=== PATIENT | male | born 1945 | race African-American/Black ===

== ENCOUNTER 2016-10-18 11:03 | Emergency (ER) | payer OTHER, MEDICAID ==
[~2016-10-18 11:03] MED LIST: ALBU1AER INH; ASPI81TA82 PO; DOCU1CAP39 PO; FERR324T4 PO; FURO20TA PO; KLOR20TA6 PO; LANTUSP SQ; LOSA100T PO; METO50TA PO; MORP30SU PO; PROT40TA PO; SIMV40TA PO; TIOT1AER; TRAD5TAB PO; VITA200017 PO
[2016-10-18 11:05] VITALS: BP 159/67; PULSE 61; RESP 16; TEMP 98.2; O2SAT 99
--- NOTE | 2016-10-18 16:17 | PD ---
HPI Chief Complaint: Skin Problem Time Seen by Provider: 15:18 Travel History International Travel<30 days: No Contact w/Intl Traveler<30days: No Traveled to known affect area: No History of Present Illness HPI Is a 71-year-old man who presents to the emergency department complaining of bleeding from all left groin wound. He apparently had an I&D of the left groin mass that was ultimately an abscess and ultimately is found to be a malignant tumor. He's had biopsies of it done. He's been ongoing for what he reports as a couple months. He states he is due to start chemotherapy. He gets wound care for the wound. The wound care [employer] saw him today. She noted significant bleeding and so referred him to the emergency department. They note that they sent with them also noted that the wound is increased in size. History Past Medical History Narrative Medical Malignancy 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 Alcohol Use: No Tobacco Use: No Allergies-Medications (Allergen,Severity, Reaction): Coded Allergies: No Known Allergies (Verified , 04/21/16) Reported Meds & Prescriptions Reported Meds & Active Scripts Active Ferrous Sulfate 325 Mg Tab 325 Mg PO BID 30 Days Protonix (Pantoprazole Sodium) 40 Mg Tab 40 Mg PO DAILY 30 Days Colace 100 Mg Cap (Docusate Sodium) 100 Mg Cap 100 Mg PO BID 30 Days Reported Vitamin D3 (Cholecalciferol) 2,000 Unit Chw 2,000 Unit PO Tradjenta (Linagliptin) 5 Mg Tab 5 Mg PO DAILY Stiolto Respimat 2.5-2.5 Mcg/Act (Tiotropium [place]-Olodaterol) 1 Aer Aer Furosemide 20 Mg Tab 20 Mg PO DAILY Klor-Con M20 (Potassium Chloride Microencaps) 20 Meq Tab 20 Meq PO DAILY Aspir-81 (Aspirin) 81 Mg Tab 81 Mg PO DAILY Losartan Potassium 100 MG (Losartan Potassium) 100 Mg Tab 100 Mg PO DAILY Proair Hfa (Albuterol Sulfate) 8.5 Gm Aero 2 Puff INH BID PRN * SHAKE WELL BEFORE USE * Morphine Sulfate Er (Morphine Sulfate) 30 Mg Tab 30 Mg PO TID Lantus (Insulin Glargine) 100 Units/Ml Inj 45 Units SQ HS Simvastatin 40 Mg Tab 40 Mg PO HS Lopressor (Metoprolol Tartrate) 50 Mg Tab 50 Mg PO BID Review of Systems General / Constitutional: No: Fever, Chills Physical Exam Narrative GENERAL: 71-year-old man, no acute distress. SKIN: Warm and dry. CARDIOVASCULAR: Warm and well perfused. RESPIRATORY: Normal rate and effort. MUSCULOSKELETAL: Examination of the left groin reveals a large tumor in the medial very proximal thigh with an ulcerated wound. Wound base has a little bit of fibrinous exudate. There is no active bleeding. NEUROLOGICAL: Awake and alert. No gross deficits. Data Data Last Documented VS Vital Signs Date Time Temp Pulse Resp B/P Pulse Ox O2 Delivery O2 Flow Rate FiO2 10/18/16 11:05 98.2 61 16 159/67 99 MDM Medical Decision Making Medical Screen Exam Complete: Yes Emergency Medical Condition: Yes Differential Diagnosis Malignant wound, bleeding, other Narrative Course Medical decision making INITIAL: This 71-year-old man presents emergency Department with bleeding from what sounds like a malignant wound on his leg. He is due to start chemotherapy for this. I examine the wound. He states that they had some concern that it was ulcerating deeper and may approach the femoral vessels in the leg. I looked under ultrasound and the wound is remote from the femoral vessels. There is no active bleeding now. I applied wound seal powder to the base to help cauterize the base to prevent further bleeding. We then placed in alginate dressing and sterile dressing. His wound care team comes twice a week. They'll come back on Monday to reevaluate the wound. I instructed him if he has any bleeding from the wound apply direct pressure. This does not stop the bleeding and is to call 911 and return to the emergency department. These wounds are notoriously vascular and prone to bleeding. Diagnosis Primary Impression: Bleeding from wound Additional Instructions: If bleeding recurs, apply direct pressure. If this does not stop the bleeding call 911 and return to the emergency department. Follow-up with your wound care doctor. Med/Other Pt SpecificInfo: No Change to Meds Disposition: 01 DISCHARGE HOME Condition: Stable Jackson Henriquez MD Oct 18, 2016 16:16
[2016-10-19] MEDS ORDERED: TOPR50TA PO (10:04)
[2016-10-19] MEDS ORDERED: POTA1TAB4 PO (10:04)
[2016-10-19] MEDS ORDERED: GABA300C5 PO (10:04)
[2016-10-19] MEDS ORDERED: HYDR25TA35 PO (10:04)
[2016-10-19] MEDS ORDERED: FERR325T PO (10:04)
[2016-10-19] MEDS ORDERED: MORP1TAB25 PO (10:04)
[2016-10-19] MEDS ORDERED: ISOS30TA3 PO (10:04)
[2016-10-19] MEDS ORDERED: FURO1TAB60 PO (10:04)
[2016-10-19] MEDS ORDERED: SYMB160A INH (10:04)
[2016-10-19] MEDS ORDERED: SULF1TAB23 PO (10:04)
[2016-10-19] MEDS ORDERED: LOSA25TA PO (10:04)
[2016-10-19] MEDS ORDERED: PROT40TA PO (10:04)
[2016-10-19] MEDS ORDERED: IPRA0.02 NEB (10:04)
== END 2016-10-18 17:28 | disposition home or self-care (01) ==
LOC: NEPC 11:03
DX: C80.1 Malignant (primary) neoplasm, unspecified (principal)
CPT/HCPCS: 99282

== ENCOUNTER → 2016-10-20 | Day surgery (SDC) | payer OTHER, MEDICAID ==
[~2016-10-20] VITALS: Ht 174 cm; Wt 86.9 kg
[~2016-10-20] MED LIST changes: -ALBU1AER INH; +ALBU4TAB4 PO; -ASPI81TA82 PO; +CHLORHEXIDINE GLUCONATE 2 % 1 PACK (2 CLOTHS) TOPICAL PRN; +DEXAMETHASONE SOD PHOS 4 MG/ML VIAL ONE; +DO NOT ADM ANY ANTICOAGULANT DRUGS PRN; -DOCU1CAP39 PO; +DOXY1CAP74 PO; +DULO1CAP PO; +FAMOTIDINE 20 MG/2 ML VIAL ONE; -FERR324T4 PO; +FERR325T PO; +FURO1TAB60 PO; -FURO20TA PO; +GABA300C5 PO; +HEPARIN SODIUM - SQ 10,000 UNITS/ML VIAL ONE; +HUMALOG SQ; +HYDR25TA35 PO; +INSULIN HUMAN REGULAR 1,000 UNITS/10 ML VIAL SQ PRN; +IPRA0.02 NEB; +ISOS30TA3 PO; -KLOR20TA6 PO; +LACTATED RINGER'S 1000 ML IV PRN; -LANTUSP SQ; +LIDOCAINE 1%/EPINEPHrine 1:100,000 SOLN 20 ML VIAL ONE; -LOSA100T PO; +LOSA25TA PO; -METO50TA PO; +METOPROLOL TARTRATE 25 MG TAB PO PRN; +MIDAZOLAM HCL 2 MG/2 ML VIAL ONE; +MORP1TAB25 PO; -MORP30SU PO; +NITR1SUB3 SL; +ONDANSETRON HCL 4 MG/2 ML VIAL IV PUSH ONE; +POTA1TAB4 PO; +POVIDONE IODINE 5% (ANTISEPSIS KIT) 4 APPLICATIONS EACH NARE PRN; +PROPOFOL 200 MG/20 ML AMP IV ONE; +SODIUM CHLORID 0.9% 500 ML IV PRN; +SODIUM CHLORIDE 0.9% 20 ML VIAL ONE; +SULF1TAB23 PO; +SYMB160A INH; -TIOT1AER; +TOPR50TA PO; -TRAD5TAB PO; +TRAZ50TA12 PO; +VENTAER INH; -VITA200017 PO; +ceFAZolin 2 GM PREMIX 50 ML IV SCH; +ceFAZolin 2 GM PREMIX 50 ML ONE; +fentaNYL CITRATE 250 MCG/5 ML AMP ONE; +oxyCODONE/ACETAMINOPHEN 5 MG/325 MG TAB PO ONE
[2016-10-20 10:05] VITALS: BP 146/65; PULSE 60; RESP 18; TEMP 98; O2SAT 98
[2016-10-20 11:33] LABS: AUTOMATED NEUTROPHIL # 1.4 TH/MM3 (1.8-7.7); BASOPHIL % 0.5 % (0.0-2.0); EOSINOPHIL % 1.2 % (0.0-4.0); HEMATOCRIT 28.7 % (39.0-51.0); LYMPH % 27.8 % (9.0-44.0); LYMPHOCYTE # 0.6 TH/MM3 (1.0-4.8); MEAN CELL VOLUME 90.3 FL (80.0-100.0); MEAN CORPUSCULAR HEMOGLOBIN 29.4 PG (27.0-34.0); MEAN CORPUSCULAR HGB CONC 32.5 % (32.0-36.0); MONO % 9.5 % (0.0-8.0); PLATELET COUNT 50 TH/MM3 (150-450); RED BLOOD COUNT 3.18 MIL/MM3 (4.50-5.90); RED CELL DISTRIBUTION WIDTH 14.5 % (11.6-17.2); WHITE BLOOD COUNT 2.3 TH/MM3 (4.0-11.0)
[2016-10-20 11:37] LABS: HEMO FLAGS AUTO DIFF
[2016-10-20 11:43] LABS: APTT (PATIENT) 30.4 SEC (24.3-30.1); INTERNATIONAL NORMALIZED RATIO 1.2 RATIO; PROTHROMBIN TIME - PATIENT 13.9 SEC (9.8-11.6)
[2016-10-20 11:54] LABS: BICARBONATE 25.9 MEQ/L (21.0-32.0); POTASSIUM 4.2 MEQ/L (3.5-5.1)
[2016-10-20 12:23] LABS: SCAN/DIFF AUTO DIFF CONFIRMED
--- NOTE | 2016-10-20 13:03 | HHI.PR ---
Immediate Post Op Note Procedure Date: Oct 20, 2016 Pre Op Diagnosis: b cell lymphoma Post Op Diagnosis: same Surgeon: Ricardo Macdonald MD Vb Developer(s): see or sheet Procedure: left subclavian infusaport placement Findings: good flush good return through port Complications: none Specimen(s) removed: none Estimated blood loss: 5cc Anesthesia: MAC Drains: None IVF (600) Patient to: PACU Patient Condition: Good Ricardo Macdonald MD Oct 20, 2016 13:03
--- NOTE | 2016-10-20 14:44 | RADRPT ---
EXAM DATE/TIME: 10/20/2016 13:11 [facility] COMPARISON: CHEST SINGLE AP, April 23, 2016, 8:09. INDICATIONS : Port placement MEDICAL HISTORY : Chronic obstructive pulmonary disease. Hypertension Congestive heart failure. SURGICAL HISTORY : CABG. ENCOUNTER: Initial ACUITY: 1 day PAIN SCORE: Non-responsive. LOCATION: Bilateral chest FINDINGS: Single AP view of the chest. Median sternotomy wires. Left-sided [id number] in place with the tip in the region of the cavoatrial junction. Cardiac silhouette is enlarged and grossly unchanged. Lungs are clear. No evidence of pleural effusion or pneumothorax. Metallic coils in the left subclavian re gion. CONCLUSION: [id number] in place with tip at the cavoatrial junction. No evidence of pneumothorax. Vince Neri MD on October 20, 2016 at 14:42 Board Certified Radiologist. This report was verified electronically.
[2016-10-20 16:00] VITALS: BP 145/68; PULSE 58; RESP 20; TEMP 97.9; O2SAT 97
--- NOTE | 2016-10-25 10:58 | MP ---
cc: EUGENIA MACDONALD MD DATE OF SURGERY 10/20/2016 PREOPERATIVE DIAGNOSIS B-cell lymphoma, in need of venous access. POSTOPERATIVE DIAGNOSIS B-cell lymphoma, in need of venous access. PROCEDURE PERFORMED Left subclavian Port-A-Cath placement. SURGEON Dr. Eugenia Macdonald SUPERVISOR ADULT EDUCATION See OR sheet ANESTHESIA MAC anesthesia. IV FLUIDS 600 cc. ESTIMATED BLOOD LOSS 5 cc. DRAINS None. COMPLICATIONS None. WOUND CLASSIFICATION Clean. FINDINGS Good flush, good return of port. SPECIMENS None. INDICATION The patient is a 71-year-old male who presented with initial findings of scrotal mass. Biopsy-proven positive for B-cell lymphoma. The patient discussed with Oncology, necessitated the patient getting chemotherapy. Therefore decision was for Port-A-Cath placement. The procedure was discussed in detail with the patient. The patient stated understanding and agreed. DETAILS OF PROCEDURE The patient was taken to the operating suite, placed in supine position. He was prepped and draped in the usual sterile fashion after induction of general endotracheal anesthesia. After a brief time-out and MAC anesthesia, attention was directed to the left chest. The clavicle was identified. Landmarks were identified. A local anesthetic was then injected. The introducer needle was placed and accessed the left subclavian vein. Prior to this the patient was placed in Trendelenburg position and on first attempt the subclavian was accessed with the introducer needle. Once this was done, the guidewire was obtained and introduced through the medial, down the vessel. This was done in a Seldinger technique. The needle was removed over the guidewire. Fluoroscopy was used to confirm venous placement. Next, local anesthetic was injected just distally at the place where the port was to sit in the pocket in the tract. Adequate local anesthetic was injected. Stab/debi incision made over the wire. After this was done and pocket was created with a scalpel and electro-Bovie cautery, the introducer sheath was introduced over the guidewire into the vessel. The catheter was obtained and after the housing and the guidewire was removed, the catheter was placed through the incision port pocket and placed into the introducer sheath and cannulated through the subclavian. Fluoroscopy was used to obtain appropriate position and SVT appropriately. The tubing was cut to size and the Port-A-Cath was obtained. The tubing had been flexed along with the port with heparinized saline. The tube was cut and the port was connected with the locking connector device. The port was then sutured to the chest wall fascia using a 3-0 Prolene sutures x 3. Port then placed within the abdominal wound and again secured in place. The port was then introduced with the Irvin needle and heparinized saline, was flushed and aspirated appropriately. Following this, a second fluoroscopy was used to confirm intravascular placement and position. Port pocket hemostasis was obtained with electro-Bovie cautery. 3-0 Vicryl interrupted suture was used for the subcutaneous tissue, followed by a running 4-0 Monocryl subcuticular suture. The stab/debi incision was also closed with simple 4-0 Monocryl suture. Following this the patient was then placed back flat and tolerated the procedure well. There was no intraoperative complication. The patient was taken stable to the PACU. Chest x-ray is pending to confirm placement and rule out any pneumothorax. MD YIFAN John/GANESH /9:21 PM /10:46 AM
== END | disposition home or self-care (01) ==
LOC: HSDC 08:55
PROVIDERS: ATTEND Surgery
DX: Z45.2 Encounter for adjustment and management of vascular access device (principal); C85.15 Unspecified B-cell lymphoma, lymph nodes of inguinal region and lower limb; I10 Essential (primary) hypertension; J44.9 Chronic obstructive pulmonary disease, unspecified; Z79.01 Long term (current) use of anticoagulants
CPT/HCPCS: 00532; 36561; 71010; 77001; 80048; 85025; 85610; 85730; C1788; J0690; J1100; J1644; J2250; J2405; J7120; J3010

== ENCOUNTER 2016-10-31 07:41 | Day surgery (SDC) | payer OTHER, MEDICAID ==
[2016-10-31] VITALS (9 sets, daily range): BP systolic 149–190; BP diastolic 70–90; PULSE 63–73; RESP 18–20; TEMP 97.9–98.2; O2SAT 90–97
[~2016-10-31] VITALS: Ht 174 cm; Wt 86.8 kg
[~2016-10-31 07:41] MED LIST changes: -ALBU4TAB4 PO; -CHLORHEXIDINE GLUCONATE 2 % 1 PACK (2 CLOTHS) TOPICAL PRN; -DEXAMETHASONE SOD PHOS 4 MG/ML VIAL ONE; -DO NOT ADM ANY ANTICOAGULANT DRUGS PRN; -DOXY1CAP74 PO; -DULO1CAP PO; -FAMOTIDINE 20 MG/2 ML VIAL ONE; -HEPARIN SODIUM - SQ 10,000 UNITS/ML VIAL ONE; -HUMALOG SQ; -INSULIN HUMAN REGULAR 1,000 UNITS/10 ML VIAL SQ PRN; -LACTATED RINGER'S 1000 ML IV PRN; -LIDOCAINE 1%/EPINEPHrine 1:100,000 SOLN 20 ML VIAL ONE; -METOPROLOL TARTRATE 25 MG TAB PO PRN; -MIDAZOLAM HCL 2 MG/2 ML VIAL ONE; -NITR1SUB3 SL; -ONDANSETRON HCL 4 MG/2 ML VIAL IV PUSH ONE; -POVIDONE IODINE 5% (ANTISEPSIS KIT) 4 APPLICATIONS EACH NARE PRN; -PROPOFOL 200 MG/20 ML AMP IV ONE; -SIMV40TA PO; -SODIUM CHLORID 0.9% 500 ML IV PRN; -SODIUM CHLORIDE 0.9% 20 ML VIAL ONE; -TRAZ50TA12 PO; -VENTAER INH; -ceFAZolin 2 GM PREMIX 50 ML IV SCH; -ceFAZolin 2 GM PREMIX 50 ML ONE; -fentaNYL CITRATE 250 MCG/5 ML AMP ONE; -oxyCODONE/ACETAMINOPHEN 5 MG/325 MG TAB PO ONE
[2016-10-31] MEDS ORDERED: HUMALOG SQ (08:07)
[2016-10-31] MEDS ORDERED: ALBU4TAB4 PO (08:07)
[2016-10-31] MEDS ORDERED: TRAZ50TA12 PO (08:07)
[2016-10-31] MEDS ORDERED: SIMV40TA PO (08:07)
[2016-10-31] MEDS ORDERED: VENTAER INH (08:07)
[2016-10-31] MEDS ORDERED: DULO1CAP PO (08:07)
[2016-10-31 08:37] LABS: AUTOMATED NEUTROPHIL # 1.8 TH/MM3 (1.8-7.7); BASOPHIL % 0.6 % (0.0-2.0); EOSINOPHIL % 0.8 % (0.0-4.0); HEMATOCRIT 27.3 % (39.0-51.0); LYMPHOCYTE # 0.8 TH/MM3 (1.0-4.8); MEAN CELL VOLUME 90.1 FL (80.0-100.0); MEAN CORPUSCULAR HEMOGLOBIN 30.2 PG (27.0-34.0); MEAN CORPUSCULAR HGB CONC 33.5 % (32.0-36.0); MONO % 10.5 % (0.0-8.0); NEUT % 61.1 % (16.0-70.0); PLATELET COUNT 37 TH/MM3 (150-450); RED BLOOD COUNT 3.03 MIL/MM3 (4.50-5.90); RED CELL DISTRIBUTION WIDTH 15.1 % (11.6-17.2); WHITE BLOOD COUNT 2.9 TH/MM3 (4.0-11.0)
[2016-10-31] MEDS ORDERED: NITR1SUB3 SL (08:37)
[2016-10-31 08:40] LABS: HEMO FLAGS AUTO DIFF
[2016-10-31 08:48] LABS: APTT (PATIENT) 40.1 SEC (24.3-30.1); INTERNATIONAL NORMALIZED RATIO 1.2 RATIO; PROTHROMBIN TIME - PATIENT 13.9 SEC (9.8-11.6)
[2016-10-31] MEDS ORDERED: SODIUM CHLOR 0.9% 1000 ML IV SCH (09:00)
[2016-10-31 09:02] LABS: OVALOCYTES 1+ (NORMAL); PLATELET ESTIMATE SMEAR LOW (NORMAL); PLATELET MORPHOLOGY NORMAL (NORMAL); SCAN/DIFF AUTO DIFF CONFIRMED
[2016-10-31] MEDS ORDERED: LIDOCAINE 1%/EPINEPHrine 1:100,000 SOLN 20 ML VIAL ONE (11:06)
[2016-10-31] MEDS ORDERED: MIDAZOLAM HCL 5 MG/5 ML VIAL ONE (11:40)
[2016-10-31] MEDS ORDERED: fentaNYL CITRATE 250 MCG/5 ML AMP ONE (11:41)
[2016-10-31] MEDS: oxyCODONE/ACETAMINOPHEN 5 MG/325 MG TAB PO PRN ×2 (13:36→14:55)
--- NOTE | 2016-10-31 13:54 | RADRPT ---
EXAM DATE/TIME: 10/31/2016 11:59 [facility] COMPARISON: No previous studies available for comparison. INDICATIONS : Right lung mass. SEDATION TIME: 40 minutes BIOPSY SITE: Right lung MEDICATION(S): 1.) 3 mg midazolam (Versed) IV 2.) 200 mcg fentanyl (Sublimaze) BOX HINGE AND LOCK ATTACHER(s): Emelia Talavera RN DEVICE(S): 1.) 20 gauge Temno core biopsy needle 2.) 18 gauge Ge blunt needle MEDICAL HISTORY : Hepatitis C. Chronic obstructive pulmonary disease. Hypertension. diabetes SURGICAL HISTORY : None. ENCOUNTER: Initial ACUITY: 1 day PAIN SCORE: 0/10 LOCATION: Bilateral chest A total of four core specimen(s) were obtained and sent to the laboratory for pathologic evaluation. PROCEDURE: 1. CT guided lung biopsy of a right lower lobe nodule. 2. Conscious sedation with continuous EKG and oximetry monitoring. 3. EKG and oximetry remained stable throughout the procedure. Prior to the procedure informed consent was obtained. The patient's outside CT scans were reviewed. U sing automated exposure control and adjustment of the mA and/or kV according to patient size, radiati on dose was kept as low as reasonably achievable to obtain optimal diagnostic quality images. The site was prepped in a sterile fashion. Full sterile technique was used, including cap, mask, lópez rile gloves and gown and a large sterile sheet. Hand hygiene and 2% chlorhexidine and/or betadine/al cohol prep was utilized per protocol for cutaneous antisepsis. The skin and subcutaneous tissues wer e infiltrated with local anesthetic solution. With CT guidance the medial right lower lobe lung nodule was localized. Biopsy was performed using th e prescribed needle as above. Adequate hemostasis was obtained with compression at the puncture site . Follow-up CT scan reveals no pneumothorax. Conscious sedation was performed with the prescribed dosages and duration as above in the presence of an independent trained radiology nurse to assist in the monitoring of the patient. EKG and oximetry remained stable throughout the procedure. The patient tolerated the procedure well and there were no complications. The patient was sent to Radiology Outpatient Unit in stable condition. CONCLUSION: Uncomplicated CT guided biopsy of the right lower lobe lung nodule. Nghia Lira MD on October 31, 2016 at 13:51 Board Certified Radiologist. This report was verified electronically.
--- NOTE | 2016-10-31 14:31 | RADRPT ---
EXAM DATE/TIME: 10/31/2016 13:42 [facility] COMPARISON: CHEST SINGLE AP, October 20, 2016, 13:11. INDICATIONS : Evaluate for pneumothorax post right lung biopsy MEDICAL HISTORY : Hepatitis C. Hypertension Chronic obstructive pulmonary disease. SURGICAL HISTORY : None. ENCOUNTER: Initial ACUITY: 1 day PAIN SCORE: 0/10 LOCATION: Right chest FINDINGS: Sternotomy wires and metallic coils are again seen overlying the chest. Left-sided portacatheter is p resent. Cardiomegaly is noted. There is no definite evidence for pneumothorax. CONCLUSION: No acute disease. Pritesh Lord MD on October 31, 2016 at 14:29 Board Certified Radiologist. This report was verified electronically.
[2016-10-31] MEDS ORDERED: hydrALAZINE HCL 25 MG TAB PO ONE (14:45)
--- NOTE | 2016-10-31 15:04 | RADRPT ---
EXAM DATE/TIME: 10/31/2016 14:42 [facility] COMPARISON: CHEST SINGLE AP, October 31, 2016, 13:42. INDICATIONS : Post lung biopsy, evaluate for pneumothorax MEDICAL HISTORY : Hypertension. Hepatitis C. Chronic obstructive pulmonary disease. SURGICAL HISTORY : CABG. ENCOUNTER: Subsequent ACUITY: 1 day PAIN SCORE: 0/10 LOCATION: Bilateral chest FINDINGS: Sternotomy wires are present. A left-sided portacatheter is noted with metallic coil artifact overlyi ng the left lung apex. There is no evidence of pneumothorax. Cardiomegaly. Clear lungs. CONCLUSION: No evidence of pneumothorax. Pritesh Lord MD on October 31, 2016 at 15:01 Board Certified Radiologist. This report was verified electronically.
== END 2016-10-31 16:16 | disposition home or self-care (01) ==
LOC: HRAD 07:41 → HRIP 07:42 → HRAD 16:16
PROVIDERS: ATTEND Internal Medicine Hematology & Oncology
DX: R91.8 Other nonspecific abnormal finding of lung field (principal); C85.90 Non-Hodgkin lymphoma, unspecified, unspecified site; I10 Essential (primary) hypertension; B19.20 Unspecified viral hepatitis C without hepatic coma; J44.9 Chronic obstructive pulmonary disease, unspecified; E11.9 Type 2 diabetes mellitus without complications; Z79.84 Long term (current) use of oral hypoglycemic drugs; Z95.1 Presence of aortocoronary bypass graft
CPT/HCPCS: 32405; 36430; 71010; 77012; 85025; 85610; 85730; 86965; 88305; 88341; 88342; J1642; J2250; J3010; J7030; P9035

== ENCOUNTER 2016-12-02 08:42 | Day surgery (SDC) | payer OTHER, MEDICAID ==
[~2016-12-02] VITALS: Ht 175.3 cm; Wt 89.5 kg
[~2016-12-02 08:42] MED LIST changes: +ALBU4TAB4 PO; +DULO1CAP PO; +HUMALOG SQ; +NITR1SUB3 SL; +SIMV40TA PO; -SULF1TAB23 PO; +TRAZ50TA12 PO; +VENTAER INH
[2016-12-02 09:03] VITALS: BP 168/74; PULSE 57; RESP 20; TEMP 98.5; O2SAT 95
[2016-12-02] MEDS ORDERED: DOXY1CAP74 PO (09:06)
[2016-12-02] MEDS ORDERED: SODIUM CHLOR 0.9% 1000 ML IV SCH (09:15)
[2016-12-02 09:43] LABS: AUTOMATED NEUTROPHIL # 1.3 TH/MM3 (1.8-7.7); BASOPHIL % 0.5 % (0.0-2.0); EOSINOPHIL # 0.1 TH/MM3 (0-0.4); EOSINOPHIL % 2.7 % (0.0-4.0); HEMATOCRIT 27.5 % (39.0-51.0); LYMPH % 30.2 % (9.0-44.0); LYMPHOCYTE # 0.7 TH/MM3 (1.0-4.8); MEAN CELL VOLUME 90.7 FL (80.0-100.0); MEAN CORPUSCULAR HEMOGLOBIN 28.8 PG (27.0-34.0); MEAN CORPUSCULAR HGB CONC 31.7 % (32.0-36.0); MONO % 10.1 % (0.0-8.0); NEUT % 56.5 % (16.0-70.0); PLATELET COUNT 42 TH/MM3 (150-450); RED BLOOD COUNT 3.03 MIL/MM3 (4.50-5.90); RED CELL DISTRIBUTION WIDTH 15.1 % (11.6-17.2); WHITE BLOOD COUNT 2.2 TH/MM3 (4.0-11.0)
[2016-12-02 09:47] LABS: HEMO FLAGS AUTO DIFF
[2016-12-02 09:52] LABS: APTT (PATIENT) 36.9 SEC (24.3-30.1); INTERNATIONAL NORMALIZED RATIO 1.3 RATIO; PROTHROMBIN TIME - PATIENT 14.5 SEC (9.8-11.6)
[2016-12-02 10:20] LABS: PLATELET ESTIMATE SMEAR LOW (NORMAL); PLATELET MORPHOLOGY NORMAL (NORMAL); SCAN/DIFF AUTO DIFF CONFIRMED
[2016-12-02] MEDS ORDERED: LIDOCAINE 1%/EPINEPHrine 1:100,000 SOLN 20 ML VIAL ONE (10:37)
[2016-12-02] MEDS ORDERED: SODIUM BICARB 8.4% (PED) INJ 10 MEQ/10 ML SYR ONE (10:38)
[2016-12-02] MEDS ORDERED: MIDAZOLAM HCL 5 MG/5 ML VIAL ONE (10:59)
[2016-12-02] MEDS ORDERED: fentaNYL CITRATE 250 MCG/5 ML AMP ONE (10:59)
[2016-12-02 12:15] VITALS: BP 142/60; PULSE 56; RESP 20; TEMP 97.8; O2SAT 97
[2016-12-02 12:30] VITALS: BP 139/59; PULSE 54; RESP 18; O2SAT 97
[2016-12-02 13:00] VITALS: BP 152/62; PULSE 56; RESP 18; O2SAT 97
[2016-12-02 13:00] LABS: BONE MARROW PROCESSING COMPLETE; IRON STAIN DONE; JENNER GIEMSA STAIN DONE
[2016-12-02] MEDS ORDERED: oxyCODONE/ACETAMINOPHEN 5 MG/325 MG TAB PO PRN (13:00)
[2016-12-02 13:30] VITALS: BP 156/76; PULSE 60; RESP 18; O2SAT 97
[2016-12-02 14:00] VITALS: BP 161/65; PULSE 55; RESP 18; O2SAT 97
--- NOTE | 2016-12-02 15:57 | RADRPT ---
EXAM DATE/TIME: 12/02/2016 11:17 [facility] COMPARISON: No previous studies available for comparison. INDICATIONS : Non-Hodgkins lymphoma SEDATION TIME: 30 minutes BIOPSY SITE: Right iliac MEDICATION(S): 1.) 3 mg midazolam (Versed) IV 2.) 150 mcg fentanyl (Sublimaze) IV DEVICE(S): 1.) 11 gauge Bone marrow biopsy needle MEDICAL HISTORY : Diabetes mellitus type 2. Cardiovascular disease. Hypertension. SURGICAL HISTORY : CABG ENCOUNTER: Initial ACUITY: 1 day PAIN SCORE: 0/10 LOCATION: Right pelvis A total of one core specimen(s) were obtained and sent to the laboratory for pathologic evaluation. PROCEDURE: 1. CT guided bone marrow biopsy. 2. Conscious sedation with continuous EKG and oximetry monitoring. Prior to the procedure informed consent was obtained. Any appropriate prior imaging studies were rev iewed. Using automated exposure control and adjustment of the mA and/or kV according to patient size , radiation dose was kept as low as reasonably achievable to obtain optimal diagnostic quality images . The site was prepped in a sterile fashion. Full sterile technique was used, including cap, mask, lópez rile gloves and gown and a large sterile sheet. Hand hygiene and 2% chlorhexidine and/or betadine/al cohol prep was utilized per protocol for cutaneous antisepsis. The skin and subcutaneous tissues wer e infiltrated with local anesthetic solution. With CT guidance the previously identified target was localized. Biopsy was performed using the presc ribed needle as above. Following biopsy marrow aspiration was performed with repeat puncture. Adequa te hemostasis was obtained with compression at the puncture site. Follow-up CT scan reveals no hemorrhage. Conscious sedation was performed with the prescribed dosages and duration as above in the presence of an independent trained radiology nurse to assist in the monitoring of the patient. EKG and oximetry remained stable throughout the procedure. The patient tolerated the procedure well and there were no complications. The patient was sent to Radiology Outpatient Unit in stable condition. CONCLUSION: 1. Uncomplicated CT guided bone marrow aspirate. 2. Uncomplicated CT guided bone marrow biopsy. Josiah Anderson MD on December 02, 2016 at 15:55 Board Certified Radiologist. This report was verified electronically.
== END 2016-12-02 14:00 | disposition home or self-care (01) ==
LOC: HRAD 08:42 → HRIP 08:46 → HRAD 14:00
PROVIDERS: ATTEND Internal Medicine Hematology & Oncology
DX: C85.90 Non-Hodgkin lymphoma, unspecified, unspecified site (principal); D61.818 Other pancytopenia; E11.9 Type 2 diabetes mellitus without complications; I25.10 Atherosclerotic heart disease of native coronary artery without angina pectoris; I10 Essential (primary) hypertension; Z95.1 Presence of aortocoronary bypass graft; Z01.818 Encounter for other preprocedural examination
CPT/HCPCS: 38221; 77012; 81342; 85025; 85097; 85610; 85730; 88184; 88185; 88237; 88264; 88280; 88305; 88311; 88313; 99152; 99153; C1830; G0364; J1642; J2250; J3010; 81261

== ENCOUNTER 2017-05-02 17:15 | Emergency (ER) | payer OTHER ==
[~2017-05-02] VITALS: Ht 172.7 cm; Wt 70.0 kg
[~2017-05-02 17:15] MED LIST changes: +DOXY1CAP74 PO; -DULO1CAP PO; -GABA300C5 PO; -LOSA25TA PO; -SIMV40TA PO
[2017-05-02 17:17] VITALS: BP 139/63; PULSE 55; RESP 20; TEMP 98.8; O2SAT 96
--- NOTE | 2017-05-02 17:29 | PD ---
Physical Exam Date Seen by Provider: May 02, 2017 Time Seen by Provider: 17:26 Narrative 71 year old male here for evaluation of abnormal labs. Per patient for low platelets. Sent here by his doctor. Complains of back pain which appears to be chronic. No bleeding. Vitals are stable in triage. Awaiting bed placement. Data Data Last Documented VS Vital Signs Date Time Temp Pulse Resp B/P (MAP) Pulse Ox O2 Delivery O2 Flow Rate FiO2 05/02/17 17:17 98.8 55 20 139/63 (88) 96 Room Air [facility] Medical Record Reviewed: Yes Supervised Visit with EMMANUEL: No Ezra Moreira May 02, 2017 17:28
[2017-05-02] MEDS ORDERED: GABA300C5 PO (18:52)
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
[2017-05-02 20:10] LABS: BASOPHIL % 0.3 % (0.0-2.0); EOSINOPHIL % 0.4 % (0.0-4.0); HEMATOCRIT 26.5 % (39.0-51.0); LYMPH % 9.2 % (9.0-44.0); LYMPHOCYTE # 0.2 TH/MM3 (1.0-4.8); MEAN CELL VOLUME 92.7 FL (80.0-100.0); MEAN CORPUSCULAR HEMOGLOBIN 30.5 PG (27.0-34.0); MEAN CORPUSCULAR HGB CONC 32.9 % (32.0-36.0); MONO % 27.8 % (0.0-8.0); NEUT % 62.3 % (16.0-70.0); PLATELET COUNT 22 TH/MM3 (150-450); RED BLOOD COUNT 2.86 MIL/MM3 (4.50-5.90); RED CELL DISTRIBUTION WIDTH 15.8 % (11.6-17.2); WHITE BLOOD COUNT 1.7 TH/MM3 (4.0-11.0)
[2017-05-02 20:16] LABS: HEMO FLAGS AUTO DIFF
[2017-05-02 21:05] LABS: KERATOCYTES OCC (NORMAL); OVALOCYTES 1+ (NORMAL); PLATELET ESTIMATE SMEAR LOW (NORMAL); PLATELET MORPHOLOGY NORMAL (NORMAL); SCAN/DIFF AUTO DIFF CONFIRMED
== END 2017-05-02 20:45 | disposition home or self-care (01) ==
LOC: NEPE 17:15
DX: D69.6 Thrombocytopenia, unspecified (principal); K74.60 Unspecified cirrhosis of liver; C85.90 Non-Hodgkin lymphoma, unspecified, unspecified site; Z92.21 Personal history of antineoplastic chemotherapy
CPT/HCPCS: 85025; 99283

== ENCOUNTER 2017-06-12 16:46 | Inpatient (IN) | payer OTHER, MEDICARE ==
[~2017-06-12] VITALS: Ht 165.1 cm; Wt 73.0 kg
[~2017-06-12 16:46] MED LIST changes: -DOXY1CAP74 PO; -FERR325T PO; +GABA300C5 PO; -HYDR25TA35 PO; -SYMB160A INH
[2017-06-12 16:57] VITALS: BP 183/92; PULSE 57; RESP 18; TEMP 97.5
[2017-06-12] MEDS ORDERED: SODIUM CHLORIDE 0.9% FLUSH 5 ML FLUSH IV FLUSH PRN ×2 (17:00→20:15)
--- NOTE | 2017-06-12 17:11 | PD ---
HPI Chief Complaint: Altered Mental Status Time Seen by Provider: 16:56 Travel History International Travel<30 days: No Contact w/Intl Traveler<30days: No Traveled to known affect area: No History of Present Illness HPI PER REPORT, PATIENT WAS AT [place] FOR A REGULAR CLINIC APPOINTMENT AND DISCHARGED. A STAFF AT CLINIC WALKED OUT AND FOUND PATIENT SITTING IN HIS CAR, WHEN PT WAS QUESTIONED HE WAS CONFUSED AND THUS STAFF MEMBER CALLED 911 TO HAVE HIM TAKEN TO THE [facility]. PER STAFF HE WAS A/O WHEN HE LEFT CLINIC. PMHX:CABBGX3, HTN, HYPERCHOL, COPD, LYMPHOMA, ANEMIA , CKD PFSH Past Medical History Arthritis: No Asthma: Yes Autoimmune Disease: No Blood Disorders: No Anxiety: No Depression: Yes Heart Rhythm Problems: No Cancer: Yes Cardiac Catheterization: Yes Cardiovascular Problems: Yes High Cholesterol: Yes Chemotherapy: Yes Chest Pain: No Congestive Heart Failure: Yes COPD: Yes Cerebrovascular Accident: No Diabetes: Yes Diminished Hearing: No Endocrine: No Gastrointestinal Disorders: Yes (LIVER ENZYMES GO UP AND DOWN) GERD: No Glaucoma: No Genitourinary: No Headaches: No Hepatitis: Yes (HEP. C) Hiatal Hernia: No Hypertension: Yes Immune Disorder: No Kidney Stones: No Musculoskeletal: No Neurologic: No Psychiatric: No Reproductive: No Respiratory: Yes Migraines: No Radiation Therapy: No Renal Failure: No Seizures: No Sickle Cell Disease: No Sleep Apnea: Yes Thyroid Disease: No Ulcer: No Past Surgical History Abdominal Surgery: No AICD: No Appendectomy: No Arteriovenous Shunt: No Body Medical Devices: dentures Cardiac Surgery: Yes (CABG X3,) Cholecystectomy: No Coronary Artery Bypass Graft: Yes Ear Surgery: No Endocrine Surgery: No Eye Surgery: No Genitourinary Surgery: No Gynecologic Surgery: No Insulin Pump: No Joint Replacement: No Oral Surgery: No Pacemaker: No Thoracic Surgery: No Other Surgery: Yes (CABG 5 VESSEL) 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 Alcohol Use: No Tobacco Use: No Substance Use: No Allergies-Medications (Allergen,Severity, Reaction): Coded Allergies: No Known Allergies (Verified Allergy, Unknown, 06/12/17) Reported Meds & Prescriptions Reported Meds & Active Scripts Active Reported Gabapentin 300 Mg Cap 300 Mg PO TID Nitroglycerin SL (Nitroglycerin) 0.4 Mg Subl 0.4 Mg SL DIRECTED PRN ONE TABLET UNDER THE TONGUE NEEDED FOR CHEST PAIN, MAY REPEAT EVERY FIVE MINUTES FOR A TOTAL OF 3 DOSES OR CALL 911 IF NO RELIEF Ventolin Hfa 18 GM Inh (Albuterol Sulfate) 90 Mcg/Act Aer 1 Puff INH Q4H PRN Trazodone (Trazodone HCl) 50 Mg Tab 50 Mg PO HS Humalog Inj (Insulin Human Lispro) 1,000 Unit/10 Ml Vial 1-9 Units SQ ACHS Max dose at bedtime:( )units; sugars< 70,(0)units; sugars 150-199,(1)unit; sugars 200-249,(3)units; sugars 250-299,(5)units; sugars 300-349,(7)units; sugars more than 349,(9)units. Albuterol (Albuterol Sulfate) 4 Mg Tab 4 Mg PO TID Ipratropium Neb (Ipratropium Badger) 0.5 Mg/2.5 Ml Amp 0.5 Mg NEB Q6HR NEB PRN K-Tab (Potassium Chloride) 20 Meq Tab 20 Meq PO DAILY Isosorbide Mononitrate ER (Isosorbide Mononitrate) 30 Mg Bandar 30 Mg PO DAILY Protonix (Pantoprazole Sodium) 40 Mg Tab 40 Mg PO DAILY Morphine ER (Morphine Sulfate) 30 Mg Tab 30 Mg PO Q8H Lasix (Furosemide) 40 Mg Tab 40 Mg PO BID Toprol XL (Metoprolol Succinate) 50 Mg Tab 50 Mg PO BID Review of Systems ROS Limitations: Altered Mental Status Except as stated in HPI: all other systems reviewed are Neg Physical Exam Exam Limitations: Altered Mental Status Narrative GENERAL: SKIN: Warm and dry. HEAD: Atraumatic. Normocephalic. EYES: Pupils equal and round. No scleral icterus. No injection or drainage. ENT: No nasal bleeding or discharge. Mucous membranes pink and moist. NECK: Trachea midline. No JVD. CARDIOVASCULAR: Regular rate and rhythm. RESPIRATORY: No accessory muscle use. Clear to auscultation. Breath sounds equal bilaterally. GASTROINTESTINAL: Abdomen soft, non-tender, nondistended. Hepatic and splenic margins not palpable. MUSCULOSKELETAL: Extremities without clubbing, cyanosis, or edema. No obvious deformities. NEUROLOGICAL: Awake BUT CONFUSED, PATIENT IS ORIENTED TO NAME, PLACE, BUT NOT YEAR OR PRESIDENT. No obvious cranial nerve deficits. Motor grossly within normal limits. Five out of 5 muscle strength in the arms and legs. Normal speech. GCS 14/15 PSYCHIATRIC: Appropriate mood and affect; insight and judgment normal. Data Data Last Documented VS Vital Signs Date Time Temp Pulse Resp B/P (MAP) Pulse Ox O2 Delivery O2 Flow Rate FiO2 06/12/17 19:18 64 16 189/84 (119) 99 Room Air 06/12/17 16:57 97.5 Orders Orders Electrocardiogram (06/12/17 16:56) Ammonia (06/12/17 16:56) Complete Blood Count With Diff (06/12/17 16:56) Comprehensive Metabolic Panel (06/12/17 16:56) Creatine Kinase (Cpk) (06/12/17 16:56) Prothrombin Time / Inr (Pt) (06/12/17 16:56) Act Partial Throm Time (Ptt) (06/12/17 16:56) Troponin I (06/12/17 16:56) Thyroid Stimulating Hormone (06/12/17 16:56) Urinalysis - C+S If Indicated (06/12/17 16:56) Chest, Single Ap (06/12/17 16:56) Ct Brain W/O Iv Contrast(Rout) (06/12/17 16:56) Blood Glucose (06/12/17 16:56) Ecg Monitoring (06/12/17 16:56) Iv Access Insert/Monitor (06/12/17 16:56) Oximetry (06/12/17 16:56) Sodium Chloride 0.9% Flush (Ns Flush) (06/12/17 17:00) Drug Screen, Random Urine (06/12/17 16:56) Alcohol (Ethanol) (06/12/17 16:56) Tylenol (Acetaminophen) (06/12/17 16:56) Salicylates (Aspirin) (06/12/17 16:56) Admit Order (Ed Use Only) (06/12/17 19:15) Coin Machine Collector Supervisor / Telemetry LUCAS.Q8H (06/12/17 19:15) Activity Oob With Assistance (06/12/17 19:15) Notify Dr: Other (06/12/17 19:15) Labs Laboratory Tests Test 06/12/17 17:03 White Blood Count 1.6 TH/MM3 Red Blood Count 3.20 MIL/MM3 Hemoglobin 10.3 GM/DL Hematocrit 30.3 % Mean Corpuscular Volume 94.6 FL Mean Corpuscular Hemoglobin 32.1 PG Mean Corpuscular Hemoglobin Concent 34.0 % Red Cell Distribution Width 15.4 % Platelet Count 32 TH/MM3 Mean Platelet Volume 9.9 FL Neutrophils (%) (Auto) 50.7 % Lymphocytes (%) (Auto) 29.7 % Monocytes (%) (Auto) 17.9 % Eosinophils (%) (Auto) 1.1 % Basophils (%) (Auto) 0.6 % Neutrophils # (Auto) 0.8 TH/MM3 Lymphocytes # (Auto) 0.5 TH/MM3 Monocytes # (Auto) 0.3 TH/MM3 Eosinophils # (Auto) 0.0 TH/MM3 Basophils # (Auto) 0.0 TH/MM3 CBC Comment AUTO DIFF Differential Total Cells Counted 100 Neutrophils % (Manual) 60 % Band Neutrophils % 10 % Lymphocytes % 24 % Monocytes % 4 % Neutrophils # (Manual) 1.2 TH/MM3 Metamyelocytes 1 % Myelocytes 1 % Differential Comment FINAL DIFF MANUAL Platelet Estimate LOW Platelet Morphology Comment NORMAL Ovalocytes 1+ Acanthocytes Prothrombin Time 12.3 SEC Prothromb Time International Ratio 1.1 RATIO Activated Partial Thromboplast Time 28.2 SEC Blood Urea Nitrogen 31 MG/DL Creatinine 1.56 MG/DL Random Glucose 119 MG/DL Total Protein 8.1 GM/DL Albumin 3.2 GM/DL Calcium Level 8.9 MG/DL Alkaline Phosphatase 85 U/L Aspartate Amino Transf (AST/SGOT) 101 U/L Alanine Aminotransferase (ALT/SGPT) 64 U/L Total Bilirubin 1.7 MG/DL Sodium Level 140 MEQ/L Potassium Level 4.8 MEQ/L Chloride Level 108 MEQ/L Carbon Dioxide Level 22.8 MEQ/L Anion Gap 9 MEQ/L Estimat Glomerular Filtration Rate 53 ML/MIN Hemoglobin A1c 5.1 % Ammonia 60 MCMOL/L Total Creatine Kinase 233 U/L Troponin I LESS THAN 0.02 NG/ML Thyroid Stimulating Hormone 3rd Gen 1.680 uIU/ML Salicylates Level LESS THAN 1.7 MG/DL Acetaminophen Level LESS THAN 2.0 MCG/ML Ethyl Alcohol Level LESS THAN 3 MG/DL MDM Medical Decision Making Medical Screen Exam Complete: Yes Emergency Medical Condition: Yes Medical Record Reviewed: Yes Differential Diagnosis UTI V PNA V PTX V SEPSIS V HEPATIC ENCEPHALOPATHY Narrative Course NO E/O PNA/PTX NOTED, UA NEG FOR UTI, MILD ELEV OF AMMONIA C/W HEPATIC ENCEPHALOPATHY Diagnosis Primary Impression: AMS Additional Impression: Renal insufficiency Admitting Information Admitting Physician Requests: Admit Scripts Cefdinir (Cefdinir) 300 Mg Cap 600 MG PO DAILY for Infection, #12 CAP 0 Refills Prov: Kodak Crowell MD 06/14/17 Lactulose Liq (Lactulose Liq) 10 Gm/15 Ml Soln 45 ML PO Q6H for high ammonia, #3.5 LITER 0 Refills may lower dose if having 3-4 soft stools daily Prov: Kodak Crowell MD 06/14/17 Miky Medina MD Jun 12, 2017 17:11
[2017-06-12 17:15] LABS: AUTOMATED NEUTROPHIL # 0.8 TH/MM3 (1.8-7.7); BASOPHIL % 0.6 % (0.0-2.0); EOSINOPHIL % 1.1 % (0.0-4.0); HEMATOCRIT 30.3 % (39.0-51.0); LYMPH % 29.7 % (9.0-44.0); LYMPHOCYTE # 0.5 TH/MM3 (1.0-4.8); MEAN CELL VOLUME 94.6 FL (80.0-100.0); MEAN CORPUSCULAR HEMOGLOBIN 32.1 PG (27.0-34.0); MONO % 17.9 % (0.0-8.0); NEUT % 50.7 % (16.0-70.0); PLATELET COUNT 32 TH/MM3 (150-450); RED CELL DISTRIBUTION WIDTH 15.4 % (11.6-17.2); WHITE BLOOD COUNT 1.6 TH/MM3 (4.0-11.0)
[2017-06-12 17:17] LABS: HEMO FLAGS AUTO DIFF
[2017-06-12 17:18] VITALS: RESP 20; O2SAT 100
[2017-06-12 17:25] LABS: APTT (PATIENT) 28.2 SEC (24.3-30.1); INTERNATIONAL NORMALIZED RATIO 1.1 RATIO; PROTHROMBIN TIME - PATIENT 12.3 SEC (9.8-11.6)
--- NOTE | 2017-06-12 17:31 | RADRPT ---
EXAM DATE/TIME: 06/12/2017 17:01 [facility] COMPARISON: CHEST SINGLE AP, October 31, 2016, 14:42. INDICATIONS : Altered mental status short Short of breath MEDICAL HISTORY : Hypertension. Hepatitis C. Chronic obstructive pulmonary disease SURGICAL HISTORY : CABG. ENCOUNTER: Initial ACUITY: 1 day PAIN SCORE: Non-responsive. LOCATION: chest FINDINGS: A single portable frontal view the chest shows median sternotomy wires. Left-sided power port. Emboli zation coils overlie the left supraclavicular region. The heart to be upper limits of normal in terms of size. Aorta mildly tortuous. Lungs are clear without infiltrate or effusion. CONCLUSION: No acute cardio pulmonary disease. Quan Theodore Jr., MD on June 12, 2017 at 17:29 Board Certified Radiologist. This report was verified electronically.
[2017-06-12 17:36] LABS: ALT (GPT) 64 U/L (12-78); ANION GAP 9 MEQ/L (5-15); AST (GOT) 101 U/L (15-37); BICARBONATE 22.8 MEQ/L (21.0-32.0); BLOOD UREA NITROGEN 31 MG/DL (7-18); CHLORIDE 108 MEQ/L (98-107); GLOMERULAR FILTRATION RATE 53 ML/MIN (>89); POTASSIUM 4.8 MEQ/L (3.5-5.1); SODIUM (NA) 140 MEQ/L (136-145)
--- NOTE | 2017-06-12 17:43 | RADRPT ---
EXAM DATE/TIME: 06/12/2017 17:20 [facility] COMPARISON: CT BRAIN W/O CONTRAST, June 14, 2015, 17:25. INDICATIONS : Altered mental status. RADIATION DOSE: 56.35 CTDIvol (mGy) MEDICAL HISTORY : Lymphoma. Hepatitis C. Carcinoma, hepatocellular. SURGICAL HISTORY : None. ENCOUNTER: Initial ACUITY: 1 day PAIN SCALE: Non-responsive LOCATION: Bilateral head TECHNIQUE: Multiple contiguous axial images were obtained of the head. Using automated exposure control and adj ustment of the mA and/or kV according to patient size, radiation dose was kept as low as reasonably a chievable to obtain optimal diagnostic quality images. DICOM format image data is available electro nically for review and comparison. FINDINGS: CEREBRUM: Ventricles are normal. There is mild cerebral atrophy. No evidence of midline shift, mass lesion, he morrhage or acute infarction. No extra-axial fluid collections are seen. POSTERIOR FOSSA: The cerebellum and brainstem are intact. The 4th ventricle is midline. The cerebellopontine angle i s unremarkable. EXTRACRANIAL: Visualized sinuses are clear. SKULL: The calvaria is intact. No evidence of skull fracture. CONCLUSION: Stable noncontrast head CT. No acute intracranial abnormality is identified. Nghia Lira MD on June 12, 2017 at 17:40 Board Certified Radiologist. This report was verified electronically.
[2017-06-12 17:47] LABS: ACETAMINOPHEN LESS THAN 2.0 MCG/ML (10.0-30.0); ALCOHOL LESS THAN 3 MG/DL (0-5); ALKALINE PHOSPHATASE 85 U/L (45-117); BANDS 10 % (0-6); CREATINE KINASE 233 U/L (39-308); METAMYELOCYTES 1 % (0-1); MYELOCYTES 1 % (0-0); NEUTROPHIL # MANUAL DIFF 1.2 TH/MM3 (1.8-7.7); POLYS (SEG NEUTROPHILS) 60 % (16-70); SCAN/DIFF FINAL DIFF MANUAL; TOTAL BILIRUBIN ADULT 1.7 MG/DL (0.2-1.0); WBC DIFF SAMPLE 100
[2017-06-12 17:48] LABS: OVALOCYTES 1+ (NORMAL); PLATELET ESTIMATE SMEAR LOW (NORMAL); PLATELET MORPHOLOGY NORMAL (NORMAL)
[2017-06-12 19:18] VITALS: BP 189/84; PULSE 64; RESP 16; O2SAT 99
[2017-06-12] MEDS ORDERED: GLUCAGON 1 MG/ML VIAL OTHER PRN ×2 (20:15→20:30)
[2017-06-12] MEDS ORDERED: DEXTROSE 50% IN WATER 50 ML VIAL(D50) IV PUSH PRN ×2 (20:15→20:30)
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
[2017-06-12] MEDS ORDERED: INSULIN ASPART SUPPLEMENTAL SCALE SQ SCH (21:00)
[2017-06-12] MEDS: INSULIN ASPART SUPPLEMENTAL SCALE SQ SCH (21:00)
[2017-06-12] MEDS: METOPROLOL SUCCINATE 50 MG EXTENDED RELEASE TAB PO SCH (21:00)
[2017-06-12 21:16] VITALS: O2SAT 98
[2017-06-12 21:40] VITALS: BP 159/70; PULSE 59; RESP 16; O2SAT 99
[2017-06-12] MEDS: SODIUM CHLORIDE 0.9% FLUSH 5 ML FLUSH IV FLUSH SCH (21:42)
[2017-06-12] MEDS: LACTULOSE SYRUP 20 GM/30 ML CUP PO SCH (21:42)
[2017-06-12 22:15] LABS: BACTERIA, URINE FEW /hpf; BLOOD, URINE NEG (NEG); COMMENT (UR) CATH-CULTURE IND; CULTURE IF INDICATED CATH CULTURE IND; GLUCOSE,URINE NEG (NEG); KETONE, URINE NEG (NEG); NITRITE,URINE NEG (NEG); SQUAMOUS EPITHELIAL CELL URINE <1 /hpf (0-5); URINE COLOR YELLOW (YELLW/STRAW)
--- NOTE | 2017-06-12 23:00 | RADRPT ---
EXAM DATE/TIME: 06/12/2017 21:52 [facility] COMPARISON: No previous studies available for comparison. INDICATIONS : Cerebrovascular accident. MEDICAL HISTORY : Hypercholesterolemia. Hypertension. Hepatitis C. COPD. Asthma. CHF. Myocardial infarction. Diabetes. Jaundice. SURGICAL HISTORY : CABG. Cardiac catheterization. ENCOUNTER: Initial ACUITY: 1 day PAIN SCORE: 0/10 LOCATION: Right neck PEAK SYSTOLIC VELOCITIES (cm/sec): ICA/CCA RATIO: Right: 1.4 Left: 0.9 ICA: Right: 108 Left: 75 CCA: Right: 76 Left: 80 ECA: Right: 67 Left: 55 VERTEBRAL: Right: 41 antegrade Left: 64 antegrade Elevated flow velocities and ICA/CCA ratios have been found to correlate with increased degrees of vessel stenosis, calculated as percentage of diameter relative to a normal segment of distal ICA/CCA FINDINGS: RIGHT CAROTID: There is prominent calcified plaque with shadowing in the region of the carotid bulb. No significant widening of the velocity spectrum of the proximal or mid internal carotid. LEFT CAROTID: There is prominent calcified plaque with shadowing in the region of carotid bulb. There is some mini mal widening of the velocity spectrum in the proximal mid internal carotid artery. VERTEBRAL ARTERIES: Antegrade flow is seen in both vertebral arteries. CONCLUSION: Prominent shadowing calcified plaque in the carotid bulbs bilaterally with hemodynamic parameters nava racteristic of less than 50% stenosis. Quan Ruiz MD on June 12, 2017 at 22:57 Board Certified Radiologist. This report was verified electronically.
[2017-06-12 23:18] VITALS: BP 169/74; PULSE 87; RESP 18; O2SAT 100
[2017-06-12] MEDS: HEPARIN SODIUM - SQ 10,000 UNITS/ML VIAL SQ SCH (23:21)
[2017-06-13] VITALS (25 sets, daily range): BP systolic 134–164; BP diastolic 68–86; PULSE 54–89; RESP 17–18; TEMP 97.6–98.1; O2SAT 97–100
[2017-06-13] MEDS ORDERED: SODIUM CHLOR 0.9% 1000 ML INJ 1,000 ML IV SCH (00:30)
[2017-06-13] MEDS: cefTRIAXone INJ 1,000 MG in SODIUM CHLORIDE 0.9% INJ 100 ML IV SCH (00:49)
[2017-06-13] MEDS ORDERED: MORPHINE SULFATE 4 MG/ML INJ IV ONE (04:30)
[2017-06-13] MEDS: HEPARIN SODIUM - SQ 10,000 UNITS/ML VIAL SQ SCH ×3 (04:37→22:00)
[2017-06-13 06:47] LABS: AUTOMATED NEUTROPHIL # 0.5 TH/MM3 (1.8-7.7); BASOPHIL % 0.7 % (0.0-2.0); EOSINOPHIL % 1.2 % (0.0-4.0); HEMATOCRIT 27.5 % (39.0-51.0); LYMPH % 28.5 % (9.0-44.0); LYMPHOCYTE # 0.3 TH/MM3 (1.0-4.8); MEAN CELL VOLUME 94.8 FL (80.0-100.0); MEAN CORPUSCULAR HEMOGLOBIN 31.8 PG (27.0-34.0); MEAN CORPUSCULAR HGB CONC 33.6 % (32.0-36.0); MONO % 17.1 % (0.0-8.0); NEUT % 52.5 % (16.0-70.0); PLATELET COUNT 25 TH/MM3 (150-450); RED CELL DISTRIBUTION WIDTH 15.1 % (11.6-17.2); WHITE BLOOD COUNT 0.9 TH/MM3 (4.0-11.0)
[2017-06-13 06:51] LABS: HEMO FLAGS AUTO DIFF
[2017-06-13 07:11] LABS: ANION GAP 9 MEQ/L (5-15); BLOOD UREA NITROGEN 30 MG/DL (7-18); CHLORIDE 107 MEQ/L (98-107); GLOMERULAR FILTRATION RATE 64 ML/MIN (>89); POTASSIUM 3.9 MEQ/L (3.5-5.1); SODIUM (NA) 137 MEQ/L (136-145)
[2017-06-13 07:13] LABS: ALT (GPT) 49 U/L (12-78); AST (GOT) 74 U/L (15-37)
[2017-06-13 07:15] LABS: ALKALINE PHOSPHATASE 68 U/L (45-117); HDL CHOLESTEROL 44.3 MG/DL (40.0-60.0); LDL CHOLESTEROL 88 MG/DL (0-99); TOTAL BILIRUBIN ADULT 1.5 MG/DL (0.2-1.0)
[2017-06-13] MEDS: INSULIN ASPART SUPPLEMENTAL SCALE SQ SCH ×4 (08:00→21:00)
[2017-06-13 08:31] LABS: BANDS 6 % (0-6); EOSINOPHILS 1 % (0-4); POLYS (SEG NEUTROPHILS) 50 % (16-70); WBC DIFF SAMPLE 100
[2017-06-13 08:33] LABS: OVALOCYTES 1+ (NORMAL); PLATELET ESTIMATE SMEAR LOW (NORMAL); PLATELET MORPHOLOGY NORMAL (NORMAL); SCAN/DIFF FINAL DIFF MANUAL
[2017-06-13 08:35] LABS: NEUTROPHIL # MANUAL DIFF 0.5 TH/MM3 (1.8-7.7)
[2017-06-13] MEDS: SODIUM CHLORIDE 0.9% FLUSH 5 ML FLUSH IV FLUSH SCH ×2 (09:00→21:00)
[2017-06-13] MEDS: LACTULOSE SYRUP 20 GM/30 ML CUP PO SCH ×4 (09:42→21:00)
[2017-06-13] MEDS: POTASSIUM CHLORIDE 20 MEQ CONTROLLED RELEASE TAB PO SCH (09:42)
[2017-06-13] MEDS: METOPROLOL SUCCINATE 50 MG EXTENDED RELEASE TAB PO SCH ×2 (09:43→21:00)
[2017-06-13] MEDS: FUROSEMIDE 40 MG TAB PO SCH ×2 (09:43→18:41)
[2017-06-13] MEDS: PANTOPRAZOLE SOD 40 MG DELAYED RELEASE TAB PO SCH (09:44)
[2017-06-13] MEDS: ISOSORBIDE MONONITRATE 30 MG TAB PO SCH (09:44)
[2017-06-13 12:04] LABS: HEMOGLOBIN A1a 0.6 %; HEMOGLOBIN A1b 0.5 %; HEMOGLOBIN Ao 87.8 %; HEMOGLOBIN F 0.7 %; HEMOGLOBIN LA1C 1.6 %; HEMOGLOBIN P3 3.3 %
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
--- NOTE | 2017-06-13 15:05 | HHI.FF ---
Face to Face Verification Diagnosis: (1) Weakness of both upper extremities (2) Weakness of both lower extremities (3) Weakness Physical Therapy Order: Evaluate and Treat Occupational Therapy Order: Evaluate and Treat, Improve ADL Home Health Nursing Order: Medical education I have seen patient Iraj Salas on 06/13/17. My clinical findings support the need for the requested home health care services because: Deconditioned w/ increased weakness I certify that my clinical findings support that this patient is homebound because: Unsafe to leave home unassisted Kodak Crowell MD Jun 13, 2017 15:05
--- NOTE | 2017-06-13 16:12 | HHI.PR ---
Subjective Remarks Nursing denies any deterioration since last night. Patient's sister thinks he still has a little bit of the tremors. Patient himself says that he has had burning with urination prior to hospitalization and says that it is much better since starting treatment here in the hospital. Objective Vital Signs Date Time Temp Pulse Resp B/P (MAP) Pulse Ox O2 Delivery O2 Flow Rate FiO2 06/13/17 11:15 97.9 89 17 149/77 (101) 98 06/13/17 11:11 100 06/13/17 08:27 97.8 58 18 134/69 (90) 100 06/13/17 06:00 56 06/13/17 05:00 60 06/13/17 04:23 97.6 67 18 164/86 (112) 99 06/13/17 04:00 54 06/13/17 03:00 62 06/13/17 02:00 60 06/13/17 01:00 62 06/13/17 00:00 64 06/13/17 00:00 98.1 68 18 157/82 (107) 100 06/12/17 23:37 06/12/17 23:18 87 18 169/74 (105) 100 Room Air 06/12/17 21:40 59 16 159/70 (99) 99 Room Air 06/12/17 21:16 98 06/12/17 19:18 64 16 189/84 (119) 99 Room Air 06/12/17 17:18 20 100 Room Air 06/12/17 17:18 100 Room Air 06/12/17 16:57 97.5 57 18 183/92 (122) I/O 06/12/17 06/12/17 06/12/17 06/13/17 06/13/17 06/13/17 07:00 15:00 23:00 07:00 15:00 23:00 Intake Total 481 ml Output Total 450 ml Balance 31 ml Intake Oral 240 ml IV Total 241 ml Output Urine Total 450 ml # Voids 1 1 Result Diagram: 06/13/1762806/13/17628 Objective Remarks Patient is awake alert, sitting in chair Unlabored breathing No facial droop, no slurred speech, has very minimal asterixis at best, no obvious jaundice A/P Assessment and Plan 72-year-old male with a past medical history significant for non-Hodgkin's lymphoma with chronic pancytopenia, hepatitis C cirrhosis and multiple medical comorbidities presents after being found altered in his car. 1. Altered mental status - essentially improved UTI confirmed, continue rocephin, sensitivities pending Ammonia still elevated, continuing w/ increased lactulose dosing, repeat in AM TIA/CVA workup pending including MRI/MRA brain, carotid US, echo per neurology Neurology consulted, appreciate recommendations Getting cognition eval from speech for safe discharge disposition 2. Enterococcus UTI - new problem - continue rocephin, sensitivities pending in AM 3. Non-Hodgkin's lymphoma with chronic pancytopenia Oncology consulted, appreciate recommendations 4. Acute on chronic kidney disease Creatinine elevated to 1.56, baseline 1.2 IV fluid hydration Follow-up BMP 5. Insulin-dependent diabetes mellitus Sliding scale insulin A1c pending 6. 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 Hypertension/CAD/GERD Continue home medications after swallow evaluation FEN diet NS at 70 cc/hr Electrolytes: monitor and replete prn Heparin Sister and daughter at the bedside. All questions answered. Kodak Crowell MD Jun 13, 2017 16:12
--- NOTE | 2017-06-13 16:23 | RADRPT ---
EXAM DATE/TIME: 06/13/2017 15:41 [facility] COMPARISON: No previous studies available for comparison. INDICATIONS : CVA. MEDICAL HISTORY : Hypertension. Diabetes mellitus type 2. Hepatitis C. SURGICAL HISTORY : CABG ENCOUNTER: Initial ACUITY: 2 day PAIN SCORE: 0/10 LOCATION: Head TECHNIQUE: Multiplanar, multisequence MRI of the brain was performed without contrast. FINDINGS: CEREBRUM: The ventricles are normal for age. No evidence of midline shift, mass lesion, hemorrhage or acute in farction. No extraaxial fluid collections are seen. The pituitary gland and suprasellar cistern are normal in configuration. WHITE MATTER: Mild periventricular and deep white matter scattered focal T2 prolongation. POSTERIOR FOSSA: The cerebellum and brainstem are intact. The 4th ventricle is midline. The cerebellopontine angle is unremarkable. The cerebellar tonsils are normal in position. DIFFUSION IMAGING: No focal areas of restricted diffusion are seen. No evidence of acute infarction. EXTRACRANIAL: The visualized portions of the orbits and paranasal sinuses are unremarkable. CONCLUSION: 1. No restricted diffusion abnormality to suggest acute ischemia/infarct as questioned. 2. Mild periventricular and white matter small vessel ischemic demyelination. 3. No acute intracranial MRI abnormality. Irineo Fuentes MD on June 13, 2017 at 16:19 Board Certified Radiologist. This report was verified electronically.
--- NOTE | 2017-06-13 16:24 | RADRPT ---
EXAM DATE/TIME: 06/13/2017 15:41 [facility] COMPARISON: MRI BRAIN W/O CONTRAST, June 13, 2017, 15:41. INDICATIONS : CVA. MEDICAL HISTORY : Diabetes mellitus type 2. Hypertension. SURGICAL HISTORY : CABG ENCOUNTER: Initial ACUITY: 2 day PAIN SCORE: 0/10 LOCATION: head Please note a normal MRA of the brain does not entirely exclude the possibility of a small aneurysm, nor the possibility of distal intracranial vessel disease. TECHNIQUE: 3D time of flight MRA was performed. Source images, multiplanar STS MIP, and 3D volume MIP reconstru ctions were reviewed. FINDINGS: There is excellent visualization of the major intracranial arteries out to the second-order branch ve ssels. There is no evidence for aneurysm or vascular malformation. Scattered atherosclerotic plaque is seen to involve and intracavernous segments of the ICAs. There is chronic occlusion of the superio r segment of the left middle cerebral territory but there is quick reconstitution of the branches via collateralization. There is a left posterior communicating artery. No right posterior communicating artery or anterior commuting artery. CONCLUSION: 1. Scattered atherosclerotic plaque with short segment occlusion of the superior division of the left middle cerebral artery territory. Collateralization reconstitutes these branches. No thrombus apprec iated. Quan Theodore Jr., MD on June 13, 2017 at 16:16 Board Certified Radiologist. This report was verified electronically.
--- NOTE | 2017-06-13 19:10 | MG ---
cc: MAR CAST M.D. Lab No: Date: 06/13/17 Age: 72 Sex: M Race: REFERRING PHYSICIAN An EEG was obtained on this 72-year-old patient being evaluated for confusion. The patient is described as awake and asleep. The EEG shows significant theta and delta rhythms bilaterally along with some beta activity. There is a lot of artifact and there is a lack of alpha rhythms. Photic stimulation disclosed no change. INTERPRETATION Abnormal EEG because of generalized slowing suggesting at least a moderately severe diffuse disturbance of cerebral function. No epileptiform features are present. MD DANILO Maldonado/ /6:51 PM /7:11 PM
--- NOTE | 2017-06-13 19:14 | EKG ---
Date Performed: 06/12/2017 Time Performed: 16:56:44 PTAGE: 72 years EKG: SINUS BRADYCARDIA WITH FIRST DEGREE AV BLOCK NONSPECIFIC T-WAVE ABNORMALITY Since previous tracing, no significant change noted ABNORMAL ECG PREVIOUS TRACING : 04/22/2016 08.30 DOCTOR: Nathan Valdez Interpretating Date/Time 06/13/2017 19:12:53
--- NOTE | 2017-06-13 19:16 | ECHRPT ---
Indication: cva/tia CONCLUSIONS The left ventricular systolic function is normal with an estimated ejection fraction in the range of 55-60%. Mild concentric left ventricular hypertrophy. Mild mitral valve regurgitation. There is mild tricuspid valve regurgitation. BP: / HR: Rhythm: MEASUREMENTS (Male / Female) Normal Values Technical Quality:Good 2D ECHO LV Diastolic Diameter PLAX 3.8 cm 4.2 - 5.9 / 3.9 - 5.3 cm LV Systolic Diameter PLAX 3.0 cm IVS Diastolic Thickness 1.6 cm 0.6 - 1.0 / 0.6 - 0.9 cm LVPW Diastolic Thickness 1.2 cm 0.6 - 1.0 / 0.6 - 0.9 cm LV Relative Wall Thickness 0.7 RV Internal Dim ED PLAX 2.6 cm M-MODE Aortic Root Diameter MM 3.3 cm LA Systolic Diameter MM 4.5 cm LA Ao Ratio MM 1.4 AV Cusp Separation MM 2.2 cm DOPPLER Mitral E Point Velocity 47.9 cm/s Mitral A Point Velocity 74.0 cm/s Mitral E to A Ratio 0.6 LV E' Lateral Velocity 8.4 cm/s Mitral E to LV E' Lateral Ratio 5.7 LV E' Septal Velocity 8.0 cm/s Mitral E to LV E' Septal Ratio 6.0 TR Peak Velocity 200.0 cm/s TR Peak Gradient 16.0 mmHg Right Atrial Pressure 10.0 mmHg Pulmonary Artery Systolic Pressu 26.0 mmHg Right Ventricular Systolic Press 26.0 mmHg FINDINGS LEFT VENTRICLE The left ventricular systolic function is normal with an estimated ejection fraction in the range of 55-60%. No regional wall motion abnormalities are present. Normal left ventricular size. Mild concentric left ventricular hypertrophy. RIGHT VENTRICLE Normal right ventricular size and systolic function. LEFT ATRIUM The left atrial size is normal. RIGHT ATRIUM The right atrial size is normal. ATRIAL SEPTUM Normal atrial septal thickness without atrial level shunting by limited color doppler interrogation. AORTA The aortic root and proximal ascending aorta are normal in size on limited imaging. MITRAL VALVE Mild mitral valve regurgitation. Structurally normal mitral valve. No mitral valve stenosis. AORTIC VALVE Trileaflet aortic valve. No aortic valve stenosis or regurgitation. Aortic valve sclerosis is present. TRICUSPID VALVE There is mild tricuspid valve regurgitation. Structurally normal tricuspid valve. The estimated pulmonary arterial pressure is 26 mmHg. PULMONARY VALVE No pulmonary valve regurgitation or stenosis. VESSELS The inferior vena cava is normal in size. PERICARDIUM No pericardial effusion. Vincent G. Johnson DO (Electronically Signed) Final Date:13 June 2017 19:15
[2017-06-14 00:08] VITALS: BP 151/70; PULSE 82; RESP 18; TEMP 98.2; O2SAT 97
[2017-06-14] MEDS ORDERED: MORPHINE SULFATE 4 MG/ML INJ IV PUSH ONE (00:30)
[2017-06-14] MEDS: cefTRIAXone INJ 1,000 MG in SODIUM CHLORIDE 0.9% INJ 100 ML IV SCH (01:17)
[2017-06-14 03:08] VITALS: PULSE 79
[2017-06-14 04:00] VITALS: BP 162/92; PULSE 83; RESP 18; TEMP 98.6; O2SAT 83
[2017-06-14] MEDS ORDERED: MORPHINE SULFATE 4 MG/ML INJ IM ONE (05:00)
[2017-06-14] MEDS: HEPARIN SODIUM - SQ 10,000 UNITS/ML VIAL SQ SCH ×2 (05:20→12:10)
[2017-06-14 05:55] LABS: AUTOMATED NEUTROPHIL # 0.7 TH/MM3 (1.8-7.7); BASOPHIL % 0.6 % (0.0-2.0); EOSINOPHIL % 0.8 % (0.0-4.0); HEMATOCRIT 27.5 % (39.0-51.0); LYMPHOCYTE # 0.2 TH/MM3 (1.0-4.8); MEAN CELL VOLUME 94.1 FL (80.0-100.0); MEAN CORPUSCULAR HEMOGLOBIN 32.3 PG (27.0-34.0); MEAN CORPUSCULAR HGB CONC 34.4 % (32.0-36.0); MONO % 16.2 % (0.0-8.0); NEUT % 63.4 % (16.0-70.0); PLATELET COUNT 26 TH/MM3 (150-450); RED BLOOD COUNT 2.92 MIL/MM3 (4.50-5.90); RED CELL DISTRIBUTION WIDTH 15.1 % (11.6-17.2)
[2017-06-14 06:04] LABS: HEMO FLAGS AUTO DIFF
[2017-06-14 06:08] LABS: ALT (GPT) 49 U/L (12-78); ANION GAP 9 MEQ/L (5-15); AST (GOT) 63 U/L (15-37); BICARBONATE 21.4 MEQ/L (21.0-32.0); BLOOD UREA NITROGEN 27 MG/DL (7-18); CHLORIDE 112 MEQ/L (98-107); GLOMERULAR FILTRATION RATE 59 ML/MIN (>89); POTASSIUM 3.8 MEQ/L (3.5-5.1); SODIUM (NA) 142 MEQ/L (136-145)
[2017-06-14 06:10] LABS: ALKALINE PHOSPHATASE 75 U/L (45-117); TOTAL BILIRUBIN ADULT 1.3 MG/DL (0.2-1.0)
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
[2017-06-14 07:13] LABS: EOSINOPHILS 1 % (0-4); METAMYELOCYTES 1 % (0-1); NEUTROPHIL # MANUAL DIFF 0.7 TH/MM3 (1.8-7.7)
[2017-06-14 07:14] LABS: BANDS 1 % (0-6); OVALOCYTES 2+ (NORMAL); POLYS (SEG NEUTROPHILS) 67 % (16-70); WBC DIFF SAMPLE 100
[2017-06-14 07:15] LABS: HELMET CELLS OCC (NORMAL)
[2017-06-14 07:16] LABS: PLATELET ESTIMATE SMEAR LOW (NORMAL); PLATELET MORPHOLOGY ENLARGED (NORMAL); SCAN/DIFF FINAL DIFF MANUAL; TEARDROP RBCS 1+ (NORMAL)
[2017-06-14 07:17] LABS: ACANTHOCYTES OCC (NORMAL)
[2017-06-14] MEDS: INSULIN ASPART SUPPLEMENTAL SCALE SQ SCH ×2 (08:00→12:00)
[2017-06-14 08:45] VITALS: BP 149/77; PULSE 72; PULSE 73; RESP 18; TEMP 98; O2SAT 96
[2017-06-14] MEDS: POTASSIUM CHLORIDE 20 MEQ CONTROLLED RELEASE TAB PO SCH (09:52)
[2017-06-14] MEDS: FUROSEMIDE 40 MG TAB PO SCH (09:52)
[2017-06-14] MEDS: METOPROLOL SUCCINATE 50 MG EXTENDED RELEASE TAB PO SCH (09:52)
[2017-06-14] MEDS: LACTULOSE SYRUP 20 GM/30 ML CUP PO SCH ×2 (09:52→12:09)
[2017-06-14] MEDS: PANTOPRAZOLE SOD 40 MG DELAYED RELEASE TAB PO SCH (09:52)
[2017-06-14] MEDS: ISOSORBIDE MONONITRATE 30 MG TAB PO SCH (09:52)
[2017-06-14] MEDS ORDERED: LACT10SO PO (11:00)
[2017-06-14] MEDS ORDERED: CEFD300C PO (11:01)
--- NOTE | 2017-06-14 11:09 | HHI.DS ---
Discharge Summary Admission Date Jun 12, 2017 at 19:18 Discharge Date: Jun 14, 2017 Admitting Diagnosis AMS, HEPATIC ENCEPHALOPATHY, CHRONIC KIDNEY DISEASE (1) Hepatic encephalopathy ICD Code: K72.90 - Hepatic failure, unspecified without coma (2) Encephalopathy due to infection ICD Code: G93.49 - Other encephalopathy; B99.9 - Unspecified infectious disease Procedures none Brief History - From Admission 72-year-old male with a past medical history significant for non-Hodgkin's lymphoma, hepatitis C, anemia, COPD, CAD, insulin-dependent diabetes mellitus, chronic kidney disease, hypertension and hyperlipidemia presents via EMS after being found in his car with altered mental status approximately 90 minutes after an appointment. The patient was reportedly at the [facility] for a regular clinic appointment at which time he was alert and oriented. When he was found in his car, he was confused and disoriented. His cousin and daughter are present and report that he usually lives alone. They report his mental status at baseline is mostly normal with some waxing and waning of forgetfulness. Lab values significant for the pancytopenia that is baseline for the patient, creatinine of 1.56 (baseline approximately 1.2), and an ammonia of 60. Head CT with no acute intracranial abnormality. Chest x-ray without acute disease. At the time of her interview, the patient is unable to state his full name but does know his first name. He is A&O 1, only to self. Patient does follow commands. CBC/BMP: 06/14/17 0541 06/14/17 0450 Significant Findings Laboratory Tests Test 06/12/17 17:03 06/12/17 21:30 06/13/17 06:29 06/14/17 04:50 White Blood Count 1.6 TH/MM3 (4.0-11.0) 0.9 TH/MM3 (4.0-11.0) Red Blood Count 3.20 MIL/MM3 (4.50-5.90) 2.90 MIL/MM3 (4.50-5.90) Hemoglobin 10.3 GM/DL (13.0-17.0) 9.2 GM/DL (13.0-17.0) Hematocrit 30.3 % (39.0-51.0) 27.5 % (39.0-51.0) Platelet Count 32 TH/MM3 (150-450) 25 TH/MM3 (150-450) Monocytes (%) (Auto) 17.9 % (0.0-8.0) 17.1 % (0.0-8.0) Neutrophils # (Auto) 0.8 TH/MM3 (1.8-7.7) 0.5 TH/MM3 (1.8-7.7) Lymphocytes # (Auto) 0.5 TH/MM3 (1.0-4.8) 0.3 TH/MM3 (1.0-4.8) Band Neutrophils % 10 % (0-6) Neutrophils # (Manual) 1.2 TH/MM3 (1.8-7.7) 0.5 TH/MM3 (1.8-7.7) Myelocytes 1 % (0-0) Platelet Estimate LOW (NORMAL) LOW (NORMAL) Ovalocytes 1+ (NORMAL) 1+ (NORMAL) Prothrombin Time 12.3 SEC (9.8-11.6) Blood Urea Nitrogen 31 MG/DL (7-18) 30 MG/DL (7-18) 27 MG/DL (7-18) Creatinine 1.56 MG/DL (0.60-1.30) 1.34 MG/DL (0.60-1.30) 1.44 MG/DL (0.60-1.30) Random Glucose 119 MG/DL (74-106) 125 MG/DL (74-106) 129 MG/DL (74-106) Albumin 3.2 GM/DL (3.4-5.0) 2.7 GM/DL (3.4-5.0) 2.9 GM/DL (3.4-5.0) Aspartate Amino Transf (AST/SGOT) 101 U/L (15-37) 74 U/L (15-37) 63 U/L (15-37) Total Bilirubin 1.7 MG/DL (0.2-1.0) 1.5 MG/DL (0.2-1.0) 1.3 MG/DL (0.2-1.0) Chloride Level 108 MEQ/L (98-107) 112 MEQ/L (98-107) Estimat Glomerular Filtration Rate 53 ML/MIN (>89) 64 ML/MIN (>89) 59 ML/MIN (>89) Ammonia 60 MCMOL/L (11-32) 64 MCMOL/L (11-32) Troponin I LESS THAN 0.02 NG/ML Salicylates Level LESS THAN 1.7 MG/DL Acetaminophen Level LESS THAN 2.0 MCG/ML Urine Turbidity HAZY (CLEAR) Urine Leukocyte Esterase LARGE (NEG) Urine Bacteria FEW /hpf (NONE) Urine Opiates Screen POS (NEG) Monocytes % 16 % (0-8) Test 06/14/17 05:41 White Blood Count 1.0 TH/MM3 (4.0-11.0) Red Blood Count 2.92 MIL/MM3 (4.50-5.90) Hemoglobin 9.4 GM/DL (13.0-17.0) Hematocrit 27.5 % (39.0-51.0) Platelet Count 26 TH/MM3 (150-450) Monocytes (%) (Auto) 16.2 % (0.0-8.0) Neutrophils # (Auto) 0.7 TH/MM3 (1.8-7.7) Lymphocytes # (Auto) 0.2 TH/MM3 (1.0-4.8) Neutrophils # (Manual) 0.7 TH/MM3 (1.8-7.7) Platelet Estimate LOW (NORMAL) Platelet Morphology Comment ENLARGED (NORMAL) Tear Drop Cells 1+ (NORMAL) Ovalocytes 2+ (NORMAL) PE at Discharge Alert and oriented 3, can tell me exactly why he is in the hospital Unlabored breathing No cranial nerve deficits that are obvious, no slurred speech, no facial droop, extra ocular motions intact, no asterixis appreciated today Hospital Course Patient was admitted, started on lactulose and IV fluids. His mental status had significantly improved over the next 48 hours and return to baseline. Speech did note some mild to moderate cognitive impairment namely memory deficits. Recommended that he have supervision at home. Patient does have good family support, family was also counseled at the bedside that he would need supervision and they agreed to provided. Patient was counseled on taking lactulose regularly in titrating dose until he has multiple soft stools daily, and should have his ammonia level rechecked at his primary care provider's office. He was also noted to have enterococcus UTI which was sensitive to cefdinir, his symptoms of dysuria had significantly improved as well while receiving antibiotic treatment while inpatient. Stroke workup was performed per neurology which was unremarkable. EEG was also unremarkable for any significant epileptiform activity. Patient has met maximal benefit from hospitalization and is currently stable for discharge. Pt Condition on Discharge: Stable Discharge Disposition: Disch w/ Home Health Serv Discharge Time: <= 30 minutes Discharge Instructions DIET: Follow Instructions for: Heart Healthy Diet Activities you can perform: Weight Bearing as Vicente Other Activity Instructions: No restrictions on driving or operating heavy machinery Follow up Referrals: PCP Follow-up - 1 Week New Medications: Cefdinir (Cefdinir) 300 Mg Cap 600 MG PO DAILY for Infection, #12 CAP 0 Refills Lactulose Liq (Lactulose Liq) 10 Gm/15 Ml Soln 45 ML PO Q6H for high ammonia, #3.5 LITER 0 Refills may lower dose if having 3-4 soft stools daily Continued Medications: Albuterol (Albuterol) 4 Mg Tab 4 MG PO TID for Asthma Management, #90 TAB 0 Refills Albuterol 18 GM Inh (Ventolin Hfa 18 GM Inh) 90 Mcg/Act Aer 1 PUFF INH Q4H PRN for SHORTNESS OF BREATH, #1 INHALER 0 Refills Furosemide (Lasix) 40 Mg Tab 40 MG PO BID, #60 TAB 0 Refills Gabapentin (Gabapentin) 300 Mg Cap 300 MG PO TID, #90 CAP 0 Refills Insulin Lispro (Human) Inj (Humalog Inj) 1,000 Unit/10 Ml Vial 1-9 UNITS SQ ACHS for Blood Sugar Management, #1 VIAL 0 Refills Max dose at bedtime:( )units; sugars< 70,(0)units; sugars 150-199,(1)unit; sugars 200-249,(3)units; sugars 250-299,(5)units; sugars 300-349,(7)units; sugars more than 349,(9)units. Ipratropium Neb (Ipratropium Neb) 0.5 Mg/2.5 Ml Amp 0.5 MG NEB Q6HR NEB PRN for SHORTNESS OF BREATH, #120 NEBULE 0 Refills Isosorbide Mononitrate ER (Isosorbide Mononitrate ER) 30 Mg Bandar 30 MG PO DAILY for Prevent Chest Pain, #30 TAB 0 Refills Metoprolol Succinate ER 24 HR (Toprol XL) 50 Mg Tab 50 MG PO BID, #30 TAB 0 Refills Morphine ER (Morphine ER) 30 Mg Tab 30 MG PO Q8H for Pain Management, TAB 0 Refills Nitroglycerin SL (Nitroglycerin SL) 0.4 Mg Subl 0.4 MG SL DIRECTED PRN for CHEST PAIN, #100 TAB.SL 0 Refills ONE TABLET UNDER THE TONGUE NEEDED FOR CHEST PAIN, MAY REPEAT EVERY FIVE MINUTES FOR A TOTAL OF 3 DOSES OR CALL 911 IF NO RELIEF Pantoprazole (Protonix) 40 Mg Tab 40 MG PO DAILY for Reflux, #30 TAB 0 Refills Potassium Chloride ER (K-Tab) 20 Meq Tab 20 MEQ PO DAILY for Electrolyte Replacement, #30 TAB 0 Refills Trazodone (Trazodone) 50 Mg Tab 50 MG PO HS for Control Depression, #30 TAB 0 Refills Kodak Crowell MD Jun 14, 2017 11:09
--- NOTE | 2017-06-14 12:06 | PD.ONC.PN ---
Subjective Subjective Remarks Afebrile Pt c/o all over bone pain Requesting to have his morphine Feels much better than when he came in Mental status back to baseline Objective Data Date Time Temp Pulse Resp B/P (MAP) Pulse Ox O2 Delivery O2 Flow Rate FiO2 06/14/17 08:45 98.0 72 18 149/77 (101) 96 06/14/17 08:45 73 06/14/17 04:00 98.6 83 18 162/92 (115) 83 06/14/17 03:08 79 06/14/17 00:08 98.2 82 18 151/70 (97) 97 06/13/17 20:00 97.8 82 18 145/68 (93) 97 06/13/17 19:00 81 06/13/17 18:00 60 06/13/17 17:00 70 06/13/17 16:00 58 06/13/17 15:00 57 06/13/17 15:00 97.9 56 18 136/72 (93) 99 06/13/17 14:00 62 06/13/17 13:00 62 06/13/17 12:00 68 06/14/17 06/14/17 06/14/17 07:00 15:00 23:00 Intake Total 420 ml 1000 ml Output Total 100 ml Balance 320 ml 1000 ml Result Diagram: 06/14/17 0541 06/14/17 0450 Laboratory Results Laboratory Tests Test 06/14/17 04:50 06/14/17 05:41 Blood Urea Nitrogen 27 MG/DL Creatinine 1.44 MG/DL Random Glucose 129 MG/DL Total Protein 7.4 GM/DL Albumin 2.9 GM/DL Calcium Level 8.8 MG/DL Alkaline Phosphatase 75 U/L Aspartate Amino Transf (AST/SGOT) 63 U/L Alanine Aminotransferase (ALT/SGPT) 49 U/L Total Bilirubin 1.3 MG/DL Sodium Level 142 MEQ/L Potassium Level 3.8 MEQ/L Chloride Level 112 MEQ/L Carbon Dioxide Level 21.4 MEQ/L Anion Gap 9 MEQ/L Estimat Glomerular Filtration Rate 59 ML/MIN Ammonia 26 MCMOL/L White Blood Count 1.0 TH/MM3 Red Blood Count 2.92 MIL/MM3 Hemoglobin 9.4 GM/DL Hematocrit 27.5 % Mean Corpuscular Volume 94.1 FL Mean Corpuscular Hemoglobin 32.3 PG Mean Corpuscular Hemoglobin Concent 34.4 % Red Cell Distribution Width 15.1 % Platelet Count 26 TH/MM3 Mean Platelet Volume 8.8 FL Neutrophils (%) (Auto) 63.4 % Lymphocytes (%) (Auto) 19.0 % Monocytes (%) (Auto) 16.2 % Eosinophils (%) (Auto) 0.8 % Basophils (%) (Auto) 0.6 % Neutrophils # (Auto) 0.7 TH/MM3 Lymphocytes # (Auto) 0.2 TH/MM3 Monocytes # (Auto) 0.2 TH/MM3 Eosinophils # (Auto) 0.0 TH/MM3 Basophils # (Auto) 0.0 TH/MM3 CBC Comment AUTO DIFF Differential Total Cells Counted 100 Neutrophils % (Manual) 67 % Band Neutrophils % 1 % Lymphocytes % 22 % Monocytes % 8 % Eosinophils % 1 % Neutrophils # (Manual) 0.7 TH/MM3 Metamyelocytes 1 % Differential Comment FINAL DIFF MANUAL Platelet Estimate LOW Platelet Morphology Comment ENLARGED Tear Drop Cells 1+ Ovalocytes 2+ Helmet Cells OCC Acanthocytes OCC Culture Results Microbiology Date/Time Source Procedure Growth Status 06/12/17 21:30 Urine Catheterized Urine Urine Culture - Preliminary Enterococcus Faecalis Resulted Administered Medications Medications (Trade) Dose Ordered Sig/Toni Route PRN Reason Start Time Stop Time Status Last Admin Dose Admin IV Flush (NS Flush) 2 ml BID IV FLUSH 06/12/17 21:00 06/13/17 21:00 Heparin Sodium (Porcine) (Heparin Inj) 5,000 units Q8H SQ 06/12/17 22:00 06/13/17 13:54 Furosemide (Lasix) 40 mg BID@0900,1800 PO 06/13/17 09:00 06/14/17 09:52 Isosorbide Mononitrate (Imdur) 30 mg DAILY PO 06/13/17 09:00 06/14/17 09:52 Metoprolol Succinate (Toprol Xl) 50 mg BID PO 06/12/17 21:00 06/14/17 09:52 Pantoprazole Sodium (Protonix) 40 mg DAILY PO 06/13/17 09:00 06/14/17 09:52 Potassium Chloride (KCl) 20 meq DAILY PO 06/13/17 09:00 06/14/17 09:52 Sodium Chloride 1,000 ml @ 70 mls/hr [id number] IV 06/13/17 00:30 06/13/17 00:49 Ceftriaxone Sodium 1000 mg/ Sodium Chloride 100 ml @ 200 mls/hr Q24H IV 06/13/17 01:00 06/14/17 01:17 Lactulose (Lactulose Liq) 45 ml QID PO 06/13/17 18:00 06/14/17 09:52 Objective Remarks GENERAL: Older male, resting in bed in no acute distress SKIN: Warm and dry. HEAD: Normocephalic. EYES: No injection or drainage. NECK: Supple, trachea midline. CARDIOVASCULAR: Regular rate and rhythm without murmurs. RESPIRATORY: Clear anteriorly with some scattered wheezing GASTROINTESTINAL: Abdomen soft, non-tender, nondistended. EXTREMITIES: No cyanosis, or edema. MUSCULOSKELETAL: Adequate muscle tone. NEUROLOGICAL: No obvious focal deficit. Awake, alert, and oriented x3. Assessment/Plan Problem List: (1) Thrombocytopenia ICD Codes: D69.6 - Thrombocytopenia, unspecified Status: Acute Plan: 06/14/17: Mental status back to baseline. The patient was able to tell me that he is at [facility] and tomorrow is Thanksgiving day. Pancytopenia stable. OK for discharge from oncology standpoint. He will followup as outpatient. -- Due to chronic liver disease and cirrhosis -- Does quite well with bendamustine chemotherapy -- Will continue to monitor CBC from outpatient standpoint Assessment 72 y/o male with history of lymphoma admitted for AMS Attending Statement The exam, history, and the medical decision-making described in the above note were completed with the assistance of the mid-level provider. I reviewed and agree with the findings presented. I attest that I had a [id number] encounter with the patient on the same day, and personally performed and documented my assessment and findings in the medical record. Complaining of generalized pain Mental status has improved And back to his baseline. He has had Hepatic encephalopathy. Okay to discharge from my standpoint Minoo Gilbert Jun 14, 2017 12:06 Nell Malhotra MD Jun 15, 2017 00:17
[2017-06-14] MEDS ORDERED: MORPHINE SULFATE 30 MG CONTROLLED RELEASE TAB PO SCH (13:00)
[2017-06-14 13:57] VITALS: PULSE 91; RESP 18; TEMP 97.8; O2SAT 95
== END 2017-06-14 15:02 | disposition home health service (06) | DRG 441 ==
LOC: NEPE 16:46 → NEDA 19:18 → UNDOADMIN 19:18 → NEDH 19:18 → HCIS 23:31 → HCIN 06-13 17:18
PROVIDERS: ADMIT Hospitalist; ATTEND Hospitalist
DX: K72.90 Hepatic failure, unspecified without coma (principal); G93.41 Metabolic encephalopathy; D61.818 Other pancytopenia; C85.90 Non-Hodgkin lymphoma, unspecified, unspecified site; I13.0 Hypertensive heart and chronic kidney disease with heart failure and stage 1 through stage 4 chronic kidney disease, or unspecified chronic kidney disease; I50.9 Heart failure, unspecified; E11.22 Type 2 diabetes mellitus with diabetic chronic kidney disease; N39.0 Urinary tract infection, site not specified; N18.9 Chronic kidney disease, unspecified; K74.60 Unspecified cirrhosis of liver; G47.30 Sleep apnea, unspecified; J44.9 Chronic obstructive pulmonary disease, unspecified; I25.10 Atherosclerotic heart disease of native coronary artery without angina pectoris; E78.5 Hyperlipidemia, unspecified; E11.40 Type 2 diabetes mellitus with diabetic neuropathy, unspecified; D73.1 Hypersplenism; G31.84 Mild cognitive impairment of uncertain or unknown etiology; K21.9 Gastro-esophageal reflux disease without esophagitis; G25.2 Other specified forms of tremor; R27.8 Other lack of coordination; M10.9 Gout, unspecified; B95.2 Enterococcus as the cause of diseases classified elsewhere; F41.9 Anxiety disorder, unspecified; Z79.4 Long term (current) use of insulin; Z86.19 Personal history of other infectious and parasitic diseases; Z95.1 Presence of aortocoronary bypass graft; Z92.21 Personal history of antineoplastic chemotherapy
CPT/HCPCS: 70450; 70544; 70551; 71010; 80053; 80061; 80307; 81001; 82140; 82550; 82948; 83036; 84443; 84484; 85007; 85027; 85610; 85730; 87077; 87086; 87186; 93005; 93306; 93880; 95819; J0696; J1644; J2270; J7030

== ENCOUNTER → 2017-06-22 | Day surgery (SDC) | payer MEDICARE, OTHER ==
[~2017-06-22] VITALS: Ht 172.7 cm; Wt 73.0 kg
[~2017-06-22] MED LIST changes: +CEFD300C PO; +CEPH-459 PO; +DO NOT ADM ANY ANTICOAGULANT DRUGS PRN; +LACT10SO PO; +LIDOCAINE HCL 1% PF 5 ML SYRINGE OTHER ONE; +MORPHINE SULFATE 4 MG/ML INJ IV PUSH ONE; +ONDANSETRON HCL 4 MG/2 ML VIAL IV ONE; +ONDANSETRON HCL 4 MG/2 ML VIAL IV PUSH PRN; +OXYC1CAP PO; +PHENYLEPH/NS 1000 MCG/10 ML SYR IV ONE; +PROPOFOL 200 MG/20 ML AMP IV ONE; +ROCURONIUM INJ 50 MG/5 ML SYRINGE IV PUSH ONE; +SUCCINYLCHOLINE CHLORIDE 100 MG/5 ML SYRINGE IV PUSH ONE; +ePHEDrine/NS 25 MG/5 ML SYR IV ONE
[2017-06-22 06:52] VITALS: BP 132/69; PULSE 74; RESP 20; TEMP 98.5; O2SAT 100
--- NOTE | 2017-06-22 07:16 | PD ---
HPI Chief Complaint: Complaint Time Seen by Provider: 07:16 Travel History International Travel<30 days: No Contact w/Intl Traveler<30days: No Traveled to known affect area: No History of Present Illness HPI 72-year-old male came to the emergency room with history of urinary retention for past 2 days. Patient looked very uncomfortable. He was not a great historian given his degree of distress. He says he has issues with urinating but he has never had this kind of obstruction in the past. No history of fever or chills. No history of nausea vomiting. His pain was all in the suprapubic and lower abdominal location. Pain was worse with movement. [facility] Past Medical History Narrative Medical List of his past medical, surgical, social and family history is reviewed from the nursing note. Arthritis: No Asthma: Yes Autoimmune Disease: No Blood Disorders: No Anxiety: No Depression: Yes Heart Rhythm Problems: No Cancer: Yes Cardiac Catheterization: Yes Cardiovascular Problems: Yes High Cholesterol: Yes Chemotherapy: Yes Chest Pain: No Congestive Heart Failure: Yes COPD: Yes Cerebrovascular Accident: No Diabetes: Yes Diminished Hearing: No Endocrine: No Gastrointestinal Disorders: Yes (LIVER ENZYMES GO UP AND DOWN) GERD: No Glaucoma: No Genitourinary: No Headaches: No Hepatitis: Yes (HEP. C) Hiatal Hernia: No Hypertension: Yes Immune Disorder: No Kidney Stones: No Musculoskeletal: No Neurologic: No Psychiatric: No Reproductive: No Respiratory: Yes Migraines: No Radiation Therapy: No Renal Failure: No Seizures: No Sickle Cell Disease: No Sleep Apnea: Yes Thyroid Disease: No Ulcer: No Past Surgical History Abdominal Surgery: No AICD: No Appendectomy: No Arteriovenous Shunt: No Body Medical Devices: dentures Cardiac Surgery: Yes (CABG X3,) Cholecystectomy: No Coronary Artery Bypass Graft: Yes Ear Surgery: No Endocrine Surgery: No Eye Surgery: No Genitourinary Surgery: No Gynecologic Surgery: No Insulin Pump: No Joint Replacement: No Oral Surgery: No Pacemaker: No Thoracic Surgery: No Other Surgery: Yes (CABG 5 VESSEL) 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 Alcohol Use: No Tobacco Use: No Substance Use: No Allergies-Medications (Allergen,Severity, Reaction): Coded Allergies: No Known Allergies (Verified Allergy, Unknown, 06/12/17) Comments No known drug allergies. Reported Meds & Prescriptions Reported Meds & Active Scripts Active Oxycodone (Oxycodone HCl) 5 Mg Cap 5 Mg PO Q6H PRN Keflex (Cephalexin) 250 Mg Cap 250 Mg PO TID Cefdinir 300 Mg Cap 600 Mg PO DAILY Lactulose Liq (Lactulose) 10 Gm/15 Ml Soln 45 Ml PO Q6H may lower dose if having 3-4 soft stools daily Reported Gabapentin 300 Mg Cap 300 Mg PO TID Nitroglycerin SL (Nitroglycerin) 0.4 Mg Subl 0.4 Mg SL DIRECTED PRN ONE TABLET UNDER THE TONGUE NEEDED FOR CHEST PAIN, MAY REPEAT EVERY FIVE MINUTES FOR A TOTAL OF 3 DOSES OR CALL 911 IF NO RELIEF Ventolin Hfa 18 GM Inh (Albuterol Sulfate) 90 Mcg/Act Aer 1 Puff INH Q4H PRN Trazodone (Trazodone HCl) 50 Mg Tab 50 Mg PO HS Humalog Inj (Insulin Human Lispro) 1,000 Unit/10 Ml Vial 1-9 Units SQ ACHS Max dose at bedtime:( )units; sugars< 70,(0)units; sugars 150-199,(1)unit; sugars 200-249,(3)units; sugars 250-299,(5)units; sugars 300-349,(7)units; sugars more than 349,(9)units. Albuterol (Albuterol Sulfate) 4 Mg Tab 4 Mg PO TID Ipratropium Neb (Ipratropium [place]) 0.5 Mg/2.5 Ml Amp 0.5 Mg NEB Q6HR NEB PRN K-Tab (Potassium Chloride) 20 Meq Tab 20 Meq PO DAILY Isosorbide Mononitrate ER (Isosorbide Mononitrate) 30 Mg Bandar 30 Mg PO DAILY Protonix (Pantoprazole Sodium) 40 Mg Tab 40 Mg PO DAILY Morphine ER (Morphine Sulfate) 30 Mg Tab 30 Mg PO Q8H Lasix (Furosemide) 40 Mg Tab 40 Mg PO BID Toprol XL (Metoprolol Succinate) 50 Mg Tab 50 Mg PO BID Narrative Medication List of his home medications reviewed from the nursing note. Review of Systems Except as stated in HPI: all other systems reviewed are Neg Gastrointestinal: Positive: Abdominal Pain Genitourinary: Positive: Decreased Urinary Output Physical Exam Narrative GENERAL: Awake, alert, moderate distress SKIN: Focused skin assessment warm/dry. HEAD: Atraumatic. Normocephalic. EYES: Pupils equal and round. No scleral icterus. No injection or drainage. ENT: No nasal bleeding or discharge. Mucous membranes pink and moist. NECK: Trachea midline. No JVD. CARDIOVASCULAR: Regular rate and rhythm. No murmur appreciated. RESPIRATORY: No accessory muscle use. Clear to auscultation. Breath sounds equal bilaterally. GASTROINTESTINAL: Abdomen soft, suprapubic fullness and tenderness on light palpation, nondistended. Hepatic and splenic margins not palpable. : Circumcised penis with pinhole urethral meatus from urethral stricture MUSCULOSKELETAL: No obvious deformities. No clubbing. No cyanosis. No edema. NEUROLOGICAL: Awake and alert. No obvious cranial nerve deficits. Motor grossly within normal limits. Normal speech. PSYCHIATRIC: Appropriate mood and affect; insight and judgment normal. Data Data Last Documented VS Orders Orders Complete Blood Count With Diff (06/22/17 07:24) Basic Metabolic Panel (Bmp) (06/22/17 07:24) Urinary Catheter Insert/Apply (06/22/17 07:24) Morphine Inj (Morphine Inj) (06/22/17 07:45) Admit Order (Ed Use Only) (06/22/17 07:44) [facility] Medical Decision Making Medical Screen Exam Complete: Yes Emergency Medical Condition: Yes Medical Record Reviewed: Yes Differential Diagnosis Enlarged prostate, urinary retention Narrative Course 8:43 AM the nurse tried to put a Barraza catheter and a coud catheter but was unsuccessful given significant urethral stricture. His meatus was pinhole size. I discussed the case with Dr. Dewitt who is on for urology and he wanted the patient to be nothing by mouth and taken to the OR soon to get the procedure done to relieve his retention. Procedures EKG Prior to Arrival: No Physician Communication Physician Communication Dr. Dewitt Diagnosis Primary Impression: Urinary retention Additional Impression: Urethral stricture Qualified Codes: N35.9 - Urethral stricture, unspecified Admitting Information Admitting Physician Requests: Observation Scripts Oxycodone (Oxycodone) 5 Mg Cap 5 MG PO Q6H Y for PAIN, #20 CAP 0 Refills Prov: Elmo Dewitt MD 06/22/17 Cephalexin (Keflex) 250 Mg Cap 250 MG PO TID for Infection, #15 CAP 0 Refills Prov: Elmo Dewitt MD 06/22/17 Marichuy Wheeler MD Jun 22, 2017 07:16
[2017-06-22 08:11] LABS: AUTOMATED NEUTROPHIL # 1.4 TH/MM3 (1.8-7.7); BASOPHIL % 0.5 % (0.0-2.0); EOSINOPHIL % 0.6 % (0.0-4.0); HEMATOCRIT 27.6 % (39.0-51.0); LYMPH % 14.8 % (9.0-44.0); LYMPHOCYTE # 0.3 TH/MM3 (1.0-4.8); MEAN CELL VOLUME 94.3 FL (80.0-100.0); MEAN CORPUSCULAR HEMOGLOBIN 31.6 PG (27.0-34.0); MEAN CORPUSCULAR HGB CONC 33.5 % (32.0-36.0); MONO % 12.3 % (0.0-8.0); NEUT % 71.8 % (16.0-70.0); PLATELET COUNT 34 TH/MM3 (150-450); RED BLOOD COUNT 2.93 MIL/MM3 (4.50-5.90); RED CELL DISTRIBUTION WIDTH 14.5 % (11.6-17.2)
[2017-06-22 08:12] LABS: HEMO FLAGS AUTO DIFF
[2017-06-22 08:30] LABS: POTASSIUM 4.3 MEQ/L (3.5-5.1)
[2017-06-22 08:50] LABS: ACANTHOCYTES OCC (NORMAL); OVALOCYTES 2+ (NORMAL); PLATELET ESTIMATE SMEAR LOW (NORMAL); TEARDROP RBCS 1+ (NORMAL)
[2017-06-22 08:51] LABS: PLATELET MORPHOLOGY NORMAL (NORMAL); SCAN/DIFF AUTO DIFF CONFIRMED
[2017-06-22 08:54] LABS: INTERNATIONAL NORMALIZED RATIO 1.3 RATIO
--- NOTE | 2017-06-22 09:05 | HHI.HP ---
[facility] Service Urology Primary Care Physician Ignacio Barrera MD Admission Diagnosis urinary retention, urethral stricture Diagnoses: Chief Complaint: Inability to urinate History of Present Illness 72-year-old gentleman with questionable history of urethral stricture formation in the past who presents to the emergency room with inability to urinate for the past 2 days. A bladder scan was performed that demonstrated a markedly distended bladder with approximately 2 L of urine. Attempts were made to pass a coud catheter by the ER physician without success. Patient is a very poor historian and I was unable to get a good history from him. Most of the history was obtained from review of the medical records. Review of Systems ROS Limitations: Poor Historian Except as stated in HPI: all other systems reviewed are Neg Past Family 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 Past Medical History Coronary artery disease Hepatitis C Non-Hodgkin's lymphoma Anemia COPD Diabetes mellitus Past Surgical History Status post CABG Reported Medications Refer to EMR Allergies: Coded Allergies: No Known Allergies (Verified Allergy, Unknown, 06/12/17) Active Ordered Medications Refer to EMR Family History Reviewed and noncontributory 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 Denies tobacco, alcohol or intravenous drug abuse Physical Exam Vital Signs Date Time Temp Pulse Resp B/P (MAP) Pulse Ox O2 Delivery O2 Flow Rate FiO2 06/22/17 08:27 06/22/17 06:52 98.5 74 20 132/69 (90) 100 Room Air Physical Exam GENERAL: Somnolent, appears stated age SKIN: No rashes, ecchymoses or lesions. Cool and dry. HEAD: Atraumatic. Normocephalic. No temporal or scalp tenderness. EYES: Pupils equal round and reactive. Extraocular motions intact. No scleral icterus. No injection or drainage. ENT: Nose without bleeding, purulent drainage or septal hematoma. Throat without erythema, tonsillar hypertrophy or exudate. Uvula midline. Airway patent. NECK: Trachea midline. No JVD or lymphadenopathy. Supple, nontender, no meningeal signs. CARDIOVASCULAR: Regular rate and rhythm without murmurs, gallops, or rubs. RESPIRATORY: Clear to auscultation. Breath sounds equal bilaterally. No wheezes , rales, or rhonchi. GASTROINTESTINAL: Abdomen soft, non-tender, nondistended. No hepato-splenomegaly , or palpable masses. No guarding. GENITOURINARY: Meatal stenosis, markedly distended urinary bladder MUSCULOSKELETAL: Extremities without clubbing, cyanosis, or edema. No joint tenderness, effusion, or edema noted. No calf tenderness. Negative Homans sign bilaterally. NEUROLOGICAL: Very somnolent, responds to questions with short answers. Lab results reviewed: Yes Laboratory Tests Test 06/22/17 07:50 06/22/17 08:00 White Blood Count 2.0 Red Blood Count 2.93 Hemoglobin 9.3 Hematocrit 27.6 Mean Corpuscular Volume 94.3 Mean Corpuscular Hemoglobin 31.6 Mean Corpuscular Hemoglobin Concent 33.5 Red Cell Distribution Width 14.5 Platelet Count 34 Mean Platelet Volume 9.9 Neutrophils (%) (Auto) 71.8 Lymphocytes (%) (Auto) 14.8 Monocytes (%) (Auto) 12.3 Eosinophils (%) (Auto) 0.6 Basophils (%) (Auto) 0.5 Neutrophils # (Auto) 1.4 Lymphocytes # (Auto) 0.3 Monocytes # (Auto) 0.2 Eosinophils # (Auto) 0.0 Basophils # (Auto) 0.0 CBC Comment AUTO DIFF Differential Comment AUTO DIFF CONFIRMED Platelet Estimate LOW Platelet Morphology Comment NORMAL Tear Drop Cells 1+ Ovalocytes 2+ Acanthocytes OCC Blood Urea Nitrogen 26 Creatinine 1.50 Random Glucose 157 Calcium Level 8.7 Sodium Level 140 Potassium Level 4.3 Chloride Level 110 Carbon Dioxide Level 22.0 Anion Gap 8 Estimat Glomerular Filtration Rate 56 Prothrombin Time 14.0 Prothromb Time International Ratio 1.3 Result Diagram: 06/22/17 0750 06/22/17 0750 Caprini VTE Risk Assessment Caprini VTE Risk Assessment: No/Low Risk (score <= 1) Caprini Risk Assessment Model Point Value = 1 Point Value = 2 Point Value = 3 Point Value = 5 Age 41-60 Minor surgery BMI > 25 kg/m2 Swollen legs Varicose veins or History of unexplained or recurrent spontaneous Oral contraceptives or hormone replacement Sepsis (< 1 month) Serious lung disease, including pneumonia (< 1 month) Abnormal pulmonary function Acute myocardial infarction Congestive heart failure (< 1 month) History of inflammatory bowel disease Medical patient at bed rest Age 61-74 Arthroscopic surgery Major open surgery (> 45 min) Laparoscopic surgery (> 45 min) Malignancy Confined to bed (> 72 hours) Immobilizing plaster cast Central venous access Age >= 75 History of VTE Family history of VTE Factor V Leiden Prothrombin [id number] Lupus anticoagulant Anticardiolipin antibodies Elevated serum homocysteine Heparin-induced thrombocytopenia Other congenital or acquired thrombophilia Stroke (< 1 month) Elective arthroplasty Hip, pelvis, or leg fracture Acute spinal cord injury (< 1 month) Prophylaxis Regimen Total Risk Factor Score Risk Level Prophylaxis Regimen 0-1 Low Early ambulation 2 Moderate Order ONE of the following: *Sequential Compression Device (SCD) *Heparin 5000 units SQ BID 3-4 Higher Order ONE of the following medications: *Heparin 5000 units SQ TID *Enoxaparin/Lovenox 40 mg SQ daily (WT < 150 kg, CrCl > 30 mL/min) *Enoxaparin/Lovenox 30 mg SQ daily (WT < 150 kg, CrCl > 10-29 mL/min) *Enoxaparin/Lovenox 30 mg SQ BID (WT < 150 kg, CrCl > 30 mL/min) AND/OR *Sequential Compression Device (SCD) 5 or more Highest Order ONE of the following medications: *Heparin 5000 units SQ TID (Preferred with Epidurals) *Enoxaparin/Lovenox 40 mg SQ daily (WT < 150 kg, CrCl > 30 mL/min) *Enoxaparin/Lovenox 30 mg SQ daily (WT < 150 kg, CrCl > 10-29 mL/min) *Enoxaparin/Lovenox 30 mg SQ BID (WT < 150 kg, CrCl > 30 mL/min) AND *Sequential Compression Device (SCD) Assessment and Plan Assessment and Plan Urologic impression: #1 acute urinary retention #2 retention may be possibly related to refill stricture disease Plan: #1 keep the patient nothing by mouth #2 bring the patient to the OR suite on an urgent basis for cystoscopy and possible direct visual internal urethrotomy. Elmo Dewitt MD Jun 22, 2017 09:04
--- NOTE | 2017-06-22 09:54 | PD.OP ---
Operative Report Date of Surgery: Jun 22, 2017 Preoperative Diagnosis: (1) Urinary retention Postoperative Diagnosis: (1) Meatal stenosis (2) Urinary retention Procedure: Meatoplasty and cystoscopic evaluation Anesthesia: General Surgeon: Elmo Dewitt Director Of Personnel(s): None Operation and Findings: Indication for procedure: Case of a pleasant 72-year-old gentleman who presented to the emergency room in acute urinary retention. Multiple attempts to place a Barraza catheter were nonsuccessful. Patient presents now for further evaluation to include cystoscopy and possible direct visual internal urethrotomy. Operative procedure in detail: Patient was brought to the operating room suite and placed supine on the OR table. He was then placed under general anesthesia. He was then prepped and draped in normal sterile fashion. After the appropriate timeout was undertaken I proceeded with attempted cystoscopic evaluation. The meatus and distal urethra were markedly stenotic and precluded passage of the cystoscope. Male dilators utilized and the distal urethra/ meatus were sequentially dilated starting at 12 Barbadian and advancing to 20 Barbadian. The cystoscope was then reintroduced and the patient was noted to have significant scar tissue at the distal urethra however the remainder of the urethra was patent without stricture formation. The prostatic urethra was nonobstructing and further passive cystoscope within the urinary bladder revealed both right and left ureteral orifices to be correct anatomic position effluxing clear yellow urine. There were no bladder mucosal lesions, calculi or diverticula formation. Approximately 2 L of urine was evacuated from the bladder upon passage of the cystoscope. The cystoscope was then withdrawn and I proceeded with performing a neoplastic to keep the distal urethra/meatus patent. A ventral wedge of tissue is compressed at the meatus with a straight clamp and this was subsequently sharply opened up with Metzenbaum scissors. The mucosal edges were then brought up to the newly created meatus and tacked in place with interrupted 4.0 non-dyed Vicryl sutures. A 16 Barbadian 10 cc Barraza catheter was then placed and connected to gravity drainage. The patient tolerated the procedures without complications and was transferred to the PACU in satisfactory condition. Elmo Dewitt MD Jun 22, 2017 09:54
[2017-06-22 11:45] VITALS: BP 116/60; PULSE 63; RESP 20; TEMP 97.4; O2SAT 100
== END | disposition home or self-care (01) ==
LOC: NEPE 06:48 → HSDC 07:47
PROVIDERS: ATTEND Urology
DX: N35.9 Urethral stricture, unspecified (principal); R33.8 Other retention of urine; E11.9 Type 2 diabetes mellitus without complications; I25.10 Atherosclerotic heart disease of native coronary artery without angina pectoris; J44.9 Chronic obstructive pulmonary disease, unspecified; B19.20 Unspecified viral hepatitis C without hepatic coma; Z95.1 Presence of aortocoronary bypass graft
CPT/HCPCS: 00920; 52281; 53450; 80048; 85025; 85610; J0330; J1642; J2370; J2405; J3010; 96374

== ENCOUNTER 2017-11-01 19:50 | Inpatient (IN) | payer OTHER, MEDICARE ==
[~2017-11-01] VITALS: Ht 165.1 cm; Wt 71.5 kg
[~2017-11-01 19:50] MED LIST changes: -CEFD300C PO; -CEPH-459 PO; -DO NOT ADM ANY ANTICOAGULANT DRUGS PRN; -LIDOCAINE HCL 1% PF 5 ML SYRINGE OTHER ONE; -MORPHINE SULFATE 4 MG/ML INJ IV PUSH ONE; -ONDANSETRON HCL 4 MG/2 ML VIAL IV ONE; -ONDANSETRON HCL 4 MG/2 ML VIAL IV PUSH PRN; -OXYC1CAP PO; -PHENYLEPH/NS 1000 MCG/10 ML SYR IV ONE; -PROPOFOL 200 MG/20 ML AMP IV ONE; -ROCURONIUM INJ 50 MG/5 ML SYRINGE IV PUSH ONE; -SUCCINYLCHOLINE CHLORIDE 100 MG/5 ML SYRINGE IV PUSH ONE; -ePHEDrine/NS 25 MG/5 ML SYR IV ONE
[2017-11-01 20:00] VITALS: BP 147/67; PULSE 78; RESP 20; TEMP 99.3; O2SAT 100
--- NOTE | 2017-11-01 21:51 | PD ---
HPI Chief Complaint: GI Complaint Time Seen by Provider: 21:36 Travel History International Travel<30 days: No Contact w/Intl Traveler<30days: No Traveled to known affect area: No History of Present Illness HPI This is a 72-year-old male who presents with his daughter for evaluation. The patient reports that for the past month he has had tremors, generalized weakness , lower abdominal and back pain. Overall he is a very poor historian. The triage nurse wrote that he has been having acid reflux and nausea for the past month however patient is denying any acid reflux. He has had nausea. He denies chest pain, shortness of breath, cough, congestion, diarrhea. He reports that he has been constipated for several days. In regards to past medical history is only able to provide that he has a history of lymphoma. According to chart review he has a history of non-Hodgkin's lymphoma currently in remission per most recent note on file on September 19, 2017, follows with Dr. Malhotra, history of COPD, cirrhosis, type 2 diabetes, hepatitis C, hyperlipidemia, hypertension, chronic kidney disease, peripheral neuropathy. He reports that he lives alone, ambulates with a cane, has had a terrible appetite over the past month. PFSH Past Medical History Arthritis: No Asthma: Yes Autoimmune Disease: No Blood Disorders: No Anxiety: No Depression: Yes Heart Rhythm Problems: No Cancer: Yes Cardiac Catheterization: Yes Cardiovascular Problems: Yes High Cholesterol: Yes Chemotherapy: Yes Chest Pain: Yes Congestive Heart Failure: Yes COPD: Yes Cerebrovascular Accident: No Diabetes: Yes Patient Takes Glucophage: No Diminished Hearing: No Endocrine: No GERD: No Glaucoma: No Genitourinary: No Headaches: No Hepatitis: Yes (HEP. C) Hiatal Hernia: No Hypertension: Yes Immune Disorder: No Kidney Stones: No Musculoskeletal: No Neurologic: No Psychiatric: No Reproductive: No Respiratory: Yes Migraines: No Radiation Therapy: No Renal Failure: No Seizures: No Sickle Cell Disease: No Sleep Apnea: Yes Thyroid Disease: No Ulcer: No Tetanus Vaccination: > 5 Years Influenza Vaccination: Yes Past Surgical History Abdominal Surgery: No AICD: No Appendectomy: No Arteriovenous Shunt: No Body Medical Devices: dentures Cardiac Surgery: Yes (CABG X3,) Cholecystectomy: No Coronary Artery Bypass Graft: Yes Ear Surgery: No Endocrine Surgery: No Eye Surgery: No Genitourinary Surgery: No Gynecologic Surgery: No Insulin Pump: No Joint Replacement: No Oral Surgery: No Pacemaker: No Thoracic Surgery: No Other Surgery: Yes (CABG 5 VESSEL) 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 Alcohol Use: No Tobacco Use: No Substance Use: No Allergies-Medications (Allergen,Severity, Reaction): Coded Allergies: No Known Allergies (Verified Allergy, Unknown, 11/02/17) Reported Meds & Prescriptions Reported Meds & Active Scripts Active Lactulose Liq (Lactulose) 10 Gm/15 Ml Soln 45 Ml PO Q6H may lower dose if having 3-4 soft stools daily Reported Gabapentin 300 Mg Cap 300 Mg PO TID Nitroglycerin SL (Nitroglycerin) 0.4 Mg Subl 0.4 Mg SL DIRECTED PRN ONE TABLET UNDER THE TONGUE NEEDED FOR CHEST PAIN, MAY REPEAT EVERY FIVE MINUTES FOR A TOTAL OF 3 DOSES OR CALL 911 IF NO RELIEF Ventolin Hfa 18 GM Inh (Albuterol Sulfate) 90 Mcg/Act Aer 1 Puff INH Q4H PRN Trazodone (Trazodone HCl) 50 Mg Tab 50 Mg PO HS Humalog Inj (Insulin Human Lispro) 1,000 Unit/10 Ml Vial 1-9 Units SQ ACHS Max dose at bedtime:( )units; sugars< 70,(0)units; sugars 150-199,(1)unit; sugars 200-249,(3)units; sugars 250-299,(5)units; sugars 300-349,(7)units; sugars more than 349,(9)units. Albuterol (Albuterol Sulfate) 4 Mg Tab 4 Mg PO TID Ipratropium Neb (Ipratropium [place]) 0.5 Mg/2.5 Ml Amp 0.5 Mg NEB Q6HR NEB PRN K-Tab (Potassium Chloride) 20 Meq Tab 20 Meq PO DAILY Isosorbide Mononitrate ER (Isosorbide Mononitrate) 30 Mg Bandar 30 Mg PO DAILY Protonix (Pantoprazole Sodium) 40 Mg Tab 40 Mg PO DAILY Morphine ER (Morphine Sulfate) 30 Mg Tab 30 Mg PO Q8H Lasix (Furosemide) 40 Mg Tab 40 Mg PO BID Toprol XL (Metoprolol Succinate) 50 Mg Tab 50 Mg PO BID Review of Systems ROS Limitations: Poor Historian Physical Exam Exam Limitations: Poor Historian Narrative GENERAL: Well-developed well-nourished male in no acute distress. SKIN: Warm and dry. HEAD: Atraumatic. Normocephalic. EYES: Pupils equal and round. No scleral icterus. No injection or drainage. ENT: No nasal bleeding or discharge. Mucous membranes pink and moist. NECK: Trachea midline. No JVD. CARDIOVASCULAR: Regular rate and rhythm. No murmur appreciated. RESPIRATORY: No accessory muscle use. Clear to auscultation. Breath sounds equal bilaterally. GASTROINTESTINAL: Abdomen soft, mild tenderness to palpation lower quadrants without guarding. There is no CVA tenderness. MUSCULOSKELETAL: No obvious deformities. No clubbing. No cyanosis. No edema. NEUROLOGICAL: Awake and alert. No obvious cranial nerve deficits. Motor grossly within normal limits. Normal speech. PSYCHIATRIC: Appropriate mood and affect; insight and judgment normal. Data Data Last Documented VS Vital Signs Date Time Temp Pulse Resp B/P (MAP) Pulse Ox O2 Delivery O2 Flow Rate FiO2 11/01/17 22:09 99.2 11/01/17 20:00 78 20 147/67 (93) 100 Orders Orders Complete Blood Count With Diff (11/01/17 21:48) Comprehensive Metabolic Panel (11/01/17 21:48) Lipase (11/01/17 21:48) Lactic Acid (11/01/17 21:48) Prothrombin Time / Inr (Pt) (11/01/17 21:48) Act Partial Throm Time (Ptt) (11/01/17 21:48) Urinalysis - C+S If Indicated (11/01/17 21:48) Iv Access Insert/Monitor (11/01/17 21:48) Ecg Monitoring (11/01/17 21:48) Oximetry (11/01/17 21:48) Sodium Chloride 0.9% Flush (Ns Flush) (11/01/17 22:00) Electrocardiogram (11/01/17 21:48) Chest, Single Ap (11/01/17 21:48) Ammonia (11/01/17 21:48) Creatine Kinase (Cpk) (11/01/17 21:48) Troponin I (11/01/17 21:48) Ct Brain W/O Iv Contrast(Rout) (11/01/17 ) Blood Culture (11/01/17 21:51) Ct Abd/Pel W/O Iv Contrast (11/01/17 22:58) Admit Order (Ed Use Only) (11/01/17 23:44) Labs Laboratory Tests Test 11/01/17 22:23 White Blood Count 6.8 TH/MM3 Red Blood Count 2.95 MIL/MM3 Hemoglobin 8.9 GM/DL Hematocrit 27.7 % Mean Corpuscular Volume 93.8 FL Mean Corpuscular Hemoglobin 30.2 PG Mean Corpuscular Hemoglobin Concent 32.2 % Red Cell Distribution Width 16.1 % Platelet Count 78 TH/MM3 Mean Platelet Volume 9.9 FL Neutrophils (%) (Auto) 59.4 % Lymphocytes (%) (Auto) 26.5 % Monocytes (%) (Auto) 12.2 % Eosinophils (%) (Auto) 1.4 % Basophils (%) (Auto) 0.5 % Neutrophils # (Auto) 4.1 TH/MM3 Lymphocytes # (Auto) 1.8 TH/MM3 Monocytes # (Auto) 0.8 TH/MM3 Eosinophils # (Auto) 0.1 TH/MM3 Basophils # (Auto) 0.0 TH/MM3 CBC Comment AUTO DIFF Differential Comment AUTO DIFF CONFIRMED Platelet Estimate LOW Platelet Morphology Comment NORMAL Polychromasia 2.1 % Ovalocytes 1+ Acanthocytes OCC Prothrombin Time 14.6 SEC Prothromb Time International Ratio 1.4 RATIO Activated Partial Thromboplast Time 27.2 SEC Blood Urea Nitrogen 64 MG/DL Creatinine 2.54 MG/DL Random Glucose 161 MG/DL Total Protein 7.2 GM/DL Albumin 2.6 GM/DL Calcium Level 9.1 MG/DL Alkaline Phosphatase 63 U/L Aspartate Amino Transf (AST/SGOT) 41 U/L Alanine Aminotransferase (ALT/SGPT) 22 U/L Total Bilirubin 1.6 MG/DL Sodium Level 141 MEQ/L Potassium Level 5.3 MEQ/L Chloride Level 110 MEQ/L Carbon Dioxide Level 24.6 MEQ/L Anion Gap 6 MEQ/L Estimat Glomerular Filtration Rate 30 ML/MIN Lactic Acid Level 2.3 mmol/L Ammonia 54 MCMOL/L Total Creatine Kinase 59 U/L Troponin I 0.03 NG/ML Lipase 754 U/L [facility] Medical Decision Making Medical Screen Exam Complete: Yes Emergency Medical Condition: Yes Medical Record Reviewed: Yes Differential Diagnosis Electrolyte abnormality, metastatic disease, dehydration, colitis, diverticulitis, UTI, encephalitis, meningitis Narrative Course Patient was placed on ECG monitoring pulse oximetry. 12-lead EKG was obtained. Lab work, CT abdomen and pelvis, CT brain ordered. The patient was given IV fluid bolus. Lab work reveals potassium 5.3, chloride 110, GFR 30, CT abdomen and pelvis changed noncontrast, random glucose 161, ammonia 54, lactic acid 2.3, lipase 754. Baseline GFR is between 47 and 64. At the end of my shift the patient was signed out pending CT imaging. Steve Sullivan Nov 01, 2017 21:51
[2017-11-01] MEDS ORDERED: SODIUM CHLORIDE 0.9% FLUSH 10 ML FLUSH IV FLUSH PRN (22:00)
[2017-11-01 22:09] VITALS: TEMP 99.2
[2017-11-01 22:35] LABS: AUTOMATED NEUTROPHIL # 4.1 TH/MM3 (1.8-7.7); BASOPHIL % 0.5 % (0.0-2.0); EOSINOPHIL # 0.1 TH/MM3 (0-0.4); EOSINOPHIL % 1.4 % (0.0-4.0); HEMATOCRIT 27.7 % (39.0-51.0); HEMOGLOBIN 8.9 GM/DL (13.0-17.0); LYMPH % 26.5 % (9.0-44.0); LYMPHOCYTE # 1.8 TH/MM3 (1.0-4.8); MEAN CELL VOLUME 93.8 FL (80.0-100.0); MEAN CORPUSCULAR HEMOGLOBIN 30.2 PG (27.0-34.0); MEAN CORPUSCULAR HGB CONC 32.2 % (32.0-36.0); MEAN PLATELET VOLUME 9.9 FL (7.0-11.0); MONO % 12.2 % (0.0-8.0); MONOCYTE # 0.8 TH/MM3 (0-0.9); NEUT % 59.4 % (16.0-70.0); PLATELET COUNT 78 TH/MM3 (150-450); RED BLOOD COUNT 2.95 MIL/MM3 (4.50-5.90); RED CELL DISTRIBUTION WIDTH 16.1 % (11.6-17.2); WHITE BLOOD COUNT 6.8 TH/MM3 (4.0-11.0)
[2017-11-01 22:44] LABS: INTERNATIONAL NORMALIZED RATIO 1.4 RATIO; PROTHROMBIN TIME - PATIENT 14.6 SEC (9.8-11.6)
--- NOTE | 2017-11-01 22:52 | RADRPT ---
EXAM DATE/TIME: 11/01/2017 21:49 [facility] COMPARISON: CHEST SINGLE AP, June 12, 2017, 17:01. INDICATIONS : 'Flu' symptoms and fever. MEDICAL HISTORY : Hypertension. Diabetes mellitus type 2. Hepatitis C SURGICAL HISTORY : CABG. ENCOUNTER: Initial ACUITY: 1 day PAIN SCORE: 3/10 LOCATION: Bilateral upper chest FINDINGS: A single view of the chest demonstrates [id number] in superior vena cava. Previous CABG. No infilt rate or effusion. Heart size mildly enlarged. Embolization coils overlie upper left chest. CONCLUSION: 1. No acute findings. Christophe Hernández MD on November 01, 2017 at 22:49 Board Certified Radiologist. This report was verified electronically.
[2017-11-01 22:57] LABS: ALBUMIN 2.6 GM/DL (3.4-5.0); AST (GOT) 41 U/L (15-37); BICARBONATE 24.6 MEQ/L (21.0-32.0); BLOOD UREA NITROGEN 64 MG/DL (7-18); CALCIUM 9.1 MG/DL (8.5-10.1); CHLORIDE 110 MEQ/L (98-107); CREATININE 2.54 MG/DL (0.60-1.30); GLOMERULAR FILTRATION RATE 30 ML/MIN (>89); GLUCOSE,RANDOM 161 MG/DL (74-106); SODIUM (NA) 141 MEQ/L (136-145)
[2017-11-01 22:58] LABS: ALT (GPT) 22 U/L (12-78)
[2017-11-01 23:02] LABS: ALKALINE PHOSPHATASE 63 U/L (45-117); TOTAL BILIRUBIN ADULT 1.6 MG/DL (0.2-1.0); TOTAL PROTEIN 7.2 GM/DL (6.4-8.2); TROPONIN I 0.03 NG/ML (0.02-0.05)
[2017-11-01 23:31] LABS: ACANTHOCYTES OCC (NORMAL); OVALOCYTES 1+ (NORMAL)
--- NOTE | 2017-11-01 23:31 | RADRPT ---
EXAM DATE/TIME: 11/01/2017 23:07 [facility] COMPARISON: CT BRAIN W/O CONTRAST, June 12, 2017, 17:20. INDICATIONS : Altered mental status. RADIATION DOSE: 66.34 CTDIvol (mGy) MEDICAL HISTORY : Myocardial infarction. Hypertension. Hepatitis C.Diabetes. Lymphoma. Diabetes. SURGICAL HISTORY : CABG ENCOUNTER: Initial ACUITY: 1 day PAIN SCALE: 0/10 LOCATION: cranial TECHNIQUE: Multiple contiguous axial images were obtained of the head. Using automated exposure control and adj ustment of the mA and/or kV according to patient size, radiation dose was kept as low as reasonably a chievable to obtain optimal diagnostic quality images. DICOM format image data is available electro nically for review and comparison. FINDINGS: CEREBRUM: The ventricles are normal for age. No evidence of midline shift, mass lesion, hemorrhage or acute in farction. No extra-axial fluid collections are seen. POSTERIOR FOSSA: The cerebellum and brainstem are intact. The 4th ventricle is midline. The cerebellopontine angle i s unremarkable. EXTRACRANIAL: The visualized portion of the orbits is intact. SKULL: The calvaria is intact. No evidence of skull fracture. CONCLUSION: No acute intracranial disease. Josiah Anderson MD on November 01, 2017 at 23:29 Board Certified Radiologist. This report was verified electronically.
[2017-11-01 23:33] LABS: POLYCHROMASIA 2.1 % (0.0-1.9)
--- NOTE | 2017-11-01 23:35 | RADRPT ---
EXAM DATE/TIME: 11/01/2017 23:11 [facility] COMPARISON: No previous studies available for comparison. INDICATIONS : Epigastric pain and nausea for a month. ORAL CONTRAST: No oral contrast ingested. RADIATION DOSE: 6.98 CTDIvol (mGy) MEDICAL HISTORY : Hypertension. Myocardial infarction. Hepatitis C.Lymphoma. Diabetes. COPD. SURGICAL HISTORY : CABG ENCOUNTER: Initial ACUITY: 1 month PAIN SCALE: 9/10 LOCATION: Epigastric. TECHNIQUE: Volumetric scanning of the abdomen and pelvis was performed. Using automated exposure control and ad justment of the mA and/or kV according to patient size, radiation dose was kept as low as reasonably achievable to obtain optimal diagnostic quality images. DICOM format image data is available electro nically for review and comparison. FINDINGS: LOWER LUNGS: The visualized lower lungs are clear. LIVER: Cirrhotic liver with extensive nodularity and moderate abdominal ascites. Cholelithiasis.. There is no dilation of the biliary tree. SPLEEN: Splenomegaly without lesion. PANCREAS: Low-density lesion on the pancreatic tail measures approximately 3.9 cm. KIDNEYS: Normal in size and shape. There is no mass, stone, or hydronephrosis on the left. Nonobstructing rig ht renal calculus measures 5-6 mm. Hepatic low densities. ADRENAL GLANDS: Within normal limits. VASCULAR: There is no aortic aneurysm. Extensive atherosclerotic changes BOWEL/MESENTERY: The stomach, small bowel, and colon demonstrate no acute abnormality. There is no free intraperitone al air or fluid. ABDOMINAL WALL: Within normal limits. RETROPERITONEUM: There is no lymphadenopathy. BLADDER: No wall thickening or mass. REPRODUCTIVE: Within normal limits. INGUINAL: There is no lymphadenopathy or hernia. MUSCULOSKELETAL: Within normal limits for patient age. CONCLUSION: 1. Cirrhosis with portal hypertension and splenomegaly. 2. Nonspecific low density along the pancreatic tail measures 3.9 cm. 3. Moderate abdominal ascites. 4. Nonobstructing right renal calculus. Josiah Anderson MD on November 01, 2017 at 23:30 Board Certified Radiologist. This report was verified electronically.
--- NOTE | 2017-11-01 23:48 | PD ---
Data Data Last Documented VS Vital Signs Date Time Temp Pulse Resp B/P (MAP) Pulse Ox O2 Delivery O2 Flow Rate FiO2 11/01/17 22:09 99.2 11/01/17 20:00 78 20 147/67 (93) 100 Orders Orders Complete Blood Count With Diff (11/01/17 21:48) Comprehensive Metabolic Panel (11/01/17 21:48) Lipase (11/01/17 21:48) Lactic Acid (11/01/17 21:48) Prothrombin Time / Inr (Pt) (11/01/17 21:48) Act Partial Throm Time (Ptt) (11/01/17 21:48) Urinalysis - C+S If Indicated (11/01/17 21:48) Iv Access Insert/Monitor (11/01/17 21:48) Ecg Monitoring (11/01/17 21:48) Oximetry (11/01/17 21:48) Sodium Chloride 0.9% Flush (Ns Flush) (11/01/17 22:00) Electrocardiogram (11/01/17 21:48) Chest, Single Ap (11/01/17 21:48) Ammonia (11/01/17 21:48) Creatine Kinase (Cpk) (11/01/17 21:48) Troponin I (11/01/17 21:48) Ct Brain W/O Iv Contrast(Rout) (11/01/17 ) Blood Culture (11/01/17 21:51) Ct Abd/Pel W/O Iv Contrast (11/01/17 22:58) Admit Order (Ed Use Only) (11/01/17 23:44) Labs Laboratory Tests Test 11/01/17 22:23 White Blood Count 6.8 TH/MM3 Red Blood Count 2.95 MIL/MM3 Hemoglobin 8.9 GM/DL Hematocrit 27.7 % Mean Corpuscular Volume 93.8 FL Mean Corpuscular Hemoglobin 30.2 PG Mean Corpuscular Hemoglobin Concent 32.2 % Red Cell Distribution Width 16.1 % Platelet Count 78 TH/MM3 Mean Platelet Volume 9.9 FL Neutrophils (%) (Auto) 59.4 % Lymphocytes (%) (Auto) 26.5 % Monocytes (%) (Auto) 12.2 % Eosinophils (%) (Auto) 1.4 % Basophils (%) (Auto) 0.5 % Neutrophils # (Auto) 4.1 TH/MM3 Lymphocytes # (Auto) 1.8 TH/MM3 Monocytes # (Auto) 0.8 TH/MM3 Eosinophils # (Auto) 0.1 TH/MM3 Basophils # (Auto) 0.0 TH/MM3 CBC Comment AUTO DIFF Differential Comment AUTO DIFF CONFIRMED Platelet Estimate LOW Platelet Morphology Comment NORMAL Polychromasia 2.1 % Ovalocytes 1+ Acanthocytes OCC Prothrombin Time 14.6 SEC Prothromb Time International Ratio 1.4 RATIO Activated Partial Thromboplast Time 27.2 SEC Blood Urea Nitrogen 64 MG/DL Creatinine 2.54 MG/DL Random Glucose 161 MG/DL Total Protein 7.2 GM/DL Albumin 2.6 GM/DL Calcium Level 9.1 MG/DL Alkaline Phosphatase 63 U/L Aspartate Amino Transf (AST/SGOT) 41 U/L Alanine Aminotransferase (ALT/SGPT) 22 U/L Total Bilirubin 1.6 MG/DL Sodium Level 141 MEQ/L Potassium Level 5.3 MEQ/L Chloride Level 110 MEQ/L Carbon Dioxide Level 24.6 MEQ/L Anion Gap 6 MEQ/L Estimat Glomerular Filtration Rate 30 ML/MIN Lactic Acid Level 2.3 mmol/L Ammonia 54 MCMOL/L Total Creatine Kinase 59 U/L Troponin I 0.03 NG/ML Lipase 754 U/L MDM Supervised Visit with EMMANUEL: Yes Narrative Course I, Dr. Henry, have reviewed the advance practice practitioner's documentation and am in agreement, met with the patient face to face, made the diagnosis, and the medical decision making was done by me. See his note for further details. Briefly this is a 72-year-old male with history of non-Hodgkin's lymphoma treated by Dr. Malhotra, in remission, here for evaluation of generalized weakness, poor appetite, abdominal discomfort for 1 month. CBC is remarkable for hemoglobin 8.9 and hematocrit 27.7 which is around his baseline. Platelets are 78 which is slightly better than his baseline. WBC 6.8. CMP is remarkable for potassium 5.3, BUN 64, creatinine 2.54, GFR 30 which is worse than his baseline. Ammonia is 54. Lactic acid is 2.3. Lipase is 754. EKG shows sinus rhythm, rate 81, normal axis, normal intervals, new T-wave inversions and slight ST depressions in V3 through V6 as well as 1 and aVL. The patient reports having had chest pain 2 days ago, currently chest pain-free. CT abdomen pelvis: CONCLUSION: 1. Cirrhosis with portal hypertension and splenomegaly. 2. Nonspecific low density along the pancreatic tail measures 3.9 cm. 3. Moderate abdominal ascites. 4. Nonobstructing right renal calculus. CT head: CONCLUSION: No acute intracranial disease. Chest x-ray: CONCLUSION: 1. No acute findings. The patient was made aware of all findings. He is resting comfortably. No abdominal tenderness on exam. He was given a liter of normal saline IV. He will be admitted for further treatment and evaluation of acute on chronic renal insufficiency, hyperkalemia, new pancreatic mass, abnormal EKG. Case discussed with hospitalist Dr. Tavares who will admit the patient to her service. Diagnosis Primary Impression: Hyperkalemia Additional Impressions: Acute kidney injury Generalized weakness Abnormal EKG Pancreatic mass Admitting Information Admitting Physician Requests: Admit Adolph Henry MD Nov 01, 2017 23:48
[2017-11-02] VITALS (12 sets, daily range): BP systolic 127–164; BP diastolic 65–78; PULSE 70–112; RESP 16–22; TEMP 98.3–99; O2SAT 96–100
[2017-11-02] MEDS ORDERED: SODIUM CHLORIDE 0.9% FLUSH 10 ML FLUSH IV FLUSH PRN (00:45)
[2017-11-02] MEDS: SODIUM CHLOR 0.9% 1000 ML INJ 1,000 ML IV SCH ×2 (00:45→21:22)
[2017-11-02] MEDS ORDERED: NALOXONE HCL 0.4 MG/ML AMP IV PUSH PRN (00:45)
[2017-11-02] MEDS ORDERED: GLUCAGON 1 MG/ML VIAL OTHER PRN ×2 (01:00→02:15)
[2017-11-02] MEDS ORDERED: DEXTROSE 50% IN WATER 50 ML VIAL(D50) IV PUSH PRN ×2 (01:00→02:15)
[2017-11-02] MEDS ORDERED: LACTULOSE SYRUP 20 GM/30 ML CUP PO ONE (01:00)
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
[2017-11-02 03:17] LABS: AUTOMATED NEUTROPHIL # 2.4 TH/MM3 (1.8-7.7); BASOPHIL % 0.2 % (0.0-2.0); EOSINOPHIL # 0.1 TH/MM3 (0-0.4); EOSINOPHIL % 1.1 % (0.0-4.0); HEMATOCRIT 23.9 % (39.0-51.0); HEMOGLOBIN 7.9 GM/DL (13.0-17.0); LYMPH % 35.2 % (9.0-44.0); LYMPHOCYTE # 1.7 TH/MM3 (1.0-4.8); MEAN CELL VOLUME 92.8 FL (80.0-100.0); MEAN CORPUSCULAR HEMOGLOBIN 30.7 PG (27.0-34.0); MEAN CORPUSCULAR HGB CONC 33.1 % (32.0-36.0); MEAN PLATELET VOLUME 9.4 FL (7.0-11.0); MONO % 11.9 % (0.0-8.0); MONOCYTE # 0.6 TH/MM3 (0-0.9); NEUT % 51.6 % (16.0-70.0); PLATELET COUNT 54 TH/MM3 (150-450); RED BLOOD COUNT 2.58 MIL/MM3 (4.50-5.90); RED CELL DISTRIBUTION WIDTH 15.9 % (11.6-17.2); WHITE BLOOD COUNT 4.8 TH/MM3 (4.0-11.0)
[2017-11-02 03:44] LABS: TROPONIN I 0.04 NG/ML (0.02-0.05)
[2017-11-02 03:51] LABS: BICARBONATE 23.1 MEQ/L (21.0-32.0); CALCIUM 8.7 MG/DL (8.5-10.1); CREATININE 2.43 MG/DL (0.60-1.30)
[2017-11-02] MEDS ORDERED: ISOSORBIDE MONONITRATE 30 MG CR TAB (IMDUR) PO SCH (07:00)
[2017-11-02] MEDS: MORPHINE SULFATE 30 MG CONTROLLED RELEASE TAB PO SCH ×3 (07:44→21:22)
[2017-11-02] MEDS ORDERED: INSULIN ASPART SUPPLEMENTAL SCALE SQ SCH (08:00)
[2017-11-02 08:28] LABS: ACANTHOCYTES OCC (NORMAL); OVALOCYTES 1+ (NORMAL)
[2017-11-02] MEDS ORDERED: NITROGLYCERIN 0.4 MG SL 25 TABS/BTL SL PRN (08:30)
[2017-11-02] MEDS ORDERED: GABAPENTIN 300 MG CAP PO SCH (09:00)
[2017-11-02] MEDS: SODIUM CHLORIDE 0.9% FLUSH 10 ML FLUSH IV FLUSH SCH ×2 (09:00→21:24)
[2017-11-02] MEDS: PANTOPRAZOLE SOD 40 MG DELAYED RELEASE TAB PO SCH (09:47)
[2017-11-02] MEDS: METOPROLOL SUCCINATE 50 MG EXTENDED RELEASE TAB PO SCH ×2 (09:47→21:21)
[2017-11-02] MEDS: LACTULOSE SYRUP 20 GM/30 ML CUP PO SCH ×4 (09:47→21:00)
[2017-11-02] MEDS: INSULIN ASPART SUPPLEMENTAL SCALE SQ SCH ×4 (11:00→21:30)
[2017-11-02] MEDS: ALBUTEROL SULFATE 2 MG TAB PO SCH ×3 (11:59→18:00)
[2017-11-02 12:58] LABS: % SATURATION IRON PROFILE 8.3 % (20-50); IRON (FE) 18 MCG/DL (65-175); TOTAL IRON BINDING CAPACITY 217 MCG/DL (250-450)
[2017-11-02 13:01] LABS: TROPONIN I 0.04 NG/ML (0.02-0.05)
[2017-11-02 13:23] LABS: FERRITIN 344 NG/ML (26-388); FOLATE 19.4 NG/ML (3.1-17.5)
--- NOTE | 2017-11-02 16:17 | HHI.PR ---
Subjective Remarks Follow-up chest pain. States that for the past month he has been having increasing nocturnal chest pressure relieved nitroglycerin. States he had a negative stress test with his wave guide assembler Dr. Almonte 3-6 months ago but he is not certain. He has history of liver cirrhosis noncompliant with lactulose Objective Vitals Vital Signs Date Time Temp Pulse Resp B/P (MAP) Pulse Ox O2 Delivery O2 Flow Rate FiO2 11/02/17 11:24 98.3 70 20 154/70 (98) 98 Room Air 11/02/17 07:31 99.0 98 18 164/74 (104) 99 Room Air 11/02/17 05:02 86 18 144/66 (92) 100 Room Air 11/02/17 02:27 85 18 148/66 (93) 96 Room Air 11/01/17 22:09 99.2 11/01/17 20:00 99.3 78 20 147/67 (93) 100 Result Diagram: 11/02/17 0252 11/02/17 0252 Imaging Last Impressions Abdomen/Pelvis CT 11/01/172257 Signed Impressions: Service Date/Time: Wednesday, November 01, 2017 23:11 - CONCLUSION: 1. Cirrhosis with portal hypertension and splenomegaly. 2. Nonspecific low density along the pancreatic tail measures 3.9 cm. 3. Moderate abdominal ascites. 4. Nonobstructing right renal calculus. Josiah Anderson MD Chest X-Ray 11/01/172147 Signed Impressions: Service Date/Time: Wednesday, November 01, 2017 21:49 - CONCLUSION: 1. No acute findings. Christophe Hernández MD Head CT 11/01/17 0000 Signed Impressions: Service Date/Time: Wednesday, November 01, 2017 23:07 - CONCLUSION: No acute intracranial disease. Josiah Anderson MD Objective Remarks GENERAL: male lying in bed SKIN: No rashes, ecchymoses or lesions. Cool and dry. CARDIOVASCULAR: Regular rate and rhythm without murmurs, gallops, or rubs. RESPIRATORY: Clear to auscultation. Breath sounds equal bilaterally. No wheezes , rales, or rhonchi. GASTROINTESTINAL: Abdomen soft, non-tender, nondistended. No guarding. MUSCULOSKELETAL: Extremities without clubbing, cyanosis, or edema. No joint tenderness, effusion, or edema noted. No calf tenderness. NEUROLOGICAL: Awake and alert. Cranial nerves II through XII intact. Normal speech. Moves all 4 extremities spontaneously. A/P Problem List: (1) Hyperammonemia ICD Code: E72.20 - Disorder of urea cycle metabolism, unspecified Assessment and Plan 1. Hyperammonemia/asterixis/hepatitis C/cirrhosis Ammonia 54 - trend Lactulose -titrate to 3 loose stools per day May require rifaximin Holding Lasix secondary to kidney injury 2. Chest pain/shortness of breath with history of CAD EKG shows normal sinus rhythm with new T-wave inversions in V3 through V6, 1 and aVL, personally reviewed Ruled out for FL with negative cardiac enzymes. Since I do not think he is a candidate for revascularization because of pancytopenia, I will not proceed with stress test. Continue medical management increase nitrate. Continue beta- rose. Consult patient's wave guide assembler 3. Acute on chronic kidney disease stage III Creatinine 2.54, baseline 1.7 Likely secondary to dehydration and poor by mouth intake Gentle IV fluid hydration as patient with cirrhosis Monitor renal function 4. Anorexia/failure to thrive Regular diet with ensure supplementation 5. Non-Hodgkin's lymphoma with chronic pancytopenia Oncology consulted, appreciate assistance 6. Hypertension/GERD Continue home medications 7. Diabetes mellitus Sliding scale insulin Monitor blood glucose FEN Regular diet with ensure supplementation Electrolytes: Patient with mild hyperkalemia, holding home potassium, monitor NS at 70 cc/hr Holding pharmacologic anticoagulation secondary to thrombocytopenia Bert Samuels MD Nov 02, 2017 16:16
--- NOTE | 2017-11-02 19:43 | EKG ---
Date Performed: 11/01/2017 Time Performed: 23:35:07 PTAGE: 72 years EKG: Sinus rhythm WITH SINUS ARRHYTHMIA ST DEVIATION AND MODERATE T-WAVE ABNORMALITY, CONSIDER ANTEROLATERAL ISCHEMIA Compared to previous tracing, anterolateral T wave changes are new, consider ischemia ABNORMAL ECG PREVIOUS TRACING : 06/12/17 @ 1656 DOCTOR: Willian Dejesus Interpretating Date/Time 11/02/2017 19:42:09
[2017-11-02] MEDS: GABAPENTIN 300 MG CAP PO SCH (21:21)
[2017-11-02] MEDS: traZODone HCL 50 MG TAB PO SCH (21:21)
[2017-11-02 23:02] LABS: BICARBONATE 22.8 MEQ/L (21.0-32.0); CALCIUM 8.3 MG/DL (8.5-10.1); CREATININE 2.36 MG/DL (0.60-1.30)
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
[2017-11-03] VITALS (13 sets, daily range): BP systolic 127–150; BP diastolic 65–79; PULSE 73–92; RESP 20–22; TEMP 98.6–99.7; O2SAT 97–100
[2017-11-03 00:46] LABS: BILIRUBIN, URINE NEG (NEG); BLOOD, URINE NEG (NEG); GLUCOSE,URINE NEG (NEG); KETONE, URINE NEG (NEG); MUCUS URINE FEW /lpf (OCC); NITRITE,URINE NEG (NEG); RENAL EPITHELIAL CELLS <1 /hpf; SQUAMOUS EPITHELIAL CELL URINE <1 /hpf (0-5); URINE COLOR YELLOW (YELLW/STRAW); URINE LEUKOCYTE ESTERASE NEG (NEG)
[2017-11-03] MEDS ORDERED: MORPHINE SULFATE 4 MG/ML INJ IV PUSH ONE (01:00)
[2017-11-03] MEDS: MORPHINE SULFATE 30 MG CONTROLLED RELEASE TAB PO SCH ×2 (05:00→15:31)
[2017-11-03 05:31] LABS: AUTOMATED NEUTROPHIL # 2.1 TH/MM3 (1.8-7.7); BASOPHIL % 0.4 % (0.0-2.0); EOSINOPHIL # 0.1 TH/MM3 (0-0.4); EOSINOPHIL % 1.5 % (0.0-4.0); HEMATOCRIT 23.3 % (39.0-51.0); HEMOGLOBIN 7.5 GM/DL (13.0-17.0); LYMPHOCYTE # 1.3 TH/MM3 (1.0-4.8); MEAN CELL VOLUME 94.3 FL (80.0-100.0); MEAN CORPUSCULAR HEMOGLOBIN 30.3 PG (27.0-34.0); MEAN CORPUSCULAR HGB CONC 32.1 % (32.0-36.0); MEAN PLATELET VOLUME 8.7 FL (7.0-11.0); MONO % 12.3 % (0.0-8.0); MONOCYTE # 0.5 TH/MM3 (0-0.9); NEUT % 53.8 % (16.0-70.0); PLATELET COUNT 46 TH/MM3 (150-450); RED BLOOD COUNT 2.47 MIL/MM3 (4.50-5.90); RED CELL DISTRIBUTION WIDTH 16.1 % (11.6-17.2); WHITE BLOOD COUNT 3.9 TH/MM3 (4.0-11.0)
[2017-11-03 05:55] LABS: BICARBONATE 21.2 MEQ/L (21.0-32.0); CALCIUM 8.5 MG/DL (8.5-10.1); CREATININE 2.23 MG/DL (0.60-1.30); MAGNESIUM 2.8 MG/DL (1.5-2.5)
[2017-11-03 06:56] LABS: ACANTHOCYTES OCC (NORMAL); OVALOCYTES 1+ (NORMAL)
[2017-11-03] MEDS ORDERED: ISOSORBIDE MONONITRATE 60 MG CR TAB (IMDUR) PO SCH (07:00)
--- NOTE | 2017-11-03 09:15 | MB ---
cc: Cortez Chester MD DATE: 11/03/2017 REASON FOR CONSULTATION: Chest pain. HISTORY OF PRESENT ILLNESS: The patient is a 72-year-old male, followed in our office by Dr. Wilbert Almonte, with a history of multiple medical problems including COPD, sleep apnea, coronary artery disease, liver cirrhosis, diabetes, chronic renal insufficiency, history of non-Hodgkin's lymphoma, who presented to the hospital with generalized weakness, abdominal discomfort, nausea, chest pains. For the past several weeks, he has had intermittent episodes of bilateral upper chest discomfort described as "sharp", without associated shortness of breath, nausea or diaphoresis. The chest pains have never lasted more than a few minutes and have no relationship whatsoever to exertion or emotional stress. He denies pleurisy, dizziness, syncope, near syncope, palpitations, paroxysmal nocturnal dyspnea. He notes chronic intermittent, mostly dependent edema. He reports compliance with his medications. Recently, he has also felt intermittently nauseated without vomiting. He has felt generally weak. His appetite has been poor. PAST MEDICAL HISTORY: 1. Sleep apnea. 2. Asthma/COPD. 3. Coronary artery disease status post bypass surgery in October 2009, at which time he reportedly underwent a left internal mammary artery to the LAD, bifurcated sequential graft to the ramus intermedius, obtuse marginal, posterolateral branch. On his heart catheterization by Dr. Mireles 2010, the reported grafts were a patent vein graft to the right coronary artery, although there was competitive flow in this vessel as the crow right coronary only had mild disease, patent vein graft to the obtuse marginal, patent left internal mammary artery to the LAD. He did undergo coil embolization of 2 branches of the left internal mammary artery at that time. 4. Liver cirrhosis. 5. Diabetes. 6. Hyperlipidemia. 7. Hypertension. 8. Hypothyroidism. 9. Non-Hodgkin's lymphoma, status post chemotherapy. 10. Hepatitis C. 11. GI bleed 03/2016 with endoscopy revealing prominent ampulla with superficial erosions. 12. Chronic renal insufficiency. 13. 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 CARDIAC MEDICATIONS: At home, Toprol-XL 50 mg twice a day, Lasix 40 mg twice a day, Imdur 30 mg daily, potassium chloride 20 mEq daily, as needed sublingual nitroglycerin. ALLERGIES: NO KNOWN DRUG ALLERGIES. FAMILY HISTORY: Noncontributory. SOCIAL HISTORY: The patient is a former smoker. There is no history of alcohol abuse. REVIEW OF SYSTEMS: As in the history of present illness, otherwise negative or noncontributory. He also denies melena. REVIEW OF SYSTEMS: The patient has had possible melena recently. He denies bright red blood per rectum, headache. Occasionally, he experiences dyspepsia. He has had no recent flu symptoms, wheezing, cough, or hemoptysis. PHYSICAL EXAMINATION: VITAL SIGNS: His blood pressure 127/70 with a pulse of 82, respirations 22. GENERAL: He is a well-developed, well-nourished male in no acute distress. NECK: Jugular venous pressure is normal. Carotid pulses are 2+ bilaterally and without bruits. CHEST: Reveals diminished breath sounds diffusely. CARDIAC: He has a regular rhythm and rate without S3, S4, or murmur. ABDOMEN: He has a soft, nontender abdomen. Bowel sounds are present. There is no definite hepatosplenomegaly. EXTREMITIES: Reveals no clubbing or cyanosis. There is trace pretibial edema bilaterally. EKG shows normal sinus rhythm, inferior and anterolateral ST and T-wave abnormalities consider ischemia. LABORATORY DATA: Includes potassium 5.3, BUN 61, creatinine 2.43, CK 59, troponin 0.04. WBC 3.9, hemoglobin 7.5, platelets 46. INR 1.4. Chest x-ray shows no acute disease. IMPRESSION: Overall, atypical chest pains in this 72-year-old male with a history of coronary artery disease, COPD, liver cirrhosis, non-Hodgkin's lymphoma, hepatitis C, diabetes, hypertension, chronic thrombocytopenia, chronic renal insufficiency. CK levels are negative for myocardial infarction. His EKG does show inferior and anterolateral ST and T-wave changes, somewhat more prominent than previous EKGs. Unfortunately, he is a very poor candidate for invasive cardiac evaluation at this time. He has severe thrombocytopenia, severe anemia, and renal insufficiency. Clinical suspicion for pulmonary embolism or aortic dissection is very low. RECOMMENDATIONS: 1. Medical therapy of his coronary artery disease; would optimize the dosing of his metoprolol and isosorbide. In light of his severe thrombocytopenia and history of GI bleeding, overall would avoid aspirin. 2. We will follow up as needed here in the hospital; he can followup with Dr. Wilbert Almonte as scheduled. MD SVETLANA Messina , 08:34 AM , 09:14 AM MTDCher
[2017-11-03] MEDS: LACTULOSE SYRUP 20 GM/30 ML CUP PO SCH ×4 (09:26→20:59)
[2017-11-03] MEDS: GABAPENTIN 300 MG CAP PO SCH ×2 (09:26→20:43)
[2017-11-03] MEDS: PANTOPRAZOLE SOD 40 MG DELAYED RELEASE TAB PO SCH (09:26)
[2017-11-03] MEDS: ALBUTEROL SULFATE 2 MG TAB PO SCH ×3 (09:31→20:09)
[2017-11-03] MEDS: SODIUM CHLORIDE 0.9% FLUSH 10 ML FLUSH IV FLUSH SCH ×2 (09:32→20:43)
[2017-11-03] MEDS: SODIUM CHLOR 0.9% 1000 ML INJ 1,000 ML IV SCH ×2 (09:32→21:00)
[2017-11-03] MEDS: METOPROLOL SUCCINATE 50 MG EXTENDED RELEASE TAB PO SCH ×2 (09:32→20:43)
[2017-11-03] MEDS: INSULIN ASPART SUPPLEMENTAL SCALE SQ SCH ×4 (09:47→20:59)
--- NOTE | 2017-11-03 10:08 | PD.ONC.PN ---
Subjective Subjective Remarks Afebrile overnight. Resting in bed in nad. states he feels fatigued today. ate dinner last night. waiting on breakfast this AM. denies nausea. Objective Data Date Time Temp Pulse Resp B/P (MAP) Pulse Ox O2 Delivery O2 Flow Rate FiO2 11/03/17 09:10 98.6 92 20 146/79 (101) 97 11/03/17 06:00 82 11/03/17 05:00 76 11/03/17 04:56 99.0 84 22 127/70 (89) 97 11/03/17 04:00 76 11/03/17 03:00 74 11/03/17 02:00 78 11/03/17 01:00 80 11/03/17 00:00 98.8 87 20 150/72 (98) 100 11/03/17 00:00 84 11/02/17 23:00 86 11/02/17 22:00 86 11/02/17 21:00 86 11/02/17 20:00 90 11/02/17 19:42 99.0 112 22 127/65 (85) 99 11/02/17 19:36 11/02/17 19:17 85 16 155/78 (103) 99 Room Air 11/02/17 18:34 88 17 156/78 (104) 96 Room Air 11/02/17 16:40 98.7 82 18 135/65 (88) 99 Room Air 11/02/17 11:24 98.3 70 20 154/70 (98) 98 Room Air 11/03/17 11/03/17 11/03/17 07:00 15:00 23:00 Intake Total 240 ml Output Total 125 ml Balance 115 ml Result Diagram: 11/03/17 0500 11/03/17 0500 Laboratory Results Laboratory Tests Test 11/02/17 12:10 11/02/17 22:20 11/03/17 00:26 11/03/17 05:00 Iron Level 18 MCG/DL Total Iron Binding Capacity 217 MCG/DL Percent Iron Saturation 8.3 % Ferritin 344 NG/ML Total Creatine Kinase 61 U/L Troponin I 0.04 NG/ML Total Protein 6.1 GM/DL Vitamin B12 Level GREATER THAN 2000 PG/ML Folate 19.4 NG/ML Blood Urea Nitrogen 59 MG/DL 54 MG/DL Creatinine 2.36 MG/DL 2.23 MG/DL Random Glucose 228 MG/DL 152 MG/DL Calcium Level 8.3 MG/DL 8.5 MG/DL Sodium Level 143 MEQ/L 143 MEQ/L Potassium Level 4.4 MEQ/L 4.6 MEQ/L Chloride Level 114 MEQ/L 115 MEQ/L Carbon Dioxide Level 22.8 MEQ/L 21.2 MEQ/L Anion Gap 6 MEQ/L 7 MEQ/L Estimat Glomerular Filtration Rate 33 ML/MIN 35 ML/MIN Urine Color YELLOW Urine Turbidity CLEAR Urine pH 5.0 Urine Specific [place] 1.015 Urine Protein TRACE mg/dL Urine Glucose (UA) NEG mg/dL Urine Ketones NEG mg/dL Urine Occult Blood NEG Urine Nitrite NEG Urine Bilirubin NEG Urine Urobilinogen LESS THAN 2.0 MG/DL Urine Leukocyte Esterase NEG Urine RBC LESS THAN 1 /hpf Urine WBC 1 /hpf Urine Squamous Epithelial Cells <1 /hpf Urine Renal Epithelial Cells <1 /hpf Urine Mucus FEW /lpf Microscopic Urinalysis Comment CULT NOT INDICATED White Blood Count 3.9 TH/MM3 Red Blood Count 2.47 MIL/MM3 Hemoglobin 7.5 GM/DL Hematocrit 23.3 % Mean Corpuscular Volume 94.3 FL Mean Corpuscular Hemoglobin 30.3 PG Mean Corpuscular Hemoglobin Concent 32.1 % Red Cell Distribution Width 16.1 % Platelet Count 46 TH/MM3 Mean Platelet Volume 8.7 FL Neutrophils (%) (Auto) 53.8 % Lymphocytes (%) (Auto) 32.0 % Monocytes (%) (Auto) 12.3 % Eosinophils (%) (Auto) 1.5 % Basophils (%) (Auto) 0.4 % Neutrophils # (Auto) 2.1 TH/MM3 Lymphocytes # (Auto) 1.3 TH/MM3 Monocytes # (Auto) 0.5 TH/MM3 Eosinophils # (Auto) 0.1 TH/MM3 Basophils # (Auto) 0.0 TH/MM3 CBC Comment AUTO DIFF Differential Comment AUTO DIFF CONFIRMED Platelet Estimate LOW Platelet Morphology Comment NORMAL Ovalocytes 1+ Acanthocytes OCC Magnesium Level 2.8 MG/DL Culture Results Microbiology Date/Time Source Procedure Growth Status 11/01/17 22:18 Blood Peripheral Aerobic Blood Culture - Preliminary NO GROWTH IN 1 DAY Resulted 11/01/17 22:18 Blood Peripheral Anaerobic Blood Culture - Preliminary NO GROWTH IN 1 DAY Resulted 11/01/17 22:15 Blood Peripheral Aerobic Blood Culture - Preliminary NO GROWTH IN 1 DAY Resulted 11/01/17 22:15 Blood Peripheral Anaerobic Blood Culture - Preliminary NO GROWTH IN 1 DAY Resulted Administered Medications Medications (Trade) Dose Ordered Sig/Toni Route PRN Reason Start Time Stop Time Status Last Admin Dose Admin Sodium Chloride 1,000 ml @ 70 mls/hr [id number] IV 11/02/17 00:45 11/03/17 09:32 Sodium Chloride (NS Flush) 2 ml BID IV FLUSH 11/02/17 09:00 11/03/17 09:32 Lactulose (Lactulose Liq) 30 ml QID PO 11/02/17 09:00 11/03/17 09:26 Morphine Sulfate (Oramorph Sr) 30 mg Q8H PO 11/02/17 06:00 11/03/17 05:00 Pantoprazole Sodium (Protonix) 40 mg DAILY PO 11/02/17 09:00 11/03/17 09:26 Trazodone HCl (Desyrel) 50 mg HS PO 11/02/17 21:00 11/02/17 21:21 Insulin Aspart (NovoLOG SUPPLEMENTAL SCALE) 1 ACHS SLIDING SCALE SQ 11/02/17 08:00 11/03/17 09:47 Albuterol Sulfate (Proventil) 4 mg TID PO 11/02/17 09:00 11/03/17 09:31 Gabapentin (Neurontin) 300 mg BID PO 11/02/17 21:00 11/03/17 09:26 Metoprolol Succinate (Toprol Xl) 100 mg BID PO 11/03/17 09:00 11/03/17 09:32 Objective Remarks GENERAL: Elderly male, sitting up in bed, appears fatigued but otherwise in nad. SKIN: Warm and dry. HEAD: Normocephalic. EYES: No injection or drainage. NECK: Supple, trachea midline CARDIOVASCULAR: +S1/S2 RESPIRATORY: Breath sounds equal bilaterally. No accessory muscle use. GASTROINTESTINAL: Abdomen soft, non-tender, nondistended. EXTREMITIES: No cyanosis NEUROLOGICAL: awake and alert. normal speech. Assessment/Plan Problem List: (1) Symptomatic anemia ICD Codes: D64.9 - Anemia, unspecified Status: Acute Plan: 11/03: recommend transfusing as needed to maintain hgb>7.5 or for symptoms. --normocytic normochromic anemia, which I believe --anemia of kidney disease. --B12/iron studies show no deficiency. (2) Non-Hodgkin lymphoma in remission ICD Codes: C85.90 - Non-Hodgkin lymphoma, unspecified, unspecified site Plan: --no clinical or radiological evidence of recurrent lymphoma. He is still in remission. 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 (has untreated hepatitis C) Assessment 72y/o male with non-hodgkin lymphoma and pancytopenia admitted with jerking movements. h/o Non-Hodgkin lymphoma, status post Treanda chemotherapy x 6 cycles, completed in 03/2017, 6 months ago. The restaging PET scan in May came back normal. History of chronic anemia, anxiety, asthma, COPD, cirrhosis of the liver, hepatitis C, coronary artery disease, diabetes mellitus, gout, hypercholesterolemia, hypertension, chronic kidney disease, peripheral neuropathy. Attending Statement The exam, history, and the medical decision-making described in the above note were completed with the assistance of the mid-level provider. I reviewed and agree with the findings presented. I attest that I had a [id number] encounter with the patient on the same day, and personally performed and documented my assessment and findings in the medical record. feels weak Prbc 2 units today. No evidence of recurrent NHL. last chemo 03/2017. Repeat PET scan 05/2017 = normal. will sign off available prn. Pt needs to see GI for hep C treatment and cirrhosis follow up. Nasrin Helms Nov 03, 2017 10:08 Nell Malhotra MD Nov 03, 2017 12:50
--- NOTE | 2017-11-03 10:13 | HHI.PR ---
Subjective Remarks Follow-up abnormal motor activity. States he can hold anything because he keeps shaking and jerking. He is oriented discussed with nursing Objective Vitals Vital Signs Date Time Temp Pulse Resp B/P (MAP) Pulse Ox O2 Delivery O2 Flow Rate FiO2 11/03/17 09:10 98.6 92 20 146/79 (101) 97 11/03/17 06:00 82 11/03/17 05:00 76 11/03/17 04:56 99.0 84 22 127/70 (89) 97 11/03/17 04:00 76 11/03/17 03:00 74 11/03/17 02:00 78 11/03/17 01:00 80 11/03/17 00:00 98.8 87 20 150/72 (98) 100 11/03/17 00:00 84 11/02/17 23:00 86 11/02/17 22:00 86 11/02/17 21:00 86 11/02/17 20:00 90 11/02/17 19:42 99.0 112 22 127/65 (85) 99 11/02/17 19:36 11/02/17 19:17 85 16 155/78 (103) 99 Room Air 11/02/17 18:34 88 17 156/78 (104) 96 Room Air 11/02/17 16:40 98.7 82 18 135/65 (88) 99 Room Air 11/02/17 11:24 98.3 70 20 154/70 (98) 98 Room Air I/O 11/02/17 11/02/17 11/02/17 11/03/17 11/03/17 11/03/17 07:00 15:00 23:00 07:00 15:00 23:00 Intake Total 240 ml Output Total 125 ml Balance 115 ml Intake Oral 240 ml Output Urine Total 125 ml # Voids 1 1 # Bowel Movements 1 1 Result Diagram: 11/03/17 0500 11/03/17 0500 Imaging Last Impressions Abdomen/Pelvis CT 11/01/17 0171 Signed Impressions: Service Date/Time: Wednesday, November 01, 2017 23:11 - CONCLUSION: 1. Cirrhosis with portal hypertension and splenomegaly. 2. Nonspecific low density along the pancreatic tail measures 3.9 cm. 3. Moderate abdominal ascites. 4. Nonobstructing right renal calculus. Josiah Anderson MD Chest X-Ray 11/01/17 2148 Signed Impressions: Service Date/Time: Wednesday, November 01, 2017 21:49 - CONCLUSION: 1. No acute findings. Christophe Hernández MD Head CT 11/01/17 0000 Signed Impressions: Service Date/Time: Wednesday, November 01, 2017 23:07 - CONCLUSION: No acute intracranial disease. Josiah Anderson MD Objective Remarks GENERAL: male lying in bed SKIN: No rashes, ecchymoses or lesions. Cool and dry. CARDIOVASCULAR: Regular rate and rhythm without murmurs, gallops, or rubs. RESPIRATORY: Clear to auscultation. Breath sounds equal bilaterally. No wheezes , rales, or rhonchi. GASTROINTESTINAL: Abdomen soft, non-tender, nondistended. No guarding. MUSCULOSKELETAL: Extremities without clubbing, cyanosis, or edema. No joint tenderness, effusion, or edema noted. No calf tenderness. NEUROLOGICAL: Awake and alert. Cranial nerves II through XII intact. Normal speech. Moves all 4 extremities spontaneously. Occasional slight jerking movements involving the upper extremities A/P Problem List: (1) Hyperammonemia ICD Code: E72.20 - Disorder of urea cycle metabolism, unspecified Assessment and Plan 1. Myoclonus vs asterixis with hx of cirrhosis, hepatitis C and hyperammonemia Ammonia 54 - trend Lactulose -titrate to 3 loose stools per day May require rifaximin Holding Lasix secondary to kidney injury Lytes ok check TSH consider EEG consult Neuro 2. Chest pain/shortness of breath with history of CAD EKG shows normal sinus rhythm with new T-wave inversions in V3 through V6, 1 and aVL, personally reviewed Ruled out for TN with negative cardiac enzymes. I do not think he is a candidate for revascularization because of pancytopenia, I will not proceed with stress test. Continue medical management increase nitrate. 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 Acute on chronic kidney disease stage III. Improving Creatinine 2.54, baseline 1.7 Likely secondary to dehydration and poor by mouth intake Gentle IV fluid hydration as patient with cirrhosis Monitor renal function 4. Anorexia/failure to thrive Regular diet with ensure supplementation 5. Non-Hodgkin's lymphoma with chronic pancytopenia Oncology consulted, appreciate assistance 6. Hypertension/GERD Continue home medications 7. Diabetes mellitus Sliding scale insulin Monitor blood glucose FEN Regular diet with ensure supplementation Electrolytes: Patient with mild hyperkalemia, holding home potassium, monitor NS at 70 cc/hr Holding pharmacologic anticoagulation secondary to thrombocytopenia Discharge Planning dc in 1-2 days Bert Samuels MD Nov 03, 2017 10:13
[2017-11-03 14:08] LABS: ALB/GLOB RATIO (SPE) 0.74 (1.39-2.23)
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
[2017-11-03] MEDS: traZODone HCL 50 MG TAB PO SCH (20:43)
[2017-11-04] VITALS (16 sets, daily range): BP systolic 111–150; BP diastolic 59–77; PULSE 74–82; RESP 16–20; TEMP 97.8–99.9; O2SAT 97–100
[2017-11-04] MEDS: MORPHINE SULFATE 30 MG CONTROLLED RELEASE TAB PO SCH ×5 (00:17→22:00)
[2017-11-04 05:51] LABS: AUTOMATED NEUTROPHIL # 1.7 TH/MM3 (1.8-7.7); BASOPHIL % 0.2 % (0.0-2.0); EOSINOPHIL # 0.1 TH/MM3 (0-0.4); EOSINOPHIL % 2.2 % (0.0-4.0); HEMATOCRIT 22.1 % (39.0-51.0); HEMOGLOBIN 7.1 GM/DL (13.0-17.0); LYMPH % 37.2 % (9.0-44.0); LYMPHOCYTE # 1.3 TH/MM3 (1.0-4.8); MEAN CELL VOLUME 93.9 FL (80.0-100.0); MEAN CORPUSCULAR HEMOGLOBIN 29.9 PG (27.0-34.0); MEAN CORPUSCULAR HGB CONC 31.9 % (32.0-36.0); MEAN PLATELET VOLUME 9.7 FL (7.0-11.0); MONO % 12.3 % (0.0-8.0); MONOCYTE # 0.4 TH/MM3 (0-0.9); NEUT % 48.1 % (16.0-70.0); PLATELET COUNT 43 TH/MM3 (150-450); RED BLOOD COUNT 2.36 MIL/MM3 (4.50-5.90); RED CELL DISTRIBUTION WIDTH 16.1 % (11.6-17.2); WHITE BLOOD COUNT 3.5 TH/MM3 (4.0-11.0)
[2017-11-04] MEDS: ISOSORBIDE MONONITRATE 60 MG CR TAB (IMDUR) PO SCH (05:55)
[2017-11-04 06:05] LABS: BICARBONATE 19.7 MEQ/L (21.0-32.0); CALCIUM 8.2 MG/DL (8.5-10.1); CREATININE 2.32 MG/DL (0.60-1.30); MAGNESIUM 2.7 MG/DL (1.5-2.5)
[2017-11-04] MEDS ORDERED: FUROSEMIDE 20 MG/2 ML VIAL IV PUSH ONE (07:45)
[2017-11-04] MEDS ORDERED: SODIUM CHLOR 0.9% 250 ML INJ 250 ML IV ONE (07:45)
[2017-11-04] MEDS: ALBUTEROL SULFATE 2 MG TAB PO SCH ×3 (08:28→19:23)
[2017-11-04] MEDS: INSULIN ASPART SUPPLEMENTAL SCALE SQ SCH ×4 (08:28→20:29)
[2017-11-04] MEDS: GABAPENTIN 300 MG CAP PO SCH ×2 (08:28→19:57)
[2017-11-04] MEDS: PANTOPRAZOLE SOD 40 MG DELAYED RELEASE TAB PO SCH (08:29)
[2017-11-04] MEDS: METOPROLOL SUCCINATE 50 MG EXTENDED RELEASE TAB PO SCH ×2 (08:30→19:57)
[2017-11-04] MEDS: SODIUM CHLORIDE 0.9% FLUSH 10 ML FLUSH IV FLUSH SCH ×2 (08:30→19:58)
[2017-11-04] MEDS: LACTULOSE SYRUP 20 GM/30 ML CUP PO SCH ×4 (08:45→19:57)
[2017-11-04 08:58] LABS: OVALOCYTES 1+ (NORMAL)
--- NOTE | 2017-11-04 09:46 | HHI.PR ---
Subjective Remarks Follow-up anemia. Denies any complaints states he is feeling better. Agrees with blood transfusion by hematology. Telemetry shows NSVT patient was asymptomatic at that time discussed with nursing Objective Vitals Vital Signs Date Time Temp Pulse Resp B/P (MAP) Pulse Ox O2 Delivery O2 Flow Rate FiO2 11/04/17 08:21 99.1 81 19 111/60 (77) 97 11/04/17 04:23 99.3 79 20 116/66 (83) 97 11/04/17 04:02 80 11/04/17 00:30 99.1 81 20 150/77 (101) 99 11/04/17 00:03 79 11/03/17 20:40 99.6 79 20 139/68 (91) 98 11/03/17 20:06 73 11/03/17 16:08 99.7 76 20 127/65 (85) I/O 11/03/17 11/03/17 11/03/17 11/04/17 11/04/17 11/04/17 07:00 15:00 23:00 07:00 15:00 23:00 Intake Total 240 ml 300 ml 210 ml Output Total 125 ml 100 ml 325 ml Balance 115 ml 200 ml -115 ml Intake Oral 240 ml 300 ml 210 ml Output Urine Total 125 ml 100 ml 325 ml # Voids 1 1 # Bowel Movements 1 Result Diagram: 11/04/17 0440 11/04/17 0440 Imaging Last Impressions Chest X-Ray 11/04/17 0000 Signed Impressions: Service Date/Time: Saturday, November 04, 2017 09:55 - CONCLUSION: No acute disease. Massimo Garcia MD FACR Abdomen/Pelvis CT 11/01/17 2258 Signed Impressions: Service Date/Time: Wednesday, November 01, 2017 23:11 - CONCLUSION: 1. Cirrhosis with portal hypertension and splenomegaly. 2. Nonspecific low density along the pancreatic tail measures 3.9 cm. 3. Moderate abdominal ascites. 4. Nonobstructing right renal calculus. Josiah Anderson MD Head CT 11/01/17 0000 Signed Impressions: Service Date/Time: Wednesday, November 01, 2017 23:07 - CONCLUSION: No acute intracranial disease. Josiah Anderson MD Objective Remarks GENERAL: male lying in bed SKIN: No rashes, ecchymoses or lesions. Cool and dry. CARDIOVASCULAR: Regular rate and rhythm without murmurs, gallops, or rubs. RESPIRATORY: Rhonchi noted breath sounds equal bilaterally. No wheezes, rales GASTROINTESTINAL: Abdomen soft, non-tender, slightly distended. No guarding. MUSCULOSKELETAL: Extremities without clubbing, cyanosis, or edema. No joint tenderness, effusion, or edema noted. No calf tenderness. NEUROLOGICAL: Awake and alert. Cranial nerves II through XII intact. Normal speech. Moves all 4 extremities spontaneously. Occasional slight jerking movements involving the upper extremities A/P Problem List: (1) Hyperammonemia ICD Code: E72.20 - Disorder of urea cycle metabolism, unspecified Assessment and Plan 1. 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 Chest pain/shortness of breath with history of CAD EKG shows normal sinus rhythm with new T-wave inversions in V3 through V6, 1 and aVL, personally reviewed Ruled out for GA with negative cardiac enzymes. I do not think he is a candidate for revascularization because of pancytopenia, I will not proceed with stress test. Continue medical management increase nitrate. 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 Lytes and TSH ok ct BB 3. Acute on chronic kidney disease stage III. Improving Creatinine 2.54, baseline 1.7 Likely secondary to dehydration and poor by mouth intake Gentle IV fluid hydration as patient with cirrhosis Monitor renal function 4. Anorexia/failure to thrive Regular diet with ensure supplementation 5. Non-Hodgkin's lymphoma with chronic pancytopenia. Worsening anemia we will transfuse 2 units packed RBC and repeat hemoglobin in the morning Oncology consulted, appreciate assistance 6. Hypertension/GERD Continue home medications 7. Diabetes mellitus Sliding scale insulin Monitor blood glucose and check A1c FEN Regular diet with ensure supplementation Electrolytes: Patient with mild hyperkalemia, holding home potassium, monitor NS at 70 cc/hr Holding pharmacologic anticoagulation secondary to thrombocytopenia Discharge Planning [facility]charge to [facility] facility in the morning Bert Samuels MD Nov 04, 2017 09:46
--- NOTE | 2017-11-04 10:51 | RADRPT ---
EXAM DATE/TIME: 11/04/2017 09:55 [facility] COMPARISON: CHEST SINGLE AP, November 01, 2017, 21:49. INDICATIONS : Cough. MEDICAL HISTORY : Hypertension. Diabetes mellitus type 2. Hepatitis C SURGICAL HISTORY : CABG. ENCOUNTER: Subsequent ACUITY: 3 days PAIN SCORE: 3/10 LOCATION: Bilateral chest FINDINGS: Sternal wires from previous bypass. [id number] in good position. Lungs are clear. The heart and pulmonary vascularity are normal. Embolization coils over left apex. CONCLUSION: No acute disease. Massimo Garcia MD FACR on November 04, 2017 at 10:49 Board Certified Radiologist. This report was verified electronically.
--- NOTE | 2017-11-04 11:01 | EKG ---
Date Performed: 11/02/2017 Time Performed: 18:25:15 PTAGE: 72 years EKG: Sinus rhythm Diffuse ST-T abnormalities, cannot exclude ischemia but no change seen from prior tracing. ABNORMAL ECG PREVIOUS TRACING : 11/01/2017 23.35 DOCTOR: Nathan Valdez Interpretating Date/Time 11/04/2017 11:00:13
--- NOTE | 2017-11-04 12:07 | HHI.PR ---
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 metabolic encephalopathy recs medical management on lactulose ?palliative care (2) Symptomatic anemia ICD Codes: D64.9 - Anemia, unspecified Status: Acute Plan: Heme following, transfusion per their parameters (3) Non-Hodgkin lymphoma in remission ICD Codes: C85.90 - Non-Hodgkin lymphoma, unspecified, unspecified site Plan: Heme following (4) Atypical chest pain ICD Codes: R07.89 - Atypical chest pain Status: Acute Plan: Cardiology following anemia contributing (5) Hyperammonemia ICD Codes: E72.20 - Disorder of urea cycle metabolism, unspecified Plan: Lactulose Subjective Subjective Comments No acute events reported No headache No chest pain No dyspnea Active Medications Current Medications Medications (Trade) Dose Ordered Sig/Toni Route Start Time Stop Time Status Last Admin Sodium Chloride 1,000 ml @ 70 mls/hr [id number] IV 11/02/17 00:45 11/03/17 21:00 (NS Flush) 2 ml UNSCH PRN IV FLUSH 11/02/17 00:45 (NS Flush) 2 ml BID IV FLUSH 11/02/17 09:00 11/03/17 09:32 (Zofran Inj) 4 mg Q6H PRN IVP 11/02/17 00:45 (Narcan Inj) 0.4 mg UNSCH PRN IV PUSH 11/02/17 00:45 (Lactulose Liq) 30 ml QID PO 11/02/17 09:00 11/03/17 20:07 (Oramorph Sr) 30 mg Q8H PO 11/02/17 06:00 11/04/17 00:17 (Protonix) 40 mg DAILY PO 11/02/17 09:00 11/04/17 08:29 (Desyrel) 50 mg HS PO 11/02/17 21:00 11/03/17 20:43 (D50w (Vial) Inj) 50 ml UNSCH PRN IV PUSH 11/02/17 02:15 (Glucagon Inj) 1 mg UNSCH PRN OTHER 11/02/17 02:15 (NovoLOG SUPPLEMENTAL SCALE) 1 ACHS SLIDING SCALE SQ 11/02/17 08:00 11/04/17 08:28 (Proventil) 4 mg TID PO 11/02/17 09:00 11/04/17 08:28 (Atrovent Neb) 0.5 mg Q6HR NEB PRN NEB 11/02/17 08:30 (Nitrostat Sl) 0.4 mg Q5M PRN SL 11/02/17 08:30 (Neurontin) 300 mg BID PO 11/02/17 21:00 11/04/17 08:28 (Imdur) 120 mg DAILY@0700 PO 11/04/17 07:00 11/04/17 05:55 (Toprol Xl) 100 mg BID PO 11/03/17 09:00 11/04/17 08:30 Sodium Chloride 250 ml @ 15 mls/hr ONCE ONCE IV 11/04/17 07:45 11/05/17 00:24 Allergies Allergies Coded Allergies No Known Allergies (Verified Allergy, Unknown, 11/02/17) Review of Systems All other ROS: ROS reviewed as documented in chart Exam I&O / VS Vital Signs Date Time Temp Pulse Resp B/P (MAP) Pulse Ox O2 Delivery O2 Flow Rate FiO2 11/04/17 11:49 97.8 77 18 138/67 (90) 98 11/04/17 08:21 99.1 81 19 111/60 (77) 97 11/04/17 04:23 99.3 79 20 116/66 (83) 97 11/04/17 04:02 80 11/04/17 00:30 99.1 81 20 150/77 (101) 99 11/04/17 00:03 79 11/03/17 20:40 99.6 79 20 139/68 (91) 98 11/03/17 20:06 73 11/03/17 16:08 99.7 76 20 127/65 (85) General: Alert and Oriented Eye: PERRL, EOMI Respiratory: Non-labored respirations, Symmetrical expansion Cardiology: Normal rate Neurologic: Alert, Normal sensory, No focal defects, CN II-XII intact, Normal DTR's Psychiatric: Cooperative, Appropriate mood & affect Objective Micro and Labs Laboratory Tests Test 11/04/17 04:40 White Blood Count 3.5 Red Blood Count 2.36 Hemoglobin 7.1 Hematocrit 22.1 Mean Corpuscular Volume 93.9 Mean Corpuscular Hemoglobin 29.9 Mean Corpuscular Hemoglobin Concent 31.9 Red Cell Distribution Width 16.1 Platelet Count 43 Mean Platelet Volume 9.7 Neutrophils (%) (Auto) 48.1 Lymphocytes (%) (Auto) 37.2 Monocytes (%) (Auto) 12.3 Eosinophils (%) (Auto) 2.2 Basophils (%) (Auto) 0.2 Neutrophils # (Auto) 1.7 Lymphocytes # (Auto) 1.3 Monocytes # (Auto) 0.4 Eosinophils # (Auto) 0.1 Basophils # (Auto) 0.0 CBC Comment AUTO DIFF Differential Comment AUTO DIFF CONFIRMED Platelet Estimate LOW Platelet Morphology Comment NORMAL Ovalocytes 1+ Blood Urea Nitrogen 48 Creatinine 2.32 Random Glucose 174 Calcium Level 8.2 Magnesium Level 2.7 Sodium Level 144 Potassium Level 4.6 Chloride Level 116 Carbon Dioxide Level 19.7 Anion Gap 8 Estimat Glomerular Filtration Rate 34 Date/Time Source Procedure Growth Status 11/01/17 22:18 Blood Peripheral Aerobic Blood Culture - Preliminary NO GROWTH IN 3 DAYS Resulted 11/01/17 22:18 Blood Peripheral Anaerobic Blood Culture - Preliminary NO GROWTH IN 3 DAYS Resulted Ras Murphy MD Nov 04, 2017 12:07
[2017-11-04] MEDS: SODIUM CHLOR 0.9% 1000 ML INJ 1,000 ML IV SCH (12:32)
[2017-11-04] MEDS ORDERED: ISOS60TA PO (14:46)
[2017-11-04] MEDS ORDERED: MORP1TAB25 PO (14:46)
[2017-11-04] MEDS ORDERED: NEUR300C PO (14:46)
[2017-11-04] MEDS ORDERED: METO1TAB9 PO (14:46)
--- NOTE | 2017-11-04 14:46 | HHI.DCPOC ---
Discharge Care Plan Diagnosis: (1) Hyperammonemia Your Health Problems Are: Difficulty with ADL Exercise Tolerance Goals to Promote Your Health * To prevent worsening of your condition and complications * To maintain your health at the optimal level Directions to Meet Your Goals Take your medications as prescribed Follow your dietary instruction Follow activity as directed Keep your appointments as scheduled Take your immunizations and boosters as scheduled If your symptoms worsen call your PCP, if no PCP go to Urgent Care Center or Emergency Room Smoking is Dangerous to Your Health. Avoid second hand smoke Call the 24-hour hour crisis hotline for domestic abuse at Bert Samuels MD Nov 04, 2017 14:46
[2017-11-04] MEDS: traZODone HCL 50 MG TAB PO SCH (19:57)
[2017-11-05] VITALS (16 sets, daily range): BP systolic 117–146; BP diastolic 62–78; PULSE 74–89; RESP 16–18; TEMP 97.7–99.1; O2SAT 97–99
[2017-11-05] MEDS: SODIUM CHLOR 0.9% 1000 ML INJ 1,000 ML IV SCH (00:15)
[2017-11-05] MEDS: ISOSORBIDE MONONITRATE 60 MG CR TAB (IMDUR) PO SCH (05:46)
[2017-11-05] MEDS: MORPHINE SULFATE 30 MG CONTROLLED RELEASE TAB PO SCH ×3 (05:46→22:25)
[2017-11-05 07:45] LABS: AUTOMATED NEUTROPHIL # 2.4 TH/MM3 (1.8-7.7); BASOPHIL % 0.4 % (0.0-2.0); EOSINOPHIL # 0.1 TH/MM3 (0-0.4); EOSINOPHIL % 2.7 % (0.0-4.0); HEMATOCRIT 28.8 % (39.0-51.0); HEMOGLOBIN 9.4 GM/DL (13.0-17.0); LYMPH % 29.8 % (9.0-44.0); LYMPHOCYTE # 1.3 TH/MM3 (1.0-4.8); MEAN CELL VOLUME 90.1 FL (80.0-100.0); MEAN CORPUSCULAR HEMOGLOBIN 29.4 PG (27.0-34.0); MEAN CORPUSCULAR HGB CONC 32.6 % (32.0-36.0); MEAN PLATELET VOLUME 9.9 FL (7.0-11.0); MONO % 12.2 % (0.0-8.0); MONOCYTE # 0.5 TH/MM3 (0-0.9); NEUT % 54.9 % (16.0-70.0); PLATELET COUNT 54 TH/MM3 (150-450); RED CELL DISTRIBUTION WIDTH 17.9 % (11.6-17.2); WHITE BLOOD COUNT 4.4 TH/MM3 (4.0-11.0)
[2017-11-05 07:57] LABS: BICARBONATE 15.7 MEQ/L (21.0-32.0); CALCIUM 6.2 MG/DL (8.5-10.1); CREATININE 1.75 MG/DL (0.60-1.30)
[2017-11-05 08:27] LABS: TOTAL PROTEIN 4.8 GM/DL (6.4-8.2)
[2017-11-05 08:33] LABS: CALCIUM-PROTEIN CORRECTED 7.3 MG/DL (8.5-10.1)
--- NOTE | 2017-11-05 08:35 | MG ---
cc: Ras Murphy MD DATE OF STUDY: 11/04/2017 EEG RECORD NUMBER: [id number] DESCRIPTION: Noted to be awake, drowsy, asleep. A 2-4 Hz activity, 20-50 microvolts with occasional beta frequencies. EEG variability and reactivity. Limited driving photic stimulation. Myogenic artifact present. Single-lead EKG showing sinus rhythm. INTERPRETATION: Moderate encephalopathy in sleep state. Clinical correlation. Ras uMrphy MD MG/JESSICA , 08:18 AM , 08:34 AM
[2017-11-05] MEDS: ALBUTEROL SULFATE 2 MG TAB PO SCH ×3 (09:00→17:41)
[2017-11-05] MEDS: LACTULOSE SYRUP 20 GM/30 ML CUP PO SCH ×4 (09:00→21:00)
[2017-11-05] MEDS: SODIUM CHLORIDE 0.9% FLUSH 10 ML FLUSH IV FLUSH SCH ×2 (09:00→22:26)
[2017-11-05 09:27] LABS: OVALOCYTES 1+ (NORMAL)
--- NOTE | 2017-11-05 09:39 | HHI.PR ---
Subjective Remarks Follow-up myoclonus. Reports that it is getting better he has no new complaints he is oriented to person, place and date. Discussed with nursing, follow-up EEG Objective Vitals Vital Signs Date Time Temp Pulse Resp B/P (MAP) Pulse Ox O2 Delivery O2 Flow Rate FiO2 11/05/17 08:19 98.6 74 16 117/62 (80) 97 11/05/17 04:27 98.1 77 18 135/78 (97) 99 11/05/17 02:00 74 11/05/17 01:00 76 11/05/17 00:03 76 11/05/17 00:03 98.5 74 18 138/75 99 11/04/17 23:00 76 11/04/17 22:00 76 11/04/17 21:00 76 11/04/17 20:50 98.8 78 16 118/66 100 11/04/17 20:37 98.0 80 20 124/66 98 11/04/17 20:08 82 11/04/17 19:52 98.7 79 18 124/66 (85) 98 11/04/17 19:00 74 11/04/17 15:42 99.0 77 16 118/59 98 11/04/17 15:20 99.9 80 16 118/63 98 11/04/17 11:49 97.8 77 18 138/67 (90) 98 I/O 11/04/17 11/04/17 11/04/17 11/05/17 11/05/17 11/05/17 07:00 15:00 23:00 07:00 15:00 23:00 Intake Total 210 ml 2010 ml 1240 ml 850 ml Output Total 325 ml 400 ml 700 ml Balance -115 ml 2011 ml 840 ml 150 ml Intake Oral 210 ml 840 ml 450 ml IV Total 2010 ml Packed Cells 400 ml 400 ml Output Urine Total 325 ml 400 ml 700 ml # Voids 1 # Bowel Movements 1 Result Diagram: 11/05/17 0550 11/05/17 0550 Imaging Last Impressions Chest X-Ray 11/04/17 0000 Signed Impressions: Service Date/Time: Saturday, November 04, 2017 09:55 - CONCLUSION: No acute disease. Massimo Garcia MD FACR Abdomen/Pelvis CT 11/01/17 5898 Signed Impressions: Service Date/Time: Wednesday, November 01, 2017 23:11 - CONCLUSION: 1. Cirrhosis with portal hypertension and splenomegaly. 2. Nonspecific low density along the pancreatic tail measures 3.9 cm. 3. Moderate abdominal ascites. 4. Nonobstructing right renal calculus. Josiah Anderson MD Head CT 11/01/17 0000 Signed Impressions: Service Date/Time: Wednesday, November 01, 2017 23:07 - CONCLUSION: No acute intracranial disease. Josiah Anderson MD Objective Remarks GENERAL: male lying in bed SKIN: No rashes, ecchymoses or lesions. Cool and dry. CARDIOVASCULAR: Regular rate and rhythm without murmurs, gallops, or rubs. RESPIRATORY: Rhonchi noted breath sounds equal bilaterally. No wheezes, rales GASTROINTESTINAL: Abdomen soft, non-tender, slightly distended. No guarding. MUSCULOSKELETAL: Extremities without clubbing, cyanosis, or edema. No joint tenderness, effusion, or edema noted. No calf tenderness. NEUROLOGICAL: Awake and alert. Cranial nerves II through XII intact. Normal speech. Moves all 4 extremities spontaneously. Occasional slight jerking movements involving the upper extremities No significant change in PE from previous Procedures None A/P Problem List: (1) Hyperammonemia ICD Code: E72.20 - Disorder of urea cycle metabolism, unspecified Assessment and Plan 1. Metabolic myoclonus with hx of cirrhosis, hepatitis C and hyperammonemia. EEG negative for seizures. This is improving. Continue lactulose 2. Chest pain/shortness of breath with history of CAD EKG shows normal sinus rhythm with new T-wave inversions in V3 through V6, 1 and aVL, personally reviewed Ruled out for CA with negative cardiac enzymes. I do not think he is a candidate for revascularization because of pancytopenia, I will not proceed with stress test. Continue medical management increase nitrate. 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 Lytes and TSH ok ct BB 3. Acute on chronic kidney disease stage III. Improving but worsening acidosis Likely secondary to dehydration and poor by mouth intake Gentle IV fluid hydration with sodium bicarbonate caution as patient with cirrhosis Monitor renal function 4. Anorexia/failure to thrive Regular diet with ensure supplementation 5. Non-Hodgkin's lymphoma with chronic pancytopenia. Improved anemia status post transfusion keep hemoglobin at least 8 Oncology consulted, appreciate assistance 6. Hypertension/GERD Continue home medications 7. Diabetes mellitus Sliding scale insulin Monitor blood glucose FEN Diabetic diet with Glucerna supplementation Holding pharmacologic anticoagulation secondary to thrombocytopenia Discharge Planning Discharge to [facility] facility when arranged Bert Samuels MD Nov 05, 2017 09:39
[2017-11-05] MEDS ORDERED: BENZONATATE 100 MG CAP PO PRN (09:45)
[2017-11-05] MEDS ORDERED: SODIUM BICARBONATE 8.4% INJ 50 MEQ in SODIUM CHLOR 0.45% 1000 ML INJ 1,000 ML IV SCH ×2 (10:00→16:00)
--- NOTE | 2017-11-05 10:26 | HHI.PR ---
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 metabolic encephalopathy less jerky this am recs neuro stable. ox 2. follows gfr better medical management on lactulose (2) Symptomatic anemia ICD Codes: D64.9 - Anemia, unspecified Status: Acute Plan: Heme following, transfusion per their parameters (3) Non-Hodgkin lymphoma in remission ICD Codes: C85.90 - Non-Hodgkin lymphoma, unspecified, unspecified site Plan: Heme following (4) Atypical chest pain ICD Codes: R07.89 - Atypical chest pain Status: Acute Plan: Cardiology following anemia contributing (5) Hyperammonemia ICD Codes: E72.20 - Disorder of urea cycle metabolism, unspecified Plan: Lactulose Subjective Subjective Comments No acute events reported No headache No chest pain No dyspnea Active Medications Current Medications Medications (Trade) Dose Ordered Sig/Toni Route Start Time Stop Time Status Last Admin (NS Flush) 2 ml UNSCH PRN IV FLUSH 11/02/17 00:45 (NS Flush) 2 ml BID IV FLUSH 11/02/17 09:00 11/04/17 19:58 (Zofran Inj) 4 mg Q6H PRN IVP 11/02/17 00:45 (Narcan Inj) 0.4 mg UNSCH PRN IV PUSH 11/02/17 00:45 (Lactulose Liq) 30 ml QID PO 11/02/17 09:00 11/04/17 19:57 (Oramorph Sr) 30 mg Q8H PO 11/02/17 06:00 11/04/17 00:17 (Protonix) 40 mg DAILY PO 11/02/17 09:00 11/04/17 08:29 (Desyrel) 50 mg HS PO 11/02/17 21:00 11/04/17 19:57 (D50w (Vial) Inj) 50 ml UNSCH PRN IV PUSH 11/02/17 02:15 (Glucagon Inj) 1 mg UNSCH PRN OTHER 11/02/17 02:15 (NovoLOG SUPPLEMENTAL SCALE) 1 ACHS SLIDING SCALE SQ 11/02/17 08:00 11/04/17 20:29 (Proventil) 4 mg TID PO 11/02/17 09:00 11/04/17 19:23 (Atrovent Neb) 0.5 mg Q6HR NEB PRN NEB 11/02/17 08:30 (Nitrostat Sl) 0.4 mg Q5M PRN SL 11/02/17 08:30 (Neurontin) 300 mg BID PO 11/02/17 21:00 11/04/17 19:57 (Imdur) 120 mg DAILY@0700 PO 11/04/17 07:00 11/05/17 05:46 (Toprol Xl) 100 mg BID PO 11/03/17 09:00 11/04/17 19:57 (Oscal) 500 mg DAILY PO 11/05/17 09:00 (Tessalon) 200 mg Q8H PRN PO 11/05/17 09:45 (Mucinex Er) 600 mg BID PO 11/05/17 21:00 Allergies Allergies Coded Allergies No Known Allergies (Verified Allergy, Unknown, 11/02/17) Review of Systems All other ROS: ROS reviewed as documented in chart Exam I&O / VS Vital Signs Date Time Temp Pulse Resp B/P (MAP) Pulse Ox O2 Delivery O2 Flow Rate FiO2 11/05/17 08:19 98.6 74 16 117/62 (80) 97 11/05/17 07:00 78 11/05/17 04:27 98.1 77 18 135/78 (97) 99 11/05/17 02:00 74 11/05/17 01:00 76 11/05/17 00:03 76 11/05/17 00:03 98.5 74 18 138/75 99 11/04/17 23:00 76 11/04/17 22:00 76 11/04/17 21:00 76 11/04/17 20:50 98.8 78 16 118/66 100 11/04/17 20:37 98.0 80 20 124/66 98 11/04/17 20:08 82 11/04/17 19:52 98.7 79 18 124/66 (85) 98 11/04/17 19:00 74 11/04/17 15:42 99.0 77 16 118/59 98 11/04/17 15:20 99.9 80 16 118/63 98 11/04/17 11:49 97.8 77 18 138/67 (90) 98 General: Alert and Oriented Eye: PERRL, EOMI Respiratory: Non-labored respirations, Symmetrical expansion Cardiology: Normal rate Neurologic: Alert, Normal sensory, No focal defects, CN II-XII intact, Normal DTR's Psychiatric: Cooperative, Appropriate mood & affect Exam Comments ox 2. not to date, follows, able to name simple objects, neck supple, drowsy, eomi, mild proptosis, ou 3-2mm, vff, mejia to gravity, mild generalized weakness 4 +/5, distended abdomen Objective Micro and Labs Laboratory Tests Test 11/05/17 05:50 White Blood Count 4.4 Red Blood Count 3.20 Hemoglobin 9.4 Hematocrit 28.8 Mean Corpuscular Volume 90.1 Mean Corpuscular Hemoglobin 29.4 Mean Corpuscular Hemoglobin Concent 32.6 Red Cell Distribution Width 17.9 Platelet Count 54 Mean Platelet Volume 9.9 Neutrophils (%) (Auto) 54.9 Lymphocytes (%) (Auto) 29.8 Monocytes (%) (Auto) 12.2 Eosinophils (%) (Auto) 2.7 Basophils (%) (Auto) 0.4 Neutrophils # (Auto) 2.4 Lymphocytes # (Auto) 1.3 Monocytes # (Auto) 0.5 Eosinophils # (Auto) 0.1 Basophils # (Auto) 0.0 CBC Comment AUTO DIFF Differential Comment AUTO DIFF CONFIRMED Ovalocytes 1+ Blood Urea Nitrogen 39 Creatinine 1.75 Random Glucose 125 Total Protein 4.8 Calcium Level 6.2 Magnesium Level 2.0 Sodium Level 147 Potassium Level 4.5 Chloride Level 123 Carbon Dioxide Level 15.7 Anion Gap 8 Estimat Glomerular Filtration Rate 47 Protein Corrected Calcium 7.3 Date/Time Source Procedure Growth Status 11/01/17 22:18 Blood Peripheral Aerobic Blood Culture - Preliminary NO GROWTH IN 3 DAYS Resulted 11/01/17 22:18 Blood Peripheral Anaerobic Blood Culture - Preliminary NO GROWTH IN 3 DAYS Resulted Ras Murphy MD Nov 05, 2017 10:26
[2017-11-05] MEDS: GABAPENTIN 300 MG CAP PO SCH ×3 (11:04→17:41)
[2017-11-05] MEDS: METOPROLOL SUCCINATE 50 MG EXTENDED RELEASE TAB PO SCH ×2 (11:04→22:25)
[2017-11-05] MEDS: CALCIUM CARBONATE 1.25 GM (CA 500 MG) TAB PO SCH (11:04)
[2017-11-05] MEDS: INSULIN ASPART SUPPLEMENTAL SCALE SQ SCH ×4 (11:04→22:24)
[2017-11-05] MEDS: PANTOPRAZOLE SOD 40 MG DELAYED RELEASE TAB PO SCH (11:04)
[2017-11-05 13:49] LABS: HEMOGLOBIN A1C 5.3 % (4.3-6.0)
[2017-11-05] MEDS ORDERED: SODI650T PO (14:36)
[2017-11-05] MEDS ORDERED: CALC500 PO (14:45)
[2017-11-05] MEDS: guaiFENesin E.R. 600 MG TAB PO SCH (22:25)
[2017-11-05] MEDS: traZODone HCL 50 MG TAB PO SCH (22:26)
[2017-11-06] VITALS (21 sets, daily range): BP systolic 108–127; BP diastolic 55–73; PULSE 73–86; RESP 16–20; TEMP 98.4–99.5; O2SAT 97–100
[2017-11-06 04:58] LABS: BICARBONATE 20.3 MEQ/L (21.0-32.0); CALCIUM 8.2 MG/DL (8.5-10.1); CREATININE 2.22 MG/DL (0.60-1.30); MAGNESIUM 2.5 MG/DL (1.5-2.5)
[2017-11-06] MEDS: ISOSORBIDE MONONITRATE 60 MG CR TAB (IMDUR) PO SCH (06:07)
[2017-11-06] MEDS: MORPHINE SULFATE 30 MG CONTROLLED RELEASE TAB PO SCH ×3 (06:08→21:59)
[2017-11-06] MEDS: INSULIN ASPART SUPPLEMENTAL SCALE SQ SCH ×4 (08:00→22:05)
--- NOTE | 2017-11-06 08:42 | PD.ONC.PN ---
Subjective Subjective Remarks Afebrile overnight. Patient resting in bed in nad. complaining of all over body aches. states he still gets intermittent "body jerks." Objective Data Date Time Temp Pulse Resp B/P (MAP) Pulse Ox O2 Delivery O2 Flow Rate FiO2 11/06/17 06:04 79 11/06/17 05:00 73 11/06/17 04:03 76 11/06/17 03:36 99.2 75 18 117/59 (78) 97 11/06/17 03:02 79 11/06/17 02:10 84 11/06/17 01:00 79 11/06/17 00:55 99.3 78 18 111/67 (82) 100 11/06/17 00:00 76 11/05/17 23:05 88 11/05/17 22:04 75 11/05/17 21:03 85 11/05/17 20:12 99.1 82 18 146/78 (100) 99 11/05/17 20:03 89 11/05/17 19:07 89 11/05/17 18:30 98.0 88 18 125/67 (86) 99 11/05/17 15:00 80 11/05/17 12:12 97.7 76 18 135/78 (97) 98 11/05/17 11:00 82 11/06/17 11/06/17 11/06/17 07:00 15:00 23:00 Intake Total 770 ml Output Total 400 ml Balance 370 ml Result Diagram: 11/05/17 0550 11/06/17 0345 Laboratory Results Laboratory Tests Test 11/06/17 03:45 Blood Urea Nitrogen 47 MG/DL Creatinine 2.22 MG/DL Random Glucose 159 MG/DL Calcium Level 8.2 MG/DL Magnesium Level 2.5 MG/DL Sodium Level 143 MEQ/L Potassium Level 4.5 MEQ/L Chloride Level 114 MEQ/L Carbon Dioxide Level 20.3 MEQ/L Anion Gap 9 MEQ/L Estimat Glomerular Filtration Rate 36 ML/MIN Administered Medications Medications (Trade) Dose Ordered Sig/Toni Route PRN Reason Start Time Stop Time Status Last Admin Dose Admin Sodium Chloride (NS Flush) 2 ml BID IV FLUSH 11/02/17 09:00 11/05/17 22:26 Lactulose (Lactulose Liq) 30 ml QID PO 11/02/17 09:00 11/05/17 17:41 Morphine Sulfate (Oramorph Sr) 30 mg Q8H PO 11/02/17 06:00 11/06/17 06:08 Pantoprazole Sodium (Protonix) 40 mg DAILY PO 11/02/17 09:00 11/05/17 11:04 Trazodone HCl (Desyrel) 50 mg HS PO 11/02/17 21:00 11/05/17 22:26 Insulin Aspart (NovoLOG SUPPLEMENTAL SCALE) 1 ACHS SLIDING SCALE SQ 11/02/17 08:00 11/05/17 22:24 Albuterol Sulfate (Proventil) 4 mg TID PO 11/02/17 09:00 11/05/17 17:41 Isosorbide Mononitrate (Imdur) 120 mg DAILY@0700 PO 11/04/17 07:00 11/06/17 06:07 Metoprolol Succinate (Toprol Xl) 100 mg BID PO 11/03/17 09:00 11/05/17 22:25 Calcium Carbonate (Oscal) 500 mg DAILY PO 11/05/17 09:00 11/05/17 11:04 Guaifenesin (Mucinex Er) 600 mg BID PO 11/05/17 21:00 11/05/17 22:25 Gabapentin (Neurontin) 300 mg TID PO 11/05/17 13:00 11/05/17 17:41 Objective Remarks GENERAL: Elderly male, lying in bed, resting. SKIN: Warm and dry. HEAD: Normocephalic. EYES: No injection or drainage. NECK: Supple, trachea midline CARDIOVASCULAR: Regular rate and rhythm RESPIRATORY: Breath sounds equal bilaterally. No accessory muscle use. GASTROINTESTINAL: Abdomen soft, non-tender, nondistended. EXTREMITIES: No cyanosis NEUROLOGICAL: awake and alert. normal speech. moving extremities. Assessment/Plan Problem List: (1) Symptomatic anemia ICD Codes: D64.9 - Anemia, unspecified Status: Acute Plan: 11/06: monitor hgb. transfuse to keep hgb greater than 7.5. Hematology/ oncology will sign off. please call or reconsult if needed. --normocytic normochromic anemia, which I believe --anemia of kidney disease. --B12/iron studies show no deficiency. (2) Non-Hodgkin lymphoma in remission ICD Codes: C85.90 - Non-Hodgkin lymphoma, unspecified, unspecified site Plan: --no clinical or radiological evidence of recurrent lymphoma. He is still in remission. 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 (has untreated hepatitis C) Assessment 72y/o male with non-hodgkin lymphoma and pancytopenia admitted with jerking movements. h/o Non-Hodgkin lymphoma, status post Treanda chemotherapy x 6 cycles, completed in 03/2017, 6 months ago. The restaging PET scan in May came back normal. History of chronic anemia, anxiety, asthma, COPD, cirrhosis of the liver, hepatitis C, coronary artery disease, diabetes mellitus, gout, hypercholesterolemia, hypertension, chronic kidney disease, peripheral neuropathy. Attending Statement The exam, history, and the medical decision-making described in the above note were completed with the assistance of the mid-level provider. I reviewed and agree with the findings presented. I attest that I had a [id number] encounter with the patient on the same day, and personally performed and documented my assessment and findings in the medical record. No new c/o Hg improved after PRBC No further onc intervention needed. Sign off available prn. Nasrin Helms Nov 06, 2017 08:42 Nell Malhotra MD Nov 06, 2017 19:56
[2017-11-06] MEDS: ALBUTEROL SULFATE 2 MG TAB PO SCH ×3 (09:00→18:18)
[2017-11-06] MEDS: METOPROLOL SUCCINATE 50 MG EXTENDED RELEASE TAB PO SCH ×2 (09:00→21:57)
[2017-11-06] MEDS: SODIUM CHLORIDE 0.9% FLUSH 10 ML FLUSH IV FLUSH SCH ×2 (09:00→21:00)
--- NOTE | 2017-11-06 09:16 | HHI.PR ---
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 metabolic encephalopathy -neuro stable recs f/u nh3 level will add provigil for somnolence medical management on lactulose (2) Symptomatic anemia ICD Codes: D64.9 - Anemia, unspecified Status: Acute Plan: Heme following, transfusion per their parameters (3) Non-Hodgkin lymphoma in remission ICD Codes: C85.90 - Non-Hodgkin lymphoma, unspecified, unspecified site Plan: Heme following (4) Atypical chest pain ICD Codes: R07.89 - Atypical chest pain Status: Acute Plan: Cardiology following anemia contributing (5) Hyperammonemia ICD Codes: E72.20 - Disorder of urea cycle metabolism, unspecified Plan: Lactulose Subjective Subjective Comments No acute events reported No headache No chest pain No dyspnea Active Medications Current Medications Medications (Trade) Dose Ordered Sig/Toni Route Start Time Stop Time Status Last Admin (NS Flush) 2 ml UNSCH PRN IV FLUSH 11/02/17 00:45 (NS Flush) 2 ml BID IV FLUSH 11/02/17 09:00 11/05/17 22:26 (Zofran Inj) 4 mg Q6H PRN IVP 11/02/17 00:45 (Narcan Inj) 0.4 mg UNSCH PRN IV PUSH 11/02/17 00:45 (Lactulose Liq) 30 ml QID PO 11/02/17 09:00 11/05/17 17:41 (Oramorph Sr) 30 mg Q8H PO 11/02/17 06:00 11/06/17 06:08 (Protonix) 40 mg DAILY PO 11/02/17 09:00 11/05/17 11:04 (Desyrel) 50 mg HS PO 11/02/17 21:00 11/05/17 22:26 (D50w (Vial) Inj) 50 ml UNSCH PRN IV PUSH 11/02/17 02:15 (Glucagon Inj) 1 mg UNSCH PRN OTHER 11/02/17 02:15 (NovoLOG SUPPLEMENTAL SCALE) 1 ACHS SLIDING SCALE SQ 11/02/17 08:00 11/05/17 22:24 (Proventil) 4 mg TID PO 11/02/17 09:00 11/05/17 17:41 (Atrovent Neb) 0.5 mg Q6HR NEB PRN NEB 11/02/17 08:30 (Nitrostat Sl) 0.4 mg Q5M PRN SL 11/02/17 08:30 (Imdur) 120 mg DAILY@0700 PO 11/04/17 07:00 11/06/17 06:07 (Toprol Xl) 100 mg BID PO 11/03/17 09:00 11/05/17 22:25 (Oscal) 500 mg DAILY PO 11/05/17 09:00 11/05/17 11:04 (Tessalon) 200 mg Q8H PRN PO 11/05/17 09:45 (Mucinex Er) 600 mg BID PO 11/05/17 21:00 11/05/17 22:25 (Neurontin) 300 mg TID PO 11/05/17 13:00 11/05/17 17:41 (NS Flush) 5 ml UNSCH PRN IV FLUSH 11/06/17 09:00 (Heparin Central Flush) 250 units UNSCH PRN IV FLUSH 11/06/17 09:00 (Heparin Central Flush) 500 units UNSCH IV FLUSH 11/06/17 09:00 Allergies Allergies Coded Allergies No Known Allergies (Verified Allergy, Unknown, 11/02/17) Review of Systems All other ROS: ROS reviewed as documented in chart Exam I&O / VS Vital Signs Date Time Temp Pulse Resp B/P (MAP) Pulse Ox O2 Delivery O2 Flow Rate FiO2 11/06/17 06:04 79 11/06/17 05:00 73 11/06/17 04:03 76 11/06/17 03:36 99.2 75 18 117/59 (78) 97 11/06/17 03:02 79 11/06/17 02:10 84 11/06/17 01:00 79 11/06/17 00:55 99.3 78 18 111/67 (82) 100 11/06/17 00:00 76 11/05/17 23:05 88 11/05/17 22:04 75 11/05/17 21:03 85 11/05/17 20:12 99.1 82 18 146/78 (100) 99 11/05/17 20:03 89 11/05/17 19:07 89 11/05/17 18:30 98.0 88 18 125/67 (86) 99 11/05/17 15:00 80 11/05/17 12:12 97.7 76 18 135/78 (97) 98 11/05/17 11:00 82 General: Alert and Oriented Eye: PERRL, EOMI Respiratory: Non-labored respirations, Symmetrical expansion Cardiology: Normal rate Neurologic: Alert, Normal sensory, No focal defects, CN II-XII intact, Normal DTR's Psychiatric: Cooperative, Appropriate mood & affect Exam Comments mildly lethargic, ox 2. not to date, follows, able to name simple objects, neck supple,eomi, mild proptosis, ou 3-2mm, vff, mejia to gravity, +mild asterixis, mild generalized weakness 4+/5, distended abdomen Objective Micro and Labs Laboratory Tests Test 11/06/17 03:45 Blood Urea Nitrogen 47 Creatinine 2.22 Random Glucose 159 Calcium Level 8.2 Magnesium Level 2.5 Sodium Level 143 Potassium Level 4.5 Chloride Level 114 Carbon Dioxide Level 20.3 Anion Gap 9 Estimat Glomerular Filtration Rate 36 Date/Time Source Procedure Growth Status 11/01/17 22:18 Blood Peripheral Aerobic Blood Culture - Preliminary NO GROWTH IN 4 DAYS Resulted 11/01/17 22:18 Blood Peripheral Anaerobic Blood Culture - Preliminary NO GROWTH IN 4 DAYS Resulted Ras Murphy MD Nov 06, 2017 09:16
[2017-11-06] MEDS: PANTOPRAZOLE SOD 40 MG DELAYED RELEASE TAB PO SCH (09:49)
[2017-11-06] MEDS: LACTULOSE SYRUP 20 GM/30 ML CUP PO SCH ×4 (09:49→21:00)
[2017-11-06] MEDS: CALCIUM CARBONATE 1.25 GM (CA 500 MG) TAB PO SCH (09:49)
[2017-11-06] MEDS: guaiFENesin E.R. 600 MG TAB PO SCH ×2 (09:49→21:58)
[2017-11-06] MEDS: GABAPENTIN 300 MG CAP PO SCH ×3 (09:49→18:18)
[2017-11-06] MEDS ORDERED: MODAFINIL 100 MG TAB PO SCH (10:30)
[2017-11-06] MEDS: MODAFINIL 200 MG TAB PO SCH (11:00)
[2017-11-06] MEDS ORDERED: PILL SPLITTER OTHER PRN (11:00)
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
--- NOTE | 2017-11-06 12:14 | PD.WCN.NOT ---
Wound Consult Description: Consult for Coccyx wound per Paula Lee/Nasrin HYDE Communicated with: Dr Huynh Recommendation: Calazime skin protectant to open partial thickness skinloss areas BID and PRN with each cleansing. Continue to turn the patient and reposition him Q2H to relieve pressure. PLEASE USE disposable ultrasorb underpads for incontinence and moisture. PLEASE DO NOT USE cotton underpads underneath the patient for moisture related wounds. Additional Information: Patient seen on [facility] for wound assessment of sacrum and gluteal cleft. Patient was positioned to his right side for assessment with assistance from JACK Gunter. Optifoam gentle border was saturated and removed from sacrum to reveal two partial thickness skin loss skin tears in the gluteal cleft. Left skin tear measured 2cm x 0.4cm x <0.1cm of 100% red moist non granulating tissue with jagged wound margins. Right skin tear measured 3cm x 0.6cm x <0.1cm of 100% red moist non granulating tissue with jagged wound margins. Wounds had no drainage nor odor noted. Wounds present as moisture and friction etiology. Calazime was applied in a thick layer and all cotton underpads were removed from underneath patient. Moisture wicking underpads were placed in a staggered fashion underneath patient for moisture. Patient was repositioned off his back side by placing a pillow underneath his right side prior to leaving patient bedside. Maribeth Gonsalez [facility] Nov 06, 2017 12:14
[2017-11-06] MEDS: SODIUM CHLORIDE 0.9% FLUSH 10 ML FLUSH IV FLUSH PRN (12:48)
[2017-11-06] MEDS: RESP: IPRATROPIUM 0.5 MG/2.5 ML NEB NEB PRN (13:21)
[2017-11-06] MEDS: traZODone HCL 50 MG TAB PO SCH (21:57)
--- NOTE | 2017-11-06 22:06 | HHI.PR ---
Subjective Remarks Patient appears weak, he says he is "a little" better than yesterday. States he ate some of his breakfast. Objective Vitals Vital Signs Date Time Temp Pulse Resp B/P (MAP) Pulse Ox O2 Delivery O2 Flow Rate FiO2 11/06/17 19:43 99.5 85 16 119/66 (83) 98 11/06/17 18:31 84 11/06/17 16:00 99.0 79 18 118/66 (83) 99 11/06/17 12:52 98.4 76 20 127/73 (91) 97 11/06/17 12:10 83 11/06/17 08:10 81 11/06/17 08:00 98.6 83 16 108/55 (72) 100 11/06/17 06:04 79 11/06/17 05:00 73 11/06/17 04:03 76 11/06/17 03:36 99.2 75 18 117/59 (78) 97 11/06/17 03:02 79 11/06/17 02:10 84 11/06/17 01:00 79 11/06/17 00:55 99.3 78 18 111/67 (82) 100 11/06/17 00:00 76 11/05/17 23:05 88 11/05/17 22:04 75 I/O 11/05/17 11/05/17 11/05/17 11/06/17 11/06/17 11/06/17 07:00 15:00 23:00 07:00 15:00 23:00 Intake Total 850 ml 1440 ml 770 ml Output Total 700 ml 400 ml 400 ml 300 ml Balance 150 ml 1040 ml 370 ml -300 ml Intake Oral 450 ml 1440 ml 120 ml IV Total 650 ml Packed Cells 400 ml Output Urine Total 700 ml 400 ml 400 ml 300 ml # Voids 2 # Bowel Movements 3 0 1 1 Result Diagram: 11/05/17 0550 11/06/17 0345 Objective Remarks GENERAL: Weak appearing man SKIN: Warm and dry. HEAD: Normocephalic. EYES: No scleral icterus. No injection or drainage. NECK: Supple, trachea midline. No JVD or lymphadenopathy. CARDIOVASCULAR: Regular rate and rhythm, 2/6 BREE, gallops, or rubs. RESPIRATORY: Breath sounds equal bilaterally. No accessory muscle use. GASTROINTESTINAL: Abdomen soft, non-tender, nondistended. EXTREMITIES: No cyanosis, or edema. NEUROLOGICAL: Awake, alert, and oriented x 3. Non-focal. Procedures None A/P Problem List: (1) Hyperammonemia ICD Code: E72.20 - Disorder of urea cycle metabolism, unspecified Assessment and Plan Asterixis hx of cirrhosis, hepatitis C and hyperammonemia. EEG negative for seizures. Continue lactulose, improving Chest pain/shortness of breath with history of CAD EKG shows normal sinus rhythm with new T-wave inversions in V3 through V6, 1 and aVL, personally reviewed, EF = 55% Ruled out for MO with negative cardiac enzymes Continue medical management increase nitrate. Continue beta-rose will increase if tolerated Appreciate cardiology consult Chronic kidney disease stage III Still some mild dehydration effect, but firm cirrhotic abdomen Continue cautious IVF hydration Monitor renal function Failure to Thrive Regular diet with ensure supplementation Non-Hodgkin's lymphoma with chronic pancytopenia. Improved anemia status post transfusion Appreciate Oncology consult Hypertension/GERD Continue home medications Type 2 diabetes Sliding scale insulin with accuchecks Diabetic Diet, Glucerna supplementation DVT Prophylaxis SCDs, anticoagulants held due to thrombocytopenia and anemia Discharge Planning SNF Rehab Colby Huynh MD Nov 06, 2017 22:06
[2017-11-07] VITALS (21 sets, daily range): BP systolic 88–138; BP diastolic 51–70; PULSE 72–83; RESP 16; TEMP 98.1–99.8; O2SAT 95–100
[2017-11-07] MEDS: ISOSORBIDE MONONITRATE 60 MG CR TAB (IMDUR) PO SCH (05:50)
[2017-11-07] MEDS: MORPHINE SULFATE 30 MG CONTROLLED RELEASE TAB PO SCH ×3 (05:51→21:56)
[2017-11-07] MEDS: INSULIN ASPART SUPPLEMENTAL SCALE SQ SCH ×4 (08:00→21:53)
[2017-11-07] MEDS: SODIUM CHLORIDE 0.9% FLUSH 10 ML FLUSH IV FLUSH SCH ×2 (09:00→21:55)
[2017-11-07] MEDS: guaiFENesin E.R. 600 MG TAB PO SCH ×2 (09:00→21:56)
[2017-11-07] MEDS: METOPROLOL SUCCINATE 50 MG EXTENDED RELEASE TAB PO SCH ×2 (09:00→21:56)
[2017-11-07] MEDS: ALBUTEROL SULFATE 2 MG TAB PO SCH ×3 (09:20→18:22)
[2017-11-07] MEDS: GABAPENTIN 300 MG CAP PO SCH ×3 (09:20→18:22)
[2017-11-07] MEDS: LACTULOSE SYRUP 20 GM/30 ML CUP PO SCH ×5 (09:21→22:42)
[2017-11-07] MEDS: PANTOPRAZOLE SOD 40 MG DELAYED RELEASE TAB PO SCH (09:21)
[2017-11-07] MEDS: CALCIUM CARBONATE 1.25 GM (CA 500 MG) TAB PO SCH (09:21)
[2017-11-07] MEDS: SODIUM CHLORIDE 0.9% FLUSH 10 ML FLUSH IV FLUSH PRN (09:22)
[2017-11-07] MEDS: MODAFINIL 200 MG TAB PO SCH (09:22)
--- NOTE | 2017-11-07 14:56 | HHI.PR ---
Subjective Remarks 72-year-old male with encephalopathy secondary to hyperammonemia. She is alert and oriented 3 today which is a change from his baseline of confusion. He expresses no complaints. He has changed his CODE STATUS to full code. Objective Vitals Vital Signs Date Time Temp Pulse Resp B/P (MAP) Pulse Ox O2 Delivery O2 Flow Rate FiO2 11/07/17 12:01 98.7 80 16 117/59 (78) 100 11/07/17 09:50 102/54 (70) 11/07/17 08:40 99.7 78 16 88/51 (63) 96 11/07/17 08:30 78 11/07/17 06:04 78 11/07/17 05:06 77 11/07/17 04:08 99.0 76 16 118/60 (79) 97 11/07/17 03:57 74 11/07/17 03:05 72 11/07/17 02:04 83 11/07/17 01:05 81 11/07/17 00:56 98.7 79 16 112/62 (79) 98 11/07/17 00:05 80 11/06/17 23:09 82 11/06/17 22:00 84 11/06/17 21:05 86 11/06/17 20:05 85 11/06/17 19:43 99.5 85 16 119/66 (83) 98 11/06/17 18:57 85 11/06/17 18:31 84 11/06/17 16:00 99.0 79 18 118/66 (83) 99 I/O 11/06/17 11/06/17 11/06/17 11/07/17 11/07/17 11/07/17 07:00 15:00 23:00 07:00 15:00 23:00 Intake Total 770 ml 240 ml Output Total 400 ml 300 ml Balance 370 ml -60 ml Intake Oral 120 ml 240 ml IV Total 650 ml Output Urine Total 400 ml 300 ml # Bowel Movements 0 1 1 1 Result Diagram: 11/05/17 0550 11/06/17 0345 Objective Remarks GENERAL: Weak appearing man SKIN: Warm and dry. HEAD: Normocephalic. EYES: No scleral icterus. No injection or drainage. NECK: Supple, trachea midline. No JVD or lymphadenopathy. CARDIOVASCULAR: Regular rate and rhythm, 2/6 BREE, gallops, or rubs. RESPIRATORY: Breath sounds equal bilaterally. No accessory muscle use. GASTROINTESTINAL: Abdomen soft, non-tender, nondistended. EXTREMITIES: No cyanosis, or edema. NEUROLOGICAL: Awake, alert, and oriented x 3. Non-focal. Procedures None A/P Problem List: (1) Hyperammonemia ICD Code: E72.20 - Disorder of urea cycle metabolism, unspecified Assessment and Plan Hyperammonemia, Asterixis, Liver Failure hx of cirrhosis, hepatitis C and hyperammonemia. EEG negative for seizures. Cognitively improved, still with asterixis however Continue lactulose GI Consult (patient has no GI doctor) Appreciate Palliative Care consulting Chest pain/shortness of breath with history of CAD EKG shows normal sinus rhythm with new T-wave inversions in V3 through V6, 1 and aVL, personally reviewed, EF = 55% Ruled out for SD with negative cardiac enzymes Continue medical management increase nitrate. Continue beta-rose will increase if tolerated Appreciate cardiology consult Chronic kidney disease stage III Still some mild dehydration effect, but firm cirrhotic abdomen Continue cautious IVF hydration Monitor renal function Failure to Thrive Regular diet with ensure supplementation Non-Hodgkin's lymphoma with chronic pancytopenia. Improved anemia status post transfusion Appreciate Oncology consult Hypertension/GERD Continue home medications Type 2 diabetes Sliding scale insulin with accuchecks Diabetic Diet, Glucerna supplementation DVT Prophylaxis SCDs, anticoagulants held due to thrombocytopenia and anemia Discharge Planning SNF Rehab Code Status: Full Code Colby Huynh MD Nov 07, 2017 14:56
--- NOTE | 2017-11-07 15:21 | HHI.HCPN ---
Reason for visit a. To assist with evaluation and management of symptoms including: Pain, physical deconditioning b. To assist medical decision maker(s) with: better understanding of current medical conditions; weighing benefits/burdens of medical treatment options; making medical treatment decisions. Subjective/Interval History Follow up medically necessary for symptom management and further clarification of goals including assistance with signing of community DNR. Patient seen and examined in his room in the presence of his daughter Carolina Salas. Patient is awake, alert and oriented to self, place and situation. Patient complaining of generalized pain, "i hurt everywhere ". Patient on Morphine Sulfate 30mg q 8hrs and Gabapentin 300mg po TID. No recent labwork and imaging. Low grade temperature today,Tmax 99.7. Discussed conversation and decisions made by patient yesterday inclusive of completion of HCS (health care surrogate form) and DNR. Patient in the presence of his daughter mentioned that in the event of a cardiac arrest and or respiratory distress he would want to be resuscitated and placed on a mechanical ventilation. Patient`s daughter called her sister Aidee to participate in conversation. Explained to patient what Full code is and he said , "i want everything done to save me or keep me alive". Patient`s daughters asked patient, when he would want aggressive treatment to be stopped after he is intubated on mechanical ventilation. Patient mentioned that, they can make decisions for him and was getting angry when asked what he would consider as quality of life by his daughter. Patient`s daughters` agreeable with changing code status to honor their fathers` wishes even though they had many questions not answered by patient regarding his wishes and what he would consider as quality of life. Case discussed with bedside RN and Dr. Kel Huynh. Notified of code status change. . Family/friend interactions Bedside conversation with patient, daughter Carolina and daughter Aidee over telephone . Advance Directives Health Care Surrogate: Copy in medical record Advance Directive Specifics Date completed: 11/06/2017 . Health Care Surrogate(s): Healthcare surrogate -daughter- JosueOlga anaya [phone] Alternate healthcare surrogate -Daughter-JosueCarolina anaya [phone] Third choice (Alternate HCS)-Carisa Ayala-[phone] . Significant change in goals: Patient wants to be a full code and wants "everything done to save him". . Objective Vital Signs Date Time Temp Pulse Resp B/P (MAP) Pulse Ox O2 Delivery O2 Flow Rate FiO2 11/07/17 12:01 98.7 80 16 117/59 (78) 100 11/07/17 09:50 102/54 (70) 11/07/17 08:40 99.7 78 16 88/51 (63) 96 11/07/17 08:30 78 11/07/17 06:04 78 11/07/17 05:06 77 11/07/17 04:08 99.0 76 16 118/60 (79) 97 11/07/17 03:57 74 11/07/17 03:05 72 11/07/17 02:04 83 11/07/17 01:05 81 11/07/17 00:56 98.7 79 16 112/62 (79) 98 11/07/17 00:05 80 11/06/17 23:09 82 11/06/17 22:00 84 11/06/17 21:05 86 11/06/17 20:05 85 11/06/17 19:43 99.5 85 16 119/66 (83) 98 11/06/17 18:57 85 11/06/17 18:31 84 11/06/17 16:00 99.0 79 18 118/66 (83) 99 Intake & Output 11/07/17 11/07/17 07:00 19:00 Intake Total 240 ml Output Total 300 ml Balance -60 ml Intake Oral 240 ml Output Urine Total 300 ml # Bowel Movements 1 1 Physical Exam CONSTITUTIONAL/GENERAL: This is a chronically ill patient, in no apparent distress c/o neuropathy pain to BLE and generalized pain. TUBES/LINES/DRAINS: PIV, Barraza catheter SKIN: No jaundice, rashes, or lesions. Ecchymoses on upper extremities. Discoloration to bilateral lower extremities. skin temperature appropriate. Not diaphoretic. HEAD: Atraumatic. Normocephalic. EYES: Pupils equal and round and reactive. Extraocular motions intact. No scleral icterus. No injection or drainage. Fundi not examined. ENT: Hearing grossly normal. Nose without bleeding or purulent drainage. NECK: Trachea midline. Supple, nontender. CARDIOVASCULAR: S1, S2 normal, no gallops, or rubs. No JVD. Peripheral pulses symmetric. RESPIRATORY/CHEST: Symmetric, unlabored respirations. Diminished in the bases GASTROINTESTINAL: Abdomen soft, non-tender, no guarding. Soft and distended. Bowel sounds hypoactive. GENITOURINARY: Without palpable bladder distension. Barraza catheter in place. MUSCULOSKELETAL: Extremities without clubbing, cyanosis, or edema. No calf tenderness. No mottling or clubbing. NEUROLOGICAL: SAwake, alert and oriented x3. motor and sensory grossly within normal limits. Follows commands. Moves all extremities. PSYCHIATRIC: No obvious anxiety/depression. no apparent hallucinations or other psychotic thought process. Diagnostic Tests Laboratory Laboratory Tests Test 11/05/17 05:50 11/06/17 03:45 11/06/17 19:36 White Blood Count 4.4 TH/MM3 (4.0-11.0) Red Blood Count 3.20 MIL/MM3 (4.50-5.90) Hemoglobin 9.4 GM/DL (13.0-17.0) Hematocrit 28.8 % (39.0-51.0) Mean Corpuscular Volume 90.1 FL (80.0-100.0) Mean Corpuscular Hemoglobin 29.4 PG (27.0-34.0) Mean Corpuscular Hemoglobin Concent 32.6 % (32.0-36.0) Red Cell Distribution Width 17.9 % (11.6-17.2) Platelet Count 54 TH/MM3 (150-450) Mean Platelet Volume 9.9 FL (7.0-11.0) Neutrophils (%) (Auto) 54.9 % (16.0-70.0) Lymphocytes (%) (Auto) 29.8 % (9.0-44.0) Monocytes (%) (Auto) 12.2 % (0.0-8.0) Eosinophils (%) (Auto) 2.7 % (0.0-4.0) Basophils (%) (Auto) 0.4 % (0.0-2.0) Neutrophils # (Auto) 2.4 TH/MM3 (1.8-7.7) Lymphocytes # (Auto) 1.3 TH/MM3 (1.0-4.8) Monocytes # (Auto) 0.5 TH/MM3 (0-0.9) Eosinophils # (Auto) 0.1 TH/MM3 (0-0.4) Basophils # (Auto) 0.0 TH/MM3 (0-0.2) CBC Comment AUTO DIFF Differential Comment AUTO DIFF CONFIRMED Ovalocytes 1+ (NORMAL) Blood Urea Nitrogen 39 MG/DL (7-18) 47 MG/DL (7-18) Creatinine 1.75 MG/DL (0.60-1.30) 2.22 MG/DL (0.60-1.30) Random Glucose 125 MG/DL (74-106) 159 MG/DL (74-106) Total Protein 4.8 GM/DL (6.4-8.2) Calcium Level 6.2 MG/DL (8.5-10.1) 8.2 MG/DL (8.5-10.1) Magnesium Level 2.0 MG/DL (1.5-2.5) 2.5 MG/DL (1.5-2.5) Sodium Level 147 MEQ/L (136-145) 143 MEQ/L (136-145) Potassium Level 4.5 MEQ/L (3.5-5.1) 4.5 MEQ/L (3.5-5.1) Chloride Level 123 MEQ/L (98-107) 114 MEQ/L (98-107) Carbon Dioxide Level 15.7 MEQ/L (21.0-32.0) 20.3 MEQ/L (21.0-32.0) Anion Gap 8 MEQ/L (5-15) 9 MEQ/L (5-15) Estimat Glomerular Filtration Rate 47 ML/MIN (>89) 36 ML/MIN (>89) Protein Corrected Calcium 7.3 MG/DL (8.5-10.1) Ammonia 67 MCMOL/L (11-32) Result Diagram: 11/05/17 0550 11/06/17 0345 Assessment and Plan Disease Oriented Problem List: (1) Non-Hodgkin lymphoma in remission (2) Chronic kidney disease, stage III (moderate) (3) Tremor (4) Hyperammonemia (5) Coronary artery disease (6) Hypertension (7) Diabetes mellitus (8) GERD (gastroesophageal reflux disease) Symptom Scale: (1) Pain 0-10 Scale: Unable to quantify Comment: Generalized pain, he has jerking/abnormal movement. History of peripheral neuropathy. . (2) Physical deconditioning 0-10 Scale: Unable to quantify Comment: Progressive . Pertinent Non-Medical Issues Psychosocial:Patient was born in [place] and he moved to [place] when he was very young. Patient was twice, once and his second is . 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 Patient his 2 adult daughters and 1 son. Patient lived alone in an apartment prior to this hospitalization. Spiritual: Patient is Religious Legal: Completed healthcare surrogate form Ethical issues impacting care: None identified at this time . Important Contacts Daughter-Olga Hurtado [phone] Daughter-Carolina Salas [phone] . Prognosis Mr. 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 Patient presented to the ED on 11/01/17 with complaints of tremors and jerking movements and lower abdominal back pain that have been happening to him for approximately a month. Patient is status post Treanda chemotherapy 6 cycles for non-Hodgkin lymphoma and he completed treatment in March 2017. Restaging PET scan in May 2017 was normal. Given ongoing comorbidities patient remains at risk for further complications, deterioration and decline . Code Status: Full Code Plan PLAN: Legal decision maker: Patient is able to participate in medical decision making. In the event that he is incapacitated, patient has designated his daughter Olga Salas as his healthcare surrogate and daughter Carolina Salas as his alternate healthcare surrogate and if the aforementioned are not able to serve his third choice is his sister Samantha Younger. Goals: Aggressive CODE STATUS: Full Code Discussed conversation and decisions made by patient yesterday inclusive of completion of HCS (health care surrogate form) and DNR. Patient in the presence of his daughter mentioned that in the event of a cardiac arrest and or respiratory distress he would want to be resuscitated and placed on a mechanical ventilation. Patient`s daughter called her sister Aidee to participate in conversation. Explained to patient what Full code is and he said , "i want everything done to save me or keep me alive". Patient`s daughters asked patient, when he would want aggressive treatment to be stopped after he is intubated on mechanical ventilation. Patient mentioned that, they can make decisions for him and was getting angry when asked what he would consider as quality of life by his daughter. Patient`s daughters` agreeable with changing code status to honor their fathers` wishes even though they had many questions not answered by patient regarding his wishes and what he would consider as quality of life. SYMPTOMS: * Pain: History of peripheral neuropathy. Came in complaining of generalized pain, he has jerking/abnormal movement. Patient also complaining of abdominal pain. Patient is on gabapentin 300 mg TID, morphine sulfate 30 mg every 8 hours. C/o generalized pain. No recommendations. * Physical deconditioning: Patient ambulates at home with a walker and is now requiring SNF. Per family, patient is being progressively declining and requiring assistance with most of his ADLs. Physical therapy consulted, recommended PT at rehab. 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 Patient continues to have jerk like movements to his BUE. Occupational therapy following. Palliative care will continue to follow the patient during hospital course as condition evolves, to assist patient/decision-maker with understanding of their medical conditions, weighing benefits/burdens of treatment options, for clarification of goals of treatment. Additionally will assist with any symptoms of palliative concern Attestation To help prompt me to consider important information that might be impacting today's encounter and assessment, information from prior notes written by myself or my colleagues may have been "brought forward" into today's note. My signature on this note, however, is an attestation that I personally performed the exam, history, and/or decision-making noted today, and, unless otherwise indicated, the interactions with patient, family, and staff as well as the review of records all occurred today. I also attest that the listed assessment and stated plan reflect my best clinical judgment today based on the combination of historical information, prior notes, and today's exam/ interactions. When time spent is documented, it refers only to time spent today by the signer, or if indicated, combined time spent today by collaborating physician/nurse practitioner. Speedy Arthur Nov 07, 2017 15:21
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
[2017-11-07] MEDS: traZODone HCL 50 MG TAB PO SCH (21:56)
[2017-11-07] MEDS: RIFAXIMIN 550 MG TAB PO SCH (21:56)
[2017-11-07] MEDS: RESP: IPRATROPIUM 0.5 MG/2.5 ML NEB NEB PRN (22:56)
[2017-11-08] VITALS (17 sets, daily range): BP systolic 108–138; BP diastolic 53–70; PULSE 69–91; RESP 12–20; TEMP 98.5–99.6; O2SAT 93–99
[2017-11-08] MEDS: SODIUM CHLORIDE 0.9% FLUSH 10 ML FLUSH IV FLUSH PRN (03:43)
[2017-11-08 03:59] LABS: HEMATOCRIT 28.5 % (39.0-51.0); HEMOGLOBIN 9.3 GM/DL (13.0-17.0); MEAN CELL VOLUME 90.4 FL (80.0-100.0); MEAN CORPUSCULAR HEMOGLOBIN 29.5 PG (27.0-34.0); MEAN CORPUSCULAR HGB CONC 32.6 % (32.0-36.0); MEAN PLATELET VOLUME 9.9 FL (7.0-11.0); PLATELET COUNT 50 TH/MM3 (150-450); RED BLOOD COUNT 3.15 MIL/MM3 (4.50-5.90); RED CELL DISTRIBUTION WIDTH 17.2 % (11.6-17.2); WHITE BLOOD COUNT 4.6 TH/MM3 (4.0-11.0)
[2017-11-08 05:31] LABS: CA 19-9 9.1 U/ML (0.0-35.0)
[2017-11-08] MEDS: ISOSORBIDE MONONITRATE 60 MG CR TAB (IMDUR) PO SCH (06:13)
[2017-11-08] MEDS: MORPHINE SULFATE 30 MG CONTROLLED RELEASE TAB PO SCH ×3 (06:13→23:35)
[2017-11-08] MEDS: INSULIN ASPART SUPPLEMENTAL SCALE SQ SCH ×4 (08:00→22:59)
[2017-11-08] MEDS: guaiFENesin E.R. 600 MG TAB PO SCH ×2 (10:25→21:04)
[2017-11-08] MEDS: GABAPENTIN 300 MG CAP PO SCH ×3 (10:25→19:17)
[2017-11-08] MEDS: RIFAXIMIN 550 MG TAB PO SCH ×2 (10:25→21:06)
[2017-11-08] MEDS: LACTULOSE SYRUP 20 GM/30 ML CUP PO SCH ×4 (10:25→21:07)
[2017-11-08] MEDS: PANTOPRAZOLE SOD 40 MG DELAYED RELEASE TAB PO SCH (10:26)
[2017-11-08] MEDS: MODAFINIL 200 MG TAB PO SCH (10:26)
[2017-11-08] MEDS: CALCIUM CARBONATE 1.25 GM (CA 500 MG) TAB PO SCH (10:26)
[2017-11-08] MEDS: METOPROLOL SUCCINATE 50 MG EXTENDED RELEASE TAB PO SCH ×2 (10:27→21:00)
[2017-11-08] MEDS: SODIUM CHLORIDE 0.9% FLUSH 10 ML FLUSH IV FLUSH SCH ×2 (10:28→21:07)
[2017-11-08] MEDS: ALBUTEROL SULFATE 2 MG TAB PO SCH ×3 (10:35→19:18)
--- NOTE | 2017-11-08 10:43 | HHI.HCPN ---
Reason for visit a. To assist with evaluation and management of symptoms including: Pain, physical deconditioning b. To assist medical decision maker(s) with: better understanding of current medical conditions; weighing benefits/burdens of medical treatment options; making medical treatment decisions. Subjective/Interval History Follow up medically necessary for symptom management and continued clarification of goals of medical treatment. Patient seen and examined in his room in the presence of his son. Patient is awake, alert and oriented to self, place and situation. Patient complaining of mild abdominal pain, constant, not positional. Patient on Morphine Sulfate 30mg q 8hrs and Gabapentin 300mg po TID. His hemoglobin remains 9.3, but his ammonia is a bit higher again at 115 He does remain alert, and is aware of the time of day, month, year, place, and person. . Family/friend interactions Patient's son at the bedside, they confirmed that they want to continue aggressive treatment and are looking forward to getting him to a rehab center in the upcoming days. . Advance Directives Health Care Surrogate: Copy in medical record Advance Directive Specifics Date completed: 11/06/2017 . Health Care Surrogate(s): Healthcare surrogate -daughter- JosueOlga anaya [phone] Alternate healthcare surrogate -DaughterNazJosueCarolina anaya [phone] Third choice (Alternate HCS)-- Carisa Singh-[phone] . Objective Vital Signs Date Time Temp Pulse Resp B/P (MAP) Pulse Ox O2 Delivery O2 Flow Rate FiO2 11/08/17 08:36 98.5 81 20 121/66 (84) 99 11/08/17 06:19 86 11/08/17 05:05 83 11/08/17 04:04 75 11/08/17 03:46 99.2 74 16 124/65 (84) 98 11/08/17 03:03 84 11/08/17 02:03 82 11/08/17 01:00 76 11/08/17 00:41 98.8 69 16 108/53 (71) 96 11/08/17 00:05 73 11/07/17 23:05 77 11/07/17 22:04 77 11/07/17 21:05 82 11/07/17 20:01 80 11/07/17 19:40 99.8 75 16 95/63 (74) 95 11/07/17 19:03 77 11/07/17 16:30 98.1 78 16 138/70 (92) 99 11/07/17 16:28 78 11/07/17 12:01 98.7 80 16 117/59 (78) 100 Intake & Output 11/08/17 11/08/17 07:00 19:00 Intake Total 320 ml Output Total 300 ml Balance 20 ml Intake Oral 320 ml Output Urine Total 300 ml # Bowel Movements 2 Physical Exam CONSTITUTIONAL/GENERAL: This is a chronically ill-appearing patient, in no apparent distress. CARDIOVASCULAR: S1, S2 normal, no gallops, or rubs. No JVD. Peripheral pulses symmetric. RESPIRATORY/CHEST: Symmetric, unlabored respirations. Diminished in the bases GASTROINTESTINAL: Abdomen soft, non-tender, no guarding. Soft and moderately distended. Bowel sounds hypoactive. GENITOURINARY: Without palpable bladder distension. MUSCULOSKELETAL: Extremities without clubbing, cyanosis, or edema. No calf tenderness. No mottling or clubbing. NEUROLOGICAL: Awake, alert and oriented x3. motor and sensory grossly within normal limits. Follows commands. Moves all extremities. PSYCHIATRIC: No obvious anxiety/depression. no apparent hallucinations or other psychotic thought process. . Diagnostic Tests Laboratory Laboratory Tests Test 11/06/17 03:45 11/06/17 19:36 11/08/17 03:35 Blood Urea Nitrogen 47 MG/DL (7-18) Creatinine 2.22 MG/DL (0.60-1.30) Random Glucose 159 MG/DL (74-106) Calcium Level 8.2 MG/DL (8.5-10.1) Magnesium Level 2.5 MG/DL (1.5-2.5) Sodium Level 143 MEQ/L (136-145) Potassium Level 4.5 MEQ/L (3.5-5.1) Chloride Level 114 MEQ/L (98-107) Carbon Dioxide Level 20.3 MEQ/L (21.0-32.0) Anion Gap 9 MEQ/L (5-15) Estimat Glomerular Filtration Rate 36 ML/MIN (>89) Ammonia 67 MCMOL/L (11-32) 116 MCMOL/L (11-32) White Blood Count 4.6 TH/MM3 (4.0-11.0) Red Blood Count 3.15 MIL/MM3 (4.50-5.90) Hemoglobin 9.3 GM/DL (13.0-17.0) Hematocrit 28.5 % (39.0-51.0) Mean Corpuscular Volume 90.4 FL (80.0-100.0) Mean Corpuscular Hemoglobin 29.5 PG (27.0-34.0) Mean Corpuscular Hemoglobin Concent 32.6 % (32.0-36.0) Red Cell Distribution Width 17.2 % (11.6-17.2) Platelet Count 50 TH/MM3 (150-450) Mean Platelet Volume 9.9 FL (7.0-11.0) Tumor Marker Alpha Fetoprotein 3.9 NG/ML (0.5-8.0) CA 19-9 Antigen 9.1 U/ML (0.0-35.0) Result Diagram: 11/08/17 0335 11/06/17 0345 Assessment and Plan Disease Oriented Problem List: (1) Cirrhosis with portal hypertension (2) Non-Hodgkin lymphoma in remission (3) Chronic kidney disease, stage III (moderate) (4) Tremor (5) Hyperammonemia (6) Coronary artery disease (7) Hypertension (8) Diabetes mellitus (9) GERD (gastroesophageal reflux disease) Symptom Scale: (1) Pain 0-10 Scale: Unable to quantify Comment: Generalized pain, abdominal pain at times. History of peripheral neuropathy. . (2) Physical deconditioning 0-10 Scale: Unable to quantify Comment: Progressive/worsening . Pertinent Non-Medical Issues Psychosocial:Patient was born in [place] and he moved to [place] when he was very young. Patient was twice, once and his second is . 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 Patient his 2 adult daughters and 1 son. Patient lived alone in an apartment prior to this hospitalization. Spiritual: Patient is Muslim Legal: Completed healthcare surrogate form Ethical issues impacting care: None identified at this time . Important Contacts Daughter-Olga Hurtado [phone] DaughterCarolina Arambula [phone] . Prognosis Mr. Salas is a 72-year-old male with a past medical history of non-Hodgkin's lymphoma currently in remission, anemia, hepatitis C, cirrhosis, coronary artery disease, COPD, anxiety, asthma, hypertension, chronic thrombocytopenia due to hypersplenism, diabetes [id number], chronic kidney disease, and hyperlipidemia. Patient presented to the ED on 11/01/17 with complaints of tremors and jerking movements and lower abdominal back pain that have been happening to him for approximately a month. Patient is status post Treanda chemotherapy 6 cycles for non-Hodgkin lymphoma and he completed treatment in March 2017. Restaging PET scan in May 2017 was normal. Given ongoing comorbidities patient remains at risk for further complications, deterioration and decline . Code Status: Full Code Plan PLAN: Legal decision maker: Patient is able to participate in medical decision making. In the event that he is incapacitated, patient has designated his daughter Olga Salas as his healthcare surrogate and daughter Carolina Salas as his alternate healthcare surrogate and if the aforementioned and not able to serve his third choice is his sister Samantha Younger. Goals: Aggressive; looking forward to going to a rehab center CODE STATUS: Full Code SYMPTOMS: * Pain: History of peripheral neuropathy; intermittent abdominal pain. Came in complaining of generalized pain, he has jerking/abnormal movement. Patient also complaining of abdominal pain. Patient is on gabapentin 300 mg TID, morphine sulfate 30 mg every 8 hours. No new medication recommendations. * Physical deconditioning: Patient ambulated at home with a walker and is now requiring SNF for attempted rehab. Per family, patient has been progressively declining and requiring assistance with most of his ADLs. Physical therapy and OT now involved. Palliative care will continue to follow the patient during hospital course as condition evolves, to assist patient/decision-maker with understanding of their medical conditions, weighing benefits/burdens of treatment options, for clarification of goals of treatment. Additionally will assist with any symptoms of palliative concern . Time Spent Total Floor Time (mins): 36 Face to Face Time (mins): 16 >50% Counseling/Coord of Care: Yes (d/w RN) Attestation To help prompt me to consider important information that might be impacting today's encounter and assessment, information from prior notes written by myself or my colleagues may have been "brought forward" into today's note. My signature on this note, however, is an attestation that I personally performed the exam, history, and/or decision-making noted today, and, unless otherwise indicated, the interactions with patient, family, and staff as well as the review of records all occurred today. I also attest that the listed assessment and stated plan reflect my best clinical judgment today based on the combination of historical information, prior notes, and today's exam/ interactions. When time spent is documented, it refers only to time spent today by the signer, or if indicated, combined time spent today by collaborating physician/nurse practitioner. Sylvia Abdi MD Nov 08, 2017 10:43
--- NOTE | 2017-11-08 11:09 | HHI.GIFU ---
Subjective Remarks Pt resting in bed, says he is trying to have a BM in the bed, doesn't want a bed pain. Family at bedside. (Lesli Augustine) Objective Vitals I&O Vital Signs Date Time Temp Pulse Resp B/P (MAP) Pulse Ox O2 Delivery O2 Flow Rate FiO2 11/08/17 08:36 98.5 81 20 121/66 (84) 99 11/08/17 06:19 86 11/08/17 05:05 83 11/08/17 04:04 75 11/08/17 03:46 99.2 74 16 124/65 (84) 98 11/08/17 03:03 84 11/08/17 02:03 82 11/08/17 01:00 76 11/08/17 00:41 98.8 69 16 108/53 (71) 96 11/08/17 00:05 73 11/07/17 23:05 77 11/07/17 22:04 77 11/07/17 21:05 82 11/07/17 20:01 80 11/07/17 19:40 99.8 75 16 95/63 (74) 95 11/07/17 19:03 77 11/07/17 16:30 98.1 78 16 138/70 (92) 99 11/07/17 16:28 78 11/07/17 12:01 98.7 80 16 117/59 (78) 100 I/O 11/07/17 11/07/17 11/07/17 11/08/17 11/08/17 11/08/17 07:00 15:00 23:00 07:00 15:00 23:00 Intake Total 200 ml 120 ml Output Total 300 ml Balance -100 ml 120 ml Intake Oral 200 ml 120 ml Output Urine Total 300 ml # Bowel Movements 1 2 Laboratory Laboratory Tests Test 11/08/17 03:35 White Blood Count 4.6 Red Blood Count 3.15 Hemoglobin 9.3 Hematocrit 28.5 Mean Corpuscular Volume 90.4 Mean Corpuscular Hemoglobin 29.5 Mean Corpuscular Hemoglobin Concent 32.6 Red Cell Distribution Width 17.2 Platelet Count 50 Mean Platelet Volume 9.9 Ammonia 116 Tumor Marker Alpha Fetoprotein 3.9 CA 19-9 Antigen 9.1 Date/Time Source Procedure Growth Status 11/01/17 22:18 Blood Peripheral Aerobic Blood Culture - Final NO GROWTH IN 5 DAYS Complete 11/01/17 22:18 Blood Peripheral Anaerobic Blood Culture - Final NO GROWTH IN 5 DAYS Complete Imaging Last Impressions Chest X-Ray 11/04/17 0000 Signed Impressions: Service Date/Time: Saturday, November 04, 2017 09:55 - CONCLUSION: No acute disease. Massimo Garcia MD FACR Abdomen/Pelvis CT 11/01/17 2258 Signed Impressions: Service Date/Time: Wednesday, November 01, 2017 23:11 - CONCLUSION: 1. Cirrhosis with portal hypertension and splenomegaly. 2. Nonspecific low density along the pancreatic tail measures 3.9 cm. 3. Moderate abdominal ascites. 4. Nonobstructing right renal calculus. Josiah Anderson MD Head CT 11/01/17 0000 Signed Impressions: Service Date/Time: Wednesday, November 01, 2017 23:07 - CONCLUSION: No acute intracranial disease. Josiah Anderson MD Physical Exam HEENT: PERRL normocephalic; atraumatic CHEST: diminished, shallow CARDIAC: RRR ABDOMEN: Soft, distended, diffuse TTP; no hepatosplenomegaly; bowel sounds are present EXTREMITIES: No clubbing, cyanosis, or edema. SKIN: Normal; no rash; no jaundice. TAP PULLER: lethargic (Lesli Augustine) Assessment and Plan Plan ASSESSMENT - anemia - multifactorial. has kidney dz, low iron, liver dz he is close to his baseline. - elevated NH - 2/2 cirrhosis. cirrhosis likely 2/2 hep c, he is tx naive. on lactulose now. CT showing cirrhosis, portal HTN, splenomegaly, low density pancreatic tail, moderate ascites. last EGD 03/2016 found prominent ampulla bx benign, esophagitis, bx benign 09/2015 hcv quant was 6,800,800. genotype 1b. child terry C. limited hx - thrombocytopenia - PLT 54, 2/2 liver dz 11/08/17 NH up. on lactulose, now rifaximin. AFP & CA19-9 WNL. rest of liver w/u pending. hcv quant and kendall pending child terry C PLAN - monitor NH - await liver w/u - low na diet - await hcv quant and genotype - rifaximin - lactulose - monitor labs - can pursue tx hep c as outpt - consider EGD to assess for varices, could be done as outpt pt seen by myself and Dr Lancaster and this note is on his behalf (Lesli Augustine) Lesli Augustine Nov 08, 2017 11:09 Khushbu Lancaster MD Nov 08, 2017 18:39
[2017-11-08] MEDS ORDERED: XIFA550T4 PO (15:13)
[2017-11-08] MEDS ORDERED: LACT10SO PO (15:13)
--- NOTE | 2017-11-08 15:37 | HHI.DS ---
Discharge Summary Admission Date Nov 01, 2017 at 23:45 Discharge Date: Nov 08, 2017 Admitting Diagnosis LATOSHA, hyperkalemia, abnormal EKG, generalized weakness (1) Hyperammonemia ICD Code: E72.20 - Disorder of urea cycle metabolism, unspecified Procedures None Brief History - From Admission 72-year-old male with a past medical history significant for non-Hodgkin's lymphoma, hepatitis C, anemia, COPD, CAD, insulin-dependent diabetes mellitus, chronic kidney disease, hypertension and hyperlipidemia presents to the emergency department for the evaluation of jerking movements. This patient states that he has had these tremors and jerking movements for approximately one month. He endorses accompanying nausea and anorexia for the same amount of time. He states he has had unintentional weight loss which he believes is secondary to his chemotherapy. He also endorses intermittent chest pain for the past 3-4 weeks which she describes as a pressure that is substernal and nonradiating. He has associated shortness of breath. He denies any emesis or diarrhea. No lateralizing signs/symptoms. Positive fatigue/weakness. CBC/BMP: 11/08/17 0335 11/06/17 0345 Significant Findings Laboratory Tests Test 11/06/17 03:45 11/06/17 19:36 11/08/17 03:35 Blood Urea Nitrogen 47 MG/DL (7-18) Creatinine 2.22 MG/DL (0.60-1.30) Random Glucose 159 MG/DL (74-106) Calcium Level 8.2 MG/DL (8.5-10.1) Chloride Level 114 MEQ/L (98-107) Carbon Dioxide Level 20.3 MEQ/L (21.0-32.0) Estimat Glomerular Filtration Rate 36 ML/MIN (>89) Ammonia 67 MCMOL/L (11-32) 116 MCMOL/L (11-32) Red Blood Count 3.15 MIL/MM3 (4.50-5.90) Hemoglobin 9.3 GM/DL (13.0-17.0) Hematocrit 28.5 % (39.0-51.0) Platelet Count 50 TH/MM3 (150-450) PE at Discharge GENERAL: Weak appearing man SKIN: Warm and dry. HEAD: Normocephalic. EYES: No scleral icterus. No injection or drainage. NECK: Supple, trachea midline. No JVD or lymphadenopathy. CARDIOVASCULAR: Regular rate and rhythm, 2/6 BREE, gallops, or rubs. RESPIRATORY: Breath sounds equal bilaterally. No accessory muscle use. GASTROINTESTINAL: Abdomen soft, non-tender, nondistended. EXTREMITIES: No cyanosis, or edema. NEUROLOGICAL: Awake, alert, and oriented x 3. Non-focal. Hospital Course 72-year-old male with a history of advanced liver disease was admitted for confusion and failure to thrive. He was found to have elevated ammonia level which caused confusion during most of his stay here. Yesterday he became clear and was alert and oriented 3 he was planned for discharge until it was reported that he did not have an established GI doctor to follow-up with. Gastroenterology came by and offered initial treatment plans with recommendations for further workup as an outpatient. He has been stable for discharge and has a bed assigned at [facility]. He will transfer there today and continue his treatment for hyperammonemia. Follow-up with gastroenterology in 1 month. Pt Condition on Discharge: Stable Discharge Disposition: Discharge to SNF Discharge Time: <= 30 minutes Discharge Instructions DIET: Follow Instructions for: Heart Healthy Diet, Diabetic Diet Activities you can perform: Regular-No Restrictions Activities to Avoid: Driving Colby Huynh MD Nov 08, 2017 15:37
[2017-11-08] MEDS: traZODone HCL 50 MG TAB PO SCH (21:10)
[2017-11-09] VITALS (11 sets, daily range): BP systolic 115–144; BP diastolic 56–76; PULSE 76–96; RESP 16–20; TEMP 98.6–100.6; O2SAT 96–98
[2017-11-09] MEDS: ONDANSETRON HCL 4 MG/2 ML VIAL IVP PRN (05:00)
[2017-11-09] MEDS: ISOSORBIDE MONONITRATE 60 MG CR TAB (IMDUR) PO SCH (05:04)
[2017-11-09] MEDS: MORPHINE SULFATE 30 MG CONTROLLED RELEASE TAB PO SCH ×3 (05:04→21:32)
[2017-11-09 05:11] LABS: ALBUMIN 2.1 GM/DL (3.4-5.0); DIRECT BILIRUBIN ADULT 0.9 MG/DL (0.0-0.2)
[2017-11-09 05:13] LABS: INDIRECT BILIRUBIN 0.5 MG/DL (0.0-0.8); TOTAL BILIRUBIN ADULT 1.4 MG/DL (0.2-1.0); TOTAL PROTEIN 6.3 GM/DL (6.4-8.2)
--- NOTE | 2017-11-09 05:32 | RADRPT ---
EXAM DATE/TIME: 11/09/2017 05:02 [facility] COMPARISON: CHEST SINGLE AP, November 04, 2017, 9:55. INDICATIONS : Congestion. Possible aspiration. MEDICAL HISTORY : None. SURGICAL HISTORY : None. ENCOUNTER: Subsequent ACUITY: 3 days PAIN SCORE: Non-responsive. LOCATION: Bilateral chest FINDINGS: Mild left base atelectasis. Right lung clear. No pneumothorax. Heart size stable, upper limits of normal. Median sternotomy changes are again noted. There is a left subclavian [id number] catheter with tip in the superior vena cava. CONCLUSION: Mild left base atelectasis. Nghia Sneed MD on November 09, 2017 at 5:29 Board Certified Radiologist. This report was verified electronically.
[2017-11-09] MEDS ORDERED: LACTULOSE LIQ 300 ML in WATER STERILE FOR IRR BTL 700 ML RECTAL ONE (07:00)
[2017-11-09] MEDS: INSULIN ASPART SUPPLEMENTAL SCALE SQ SCH ×4 (08:00→21:00)
[2017-11-09] MEDS: RIFAXIMIN 550 MG TAB PO SCH ×2 (09:00→21:00)
[2017-11-09] MEDS: CALCIUM CARBONATE 1.25 GM (CA 500 MG) TAB PO SCH (09:00)
[2017-11-09] MEDS: guaiFENesin E.R. 600 MG TAB PO SCH ×2 (09:00→21:00)
[2017-11-09] MEDS: PANTOPRAZOLE SOD 40 MG DELAYED RELEASE TAB PO SCH (09:00)
[2017-11-09] MEDS: MODAFINIL 200 MG TAB PO SCH (09:00)
[2017-11-09] MEDS: ALBUTEROL SULFATE 2 MG TAB PO SCH ×3 (09:00→21:36)
[2017-11-09] MEDS: GABAPENTIN 300 MG CAP PO SCH ×3 (09:00→21:35)
[2017-11-09] MEDS: METOPROLOL SUCCINATE 50 MG EXTENDED RELEASE TAB PO SCH ×2 (09:00→21:32)
--- NOTE | 2017-11-09 10:52 | HHI.GIFU ---
Subjective Remarks Patient in bed obtunded Dry oral cavity with exudate Low-grade fever Hemoglobin 9.3 Ammonia level 264 Objective Vitals I&O Vital Signs Date Time Temp Pulse Resp B/P (MAP) Pulse Ox O2 Delivery O2 Flow Rate FiO2 11/09/17 08:00 99.2 78 20 131/76 (94) 98 11/09/17 04:21 98.6 76 16 123/64 (83) 97 11/09/17 04:00 78 11/09/17 00:00 76 11/08/17 23:45 98.8 77 12 110/60 (77) 97 11/08/17 21:00 99.6 75 18 108/58 (75) 99 11/08/17 20:00 72 11/08/17 14:59 18 11/08/17 12:10 98.5 83 18 138/70 (92) 93 11/08/17 11:28 78 I/O 11/08/17 11/08/17 11/08/17 11/09/17 11/09/17 11/09/17 07:00 15:00 23:00 07:00 15:00 23:00 Intake Total 120 ml 600 ml Output Total 400 ml Balance 120 ml 200 ml Intake Oral 120 ml 600 ml Output Urine Total 400 ml # Voids 1 # Bowel Movements 1 Laboratory Laboratory Tests Test 11/09/17 04:20 Total Bilirubin 1.4 Direct Bilirubin 0.9 Indirect Bilirubin 0.5 Aspartate Amino Transf (AST/SGOT) 36 Alanine Aminotransferase (ALT/SGPT) 20 Alkaline Phosphatase 78 Ammonia 264 Total Protein 6.3 Albumin 2.1 Date/Time Source Procedure Growth Status 11/01/17 22:18 Blood Peripheral Aerobic Blood Culture - Final NO GROWTH IN 5 DAYS Complete 11/01/17 22:18 Blood Peripheral Anaerobic Blood Culture - Final NO GROWTH IN 5 DAYS Complete Imaging Last Impressions Chest X-Ray 11/09/17 0000 Signed Impressions: Service Date/Time: October 05:02 - CONCLUSION: Mild left base atelectasis. Nghia Sneed MD Abdomen/Pelvis CT 11/01/17 2258 Signed Impressions: Service Date/Time: Wednesday, November 01, 2017 23:11 - CONCLUSION: 1. Cirrhosis with portal hypertension and splenomegaly. 2. Nonspecific low density along the pancreatic tail measures 3.9 cm. 3. Moderate abdominal ascites. 4. Nonobstructing right renal calculus. Josiah Anderson MD Head CT 11/01/17 0000 Signed Impressions: Service Date/Time: Wednesday, November 01, 2017 23:07 - CONCLUSION: No acute intracranial disease. Josiah Anderson MD Physical Exam HEENT: PERRL normocephalic; atraumatic dry oral cavity CHEST: diminished especially in bases but no audible rhonchi CARDIAC: RRR ABDOMEN: Soft, mild distended, no response to light palpation of any tenderness , bowel sounds are present EXTREMITIES: No clubbing, cyanosis, or edema. SKIN: Dry; no rash; no jaundice. INFANTRYMAN: lethargic, obtunded Assessment and Plan Plan ASSESSMENT - anemia - multifactorial. has kidney dz, low iron, liver dz he is close to his baseline. - elevated NH - 2/2 cirrhosis. cirrhosis likely 2/2 hep c, he is tx naive. on lactulose now. CT showing cirrhosis, portal HTN, splenomegaly, low density pancreatic tail, moderate ascites. last EGD 03/2016 found prominent ampulla bx benign, esophagitis, bx benign 09/2015 hcv quant was 6,800,800. genotype 1b. child terry C. limited hx - thrombocytopenia - PLT 54, 2/2 liver dz 11/08/17 NH up. on lactulose, now rifaximin. AFP & CA19-9 WNL. rest of liver w/u pending. hcv quant and kendall pending child terry C 11/09/2017 patient more obtunded during my visit. Unable to swallow any p.o. fluids now ammonia level 264, significant history of supposed cirrhosis, Hemoglobin 9.3, INR 1.4, bilirubin 1.4, JERAMIE negative, awaiting the rest of his liver workup. Patient overall decline noted. And patient is full code. May need intensive care if no response to lactulose Nurse was currently working on calling attending to give update on patient decline. PLAN -N.p.o. for now -Consider ABGs -NG tube for meds and lactulose - await liver w/u, some labs still pending - rifaximin - lactulose every 4 hours - monitor labs - can pursue tx hep c as outpt - consider EGD to assess for varices, could be done as outpt pt seen by myself and Dr Lancaster and this note is on his behalf Cierra Bailey Nov 09, 2017 10:52
[2017-11-09] MEDS: SODIUM CHLORIDE 0.9% FLUSH 10 ML FLUSH IV FLUSH SCH ×2 (13:10→21:32)
--- NOTE | 2017-11-09 13:12 | HHI.HCPN ---
Reason for visit a. To assist with evaluation and management of symptoms including: Pain, physical deconditioning b. To assist medical decision maker(s) with: better understanding of current medical conditions; weighing benefits/burdens of medical treatment options; making medical treatment decisions. Subjective/Interval History Follow up medically necessary for symptom management and continued clarification of goals of medical treatment. Patient seen and examined in his room; no fam present. Patient is awake, alert and oriented to self, place and situation. He has minimal abdominal discomfort at this time but denies any other pain. He remains significantly deconditioned, weak. New chest x-ray with just some left-sided atelectasis. He does remain alert, and is aware of the time of day, month, year, place, and person; I see no real change. The discharge process is in progress now . Advance Directives Health Care Surrogate: Copy in medical record Advance Directive Specifics Date completed: 11/06/2017 . Health Care Surrogate(s): Healthcare surrogate -daughterOlga Ferro [phone] Alternate healthcare surrogate -DaughterCarolina Arambula [phone] Third choice (Alternate HCS)-Carisa Ayala-[phone] . Objective Vital Signs Date Time Temp Pulse Resp B/P (MAP) Pulse Ox O2 Delivery O2 Flow Rate FiO2 11/09/17 08:00 79 11/09/17 08:00 99.2 78 20 131/76 (94) 98 11/09/17 04:21 98.6 76 16 123/64 (83) 97 11/09/17 04:00 78 11/09/17 00:00 76 11/08/17 23:45 98.8 77 12 110/60 (77) 97 11/08/17 21:00 99.6 75 18 108/58 (75) 99 11/08/17 20:00 72 11/08/17 14:59 18 Intake & Output 11/09/17 11/09/17 07:00 19:00 # Voids 1 # Bowel Movements 1 Physical Exam CONSTITUTIONAL/GENERAL: This is a chronically ill-appearing patient, in no apparent distress. CARDIOVASCULAR: S1, S2 normal, no gallops, or rubs. No JVD. Peripheral pulses symmetric. RESPIRATORY/CHEST: Symmetric, unlabored respirations. Diminished in the bases GASTROINTESTINAL: Abdomen soft, non-tender, no guarding. Soft and moderately distended. Bowel sounds hypoactive. MUSCULOSKELETAL: Extremities without clubbing, cyanosis, or edema. No calf tenderness. No mottling or clubbing. NEUROLOGICAL: Awake, alert and oriented x3. motor and sensory grossly within normal limits. Follows commands. Moves all extremities. PSYCHIATRIC: No obvious anxiety/depression. no apparent hallucinations or other psychotic thought process. . Diagnostic Tests Laboratory Laboratory Tests Test 11/06/17 19:36 11/08/17 03:35 11/09/17 04:20 Ammonia 67 MCMOL/L (11-32) 116 MCMOL/L (11-32) 264 MCMOL/L (11-32) White Blood Count 4.6 TH/MM3 (4.0-11.0) Red Blood Count 3.15 MIL/MM3 (4.50-5.90) Hemoglobin 9.3 GM/DL (13.0-17.0) Hematocrit 28.5 % (39.0-51.0) Mean Corpuscular Volume 90.4 FL (80.0-100.0) Mean Corpuscular Hemoglobin 29.5 PG (27.0-34.0) Mean Corpuscular Hemoglobin Concent 32.6 % (32.0-36.0) Red Cell Distribution Width 17.2 % (11.6-17.2) Platelet Count 50 TH/MM3 (150-450) Mean Platelet Volume 9.9 FL (7.0-11.0) Tumor Marker Alpha Fetoprotein 3.9 NG/ML (0.5-8.0) CA 19-9 Antigen 9.1 U/ML (0.0-35.0) Anti-Nuclear Antibody Screen NEG (NEG) Total Bilirubin 1.4 MG/DL (0.2-1.0) Direct Bilirubin 0.9 MG/DL (0.0-0.2) Indirect Bilirubin 0.5 MG/DL (0.0-0.8) Aspartate Amino Transf (AST/SGOT) 36 U/L (15-37) Alanine Aminotransferase (ALT/SGPT) 20 U/L (12-78) Alkaline Phosphatase 78 U/L (45-117) Total Protein 6.3 GM/DL (6.4-8.2) Albumin 2.1 GM/DL (3.4-5.0) Result Diagram: 11/08/17 0335 11/06/17 0345 Imaging Last Impressions Chest X-Ray 11/09/17 0000 Signed Impressions: Service Date/Time: October 05:02 - CONCLUSION: Mild left base atelectasis. Nghia Sneed MD Abdomen/Pelvis CT 11/01/17 2258 Signed Impressions: Service Date/Time: Wednesday, November 01, 2017 23:11 - CONCLUSION: 1. Cirrhosis with portal hypertension and splenomegaly. 2. Nonspecific low density along the pancreatic tail measures 3.9 cm. 3. Moderate abdominal ascites. 4. Nonobstructing right renal calculus. Josiah Anderson MD Head CT 11/01/17 0000 Signed Impressions: Service Date/Time: Wednesday, November 01, 2017 23:07 - CONCLUSION: No acute intracranial disease. Josiah Anderson MD Assessment and Plan Disease Oriented Problem List: (1) Cirrhosis with portal hypertension (2) Non-Hodgkin lymphoma in remission (3) Chronic kidney disease, stage III (moderate) (4) Tremor (5) Hyperammonemia (6) Coronary artery disease (7) Hypertension (8) Diabetes mellitus (9) GERD (gastroesophageal reflux disease) Symptom Scale: (1) Pain 0-10 Scale: Unable to quantify Comment: Generalized pain, abdominal pain at times. History of peripheral neuropathy. . (2) Physical deconditioning 0-10 Scale: Unable to quantify Comment: Progressive/worsening . Pertinent Non-Medical Issues Psychosocial:Patient was born in [place] and he moved to [place] when he was very young. Patient was twice, once and his second is . 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 Patient his 2 adult daughters and 1 son. Patient lived alone in an apartment prior to this hospitalization. Spiritual: Patient is Baptism Legal: Completed healthcare surrogate form Ethical issues impacting care: None identified at this time . Important Contacts Daughter-Olga Hurtado [phone] DaughterCarolina Arambula [phone] . Prognosis Mr. 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 Patient presented to the ED on 11/01/17 with complaints of tremors and jerking movements and lower abdominal back pain that have been happening to him for approximately a month. Patient is status post Treanda chemotherapy 6 cycles for non-Hodgkin lymphoma and he completed treatment in March 2017. Restaging PET scan in May 2017 was normal. Given ongoing comorbidities patient remains at risk for further complications, deterioration and decline . Code Status: Full Code Plan PLAN: Legal decision maker: Patient is able to participate in medical decision making. In the event that he is incapacitated, patient has designated his daughter Olga Salas as his healthcare surrogate and daughter Carolina Salas as his alternate healthcare surrogate and if the aforementioned and not able to serve his third choice is his sister Samantha Younger. Goals: Aggressive; looking forward to going to a rehab center CODE STATUS: Full Code SYMPTOMS: * Pain: History of peripheral neuropathy; intermittent abdominal pain. Came in complaining of generalized pain, he has jerking/abnormal movement. Patient also complaining of abdominal pain. Patient is on gabapentin 300 mg TID, morphine sulfate 30 mg every 8 hours. No new medication recommendations. * Physical deconditioning: Patient ambulated at home with a walker and is now requiring SNF for attempted rehab. Per family, patient has been progressively declining and requiring assistance with most of his ADLs. Physical therapy and OT now involved. Palliative care will continue to follow the patient during hospital course... . Time Spent Total Floor Time (mins): 36 Face to Face Time (mins): 19 >50% Counseling/Coord of Care: Yes Attestation To help prompt me to consider important information that might be impacting today's encounter and assessment, information from prior notes written by myself or my colleagues may have been "brought forward" into today's note. My signature on this note, however, is an attestation that I personally performed the exam, history, and/or decision-making noted today, and, unless otherwise indicated, the interactions with patient, family, and staff as well as the review of records all occurred today. I also attest that the listed assessment and stated plan reflect my best clinical judgment today based on the combination of historical information, prior notes, and today's exam/ interactions. When time spent is documented, it refers only to time spent today by the signer, or if indicated, combined time spent today by collaborating physician/nurse practitioner. Sylvia Abdi MD Nov 09, 2017 13:12
[2017-11-09 13:55] LABS: SMOOTH MUSCLE TOTAL AUTOABS Negative (Negative)
[2017-11-09] MEDS ORDERED: LACTULOSE LIQ 300 ML in WATER STERILE FOR IRR BTL 700 ML RECTAL STA (13:57)
[2017-11-09] MEDS: LACTULOSE SYRUP 20 GM/30 ML CUP PO SCH ×2 (16:00→20:00)
[2017-11-09] MEDS: SODIUM CHLOR 0.9% 1000 ML INJ 1,000 ML IV SCH (16:24)
[2017-11-09] MEDS: cefTRIAXone INJ 1,000 MG in SODIUM CHLORIDE 0.9% INJ 100 ML IV SCH (16:24)
--- NOTE | 2017-11-09 17:40 | HHI.PR ---
Subjective Remarks Patient had increased lethargy and confusion overnight, ammonia levels this morning were very elevated again. He is unable to express any complaints. Objective Vitals Vital Signs Date Time Temp Pulse Resp B/P (MAP) Pulse Ox O2 Delivery O2 Flow Rate FiO2 11/09/17 15:50 87 11/09/17 15:45 99.6 85 18 117/69 (85) 98 11/09/17 13:30 100.6 86 20 115/56 (75) 97 11/09/17 12:00 100.3 96 18 144/74 (97) 96 11/09/17 12:00 79 11/09/17 10:30 82 16 96 11/09/17 08:00 79 11/09/17 08:00 99.2 78 20 131/76 (94) 98 11/09/17 04:21 98.6 76 16 123/64 (83) 97 11/09/17 04:00 78 11/09/17 00:00 76 11/08/17 23:45 98.8 77 12 110/60 (77) 97 11/08/17 21:00 99.6 75 18 108/58 (75) 99 11/08/17 20:00 72 I/O 11/08/17 11/08/17 11/08/17 11/09/17 11/09/17 11/09/17 07:00 15:00 23:00 07:00 15:00 23:00 Intake Total 120 ml 600 ml 700 ml Output Total 400 ml Balance 120 ml 200 ml 700 ml Intake Oral 120 ml 600 ml Other 700 ml Output Urine Total 400 ml # Voids 1 # Bowel Movements 1 Result Diagram: 11/08/17 0335 11/06/17 0345 Objective Remarks GENERAL: Weak appearing man, confused from hyperammonemia SKIN: Warm and dry. HEAD: Normocephalic. EYES: No scleral icterus. No injection or drainage. NECK: Supple, trachea midline. No JVD or lymphadenopathy. CARDIOVASCULAR: Regular rate and rhythm, 2/6 BREE, gallops, or rubs. RESPIRATORY: Breath sounds equal bilaterally. No accessory muscle use. GASTROINTESTINAL: Abdomen soft, non-tender, nondistended. EXTREMITIES: No cyanosis, or edema. NEUROLOGICAL: Awake, alert, and oriented x 3. Non-focal. Procedures None A/P Problem List: (1) Hyperammonemia ICD Code: E72.20 - Disorder of urea cycle metabolism, unspecified Assessment and Plan Hyperammonemia, Asterixis, Liver Failure hx of cirrhosis, hepatitis C and hyperammonemia. EEG negative for seizures. Return of encephalopathy Unable to swallow lactulose, lactulose enema started Attempting NG tube this afternoon Appreciate gastroenterology assisting Appreciate Palliative Care consulting Chest pain/shortness of breath with history of CAD EKG shows normal sinus rhythm with new T-wave inversions in V3 through V6, 1 and aVL, personally reviewed, EF = 55% Ruled out for [place] with negative cardiac enzymes Continue medical management increase nitrate. Continue beta-rose will increase if tolerated Appreciate cardiology consult Chronic kidney disease stage III Still some mild dehydration effect, but firm cirrhotic abdomen Continue cautious IVF hydration Monitor renal function Failure to Thrive Regular diet with ensure supplementation Non-Hodgkin's lymphoma with chronic pancytopenia. Improved anemia status post transfusion Appreciate Oncology consult Hypertension/GERD Continue home medications Type 2 diabetes Sliding scale insulin with accuchecks Diabetic Diet, Glucerna supplementation DVT Prophylaxis SCDs, anticoagulants held due to thrombocytopenia and anemia Discharge Planning SNF Rehab Code Status: Full Code Colby Huynh MD Nov 09, 2017 17:40
[2017-11-09] MEDS ORDERED: FUROSEMIDE 20 MG/2 ML VIAL IV PUSH ONE (18:30)
[2017-11-09] MEDS: metroNIDAZOLE 500 MG INJ 100 ML IV SCH (19:11)
[2017-11-09 19:28] LABS: ALPHA-1-ANTITRYPSIN 178 mg/dL (100 - 190)
[2017-11-09] MEDS ORDERED: SODIUM CHLORIDE 0.9% FLUSH 10 ML FLUSH IV FLUSH PRN (20:45)
[2017-11-09] MEDS: traZODone HCL 50 MG TAB PO SCH (21:00)
[2017-11-10] VITALS (10 sets, daily range): BP systolic 115–141; BP diastolic 64–75; PULSE 20–96; RESP 16–20; TEMP 97.7–98.7; O2SAT 97–100
[2017-11-10] MEDS: metroNIDAZOLE 500 MG INJ 100 ML IV SCH ×5 (01:05→23:45)
[2017-11-10] MEDS: LACTULOSE SYRUP 20 GM/30 ML CUP PO SCH ×7 (04:00→23:51)
[2017-11-10] MEDS: cefTRIAXone INJ 1,000 MG in SODIUM CHLORIDE 0.9% INJ 100 ML IV SCH ×2 (04:34→16:13)
[2017-11-10] MEDS: ISOSORBIDE MONONITRATE 60 MG CR TAB (IMDUR) PO SCH (05:22)
[2017-11-10] MEDS: MORPHINE SULFATE 30 MG CONTROLLED RELEASE TAB PO SCH ×3 (05:22→22:23)
[2017-11-10] MEDS ORDERED: LACTULOSE LIQ 300 ML in WATER STERILE FOR IRR BTL 700 ML RECTAL SCH (05:30)
[2017-11-10] MEDS ORDERED: WATER IRRIGATION ONE ×3 (06:00)
[2017-11-10] MEDS ORDERED: LACTULOSE IRRIGATION ONE ×3 (06:00)
[2017-11-10] MEDS: GABAPENTIN 300 MG CAP PO SCH ×3 (09:00→18:16)
[2017-11-10] MEDS: ALBUTEROL SULFATE 2 MG TAB PO SCH ×3 (09:00→18:16)
[2017-11-10] MEDS: RIFAXIMIN 550 MG TAB PO SCH ×2 (09:00→22:23)
[2017-11-10] MEDS: guaiFENesin E.R. 600 MG TAB PO SCH ×2 (09:00→22:23)
[2017-11-10] MEDS: INSULIN ASPART SUPPLEMENTAL SCALE SQ SCH ×4 (12:00→22:33)
--- NOTE | 2017-11-10 13:43 | HHI.GIFU ---
Subjective Remarks Patient is resting in the bed eyes open alert and responsive Does not remember anything about yesterday while he was obtunded Daughter here today from [place] and some other friend visiting Patient denies any acute nausea or vomiting Afebrile (Cierra Bailey) Objective Vitals I&O Vital Signs Date Time Temp Pulse Resp B/P (MAP) Pulse Ox O2 Delivery O2 Flow Rate FiO2 11/10/17 11:50 98.0 92 20 138/72 (94) 97 11/10/17 08:00 98.1 86 16 134/71 (92) 100 11/10/17 08:00 86 11/10/17 04:36 98.0 88 16 127/66 (86) 97 11/10/17 04:00 86 11/10/17 01:05 98.7 90 17 115/64 (81) 97 11/10/17 00:00 91 11/09/17 21:20 90 11/09/17 20:00 99.3 91 17 131/73 (92) 96 11/09/17 15:50 87 11/09/17 15:45 99.6 85 18 117/69 (85) 98 I/O 11/09/17 11/09/17 11/09/17 11/10/17 11/10/17 11/10/17 07:00 15:00 23:00 07:00 15:00 23:00 Intake Total 700 ml 200 ml Balance 700 ml 200 ml Intake Oral 0 ml IV Total 200 ml Other 700 ml # Voids 1 1 # Bowel Movements 2 2 Laboratory Laboratory Tests Test 11/10/17 04:40 Ammonia 55 Date/Time Source Procedure Growth Status 11/01/17 22:18 Blood Peripheral Aerobic Blood Culture - Final NO GROWTH IN 5 DAYS Complete 11/01/17 22:18 Blood Peripheral Anaerobic Blood Culture - Final NO GROWTH IN 5 DAYS Complete Imaging Last Impressions Chest X-Ray 11/09/17 0000 Signed Impressions: Service Date/Time: October 05:02 - CONCLUSION: Mild left base atelectasis. Nghia Sneed MD Abdomen/Pelvis CT 11/01/17 2258 Signed Impressions: Service Date/Time: Wednesday, November 01, 2017 23:11 - CONCLUSION: 1. Cirrhosis with portal hypertension and splenomegaly. 2. Nonspecific low density along the pancreatic tail measures 3.9 cm. 3. Moderate abdominal ascites. 4. Nonobstructing right renal calculus. Josiah Anderson MD Head CT 11/01/17 0000 Signed Impressions: Service Date/Time: Wednesday, November 01, 2017 23:07 - CONCLUSION: No acute intracranial disease. Josiah Anderson MD Physical Exam HEENT: PERRL normocephalic; atraumatic, oral cavity moist CHEST: diminished especially in bases but no audible rhonchi CARDIAC: RRR, ABDOMEN: Mild bloating and distended soft, bowel sounds are present and active 4 EXTREMITIES: No clubbing, cyanosis, or edema. SKIN: Dry; no rash; no jaundice. TILE HELPER: Awake responsive today 3 but does not remember yesterday (Cierra Bailey) Assessment and Plan Plan ASSESSMENT - anemia - multifactorial. has kidney dz, low iron, liver dz he is close to his baseline. - elevated NH - 2/2 cirrhosis. cirrhosis likely 2/2 hep c, he is tx naive. on lactulose now. CT showing cirrhosis, portal HTN, splenomegaly, low density pancreatic tail, moderate ascites. last EGD 03/2016 found prominent ampulla bx benign, esophagitis, bx benign 09/2015 hcv quant was 6,800,800. genotype 1b. child trery C. limited hx - thrombocytopenia - PLT 54, 2/2 liver dz 11/08/17 NH up. on lactulose, now rifaximin. AFP & CA19-9 WNL. rest of liver w/u pending. hcv quant and kendall pending child terry C 11/09/2017 patient more obtunded during my visit. Unable to swallow any p.o. fluids now ammonia level 264, significant history of supposed cirrhosis, Hemoglobin 9.3, INR 1.4, bilirubin 1.4, JERAMIE negative, awaiting the rest of his liver workup. Patient overall decline noted. And patient is full code. May need intensive care if no response to lactulose Nurse was currently working on calling attending to give update on patient decline. 11/10/2017 patient was unable to receive NG tube, so rectal Barraza was used to give lactulose enema. Patient responded well and ammonia level has drastically decreased today back to 55 from 264 yesterday. Patient is able to take his p.o. meds now so he has now swallowed his p.o. dose of lactulose today. No acute nausea or vomiting appetite is fair. Patient appears to be back to his baseline PLAN -As tolerated - await liver w/u, some labs still pending - rifaximin - lactulose continue oral - monitor labs - can pursue tx hep c as outpt - consider EGD to assess for varices, could be done as outpt -Supportive care, if needed patient wants everything done for aggressive care pt seen by myself and Dr Lancaster and this note is on his behalf (Cierra Bailey) Physician Comments seen, examined agree with above decrease Lactulose dose in am to bid (Khushbu Lancaster MD) Cierra Bailey Nov 10, 2017 13:43 Khushbu Lancaster MD Nov 10, 2017 17:03
[2017-11-10] MEDS: MODAFINIL 200 MG TAB PO SCH (14:08)
[2017-11-10] MEDS: METOPROLOL SUCCINATE 50 MG EXTENDED RELEASE TAB PO SCH ×2 (14:09→22:22)
--- NOTE | 2017-11-10 15:56 | PD.WCN.NOT ---
Wound Consult Description: Patient re-evaluated for specialty mattress. Communicated with: Patient Patient family friend at bedside Paula Lee, JACK Medina CNA Recommendation: Calazime skin protectant to open partial thickness skinloss areas BID and PRN with each cleansing. Continue to encourage the patient to reposition Q2H to relieve pressure. PLEASE use DISPOSABLE ULTRASORB UNDERPAD for incontinence/moisture. PLEASE DO NOT use cotton underpads underneath the patient for moisture related wounds. Additional Information: Patient seen on [facility] for re-evaluation of wound to sacral/gluteal cleft. Patient known to quality analyst/technical writer from previous consult. Wound has not changed since last assessment by quality analyst/technical writer. However, patient was found to be lying on cotton underpads (3 of them) which are CONTRAINDICATED for moisture related wounds. PLEASE use only disposable underpads with the patients partial thickness skin loss noted on gluteal cleft/sacral area with macerated periwound. Also encourage patient to refrain from scooting himself when repositioning in bed. Continue to apply Calazime skin protectant BID and PRN for moisture and incontinence. Patient was noted lying on a soiled cotton pad upon assessment. Soft cloths were used to gently cleanse patient, remove cotton underpads, and apply Calazime skin protectant. Ultrasorbs were obtained and patient was placed on one new disposable moisture wicking underpad for moisture. Patient was able to reposition himself in bed with little to no assistance. Maribeth Gonsalez [facility] Nov 10, 2017 15:56
[2017-11-10] MEDS: SODIUM CHLOR 0.9% 1000 ML INJ 1,000 ML IV SCH (16:04)
[2017-11-10] MEDS: PANTOPRAZOLE SOD 40 MG DELAYED RELEASE TAB PO SCH (16:13)
--- NOTE | 2017-11-10 17:49 | HHI.PR ---
Subjective Remarks Patient became very confused yesterday but following lactulose enemas has cleared up by today. He is now alert and oriented 3 and has no new complaints. Objective Vitals Vital Signs Date Time Temp Pulse Resp B/P (MAP) Pulse Ox O2 Delivery O2 Flow Rate FiO2 11/10/17 16:00 97.7 75 18 140/68 (92) 100 11/10/17 14:12 97.8 20 18 141/75 (97) 98 11/10/17 13:25 96 11/10/17 11:50 98.0 92 20 138/72 (94) 97 11/10/17 08:00 98.1 86 16 134/71 (92) 100 11/10/17 08:00 86 11/10/17 04:36 98.0 88 16 127/66 (86) 97 11/10/17 04:00 86 11/10/17 01:05 98.7 90 17 115/64 (81) 97 11/10/17 00:00 91 11/09/17 21:20 90 11/09/17 20:00 99.3 91 17 131/73 (92) 96 I/O 11/09/17 11/09/17 11/09/17 11/10/17 11/10/17 11/10/17 07:00 15:00 23:00 07:00 15:00 23:00 Intake Total 700 ml 200 ml Balance 700 ml 200 ml Intake Oral 0 ml IV Total 200 ml Other 700 ml # Voids 1 1 # Bowel Movements 2 2 Result Diagram: 11/08/17 0335 11/06/17 0345 Objective Remarks GENERAL: Weak appearing man, mentally clear today SKIN: Warm and dry. HEAD: Normocephalic. EYES: No scleral icterus. No injection or drainage. NECK: Supple, trachea midline. No JVD or lymphadenopathy. CARDIOVASCULAR: Regular rate and rhythm, 2/6 BREE, gallops, or rubs. RESPIRATORY: Breath sounds equal bilaterally. No accessory muscle use. GASTROINTESTINAL: Abdomen soft, non-tender, nondistended. EXTREMITIES: No cyanosis, or edema. NEUROLOGICAL: Awake, alert, and oriented x 3. Non-focal. Procedures None A/P Problem List: (1) Hyperammonemia ICD Code: E72.20 - Disorder of urea cycle metabolism, unspecified Assessment and Plan Hyperammonemia, Asterixis, Liver Failure hx of cirrhosis, hepatitis C and hyperammonemia. EEG negative for seizures. Mentally clear again, waxing and waning course thus far regarding mental status Resume p.o. lactulose Appreciate gastroenterology assisting Appreciate Palliative Care consulting Chest pain/shortness of breath with history of CAD EKG shows normal sinus rhythm with new T-wave inversions in V3 through V6, 1 and aVL, personally reviewed, EF = 55% Ruled out for [place] with negative cardiac enzymes Continue medical management Continue beta-rose Appreciate cardiology consult Chronic kidney disease stage III Still some mild dehydration effect, but firm cirrhotic abdomen Continue cautious IVF hydration Monitor renal function Failure to Thrive Regular diet with ensure supplementation Non-Hodgkin's lymphoma with chronic pancytopenia. Improved anemia status post transfusion, stable Appreciate Oncology consult Hypertension/GERD Continue home medications Type 2 diabetes Sliding scale insulin with accuchecks Diabetic Diet, Glucerna supplementation DVT Prophylaxis SCDs, anticoagulants held due to thrombocytopenia and anemia Discharge Planning SNF Rehab when ready Code Status: Full Code Colby Huynh MD Nov 10, 2017 17:49
[2017-11-10] MEDS: SODIUM CHLORIDE 0.9% FLUSH 10 ML FLUSH IV FLUSH SCH ×2 (18:18→22:24)
[2017-11-10] MEDS: CALCIUM CARBONATE 1.25 GM (CA 500 MG) TAB PO SCH ×2 (18:32→19:35)
[2017-11-10] MEDS: traMADol HCL 50 MG TAB PO PRN (19:35)
[2017-11-10] MEDS: traZODone HCL 50 MG TAB PO SCH (22:23)
[2017-11-11] VITALS (7 sets, daily range): BP systolic 103–143; BP diastolic 68–80; PULSE 76–86; RESP 16–20; TEMP 97–98.3; O2SAT 98–100
[2017-11-11] MEDS: LACTULOSE SYRUP 20 GM/30 ML CUP PO SCH ×3 (04:00→20:22)
[2017-11-11] MEDS: MORPHINE SULFATE 30 MG CONTROLLED RELEASE TAB PO SCH ×3 (04:40→20:22)
[2017-11-11] MEDS: cefTRIAXone INJ 1,000 MG in SODIUM CHLORIDE 0.9% INJ 100 ML IV SCH ×2 (04:40→16:12)
[2017-11-11] MEDS: metroNIDAZOLE 500 MG INJ 100 ML IV SCH ×3 (04:47→17:24)
[2017-11-11] MEDS: ISOSORBIDE MONONITRATE 60 MG CR TAB (IMDUR) PO SCH (07:20)
[2017-11-11] MEDS: RIFAXIMIN 550 MG TAB PO SCH ×2 (08:29→20:22)
[2017-11-11] MEDS: GABAPENTIN 300 MG CAP PO SCH ×3 (08:29→17:24)
[2017-11-11] MEDS: guaiFENesin E.R. 600 MG TAB PO SCH ×2 (08:29→20:22)
[2017-11-11] MEDS: PANTOPRAZOLE SOD 40 MG DELAYED RELEASE TAB PO SCH (08:29)
[2017-11-11] MEDS: MODAFINIL 200 MG TAB PO SCH (08:30)
[2017-11-11] MEDS: METOPROLOL SUCCINATE 50 MG EXTENDED RELEASE TAB PO SCH ×2 (08:30→20:22)
[2017-11-11] MEDS: ALBUTEROL SULFATE 2 MG TAB PO SCH ×3 (08:30→17:25)
[2017-11-11] MEDS: SODIUM CHLORIDE 0.9% FLUSH 10 ML FLUSH IV FLUSH SCH ×2 (08:30→20:23)
[2017-11-11] MEDS: INSULIN ASPART SUPPLEMENTAL SCALE SQ SCH ×4 (08:31→20:34)
[2017-11-11 09:50] LABS: HCV RNA PCR IU/ML 2550000 IU/mL (Not Detected)
--- NOTE | 2017-11-11 12:14 | HHI.GIFU ---
Subjective Remarks Pt sleeping, awakens to touch Falls asleep easily after a few words Reports that he has been taking his medication Some abdominal pain Objective Vitals I&O Vital Signs Date Time Temp Pulse Resp B/P (MAP) Pulse Ox O2 Delivery O2 Flow Rate FiO2 11/11/17 08:00 97.0 80 20 129/77 (94) 100 11/11/17 08:00 80 11/11/17 04:38 97.6 76 20 143/71 (95) 98 11/11/17 04:00 78 11/11/17 00:00 98.3 86 20 134/77 (96) 99 11/11/17 00:00 83 11/10/17 20:00 98.2 91 20 119/71 (87) 99 11/10/17 20:00 89 11/10/17 17:24 18 11/10/17 16:00 93 11/10/17 16:00 97.7 75 18 140/68 (92) 100 11/10/17 14:12 97.8 20 18 141/75 (97) 98 11/10/17 13:25 96 I/O 11/10/17 11/10/17 11/10/17 11/11/17 11/11/17 11/11/17 07:00 15:00 23:00 07:00 15:00 23:00 Intake Total 200 ml 600 ml 240 ml Output Total 400 ml 400 ml Balance 200 ml 600 ml -160 ml -400 ml Intake Oral 600 ml 240 ml IV Total 200 ml Stool Total 400 ml 400 ml # Voids 1 2 # Bowel Movements 2 3 1 Laboratory Date/Time Source Procedure Growth Status 11/01/17 22:18 Blood Peripheral Aerobic Blood Culture - Final NO GROWTH IN 5 DAYS Complete 11/01/17 22:18 Blood Peripheral Anaerobic Blood Culture - Final NO GROWTH IN 5 DAYS Complete Imaging Last Impressions Chest X-Ray 11/09/17 0000 Signed Impressions: Service Date/Time: October 05:02 - CONCLUSION: Mild left base atelectasis. Nghia Sneed MD Abdomen/Pelvis CT 11/01/17 2258 Signed Impressions: Service Date/Time: Wednesday, November 01, 2017 23:11 - CONCLUSION: 1. Cirrhosis with portal hypertension and splenomegaly. 2. Nonspecific low density along the pancreatic tail measures 3.9 cm. 3. Moderate abdominal ascites. 4. Nonobstructing right renal calculus. Josiah Anderson MD Head CT 11/01/17 0000 Signed Impressions: Service Date/Time: Wednesday, November 01, 2017 23:07 - CONCLUSION: No acute intracranial disease. Josiah Anderson MD Physical Exam HEENT: Normocephalic; atraumatic CHEST: Even/unlabored CARDIAC: RRR, ABDOMEN: Round, soft, nontender, bowel sounds active, hepatosplenomegaly EXTREMITIES: No clubbing, cyanosis, or edema. 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 Nonspecific low density along the pancreatic tail measures 3.9 cm. Moderate abdominal ascites. Ammonia was highest on 11/09 at 255- per notes pt was obtunded and not taking medication at that time, he was switched to Lactulose enemas, today pt appears more alert and able to tolerate PO. He is on Lactulose on Xifaxan - Anemia- H/H last checked on 11/08 was 9.3/28.5 - has received 2 U PRBCs - Non- Hodgkin lymphoma with chronic pancytopenia- in remission. Oncology has seen pt during admission. - Thrombocytopenia- platelets last checked on 11/08 were 50 Liver CORRAL: JERAMIE and ASMA negative. AFP- 3.9 Iron-18 TIBC-217 %sat-8.3 Ferritin-344 [id number] AMA pending. Hepatitis panel not recently checked since 2009. Hepatitis C positive, genotype 1b. PLAN - Hepatitis panel- full panel has not been checked since 2009 - Lactulose- decrease to BID - Xifaxan - 2 gm low sodium diet - Monitor labs - Palliative care following - Further recommendations based on clinical course Patient has been seen and examined by myself and Dr. Soria and this note is written on his behalf Roxanne Peters Nov 11, 2017 12:14
--- NOTE | 2017-11-11 15:07 | HHI.PR ---
Subjective Remarks Patient is up in chair today, in a good mood, mentally clear. He has no complaints and asks about when he might be going home. Objective Vitals Vital Signs Date Time Temp Pulse Resp B/P (MAP) Pulse Ox O2 Delivery O2 Flow Rate FiO2 11/11/17 14:14 18 11/11/17 12:00 98.0 80 18 103/74 (84) 98 11/11/17 08:00 97.0 80 20 129/77 (94) 100 11/11/17 08:00 80 11/11/17 04:38 97.6 76 20 143/71 (95) 98 11/11/17 04:00 78 11/11/17 00:00 98.3 86 20 134/77 (96) 99 11/11/17 00:00 83 11/10/17 20:00 98.2 91 20 119/71 (87) 99 11/10/17 20:00 89 11/10/17 16:00 93 11/10/17 16:00 97.7 75 18 140/68 (92) 100 I/O 11/10/17 11/10/17 11/10/17 11/11/17 11/11/17 11/11/17 07:00 15:00 23:00 07:00 15:00 23:00 Intake Total 200 ml 600 ml 240 ml Output Total 400 ml 400 ml Balance 200 ml 600 ml -160 ml -400 ml Intake Oral 600 ml 240 ml IV Total 200 ml Stool Total 400 ml 400 ml # Voids 1 2 # Bowel Movements 2 3 1 Result Diagram: 11/08/17 0335 Objective Remarks GENERAL: Weak appearing man, mentally clear today, up in his chair SKIN: Warm and dry. HEAD: Normocephalic. EYES: No scleral icterus. No injection or drainage. NECK: Supple, trachea midline. No JVD or lymphadenopathy. CARDIOVASCULAR: Regular rate and rhythm, 2/6 BREE, gallops, or rubs. RESPIRATORY: Breath sounds equal bilaterally. No accessory muscle use. GASTROINTESTINAL: Abdomen soft, non-tender, nondistended. EXTREMITIES: No cyanosis, or edema. NEUROLOGICAL: Awake, alert, and oriented x 3. Non-focal. Procedures None A/P Problem List: (1) Hyperammonemia ICD Code: E72.20 - Disorder of urea cycle metabolism, unspecified Assessment and Plan Hyperammonemia, Asterixis, Liver Failure hx of cirrhosis, hepatitis C and hyperammonemia. EEG negative for seizures. More mentally clear today, at his baseline according to family Patient has had an unstable course regarding his ammonia level and mental status. Continue observation through today and tomorrow Continue p.o. lactulose Appreciate gastroenterology assisting Appreciate Palliative Care consulting Chest pain/shortness of breath with history of CAD EKG shows normal sinus rhythm with new T-wave inversions in V3 through V6, 1 and aVL, personally reviewed, EF = 55% Ruled out for SD with negative cardiac enzymes Continue medical management Continue beta-rose Appreciate cardiology consult Chronic kidney disease stage III Still some mild dehydration effect, but firm cirrhotic abdomen Continue cautious IVF hydration Monitor renal function Failure to Thrive Regular diet with ensure supplementation Non-Hodgkin's lymphoma with chronic pancytopenia. Improved anemia status post transfusion, stable Appreciate Oncology consult Hypertension/GERD Continue home medications Type 2 diabetes Sliding scale insulin with accuchecks Diabetic Diet, Glucerna supplementation DVT Prophylaxis SCDs, anticoagulants held due to thrombocytopenia and anemia Discharge Planning SNF Rehab when ready Code Status: Full Code Colby Huynh MD Nov 11, 2017 15:07
[2017-11-11 17:55] LABS: CERULOPLASMIN 34 mg/dL (18-36)
[2017-11-11] MEDS: traZODone HCL 50 MG TAB PO SCH (20:21)
[2017-11-12] VITALS (16 sets, daily range): BP systolic 98–126; BP diastolic 55–65; PULSE 68–88; RESP 16–20; TEMP 97.6–98.4; O2SAT 97–99
[2017-11-12] MEDS: metroNIDAZOLE 500 MG INJ 100 ML IV SCH ×5 (00:15→23:24)
[2017-11-12] MEDS: MORPHINE SULFATE 30 MG CONTROLLED RELEASE TAB PO SCH ×3 (04:48→20:11)
[2017-11-12] MEDS: cefTRIAXone INJ 1,000 MG in SODIUM CHLORIDE 0.9% INJ 100 ML IV SCH ×2 (04:48→15:10)
[2017-11-12] MEDS: ISOSORBIDE MONONITRATE 60 MG CR TAB (IMDUR) PO SCH (04:54)
[2017-11-12] MEDS: INSULIN ASPART SUPPLEMENTAL SCALE SQ SCH ×4 (08:00→20:11)
[2017-11-12] MEDS: PANTOPRAZOLE SOD 40 MG DELAYED RELEASE TAB PO SCH (08:17)
[2017-11-12] MEDS: CALCIUM CARBONATE 1.25 GM (CA 500 MG) TAB PO SCH (08:17)
[2017-11-12] MEDS: MODAFINIL 200 MG TAB PO SCH (08:18)
[2017-11-12] MEDS: ALBUTEROL SULFATE 2 MG TAB PO SCH ×3 (08:18→17:58)
[2017-11-12] MEDS: METOPROLOL SUCCINATE 50 MG EXTENDED RELEASE TAB PO SCH ×2 (08:18→19:56)
[2017-11-12] MEDS: GABAPENTIN 300 MG CAP PO SCH ×3 (08:18→17:58)
[2017-11-12] MEDS: LACTULOSE SYRUP 20 GM/30 ML CUP PO SCH ×2 (08:18→19:56)
[2017-11-12] MEDS: guaiFENesin E.R. 600 MG TAB PO SCH ×2 (08:19→19:56)
[2017-11-12] MEDS: RIFAXIMIN 550 MG TAB PO SCH ×2 (08:19→19:56)
[2017-11-12] MEDS: SODIUM CHLORIDE 0.9% FLUSH 10 ML FLUSH IV FLUSH SCH ×2 (08:19→19:56)
[2017-11-12] MEDS: traMADol HCL 50 MG TAB PO PRN ×2 (08:27→19:57)
--- NOTE | 2017-11-12 11:14 | HHI.GIFU ---
Subjective Remarks Pt sitting up and on the phone when I walked in Daughter at bedside No GI complaints (Roxanne Peters) Objective Vitals I&O Vital Signs Date Time Temp Pulse Resp B/P (MAP) Pulse Ox O2 Delivery O2 Flow Rate FiO2 11/12/17 08:17 97.8 88 20 111/60 (77) 99 11/12/17 04:00 80 11/12/17 04:00 98.4 68 16 113/65 (81) 97 11/12/17 00:00 82 11/12/17 00:00 98.2 84 16 109/57 (74) 97 11/11/17 20:00 98.1 83 16 117/68 (84) 99 11/11/17 20:00 82 11/11/17 16:00 98.0 80 18 130/80 (97) 100 11/11/17 14:14 18 11/11/17 12:00 98.0 80 18 103/74 (84) 98 I/O 11/11/17 11/11/17 11/11/17 11/12/17 11/12/17 11/12/17 07:00 15:00 23:00 07:00 15:00 23:00 Intake Total 240 ml 720 ml Output Total 400 ml 400 ml 625 ml 450 ml Balance -160 ml -400 ml 95 ml -450 ml Intake Oral 240 ml 720 ml Output Urine Total 625 ml 450 ml Stool Total 400 ml 400 ml # Bowel Movements 1 Laboratory Date/Time Source Procedure Growth Status 11/01/17 22:18 Blood Peripheral Aerobic Blood Culture - Final NO GROWTH IN 5 DAYS Complete 11/01/17 22:18 Blood Peripheral Anaerobic Blood Culture - Final NO GROWTH IN 5 DAYS Complete Imaging Last Impressions Chest X-Ray 11/09/17 0000 Signed Impressions: Service Date/Time: October 05:02 - CONCLUSION: Mild left base atelectasis. Nghia Sneed MD Abdomen/Pelvis CT 11/01/17 2258 Signed Impressions: Service Date/Time: Wednesday, November 01, 2017 23:11 - CONCLUSION: 1. Cirrhosis with portal hypertension and splenomegaly. 2. Nonspecific low density along the pancreatic tail measures 3.9 cm. 3. Moderate abdominal ascites. 4. Nonobstructing right renal calculus. Josiah Anderson MD Head CT 11/01/17 0000 Signed Impressions: Service Date/Time: Wednesday, November 01, 2017 23:07 - CONCLUSION: No acute intracranial disease. Josiah Anderson MD Physical Exam HEENT: Normocephalic; atraumatic CHEST: Even/unlabored CARDIAC: RRR, ABDOMEN: Round, soft, nontender, bowel sounds active, hepatosplenomegaly EXTREMITIES: No clubbing, cyanosis, or edema. 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 Nonspecific low density along the pancreatic tail measures 3.9 cm. Moderate abdominal ascites. Ammonia was highest on 11/09 at 255- per notes pt was obtunded and not taking medication at that time, he was switched to Lactulose enemas, today pt appears more alert and able to tolerate PO. He is on Lactulose on Xifaxan - Anemia- H/H last checked on 11/08 was 9.3/28.5 - has received 2 U PRBCs - Non- Hodgkin lymphoma with chronic pancytopenia- in remission. Oncology has seen pt during admission. - Thrombocytopenia- platelets last checked on 11/08 were 50 Liver CORRAL: JERAMIE and ASMA negative. AFP- 3.9 Iron-18 TIBC-217 %sat-8.3 Ferritin-344 [id number] AMA pending. Hepatitis panel not recently checked since 2009. Hepatitis C positive, genotype 1b. (11/12) Pt much more alert today, he is sitting up and on his phone. Daughter at bedside. No repeat labs from today. CBC and BMP ordered for tomorrow. PLAN - Lactulose- BID - Xifaxan - 2 gm low sodium diet - Monitor labs - Palliative care following - Outpatient treatment for Hepatitis C - GI will sign off, continue current supportive care, reconsult as needed - Have pt follow up with GI after discharge Patient has been seen and examined by myself and Dr. Bansk and this note is written on his behalf (Roxanne Peters) Physician Comments Patient seen and examined Agree with above Continue with current supportive care Monitor labs. We will sign off (Ray Banks MD) Roxanne Peters Nov 12, 2017 11:14 Ray Banks MD Nov 13, 2017 00:01
[2017-11-12] MEDS: ONDANSETRON HCL 4 MG/2 ML VIAL IVP PRN (15:10)
--- NOTE | 2017-11-12 16:06 | HHI.PR ---
Subjective Remarks Mild confusion evident again today, patient's family reported return of asterixis. Ammonia level level appears normal. Objective Vitals Vital Signs Date Time Temp Pulse Resp B/P (MAP) Pulse Ox O2 Delivery O2 Flow Rate FiO2 11/12/17 13:12 97.6 88 18 98/55 (69) 99 11/12/17 08:17 97.8 88 20 111/60 (77) 99 11/12/17 04:00 80 11/12/17 04:00 98.4 68 16 113/65 (81) 97 11/12/17 00:00 82 11/12/17 00:00 98.2 84 16 109/57 (74) 97 11/11/17 20:00 98.1 83 16 117/68 (84) 99 11/11/17 20:00 82 I/O 11/11/17 11/11/17 11/11/17 11/12/17 11/12/17 11/12/17 07:00 15:00 23:00 07:00 15:00 23:00 Intake Total 240 ml 720 ml Output Total 400 ml 400 ml 625 ml 450 ml Balance -160 ml -400 ml 95 ml -450 ml Intake Oral 240 ml 720 ml Output Urine Total 625 ml 450 ml Stool Total 400 ml 400 ml # Bowel Movements 1 Result Diagram: 11/08/17 0335 Objective Remarks GENERAL: Weak appearing man, slight increase in confusion today SKIN: Warm and dry. HEAD: Normocephalic. EYES: No scleral icterus. No injection or drainage. NECK: Supple, trachea midline. No JVD or lymphadenopathy. CARDIOVASCULAR: Regular rate and rhythm, 2/6 BREE, gallops, or rubs. RESPIRATORY: Breath sounds equal bilaterally. No accessory muscle use. GASTROINTESTINAL: Abdomen soft, non-tender, nondistended. EXTREMITIES: No cyanosis, or edema. NEUROLOGICAL: Awake, alert, and oriented x 3. Non-focal. Procedures None A/P Problem List: (1) Hyperammonemia ICD Code: E72.20 - Disorder of urea cycle metabolism, unspecified Assessment and Plan Hyperammonemia, Asterixis, Liver Failure hx of cirrhosis, hepatitis C and hyperammonemia. EEG negative for seizures. Patient has had an unstable course regarding his ammonia level and mental status. Continue observation through today and tomorrow Patient is slightly more confused today, family noted return of asterixis (mild) Lactulose dose reduced yesterday due to loose stools irritating anus Repeat ammonia level in the a.m., follow clinically Appreciate gastroenterology assisting Appreciate Palliative Care consulting Chest pain/shortness of breath with history of CAD EKG shows normal sinus rhythm with new T-wave inversions in V3 through V6, 1 and aVL, personally reviewed, EF = 55% Ruled out for DE with negative cardiac enzymes Continue medical management Continue beta-rose Appreciate cardiology consult Chronic kidney disease stage III Still some mild dehydration effect, but firm cirrhotic abdomen Continue cautious IVF hydration Monitor renal function Failure to Thrive Regular diet with ensure supplementation Non-Hodgkin's lymphoma with chronic pancytopenia. Improved anemia status post transfusion, stable Appreciate Oncology consult Hypertension/GERD Continue home medications Type 2 diabetes Sliding scale insulin with accuchecks Diabetic Diet, Glucerna supplementation DVT Prophylaxis SCDs, anticoagulants held due to thrombocytopenia and anemia Discharge Planning SNF Rehab when ready Code Status: Full Code Colby Huynh MD Nov 12, 2017 16:06
[2017-11-12] MEDS: traZODone HCL 50 MG TAB PO SCH (19:56)
[2017-11-13] VITALS (9 sets, daily range): BP systolic 92–126; BP diastolic 54–87; PULSE 67–85; RESP 14–18; TEMP 97–98.1; O2SAT 95–98
[2017-11-13 03:52] LABS: MITOCHONDRIAL ABS LESS THAN 20.0 U (<=20.0)
[2017-11-13] MEDS: cefTRIAXone INJ 1,000 MG in SODIUM CHLORIDE 0.9% INJ 100 ML IV SCH ×2 (05:18→14:52)
[2017-11-13] MEDS: metroNIDAZOLE 500 MG INJ 100 ML IV SCH ×4 (05:19→22:38)
[2017-11-13] MEDS: MORPHINE SULFATE 30 MG CONTROLLED RELEASE TAB PO SCH ×3 (05:22→22:37)
[2017-11-13] MEDS: ISOSORBIDE MONONITRATE 60 MG CR TAB (IMDUR) PO SCH (05:22)
[2017-11-13 05:47] LABS: HEMATOCRIT 32.2 % (39.0-51.0); HEMOGLOBIN 10.2 GM/DL (13.0-17.0); MEAN CELL VOLUME 92.6 FL (80.0-100.0); MEAN CORPUSCULAR HEMOGLOBIN 29.4 PG (27.0-34.0); MEAN CORPUSCULAR HGB CONC 31.7 % (32.0-36.0); MEAN PLATELET VOLUME 9.9 FL (7.0-11.0); PLATELET COUNT 59 TH/MM3 (150-450); RED BLOOD COUNT 3.48 MIL/MM3 (4.50-5.90); RED CELL DISTRIBUTION WIDTH 17.7 % (11.6-17.2); WHITE BLOOD COUNT 5.5 TH/MM3 (4.0-11.0)
[2017-11-13 06:21] LABS: BICARBONATE 17.6 MEQ/L (21.0-32.0); CALCIUM 8.4 MG/DL (8.5-10.1); CREATININE 3.21 MG/DL (0.60-1.30)
[2017-11-13] MEDS: INSULIN ASPART SUPPLEMENTAL SCALE SQ SCH ×4 (08:00→21:00)
[2017-11-13] MEDS: METOPROLOL SUCCINATE 50 MG EXTENDED RELEASE TAB PO SCH ×2 (09:00→21:12)
[2017-11-13] MEDS: LACTULOSE SYRUP 20 GM/30 ML CUP PO SCH ×2 (09:42→21:11)
[2017-11-13] MEDS: PANTOPRAZOLE SOD 40 MG DELAYED RELEASE TAB PO SCH (09:43)
[2017-11-13] MEDS: MODAFINIL 200 MG TAB PO SCH (09:43)
[2017-11-13] MEDS: CALCIUM CARBONATE 1.25 GM (CA 500 MG) TAB PO SCH (09:43)
[2017-11-13] MEDS: guaiFENesin E.R. 600 MG TAB PO SCH ×2 (09:43→21:12)
[2017-11-13] MEDS: GABAPENTIN 300 MG CAP PO SCH ×2 (09:43→21:12)
[2017-11-13] MEDS: RIFAXIMIN 550 MG TAB PO SCH ×2 (09:43→21:12)
[2017-11-13] MEDS: ALBUTEROL SULFATE 2 MG TAB PO SCH ×3 (09:44→17:34)
[2017-11-13] MEDS: SODIUM CHLORIDE 0.9% FLUSH 10 ML FLUSH IV FLUSH SCH ×2 (09:44→21:12)
--- NOTE | 2017-11-13 13:46 | HHI.PR ---
Subjective Remarks Creatinine noted to be elevated. Patient denies cp/sob. Patient is alert and able to sustain a rational conversation Afebrile BP on the lower side Patient complains of bilateral leg pain. Objective Vitals Vital Signs Date Time Temp Pulse Resp B/P (MAP) Pulse Ox O2 Delivery O2 Flow Rate FiO2 11/13/17 12:31 97.9 85 18 126/87 (100) 97 11/13/17 09:41 97.6 67 18 92/57 (69) 95 11/13/17 08:00 72 11/13/17 04:00 97.4 77 16 99/55 (70) 98 11/13/17 04:00 76 11/13/17 00:00 97.0 78 14 96/62 (73) 97 11/13/17 00:00 78 11/12/17 20:00 97.6 77 17 126/64 (84) 97 11/12/17 20:00 78 11/12/17 18:05 98.0 75 18 105/63 (77) 98 11/12/17 16:00 77 11/12/17 15:00 76 11/12/17 14:00 76 I/O 11/12/17 11/12/17 11/12/17 11/13/17 11/13/17 11/13/17 07:00 15:00 23:00 07:00 15:00 23:00 Intake Total 100 ml 800 ml 580 ml 480 ml Output Total 450 ml 800 ml 250 ml Balance -450 ml 100 ml 0 ml 330 ml 480 ml Intake Oral 600 ml 480 ml 480 ml IV Total 100 ml 200 ml 100 ml Output Urine Total 450 ml 275 ml 250 ml Stool Total 525 ml Result Diagram: 11/13/17 0530 11/13/17 0530 Imaging Last Impressions Chest X-Ray 11/09/17 0000 Signed Impressions: Service Date/Time: October 05:02 - CONCLUSION: Mild left base atelectasis. Nghia Sneed MD Abdomen/Pelvis CT 11/01/17 2258 Signed Impressions: Service Date/Time: Wednesday, November 01, 2017 23:11 - CONCLUSION: 1. Cirrhosis with portal hypertension and splenomegaly. 2. Nonspecific low density along the pancreatic tail measures 3.9 cm. 3. Moderate abdominal ascites. 4. Nonobstructing right renal calculus. Josiah Anderson MD Head CT 11/01/17 0000 Signed Impressions: Service Date/Time: Wednesday, November 01, 2017 23:07 - CONCLUSION: No acute intracranial disease. Josiah Anderson MD Objective Remarks GENERAL: Thin, awake and alert SKIN: Warm and dry. HEAD: Normocephalic. EYES: No scleral icterus. No injection or drainage. NECK: Supple, trachea midline. No JVD or lymphadenopathy. CARDIOVASCULAR: Regular rate and rhythm, 2/6 BREE, gallops, or rubs. RESPIRATORY: Breath sounds equal bilaterally. No accessory muscle use. GASTROINTESTINAL: Abdomen soft, non-tender, nondistended. EXTREMITIES: No cyanosis, or edema. NEUROLOGICAL: Awake, alert, and oriented x 3. Non-focal. Procedures None Medications and IVs Current Medications Medications (Trade) Dose Ordered Sig/Toni Route Start Time Stop Time Status Last Admin (NS Flush) 2 ml UNSCH PRN IV FLUSH 11/02/17 00:45 11/08/17 03:43 (NS Flush) 2 ml BID IV FLUSH 11/02/17 09:00 11/13/17 09:44 (Zofran Inj) 4 mg Q6H PRN IVP 11/02/17 00:45 11/12/17 15:10 (Narcan Inj) 0.4 mg UNSCH PRN IV PUSH 11/02/17 00:45 (Oramorph Sr) 30 mg Q8H PO 11/02/17 06:00 11/13/17 14:52 (Protonix) 40 mg DAILY PO 11/02/17 09:00 11/13/17 09:43 (Desyrel) 50 mg HS PO 11/02/17 21:00 11/12/17 19:56 (D50w (Vial) Inj) 50 ml UNSCH PRN IV PUSH 11/02/17 02:15 (Glucagon Inj) 1 mg UNSCH PRN OTHER 11/02/17 02:15 (NovoLOG SUPPLEMENTAL SCALE) 1 ACHS SLIDING SCALE SQ 11/02/17 08:00 11/13/17 12:27 (Proventil) 4 mg TID PO 11/02/17 09:00 11/13/17 14:51 (Atrovent Neb) 0.5 mg Q6HR NEB PRN NEB 11/02/17 08:30 4/17/18 22:56 (Nitrostat Sl) 0.4 mg Q5M PRN SL 11/02/17 08:30 (Imdur) 120 mg DAILY@0700 PO 11/04/17 07:00 11/13/17 05:22 (Toprol Xl) 100 mg BID PO 11/03/17 09:00 11/12/17 19:56 (Oscal) 500 mg DAILY PO 11/05/17 09:00 11/13/17 09:43 (Tessalon) 200 mg Q8H PRN PO 11/05/17 09:45 (Mucinex Er) 600 mg BID PO 11/05/17 21:00 11/13/17 09:43 (NS Flush) 5 ml UNSCH PRN IV FLUSH 11/06/17 09:00 11/08/17 03:43 (Heparin Central Flush) 250 units UNSCH PRN IV FLUSH 11/06/17 09:00 11/09/17 21:35 (Heparin Central Flush) 500 units UNSCH IV FLUSH 11/06/17 09:00 (Provigil) 100 mg DAILY PO 11/06/17 11:00 11/13/17 09:43 (Pill Splitter) 1 ea UNSCH PRN OTHER 11/06/17 11:00 11/07/17 09:19 (Xifaxan) 550 mg BID PO 11/07/17 21:00 11/13/17 09:43 Ceftriaxone Sodium 1000 mg/ Sodium Chloride 100 ml @ 200 mls/hr Q12H IV 11/09/17 16:00 11/13/17 14:52 Metronidazole 100 ml @ 100 mls/hr Q6H IV 11/09/17 17:00 11/13/17 09:44 (NS Flush) 5 ml UNSCH PRN IV FLUSH 11/09/17 20:45 (Heparin Central Flush) 250 units UNSCH PRN IV FLUSH 11/09/17 20:45 (Heparin Central Flush) 500 units UNSCH IV FLUSH 11/09/17 20:45 (Ultram) 50 mg Q8H PRN PO 11/10/17 18:45 11/12/17 19:57 (Lactulose Liq) 30 ml BID PO 11/11/17 21:00 11/13/17 09:42 (Neurontin) 300 mg BID PO 11/13/17 21:00 A/P Problem List: (1) Hepatic encephalopathy ICD Code: K72.90 - Hepatic failure, unspecified without coma Plan: Hyperammonemia in the setting of liver cirrhosis and hepatitis C. EEG negative for seizures. nown hepatitis C- treatment naive- genotype 1 b - Quant over [address] abdomen and pelvis W/O IV contrast (11/01) --> Cirrhosis with portal hypertension and splenomegaly. Nonspecific low density along the pancreatic tail measures 3.9 cm. Moderate abdominal ascites. Ammonia was highest on 11/09 at 255- per notes pt was obtunded and not taking medication at that time, he was switched to Lactulose enemas, today pt appears more alert and able to tolerate PO. He is on Lactulose on Xifaxan Patient also started on rocephin and IV Flagyl Patient having loose stools retaining on O's so dose was reduced. Ammonia level was trended and trending down. GI consulted. Signed off. Palliative care consulted. (2) Hyperammonemia ICD Code: E72.20 - Disorder of urea cycle metabolism, unspecified Plan: As above. Continue lactulose. (3) Thrombocytopenia ICD Code: D69.6 - Thrombocytopenia, unspecified Status: Chronic Plan: Chronic. Likely secondary to with cirrhosis with portal hypertension and hypersplenism. Continue to monitor platelets. Oncology consulted. Appreciate recommendations. There is no evidence of bleeding. (4) Liver cirrhosis ICD Code: K74.60 - Unspecified cirrhosis of liver Plan: Management as above. Continue lactulose, rifaximin, modafinil. (5) DM type 2 (diabetes mellitus, type 2) ICD Code: E11.9 - Type 2 diabetes mellitus without complications Plan: Blood sugar stable. Continue SSI with insulin NovoLog. (6) LATOSHA (acute kidney injury) ICD Code: N17.9 - Acute kidney failure, unspecified Status: Acute Plan: Upon review of records the patient has a baseline creatinine at around 1.2-1.4. Creatinine trending up and today 2.36. We will place on IV fluids and monitor BUN/creatinine. Avoid nephrotoxins. If no improvement by a.m. then will consider nephrology consultation. (7) CKD stage 3 secondary to diabetes ICD Code: E11.22 - Type 2 diabetes mellitus with diabetic chronic kidney disease; N18.3 - Chronic kidney disease, stage 3 (moderate) Status: Chronic Plan: As above. (8) Non-Hodgkin lymphoma in remission ICD Code: C85.90 - Non-Hodgkin lymphoma, unspecified, unspecified site Plan: Hematology/oncology consulted. Appreciate recommendations. Patient with non-Hodgkin's lymphoma in remission. (9) Diabetic neuropathy ICD Code: E11.40 - Type 2 diabetes mellitus with diabetic neuropathy, unspecified Plan: Continue gabapentin. Assessment and Plan DVT prophylaxis: SCDs, avoid chemoprophylaxis given thrombocytopenia and liver cirrhosis. Discharge Planning Continue to monitor and the medical floor. Pending discharge stabilization improvement of creatinine. Patient will need rehab placement. Problem Qualifiers (1) Liver cirrhosis: Qualified Codes: K74.60 - Unspecified cirrhosis of liver (2) DM type 2 (diabetes mellitus, type 2): Qualified Codes: E11.65 - Type 2 diabetes mellitus with hyperglycemia; Z79.4 - care home (current) use of insulin (3) Diabetic neuropathy: Qualified Codes: E11.42 - Type 2 diabetes mellitus with diabetic polyneuropathy Isaiah Hutchinson MD Nov 13, 2017 13:46
[2017-11-13] MEDS: SODIUM CHLOR 0.9% 1000 ML INJ 1,000 ML IV SCH ×2 (17:34→22:38)
[2017-11-13] MEDS: traZODone HCL 50 MG TAB PO SCH (21:12)
[2017-11-14] VITALS (13 sets, daily range): BP systolic 85–115; BP diastolic 41–65; PULSE 57–90; RESP 14–18; TEMP 97.9–98.3; O2SAT 95–98
[2017-11-14] MEDS: traMADol HCL 50 MG TAB PO PRN ×3 (02:55→20:47)
[2017-11-14] MEDS: SODIUM CHLORIDE 0.9% FLUSH 10 ML FLUSH IV FLUSH PRN (03:58)
[2017-11-14] MEDS: cefTRIAXone INJ 1,000 MG in SODIUM CHLORIDE 0.9% INJ 100 ML IV SCH ×2 (04:00→17:01)
[2017-11-14] MEDS: metroNIDAZOLE 500 MG INJ 100 ML IV SCH ×4 (04:48→22:43)
[2017-11-14] MEDS: MORPHINE SULFATE 30 MG CONTROLLED RELEASE TAB PO SCH ×3 (06:09→22:43)
[2017-11-14] MEDS: ISOSORBIDE MONONITRATE 60 MG CR TAB (IMDUR) PO SCH (06:09)
[2017-11-14] MEDS: INSULIN ASPART SUPPLEMENTAL SCALE SQ SCH ×4 (08:00→20:40)
[2017-11-14] MEDS: LACTULOSE SYRUP 20 GM/30 ML CUP PO SCH (09:01)
[2017-11-14] MEDS: PANTOPRAZOLE SOD 40 MG DELAYED RELEASE TAB PO SCH (09:01)
[2017-11-14] MEDS: GABAPENTIN 300 MG CAP PO SCH ×2 (09:02→20:46)
[2017-11-14] MEDS: RIFAXIMIN 550 MG TAB PO SCH ×2 (09:02→20:46)
[2017-11-14] MEDS: guaiFENesin E.R. 600 MG TAB PO SCH ×2 (09:02→20:46)
[2017-11-14] MEDS: CALCIUM CARBONATE 1.25 GM (CA 500 MG) TAB PO SCH (09:02)
[2017-11-14] MEDS: ALBUTEROL SULFATE 2 MG TAB PO SCH ×3 (09:02→17:49)
[2017-11-14] MEDS: SODIUM CHLORIDE 0.9% FLUSH 10 ML FLUSH IV FLUSH SCH ×2 (09:03→20:37)
[2017-11-14] MEDS: METOPROLOL SUCCINATE 50 MG EXTENDED RELEASE TAB PO SCH ×2 (09:03→20:46)
[2017-11-14] MEDS: MODAFINIL 200 MG TAB PO SCH (09:03)
[2017-11-14 10:14] LABS: BICARBONATE 15.5 MEQ/L (21.0-32.0); CALCIUM 8.2 MG/DL (8.5-10.1); CREATININE 3.52 MG/DL (0.60-1.30)
--- NOTE | 2017-11-14 11:54 | HHI.HCPN ---
Reason for visit a. To assist with evaluation and management of symptoms including: Pain, physical deconditioning b. To assist medical decision maker(s) with: better understanding of current medical conditions; weighing benefits/burdens of medical treatment options; making medical treatment decisions. Subjective/Interval History Follow up medically necessary for symptom management and continued clarification of goals of medical treatment. Patient seen and examined in his room in the presence of an occupational therapist. Patient is alert, oriented to self, place and situation. Patient complaining of pain to his sacral area and his feet. Patient is on Morphine Sulfate q 8 hrs around the clock and Gabapentin. Report from bedside RN that patient has a wound to his sacral area and a skin tear to his left groin. Patient still has asterixis to bilateral upper extremities. Interim course: * Laboratory workup: 11/13 WBC 5.5, hemoglobin 10.2, hematocrit 32.2, platelet count 59 11/13 ammonia 35, trending down; 11/14 BUN /creatinine 65/3.52-trending up-nephrology consult placed Readdressed code status, patient `s goals remain aggressive, he wants everything possible done to keep him alive. Patient states , "I am not going anywhere anytime soon". Case discussed with bedside RN and Dr. Mitchell. . Family/friend interactions Telephone call to patient`s daughter, LOW Salas- left voice message . Advance Directives Health Care Surrogate: Copy in medical record Advance Directive Specifics Date completed: 11/06/2017 . Health Care Surrogate(s): Healthcare surrogate -Olga Silva [phone] Alternate healthcare surrogate -DaughterCarolina Arambula [phone] Third choice (Alternate HCS)-Carisa Ayala-[phone] . Objective Vital Signs Date Time Temp Pulse Resp B/P (MAP) Pulse Ox O2 Delivery O2 Flow Rate FiO2 11/14/17 08:15 97.9 90 16 111/57 (75) 95 11/14/17 04:00 72 11/14/17 04:00 98.3 75 18 Automatic Cuff 98 11/14/17 00:00 67 11/14/17 00:00 98.1 68 16 91/44 (60) 98 85/41 (56) 11/13/17 20:00 98.1 74 16 104/62 (76) 96 11/13/17 20:00 71 11/13/17 17:41 97.7 71 18 106/54 (71) 95 11/13/17 16:00 67 11/13/17 12:31 97.9 85 18 126/87 (100) 97 11/13/17 12:00 70 Intake & Output 11/14/17 11/14/17 07:00 19:00 Intake Total 1435 ml Output Total 375 ml Balance 1060 ml IV Total 1435 ml Output Urine Total 375 ml # Voids 1 # Bowel Movements 1 1 Physical Exam CONSTITUTIONAL/GENERAL: This is a chronically ill-appearing patient, c/o sacral discomfort and neuropathic pain to BLE CARDIOVASCULAR: S1, S2 normal, no gallops, or rubs. No JVD. Peripheral pulses symmetric. Edema to Right LE RESPIRATORY/CHEST: Symmetric, unlabored respirations. Diminished in the bases GASTROINTESTINAL: Abdomen soft, non-tender, no guarding. Active bowel sounds. MUSCULOSKELETAL: Extremities without clubbing, cyanosis, or edema. No calf tenderness. No mottling or clubbing. NEUROLOGICAL: Awake, alert and oriented x3. motor and sensory grossly within normal limits. Follows commands. Moves all extremities. PSYCHIATRIC: No obvious anxiety/depression. no apparent hallucinations or other psychotic thought process. . Diagnostic Tests Laboratory Laboratory Tests Test 11/12/17 11:10 11/13/17 05:30 11/14/17 08:40 Ammonia 43 MCMOL/L (11-32) 35 MCMOL/L (11-32) White Blood Count 5.5 TH/MM3 (4.0-11.0) Red Blood Count 3.48 MIL/MM3 (4.50-5.90) Hemoglobin 10.2 GM/DL (13.0-17.0) Hematocrit 32.2 % (39.0-51.0) Mean Corpuscular Volume 92.6 FL (80.0-100.0) Mean Corpuscular Hemoglobin 29.4 PG (27.0-34.0) Mean Corpuscular Hemoglobin Concent 31.7 % (32.0-36.0) Red Cell Distribution Width 17.7 % (11.6-17.2) Platelet Count 59 TH/MM3 (150-450) Mean Platelet Volume 9.9 FL (7.0-11.0) Blood Urea Nitrogen 66 MG/DL (7-18) 65 MG/DL (7-18) Creatinine 3.21 MG/DL (0.60-1.30) 3.52 MG/DL (0.60-1.30) Random Glucose 163 MG/DL (74-106) 114 MG/DL (74-106) Calcium Level 8.4 MG/DL (8.5-10.1) 8.2 MG/DL (8.5-10.1) Sodium Level 139 MEQ/L (136-145) 138 MEQ/L (136-145) Potassium Level 4.3 MEQ/L (3.5-5.1) 4.0 MEQ/L (3.5-5.1) Chloride Level 112 MEQ/L (98-107) 111 MEQ/L (98-107) Carbon Dioxide Level 17.6 MEQ/L (21.0-32.0) 15.5 MEQ/L (21.0-32.0) Anion Gap 9 MEQ/L (5-15) 12 MEQ/L (5-15) Estimat Glomerular Filtration Rate 23 ML/MIN (>89) 21 ML/MIN (>89) Result Diagram: 11/13/17 0530 11/14/17 0840 Assessment and Plan Disease Oriented Problem List: (1) Cirrhosis with portal hypertension (2) Non-Hodgkin lymphoma in remission (3) Chronic kidney disease, stage III (moderate) (4) Tremor (5) Hyperammonemia (6) Coronary artery disease (7) Hypertension (8) Diabetes mellitus (9) GERD (gastroesophageal reflux disease) Symptom Scale: (1) Pain 0-10 Scale: Unable to quantify Comment: Generalized pain, abdominal pain at times. History of peripheral neuropathy. . (2) Physical deconditioning 0-10 Scale: Unable to quantify Comment: Progressive/worsening . Pertinent Non-Medical Issues Psychosocial:Patient was born in [place] and he moved to [place] when he was very young. Patient was twice, once and his second is . 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 Patient his 2 adult daughters and 1 son. Patient lived alone in an apartment prior to this hospitalization. Spiritual: Patient is Muslim Legal: Completed healthcare surrogate form Ethical issues impacting care: None identified at this time . Important Contacts Daughter-Olga Hurtado [phone] DaughterCarolina Arambula [phone] . Prognosis Mr. 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 Patient presented to the ED on 11/01/17 with complaints of tremors and jerking movements and lower abdominal back pain that have been happening to him for approximately a month. Patient is status post Treanda chemotherapy 6 cycles for non-Hodgkin lymphoma and he completed treatment in March 2017. Restaging PET scan in May 2017 was normal. Given ongoing comorbidities patient remains at risk for further complications, deterioration and decline . Code Status: Full Code Plan PLAN: Legal decision maker: Patient is able to participate in medical decision making. In the event that he is incapacitated, patient has designated his daughter Olga Salas as his healthcare surrogate and daughter Carolina Salas as his alternate healthcare surrogate and if the aforementioned are not able to serve his third choice is his sister Samantha Younger. Goals: Remain aggressive CODE STATUS: Full Code SYMPTOMS: * Pain: History of peripheral neuropathy. Came in complaining of generalized pain, he has jerking/abnormal movement. Patient also complaining of abdominal pain. Patient is on gabapentin 300 mg TID, morphine sulfate 30 mg every 8 hours. C/o pain to his sacral area and bilateral feet. No recommendations. * Physical deconditioning: Patient ambulates at home with a walker and is now requiring SNF. Per family, patient is being progressively declining and requiring assistance with most of his ADLs. Physical therapy consulted, recommended PT at rehab. 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 Patient continues to have asterixis to his BUE. Occupational therapy following. Palliative care will continue to follow the patient during hospital course as condition evolves, to assist patient/decision-maker with understanding of their medical conditions, weighing benefits/burdens of treatment options, for clarification of goals of treatment. Additionally will assist with any symptoms of palliative concern Attestation To help prompt me to consider important information that might be impacting today's encounter and assessment, information from prior notes written by myself or my colleagues may have been "brought forward" into today's note. My signature on this note, however, is an attestation that I personally performed the exam, history, and/or decision-making noted today, and, unless otherwise indicated, the interactions with patient, family, and staff as well as the review of records all occurred today. I also attest that the listed assessment and stated plan reflect my best clinical judgment today based on the combination of historical information, prior notes, and today's exam/ interactions. When time spent is documented, it refers only to time spent today by the signer, or if indicated, combined time spent today by collaborating physician/nurse practitioner. Speedy Arthur Nov 14, 2017 11:54
[2017-11-14] MEDS: SODIUM CHLOR 0.9% 1000 ML INJ 1,000 ML IV SCH (13:47)
--- NOTE | 2017-11-14 16:06 | HHI.PR ---
Subjective Remarks Deferred entry, the patient was seen earlier at 11 AM. The patient denies chest pain or shortness of breath. Creatinine noted to be trending up. Objective Vitals Vital Signs Date Time Temp Pulse Resp B/P (MAP) Pulse Ox O2 Delivery O2 Flow Rate FiO2 11/14/17 15:52 98.1 73 14 103/65 (78) 97 11/14/17 14:31 98.0 76 18 115/57 (76) 98 11/14/17 08:15 97.9 90 16 111/57 (75) 95 11/14/17 08:00 57 11/14/17 04:00 72 11/14/17 04:00 98.3 75 18 Automatic Cuff 98 11/14/17 00:00 67 11/14/17 00:00 98.1 68 16 91/44 (60) 98 85/41 (56) 11/13/17 20:00 98.1 74 16 104/62 (76) 96 11/13/17 20:00 71 11/13/17 17:41 97.7 71 18 106/54 (71) 95 I/O 11/13/17 11/13/17 11/13/17 11/14/17 11/14/17 11/14/17 06:59 14:59 22:59 06:59 14:59 22:59 Intake Total 580 ml 480 ml 1435 ml Output Total 250 ml 375 ml Balance 330 ml 480 ml -375 ml 1435 ml Intake Oral 480 ml 480 ml IV Total 100 ml 1435 ml Output Urine Total 250 ml 375 ml # Voids 1 # Bowel Movements 1 2 Result Diagram: 11/13/17 0530 11/14/17 0840 Imaging Last Impressions Chest X-Ray 11/09/17 0000 Signed Impressions: Service Date/Time: October 05:02 - CONCLUSION: Mild left base atelectasis. Nghia Sneed MD Abdomen/Pelvis CT 11/01/17 2258 Signed Impressions: Service Date/Time: Wednesday, November 01, 2017 23:11 - CONCLUSION: 1. Cirrhosis with portal hypertension and splenomegaly. 2. Nonspecific low density along the pancreatic tail measures 3.9 cm. 3. Moderate abdominal ascites. 4. Nonobstructing right renal calculus. Josiah Anderson MD Head CT 11/01/17 0000 Signed Impressions: Service Date/Time: Wednesday, November 01, 2017 23:07 - CONCLUSION: No acute intracranial disease. Josiah Anderson MD Objective Remarks GENERAL: Thin, awake and alert SKIN: Warm and dry. HEAD: Normocephalic. EYES: No scleral icterus. No injection or drainage. NECK: Supple, trachea midline. No JVD or lymphadenopathy. CARDIOVASCULAR: Regular rate and rhythm, 2/6 BREE, gallops, or rubs. RESPIRATORY: Breath sounds equal bilaterally. No accessory muscle use. GASTROINTESTINAL: Abdomen soft, non-tender, nondistended. EXTREMITIES: No cyanosis, or edema. NEUROLOGICAL: Awake, alert, and oriented x 3. Non-focal. Procedures None Medications and IVs Current Medications Medications (Trade) Dose Ordered Sig/Toni Route Start Time Stop Time Status Last Admin (NS Flush) 2 ml UNSCH PRN IV FLUSH 11/02/17 00:45 11/08/17 03:43 (NS Flush) 2 ml BID IV FLUSH 11/02/17 09:00 11/14/17 09:03 (Zofran Inj) 4 mg Q6H PRN IVP 11/02/17 00:45 11/12/17 15:10 (Narcan Inj) 0.4 mg UNSCH PRN IV PUSH 11/02/17 00:45 (Oramorph Sr) 30 mg Q8H PO 11/02/17 06:00 11/14/17 14:00 (Protonix) 40 mg DAILY PO 11/02/17 09:00 11/14/17 09:01 (Desyrel) 50 mg HS PO 11/02/17 21:00 11/13/17 21:12 (D50w (Vial) Inj) 50 ml UNSCH PRN IV PUSH 11/02/17 02:15 (Glucagon Inj) 1 mg UNSCH PRN OTHER 11/02/17 02:15 (NovoLOG SUPPLEMENTAL SCALE) 1 ACHS SLIDING SCALE SQ 11/02/17 08:00 11/13/17 17:33 (Proventil) 4 mg TID PO 11/02/17 09:00 11/14/17 13:47 (Atrovent Neb) 0.5 mg Q6HR NEB PRN NEB 11/02/17 08:30 11/07/17 22:56 (Nitrostat Sl) 0.4 mg Q5M PRN SL 11/02/17 08:30 (Imdur) 120 mg DAILY@0700 PO 11/04/17 07:00 11/14/17 06:09 (Toprol Xl) 100 mg BID PO 11/03/17 09:00 11/14/17 09:03 (Oscal) 500 mg DAILY PO 11/05/17 09:00 11/14/17 09:02 (Tessalon) 200 mg Q8H PRN PO 11/05/17 09:45 (Mucinex Er) 600 mg BID PO 11/05/17 21:00 11/14/17 09:02 (NS Flush) 5 ml UNSCH PRN IV FLUSH 11/06/17 09:00 11/14/17 03:58 (Heparin Central Flush) 250 units UNSCH PRN IV FLUSH 11/06/17 09:00 11/09/17 21:35 (Heparin Central Flush) 500 units UNSCH IV FLUSH 11/06/17 09:00 (Provigil) 100 mg DAILY PO 11/06/17 11:00 11/14/17 09:03 (Pill Splitter) 1 ea UNSCH PRN OTHER 11/06/17 11:00 11/07/17 09:19 (Xifaxan) 550 mg BID PO 11/07/17 21:00 11/14/17 09:02 Ceftriaxone Sodium 1000 mg/ Sodium Chloride 100 ml @ 200 mls/hr Q12H IV 11/09/17 16:00 11/14/17 04:00 Metronidazole 100 ml @ 100 mls/hr Q6H IV 11/09/17 17:00 11/14/17 13:47 (NS Flush) 5 ml UNSCH PRN IV FLUSH 11/09/17 20:45 (Heparin Central Flush) 250 units UNSCH PRN IV FLUSH 11/09/17 20:45 (Heparin Central Flush) 500 units UNSCH IV FLUSH 11/09/17 20:45 (Ultram) 50 mg Q8H PRN PO 11/10/17 18:45 11/14/17 13:47 (Lactulose Liq) 30 ml BID PO 11/11/17 21:00 Future Hold 11/14/17 09:01 (Neurontin) 300 mg BID PO 11/13/17 21:00 11/14/17 09:02 Sodium Chloride 1,000 ml @ 100 mls/hr Q10H IV 11/13/17 16:00 11/14/17 13:47 A/P Problem List: (1) Hepatic encephalopathy ICD Code: K72.90 - Hepatic failure, unspecified without coma Plan: Hyperammonemia in the setting of liver cirrhosis and hepatitis C. EEG negative for seizures. nown hepatitis C- treatment naive- genotype 1 b - Quant over [address] abdomen and pelvis W/O IV contrast (11/01) --> Cirrhosis with portal hypertension and splenomegaly. Nonspecific low density along the pancreatic tail measures 3.9 cm. Moderate abdominal ascites. Ammonia was highest on 11/09 at 255- per notes pt was obtunded and not taking medication at that time, he was switched to Lactulose enemas, today pt appears more alert and able to tolerate PO. He is on Lactulose on Xifaxan Patient also started on rocephin and IV Flagyl Patient having loose stools retaining on O's so dose was reduced. Ammonia level was trended and trending down. GI consulted. Signed off. Palliative care consulted. (2) Hyperammonemia ICD Code: E72.20 - Disorder of urea cycle metabolism, unspecified Plan: As above. Hold lactulose given diarrhea and increasing creatinine. We will monitor ammonia levels. (3) Thrombocytopenia ICD Code: D69.6 - Thrombocytopenia, unspecified Status: Chronic Plan: Chronic. Likely secondary to with cirrhosis with portal hypertension and hypersplenism. Continue to monitor platelets. Oncology consulted. Appreciate recommendations. There is no evidence of bleeding. (4) Liver cirrhosis ICD Code: K74.60 - Unspecified cirrhosis of liver Plan: Management as above. Continue lactulose, rifaximin, modafinil. (5) DM type 2 (diabetes mellitus, type 2) ICD Code: E11.9 - Type 2 diabetes mellitus without complications Plan: Blood sugar stable. Continue SSI with insulin NovoLog. (6) LATOSHA (acute kidney injury) ICD Code: N17.9 - Acute kidney failure, unspecified Status: Acute Plan: Upon review of records the patient has a baseline creatinine at around 1.2-1.4. Creatinine continues to trend up. Creatinine went up from 3.21-3.52. Consult nephrology, check renal ultrasound. (7) CKD stage 3 secondary to diabetes ICD Code: E11.22 - Type 2 diabetes mellitus with diabetic chronic kidney disease; N18.3 - Chronic kidney disease, stage 3 (moderate) Status: Chronic Plan: As above. (8) Non-Hodgkin lymphoma in remission ICD Code: C85.90 - Non-Hodgkin lymphoma, unspecified, unspecified site Plan: Hematology/oncology consulted. Appreciate recommendations. Patient with non-Hodgkin's lymphoma in remission. (9) Diabetic neuropathy ICD Code: E11.40 - Type 2 diabetes mellitus with diabetic neuropathy, unspecified Plan: Continue gabapentin. 11/[address] Tavares to 300 mg p.o. twice daily on 11/13 with relief of symptoms. Assessment and Plan DVT prophylaxis: SCDs, avoid chemoprophylaxis given thrombocytopenia and liver cirrhosis. Discharge Planning Continue to monitor and the medical floor. Pending discharge stabilization improvement of creatinine. Patient will need rehab placement. Problem Qualifiers (1) Liver cirrhosis: Qualified Codes: K74.60 - Unspecified cirrhosis of liver (2) DM type 2 (diabetes mellitus, type 2): Qualified Codes: E11.65 - Type 2 diabetes mellitus with hyperglycemia; Z79.4 - skilled nursing (current) use of insulin (3) Diabetic neuropathy: Qualified Codes: E11.42 - Type 2 diabetes mellitus with diabetic polyneuropathy Isaiah Hutchinson MD Nov 14, 2017 16:06
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
[2017-11-14] MEDS: traZODone HCL 50 MG TAB PO SCH (20:46)
[2017-11-14] MEDS: SODIUM BICARBONATE 650 MG TAB PO SCH (22:43)
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
[2017-11-15] VITALS (12 sets, daily range): BP systolic 100–111; BP diastolic 55–65; PULSE 68–74; RESP 18–20; TEMP 97.4–98.6; O2SAT 95–98
[2017-11-15] MEDS: cefTRIAXone INJ 1,000 MG in SODIUM CHLORIDE 0.9% INJ 100 ML IV SCH ×2 (03:58→15:52)
[2017-11-15] MEDS: metroNIDAZOLE 500 MG INJ 100 ML IV SCH ×4 (05:16→21:55)
[2017-11-15] MEDS: MORPHINE SULFATE 30 MG CONTROLLED RELEASE TAB PO SCH ×3 (06:10→21:53)
[2017-11-15] MEDS: ISOSORBIDE MONONITRATE 60 MG CR TAB (IMDUR) PO SCH (06:11)
[2017-11-15 07:23] LABS: BICARBONATE 14.1 MEQ/L (21.0-32.0); CALCIUM 8.2 MG/DL (8.5-10.1); CREATININE 3.85 MG/DL (0.60-1.30); PHOSPHORUS 4.8 MG/DL (2.5-4.9)
[2017-11-15] MEDS: INSULIN ASPART SUPPLEMENTAL SCALE SQ SCH ×4 (07:49→21:00)
[2017-11-15] MEDS: SODIUM CHLORIDE 0.9% FLUSH 10 ML FLUSH IV FLUSH SCH ×2 (09:00→21:51)
[2017-11-15] MEDS: ALBUTEROL SULFATE 2 MG TAB PO SCH ×3 (09:12→17:11)
[2017-11-15] MEDS: CALCIUM CARBONATE 1.25 GM (CA 500 MG) TAB PO SCH (09:12)
[2017-11-15] MEDS: METOPROLOL SUCCINATE 50 MG EXTENDED RELEASE TAB PO SCH ×2 (09:12→21:54)
[2017-11-15] MEDS: guaiFENesin E.R. 600 MG TAB PO SCH ×2 (09:12→21:53)
[2017-11-15] MEDS: SODIUM BICARBONATE 650 MG TAB PO SCH (09:12)
[2017-11-15] MEDS: GABAPENTIN 300 MG CAP PO SCH ×2 (09:13→21:53)
[2017-11-15] MEDS: PANTOPRAZOLE SOD 40 MG DELAYED RELEASE TAB PO SCH (09:13)
[2017-11-15] MEDS: MODAFINIL 200 MG TAB PO SCH (09:13)
[2017-11-15] MEDS: RIFAXIMIN 550 MG TAB PO SCH ×2 (09:13→21:52)
--- NOTE | 2017-11-15 10:37 | HHI.NPPN ---
Subjective Renal Failure: Chronic History of Present Illness Patient is a 72-year-old male with a past medical history significant for non- Hodgkin's lymphoma, hepatitis C, anemia, COPD, CAD, insulin-dependent diabetes mellitus, chronic kidney disease, hypertension and hyperlipidemia. Presented emergency department for the evaluation of jerking movements. Nephrology is consulted for rising creatinine. On admission creatinine was 2.54 and has now increased to 3.52, potassium 4, and CO2 level at 15.5 today. Patient denies any shortness of breath. No edema. present. Per records has past medical history of chronic kidney disease stage 3 most likely related to diabetes vs HTN vs renovascular disease. Has a brother who is on hemodialysis. Additional Remarks Sitting up in chair. Has some nausea this morning. Denies any shortness of breath. (aPula Baum) Review of Systems Respiratory Respiratory Remarks denies any SOB (Paula Baum) Cardiovascular Cardiac Remarks Denies CP (Paula Baum) Gastrointestinal Gastrointestinal: Nausea & Vomiting (Paula Baum) Objective Data Data 11/15/17 11/16/17 19:00 07:00 Intake Total 640 ml Balance 640 ml IV Total 640 ml Vital Signs Date Time Temp Pulse Resp B/P (MAP) Pulse Ox O2 Delivery O2 Flow Rate FiO2 11/15/17 07:22 98.6 70 19 107/62 (77) 98 11/15/17 03:58 98.0 73 20 102/65 (77) 98 11/15/17 00:00 97.8 74 20 100/55 (70) 98 11/14/17 21:47 18 11/14/17 20:03 74 11/14/17 20:00 98.1 73 18 114/54 (74) 96 11/14/17 18:00 72 11/14/17 17:00 74 11/14/17 16:00 72 11/14/17 15:52 98.1 73 14 103/65 (78) 97 11/14/17 15:00 73 11/14/17 14:31 98.0 76 18 115/57 (76) 98 (Paula Baum) -: 11/13/17 0530 11/15/17 0630 Imaging Last Impressions Renal Ultrasound 11/14/17 0000 Signed Impressions: Service Date/Time: Tuesday, November 14, 2017 22:30 - CONCLUSION: 1. Nonobstructing right renal calculus. Left renal cyst. Distal pancreatic cyst. Christophe Hernández MD Chest X-Ray 11/09/17 0000 Signed Impressions: Service Date/Time: October 05:02 - CONCLUSION: Mild left base atelectasis. Nghia Sneed MD Abdomen/Pelvis CT 11/01/17 2258 Signed Impressions: Service Date/Time: Wednesday, November 01, 2017 23:11 - CONCLUSION: 1. Cirrhosis with portal hypertension and splenomegaly. 2. Nonspecific low density along the pancreatic tail measures 3.9 cm. 3. Moderate abdominal ascites. 4. Nonobstructing right renal calculus. Josiah Anderson MD Head CT 11/01/17 0000 Signed Impressions: Service Date/Time: Wednesday, November 01, 2017 23:07 - CONCLUSION: No acute intracranial disease. Josiah Anderson MD (GellermannPaula M. BROOMCORN SCRAPER) Physical Exam General Appearance: No Acute Distress (GellermannRamaPaula M. BROOMCORN SCRAPER) Eyes Eye Exam: Pupils Equal (GellermannRamaPaula M. BROOMCORN SCRAPER) Throat Throat Exam: Oral Mucosa [place] & Moist (GellermannRamaPaula M. BROOMCORN SCRAPER) Pulmonary Resp Exam: No Distress, Decreased Bases (GellermannPaula M. BROOMCORN SCRAPER) Cardiology CV Exam: Regular (GellermannRamaPaula M. BROOMCORN SCRAPER) Gastrointestinal/Abdomen GI Exam: Non-Tender, Bowel Sounds Present, Distended (GellermannRamaPaula M. BROOMCORN SCRAPER) Genitourinary Exam: Flank Non-Tender (GellermannRamaPaula M. BROOMCORN SCRAPER) Integumentary Skin Exam: Clear, Warm (GellermannRamaPaula M. BROOMCORN SCRAPER) Extremeties Extremities Exam: Trace Edema (GellermannPaula M. BROOMCORN SCRAPER) Neurologic Neuro Exam: Alert, Awake Neuro Remarks speech delayed (GellerRama cunninghamne M. BROOMCORN SCRAPER) Assessment/Plan Problem List: (1) ARF (acute renal failure) ICD Codes: N17.9 - Acute kidney failure, unspecified Status: Acute Plan: Acute kidney injury on admission creatinine was 2.54 and has now increased to 3.52 when consulted possible prerenal vs ATN from poor intake and hypotension. Chronic kidney disease stage 3 most likely related to diabetes vs HTN vs renovascular disease. Renal US with nonobstructing right renal calculus and left renal cyst Plan Continue IVF 1/2 NS with bicarbonate Monitor BMP and UOP Continue calcium replacement Blood pressure on lower side will decrease metoprolol Creatinine increased at 3.85 from 3.52. (2) Hypertension ICD Codes: I10 - Essential (primary) hypertension Plan: On metoprolol and isosorbide (3) Diabetes mellitus ICD Codes: E11.9 - Type 2 diabetes mellitus without complications (Paula Baum) Problem List: (1) ARF (acute renal failure) ICD Codes: N17.9 - Acute kidney failure, unspecified Status: Acute Plan: Acute kidney injury on admission creatinine was 2.54 and has now increased to 3.52 when consulted possible prerenal vs ATN from poor intake and hypotension. Chronic kidney disease stage 3 most likely related to diabetes vs HTN vs renovascular disease. Renal US with nonobstructing right renal calculus and left renal cyst Plan Continue IVF 1/2 NS with bicarbonate Monitor BMP and UOP Continue calcium replacement Blood pressure on lower side will decrease metoprolol Creatinine increased at 3.85 from 3.52. Patient seen and examined, agree with above. Creatinine continue to increase , possibly has ATN with minimal proteinuria. Follow urine out put and BMP. (2) Hypertension ICD Codes: I10 - Essential (primary) hypertension Plan: On metoprolol and isosorbide (3) Diabetes mellitus ICD Codes: E11.9 - Type 2 diabetes mellitus without complications (Barrie Oconnor MD) Paula Baum Nov 15, 2017 10:37 Barrie Oconnor MD Nov 16, 2017 18:34
[2017-11-15] MEDS: SODIUM BICARBONATE 8.4% INJ 100 MEQ in SODIUM CHLOR 0.45% 1000 ML INJ 1,000 ML IV SCH (11:06)
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
--- NOTE | 2017-11-15 17:49 | HHI.PR ---
Subjective Remarks Patient is awake and alert. Denies cp/sob Creatinine trending up Afebrile Objective Vitals Vital Signs Date Time Temp Pulse Resp B/P (MAP) Pulse Ox O2 Delivery O2 Flow Rate FiO2 11/15/17 15:36 97.4 71 18 102/55 (71) 95 11/15/17 11:03 98.6 74 19 101/62 (75) 96 11/15/17 09:15 74 11/15/17 07:22 98.6 70 19 107/62 (77) 98 11/15/17 03:58 98.0 73 20 102/65 (77) 98 11/15/17 00:00 97.8 74 20 100/55 (70) 98 11/14/17 21:47 18 11/14/17 20:03 74 11/14/17 20:00 98.1 73 18 114/54 (74) 96 11/14/17 18:00 72 I/O 11/14/17 11/14/17 11/14/17 11/15/17 11/15/17 11/15/17 07:00 15:00 23:00 07:00 15:00 23:00 Intake Total 1435 ml 100 ml 240 ml 740 ml 580 ml Output Total 300 ml Balance 1435 ml 100 ml 240 ml 740 ml 280 ml Intake Oral 240 ml 480 ml IV Total 1435 ml 100 ml 740 ml 100 ml Output Urine Total 300 ml # Voids 1 1 # Bowel Movements 1 2 1 Result Diagram: 11/13/17 0530 11/15/17 0630 Imaging Last 72 hours Impressions Renal Ultrasound 11/14/17 0000 Signed Impressions: Service Date/Time: Tuesday, November 14, 2017 22:30 - CONCLUSION: 1. Nonobstructing right renal calculus. Left renal cyst. Distal pancreatic cyst. Christophe Hernández MD Objective Remarks GENERAL: Thin, awake and alert SKIN: Warm and dry. HEAD: Normocephalic. EYES: No scleral icterus. No injection or drainage. NECK: Supple, trachea midline. No JVD or lymphadenopathy. CARDIOVASCULAR: Regular rate and rhythm, 2/6 BREE, gallops, or rubs. RESPIRATORY: Breath sounds equal bilaterally. No accessory muscle use. GASTROINTESTINAL: Abdomen soft, non-tender, nondistended. EXTREMITIES: No cyanosis, or edema. NEUROLOGICAL: Awake, alert, and oriented x 3. Non-focal. Procedures None Urinary Catheter: No Vascular Central Line Catheter: No A/P Problem List: (1) Hepatic encephalopathy ICD Code: K72.90 - Hepatic failure, unspecified without coma Plan: Hyperammonemia in the setting of liver cirrhosis and hepatitis C. EEG negative for seizures. nown hepatitis C- treatment naive- genotype 1 b - Quant over [address] abdomen and pelvis W/O IV contrast (11/01) --> Cirrhosis with portal hypertension and splenomegaly. Nonspecific low density along the pancreatic tail measures 3.9 cm. Moderate abdominal ascites. Ammonia was highest on 11/09 at 255- per notes pt was obtunded and not taking medication at that time, he was switched to Lactulose enemas, today pt appears more alert and able to tolerate PO. He is on Lactulose on Xifaxan Patient also started on rocephin and IV Flagyl Patient having loose stools retaining on O's so dose was reduced. Ammonia level was trended and trending down. GI consulted. Signed off. Palliative care consulted. (2) Hyperammonemia ICD Code: E72.20 - Disorder of urea cycle metabolism, unspecified Plan: As above. Hold lactulose given diarrhea and increasing creatinine. We will monitor ammonia levels. (3) Thrombocytopenia ICD Code: D69.6 - Thrombocytopenia, unspecified Status: Chronic Plan: Chronic. Likely secondary to with cirrhosis with portal hypertension and hypersplenism. Continue to monitor platelets. Oncology consulted. Appreciate recommendations. There is no evidence of bleeding. (4) Liver cirrhosis ICD Code: K74.60 - Unspecified cirrhosis of liver Plan: Management as above. Continue lactulose, rifaximin, modafinil. (5) DM type 2 (diabetes mellitus, type 2) ICD Code: E11.9 - Type 2 diabetes mellitus without complications Plan: Blood sugar stable. Continue SSI with insulin NovoLog. (6) LATOSHA (acute kidney injury) ICD Code: N17.9 - Acute kidney failure, unspecified Status: Acute Plan: Upon review of records the patient has a baseline creatinine at around 1.2-1.4. Creatinine continues to trend up. Creatinine went up from 3.21-3.52. 11/15 appreciate nephrology recommendations. Renal us showed a Nonobstructing right renal calculus. Left renal cyst. Distal pancreatic cyst. Continue IV fluids, fu labs ordered by nephrology. (7) CKD stage 3 secondary to diabetes ICD Code: E11.22 - Type 2 diabetes mellitus with diabetic chronic kidney disease; N18.3 - Chronic kidney disease, stage 3 (moderate) Status: Chronic Plan: As above. (8) Non-Hodgkin lymphoma in remission ICD Code: C85.90 - Non-Hodgkin lymphoma, unspecified, unspecified site Plan: Hematology/oncology consulted. Appreciate recommendations. Patient with non-Hodgkin's lymphoma in remission. (9) Diabetic neuropathy ICD Code: E11.40 - Type 2 diabetes mellitus with diabetic neuropathy, unspecified Plan: Continue gabapentin. 11/[address] Tavares to 300 mg p.o. twice daily on 11/13 with relief of symptoms. Assessment and Plan DVT prophylaxis: SCDs, avoid chemoprophylaxis given thrombocytopenia and liver cirrhosis. Discharge Planning Continue to monitor and the medical floor. Pending discharge stabilization improvement of creatinine. Patient will need rehab placement. Problem Qualifiers (1) Liver cirrhosis: Qualified Codes: K74.60 - Unspecified cirrhosis of liver (2) DM type 2 (diabetes mellitus, type 2): Qualified Codes: E11.65 - Type 2 diabetes mellitus with hyperglycemia; Z79.4 - innersole maker (current) use of insulin (3) Diabetic neuropathy: Qualified Codes: E11.42 - Type 2 diabetes mellitus with diabetic polyneuropathy Isaiah Hutchinson MD Nov 15, 2017 17:48
[2017-11-15] MEDS: traZODone HCL 50 MG TAB PO SCH (21:52)
[2017-11-16] VITALS (27 sets, daily range): BP systolic 86–129; BP diastolic 49–65; PULSE 68–76; RESP 16–18; TEMP 97.7–98.6; O2SAT 93–99
[2017-11-16] MEDS: cefTRIAXone INJ 1,000 MG in SODIUM CHLORIDE 0.9% INJ 100 ML IV SCH ×2 (02:53→16:00)
[2017-11-16] MEDS: metroNIDAZOLE 500 MG INJ 100 ML IV SCH ×4 (04:12→22:17)
[2017-11-16] MEDS: ISOSORBIDE MONONITRATE 60 MG CR TAB (IMDUR) PO SCH (05:48)
[2017-11-16] MEDS: MORPHINE SULFATE 30 MG CONTROLLED RELEASE TAB PO SCH (05:48)
[2017-11-16 06:42] LABS: AUTOMATED NEUTROPHIL # 3.1 TH/MM3 (1.8-7.7); BASOPHIL % 0.4 % (0.0-2.0); EOSINOPHIL # 0.1 TH/MM3 (0-0.4); EOSINOPHIL % 1.4 % (0.0-4.0); HEMOGLOBIN 10.6 GM/DL (13.0-17.0); LYMPH % 31.8 % (9.0-44.0); LYMPHOCYTE # 1.8 TH/MM3 (1.0-4.8); MEAN CELL VOLUME 91.5 FL (80.0-100.0); MEAN CORPUSCULAR HEMOGLOBIN 29.3 PG (27.0-34.0); MEAN PLATELET VOLUME 8.8 FL (7.0-11.0); MONO % 12.1 % (0.0-8.0); MONOCYTE # 0.7 TH/MM3 (0-0.9); NEUT % 54.3 % (16.0-70.0); PLATELET COUNT 67 TH/MM3 (150-450); WHITE BLOOD COUNT 5.7 TH/MM3 (4.0-11.0)
[2017-11-16 07:02] LABS: ALBUMIN 1.9 GM/DL (3.4-5.0); ALT (GPT) 19 U/L (12-78); AST (GOT) 37 U/L (15-37); BICARBONATE 14.9 MEQ/L (21.0-32.0); BLOOD UREA NITROGEN 68 MG/DL (7-18); CALCIUM 8.1 MG/DL (8.5-10.1); CHLORIDE 111 MEQ/L (98-107); CREATININE 4.06 MG/DL (0.60-1.30); GLOMERULAR FILTRATION RATE 18 ML/MIN (>89); GLUCOSE,RANDOM 106 MG/DL (74-106); MAGNESIUM 2.7 MG/DL (1.5-2.5); PHOSPHORUS 4.9 MG/DL (2.5-4.9); SODIUM (NA) 139 MEQ/L (136-145)
[2017-11-16 07:04] LABS: ALKALINE PHOSPHATASE 63 U/L (45-117)
[2017-11-16 07:49] LABS: OVALOCYTES 1+ (NORMAL)
[2017-11-16] MEDS: INSULIN ASPART SUPPLEMENTAL SCALE SQ SCH ×4 (08:00→21:00)
[2017-11-16] MEDS: SODIUM CHLORIDE 0.9% FLUSH 10 ML FLUSH IV FLUSH SCH ×2 (09:00→21:20)
[2017-11-16] MEDS: METOPROLOL SUCCINATE 50 MG EXTENDED RELEASE TAB PO SCH ×2 (09:00→21:18)
[2017-11-16] MEDS: CALCIUM CARBONATE 1.25 GM (CA 500 MG) TAB PO SCH (09:26)
[2017-11-16] MEDS: ALBUTEROL SULFATE 2 MG TAB PO SCH ×3 (09:27→18:00)
[2017-11-16] MEDS: MODAFINIL 200 MG TAB PO SCH (09:27)
[2017-11-16] MEDS: guaiFENesin E.R. 600 MG TAB PO SCH ×2 (09:27→21:00)
[2017-11-16] MEDS: GABAPENTIN 300 MG CAP PO SCH (09:27)
[2017-11-16] MEDS: PANTOPRAZOLE SOD 40 MG DELAYED RELEASE TAB PO SCH (09:27)
[2017-11-16] MEDS: SODIUM BICARBONATE 8.4% INJ 100 MEQ in SODIUM CHLOR 0.45% 1000 ML INJ 1,000 ML IV SCH (11:00)
--- NOTE | 2017-11-16 11:13 | HHI.NPPN ---
Subjective Renal Failure: Chronic History of Present Illness Patient is a 72-year-old male with a past medical history significant for non- Hodgkin's lymphoma, hepatitis C, anemia, COPD, CAD, insulin-dependent diabetes mellitus, chronic kidney disease, hypertension and hyperlipidemia. Presented emergency department for the evaluation of jerking movements. Nephrology is consulted for rising creatinine. On admission creatinine was 2.54 and has now increased to 3.52, potassium 4, and CO2 level at 15.5 today. Patient denies any shortness of breath. No edema. present. Per records has past medical history of chronic kidney disease stage 3 most likely related to diabetes vs HTN vs renovascular disease. Has a brother who is on hemodialysis. Additional Remarks Sleeping in bed and was just medicated so not that responsive. Anasarca is noted and minimal urinary output. (Paula Baum) Review of Systems Respiratory Respiratory Remarks denies any SOB (Paula Baum) Cardiovascular Cardiac Remarks Denies CP (Paula Baum) Objective Data Data 11/16/17 11/17/17 19:00 07:00 Bladder Scan Volume Amount 743 ml 743 ml Vital Signs Date Time Temp Pulse Resp B/P (MAP) Pulse Ox O2 Delivery O2 Flow Rate FiO2 11/16/17 07:01 74 11/16/17 06:00 76 11/16/17 05:00 72 11/16/17 04:00 74 11/16/17 04:00 98.0 75 18 122/65 (84) 99 11/16/17 03:00 74 11/16/17 02:00 72 11/16/17 01:00 72 11/16/17 00:00 76 11/16/17 00:00 98.6 68 18 115/60 (78) 93 11/15/17 23:00 74 11/15/17 22:00 70 11/15/17 21:00 70 11/15/17 20:00 70 11/15/17 20:00 98.4 71 18 111/56 (74) 96 11/15/17 17:00 68 11/15/17 15:36 97.4 71 18 102/55 (71) 95 11/15/17 13:00 71 11/15/17 11:03 98.6 74 19 101/62 (75) 96 (Paula Baum) -: 11/16/17 0607 11/16/17 0607 Physical Exam General Appearance: No Acute Distress (Paula Baum) Eyes Eye Exam: Pupils Equal (Paula Baum) Throat Throat Exam: Oral Mucosa [place] & Moist (Paula Baum) Pulmonary Resp Exam: No Distress, Decreased Bases (Paula Baum) Cardiology CV Exam: Regular (Paula Baum) Gastrointestinal/Abdomen GI Exam: Non-Tender, Bowel Sounds Present, Distended (Paula Baum) Genitourinary Exam: Flank Non-Tender (Paula Baum) Integumentary Skin Exam: Clear, Warm (Paula Baum) Extremeties Extremities Exam: Trace Edema (Paula Baum) Neurologic Neuro Exam: Alert, Awake Neuro Remarks speech delayed (Paula Baum) Assessment/Plan Problem List: (1) ARF (acute renal failure) ICD Codes: N17.9 - Acute kidney failure, unspecified Status: Acute Plan: Acute kidney injury on admission creatinine was 2.54 initially thought possible prerenal but the continue increase in creatinine more likely ATN from hypotension vs vasculitis from hepatitis C Hepatornal syndrome is also a possibility. Chronic kidney disease stage 3 most likely related to diabetes vs HTN vs renovascular disease. Renal US with nonobstructing right renal calculus. Left renal cyst. Distal pancreatic cyst. Plan Continue IVF 1/2 NS with bicarbonate Monitor BMP and UOP Continue calcium replacement Creatinine continues to increase at 4.06 today UOP decreasing and edema is increasing. Lasix gtt added Blood pressure medication decreased (2) Hypertension ICD Codes: I10 - Essential (primary) hypertension Plan: On metoprolol and isosorbide (3) Diabetes mellitus ICD Codes: E11.9 - Type 2 diabetes mellitus without complications (Paula Baum) Problem List: (1) ARF (acute renal failure) ICD Codes: N17.9 - Acute kidney failure, unspecified Status: Acute Plan: Acute kidney injury on admission creatinine was 2.54 initially thought possible prerenal but the continue increase in creatinine more likely ATN from hypotension vs vasculitis from hepatitis C Hepatornal syndrome is also a possibility. Chronic kidney disease stage 3 most likely related to diabetes vs HTN vs renovascular disease. Renal US with nonobstructing right renal calculus. Left renal cyst. Distal pancreatic cyst. Plan Continue IVF 1/2 NS with bicarbonate Monitor BMP and UOP Continue calcium replacement Creatinine continues to increase at 4.06 today UOP decreasing and edema is increasing. Lasix gtt added Blood pressure medication decreased. Patient seen and examined, agree with above. Started Lasix infusion, follow the urine out put and BMP. Most likely has ATN, with recurrent low BP and minimal proteinuria. (2) Hypertension ICD Codes: I10 - Essential (primary) hypertension Plan: On metoprolol and isosorbide (3) Diabetes mellitus ICD Codes: E11.9 - Type 2 diabetes mellitus without complications (Barrie Oconnor MD) Paula BuamP Nov 16, 2017 11:13 Barrie Oconnor MD Nov 16, 2017 19:07
[2017-11-16] MEDS: RIFAXIMIN 550 MG TAB PO SCH ×2 (12:43→21:00)
--- NOTE | 2017-11-16 13:50 | HHI.PR ---
Subjective Remarks patient more confused today oliguric worsening creatinine afebrile Objective Vitals Vital Signs Date Time Temp Pulse Resp B/P (MAP) Pulse Ox O2 Delivery O2 Flow Rate FiO2 11/16/17 12:01 98.1 71 18 95/57 (70) 95 11/16/17 08:45 97.8 74 18 95/52 (66) 98 11/16/17 07:01 74 11/16/17 06:00 76 11/16/17 05:00 72 11/16/17 04:00 74 11/16/17 04:00 98.0 75 18 122/65 (84) 99 11/16/17 03:00 74 11/16/17 02:00 72 11/16/17 01:00 72 11/16/17 00:00 76 11/16/17 00:00 98.6 68 18 115/60 (78) 93 11/15/17 23:00 74 11/15/17 22:00 70 11/15/17 21:00 70 11/15/17 20:00 70 11/15/17 20:00 98.4 71 18 111/56 (74) 96 11/15/17 17:00 68 11/15/17 15:36 97.4 71 18 102/55 (71) 95 I/O 11/15/17 11/15/17 11/15/17 11/16/17 11/16/17 11/16/17 07:00 15:00 23:00 07:00 15:00 23:00 Intake Total 740 ml 680 ml Output Total 300 ml Balance 740 ml 380 ml Intake Oral 480 ml IV Total 740 ml 200 ml Output Urine Total 300 ml Bladder Scan Volume Amount 743 ml 743 ml # Voids 1 # Bowel Movements 1 Result Diagram: 11/16/1760611/16/17 0607 Objective Remarks GENERAL: Thin, lethargic, confused SKIN: Warm and dry. HEAD: Normocephalic. EYES: No scleral icterus. No injection or drainage. NECK: Supple, trachea midline. No JVD or lymphadenopathy. CARDIOVASCULAR: Regular rate and rhythm, 2/6 BREE, gallops, or rubs. RESPIRATORY: Breath sounds equal bilaterally. No accessory muscle use. GASTROINTESTINAL: Abdomen soft, non-tender, nondistended. EXTREMITIES: No cyanosis, or edema. NEUROLOGICAL: Awake, alert, and oriented x 3. Non-focal. Procedures None A/P Problem List: (1) Hepatic encephalopathy ICD Code: K72.90 - Hepatic failure, unspecified without coma Plan: Hyperammonemia in the setting of liver cirrhosis and hepatitis C. EEG negative for seizures. nown hepatitis C- treatment naive- genotype 1 b - Quant over [address] abdomen and pelvis W/O IV contrast (11/01) --> Cirrhosis with portal hypertension and splenomegaly. Nonspecific low density along the pancreatic tail measures 3.9 cm. Moderate abdominal ascites. Ammonia was highest on 11/09 at 255- per notes pt was obtunded and not taking medication at that time, he was switched to Lactulose enemas, today pt appears more alert and able to tolerate PO. He is on Lactulose on Xifaxan Patient also started on rocephin and IV Flagyl Patient having loose stools retaining on O's so dose was reduced. Ammonia level was trended and trending down. GI consulted. Signed off. Palliative care consulted. 11/16 resume lactulose since patient again encephalopathic (2) Hyperammonemia ICD Code: E72.20 - Disorder of urea cycle metabolism, unspecified Plan: As above. Hold lactulose given diarrhea and increasing creatinine. We will monitor ammonia levels. 10/23 resume lactulose, monitor ammonia. (3) Thrombocytopenia ICD Code: D69.6 - Thrombocytopenia, unspecified Status: Chronic Plan: Chronic. Likely secondary to with cirrhosis with portal hypertension and hypersplenism. Continue to monitor platelets. Oncology consulted. Appreciate recommendations. There is no evidence of bleeding. (4) Liver cirrhosis ICD Code: K74.60 - Unspecified cirrhosis of liver Plan: Management as above. Continue lactulose, rifaximin, modafinil. (5) DM type 2 (diabetes mellitus, type 2) ICD Code: E11.9 - Type 2 diabetes mellitus without complications Plan: Blood sugar stable. Continue SSI with insulin NovoLog. (6) LATOSHA (acute kidney injury) ICD Code: N17.9 - Acute kidney failure, unspecified Status: Acute Plan: Upon review of records the patient has a baseline creatinine at around 1.2-1.4. Creatinine continues to trend up. Creatinine went up from 3.21-3.52. 11/15 appreciate nephrology recommendations. Renal us showed a Nonobstructing right renal calculus. Left renal cyst. Distal pancreatic cyst. Continue IV fluids, fu labs ordered by nephrology. 11/16 worsening creatinine and now patient oliguric. started on Lasix drip as per nephrology. (7) CKD stage 3 secondary to diabetes ICD Code: E11.22 - Type 2 diabetes mellitus with diabetic chronic kidney disease; N18.3 - Chronic kidney disease, stage 3 (moderate) Status: Chronic Plan: As above. (8) Non-Hodgkin lymphoma in remission ICD Code: C85.90 - Non-Hodgkin lymphoma, unspecified, unspecified site Plan: Hematology/oncology consulted. Appreciate recommendations. Patient with non-Hodgkin's lymphoma in remission. (9) Diabetic neuropathy ICD Code: E11.40 - Type 2 diabetes mellitus with diabetic neuropathy, unspecified Plan: Continue gabapentin. 11/[address] Tavares to 300 mg p.o. twice daily on 11/13 with relief of symptoms. 11/16 Hold gabapenting given worsening encephalopathy. (10) Ascites ICD Code: R18.8 - Other ascites Plan: Worsening ascite US guided paracentesis ordered. Assessment and Plan DVT prophylaxis: SCDs, avoid chemoprophylaxis given thrombocytopenia and liver cirrhosis. Discharge Planning Continue to monitor and the medical floor. Pending discharge stabilization improvement of creatinine. Patient will need rehab placement. Problem Qualifiers (1) Liver cirrhosis: Qualified Codes: K74.60 - Unspecified cirrhosis of liver (2) DM type 2 (diabetes mellitus, type 2): Qualified Codes: E11.65 - Type 2 diabetes mellitus with hyperglycemia; Z79.4 - manager long term care (current) use of insulin (3) Diabetic neuropathy: Qualified Codes: E11.42 - Type 2 diabetes mellitus with diabetic polyneuropathy (4) Ascites: Qualified Codes: R18.8 - Other ascites Isaiah Hutchinson MD Nov 16, 2017 13:50
[2017-11-16] MEDS: MORPHINE SULFATE 15 MG CONTROLLED RELEASE TAB PO SCH ×2 (14:30→21:19)
[2017-11-16] MEDS: FUROSEMIDE INJ 100 MG in SODIUM CHLORIDE 0.9% INJ 90 ML IV SCH (14:32)
--- NOTE | 2017-11-16 17:15 | HHI.HCPN ---
Reason for visit a. To assist with evaluation and management of symptoms including: Pain, physical deconditioning b. To assist medical decision maker(s) with: better understanding of current medical conditions; weighing benefits/burdens of medical treatment options; making medical treatment decisions. Subjective/Interval History Follow up medically necessary for symptom management. and further clarification of goals of care. Patient seen and examined in his room. No family present. Patient is sleepy and very difficult to arouse. When he briefly woke up, patient verbalized , "i`m sleepy" and closed his eyes. Morphine sulfate has been decreased to 15mg TID from 30mg TID. Patient showing no signs of discomfort or distress. Patient had difficulty with voiding yesterday, bladder scanner showed a volume of 746ml. Barraza catheter was placed today. Laboratory workup today revealed WBC , Hgb10.6, Hct33.0, plt count 67, sodium 139, potassium 4.1, BUN/creatinine 68/ 4.06-worsening , random glucose 106, Calcium 8.1, phosphorous 4.9, Total protein 6.0, albumin 1.9. Patient was started this afternoon on Lasix infusion at 5mg/ml by nephrology. Telephone conversation with patient`s daughter Olga, updated her on patient` s current status. Case discussed with Dr. Mitchell and bedside RN. , Family/friend interactions Telephone conversation with patient`s daughter. . Advance Directives Health Care Surrogate: Copy in medical record Advance Directive Specifics Date completed: 11/06/2017 . Health Care Surrogate(s): Healthcare surrogate -daughter- Olga Salas [phone] Alternate healthcare surrogate -Daughter-Carolina Salas [phone] Third choice (Alternate HCS)-Carisa Ayala-[phone] . Objective Vital Signs Date Time Temp Pulse Resp B/P (MAP) Pulse Ox O2 Delivery O2 Flow Rate FiO2 11/16/17 15:45 98.0 71 18 108/60 (76) 96 11/16/17 12:01 98.1 71 18 95/57 (70) 95 11/16/17 08:45 97.8 74 18 95/52 (66) 98 11/16/17 07:01 74 11/16/17 06:00 76 11/16/17 05:00 72 11/16/17 04:00 74 11/16/17 04:00 98.0 75 18 122/65 (84) 99 11/16/17 03:00 74 11/16/17 02:00 72 11/16/17 01:00 72 11/16/17 00:00 76 11/16/17 00:00 98.6 68 18 115/60 (78) 93 11/15/17 23:00 74 11/15/17 22:00 70 11/15/17 21:00 70 11/15/17 20:00 70 11/15/17 20:00 98.4 71 18 111/56 (74) 96 11/15/17 17:00 68 Intake & Output 11/16/17 11/16/17 07:00 19:00 Intake Total 100 ml Balance 100 ml IV Total 100 ml Bladder Scan Volume Amount 743 ml 743 ml Physical Exam CONSTITUTIONAL/GENERAL: This is a chronically ill-appearing patient, sleeping and difficult to arouse CARDIOVASCULAR: S1, S2 normal, no gallops, or rubs. No JVD. Peripheral pulses symmetric. Edema to Right LE RESPIRATORY/CHEST: Symmetric, unlabored respirations. Diminished in the bases GASTROINTESTINAL: Abdomen soft, non-tender, no guarding. Active bowel sounds. MUSCULOSKELETAL: Extremities without clubbing, cyanosis, or edema. No calf tenderness. No mottling or clubbing. NEUROLOGICAL: Patient is sleeping. motor and sensory within normal limits.Moves all extremities. PSYCHIATRIC: No obvious anxiety/depression. no apparent hallucinations or other psychotic thought process. . Diagnostic Tests Laboratory Laboratory Tests Test 11/14/17 08:40 11/15/17 06:30 11/16/17 06:07 Blood Urea Nitrogen 65 MG/DL (7-18) 67 MG/DL (7-18) 68 MG/DL (7-18) Creatinine 3.52 MG/DL (0.60-1.30) 3.85 MG/DL (0.60-1.30) 4.06 MG/DL (0.60-1.30) Random Glucose 114 MG/DL (74-106) 121 MG/DL (74-106) 106 MG/DL (74-106) Calcium Level 8.2 MG/DL (8.5-10.1) 8.2 MG/DL (8.5-10.1) 8.1 MG/DL (8.5-10.1) Sodium Level 138 MEQ/L (136-145) 139 MEQ/L (136-145) 139 MEQ/L (136-145) Potassium Level 4.0 MEQ/L (3.5-5.1) 3.9 MEQ/L (3.5-5.1) 4.1 MEQ/L (3.5-5.1) Chloride Level 111 MEQ/L (98-107) 113 MEQ/L (98-107) 111 MEQ/L (98-107) Carbon Dioxide Level 15.5 MEQ/L (21.0-32.0) 14.1 MEQ/L (21.0-32.0) 14.9 MEQ/L (21.0-32.0) Anion Gap 12 MEQ/L (5-15) 12 MEQ/L (5-15) 13 MEQ/L (5-15) Estimat Glomerular Filtration Rate 21 ML/MIN (>89) 19 ML/MIN (>89) 18 ML/MIN (>89) Phosphorus Level 4.8 MG/DL (2.5-4.9) 4.9 MG/DL (2.5-4.9) Ammonia 50 MCMOL/L (11-32) White Blood Count 5.7 TH/MM3 (4.0-11.0) Red Blood Count 3.60 MIL/MM3 (4.50-5.90) Hemoglobin 10.6 GM/DL (13.0-17.0) Hematocrit 33.0 % (39.0-51.0) Mean Corpuscular Volume 91.5 FL (80.0-100.0) Mean Corpuscular Hemoglobin 29.3 PG (27.0-34.0) Mean Corpuscular Hemoglobin Concent 32.0 % (32.0-36.0) Red Cell Distribution Width 18.0 % (11.6-17.2) Platelet Count 67 TH/MM3 (150-450) Mean Platelet Volume 8.8 FL (7.0-11.0) Neutrophils (%) (Auto) 54.3 % (16.0-70.0) Lymphocytes (%) (Auto) 31.8 % (9.0-44.0) Monocytes (%) (Auto) 12.1 % (0.0-8.0) Eosinophils (%) (Auto) 1.4 % (0.0-4.0) Basophils (%) (Auto) 0.4 % (0.0-2.0) Neutrophils # (Auto) 3.1 TH/MM3 (1.8-7.7) Lymphocytes # (Auto) 1.8 TH/MM3 (1.0-4.8) Monocytes # (Auto) 0.7 TH/MM3 (0-0.9) Eosinophils # (Auto) 0.1 TH/MM3 (0-0.4) Basophils # (Auto) 0.0 TH/MM3 (0-0.2) CBC Comment AUTO DIFF Differential Comment AUTO DIFF CONFIRMED Platelet Estimate LOW (NORMAL) Platelet Morphology Comment NORMAL (NORMAL) Ovalocytes 1+ (NORMAL) Total Protein 6.0 GM/DL (6.4-8.2) Albumin 1.9 GM/DL (3.4-5.0) Magnesium Level 2.7 MG/DL (1.5-2.5) Alkaline Phosphatase 63 U/L (45-117) Aspartate Amino Transf (AST/SGOT) 37 U/L (15-37) Alanine Aminotransferase (ALT/SGPT) 19 U/L (12-78) Total Bilirubin 1.0 MG/DL (0.2-1.0) Result Diagram: 11/16/1760611/16/17606 Assessment and Plan Disease Oriented Problem List: (1) Cirrhosis with portal hypertension (2) Non-Hodgkin lymphoma in remission (3) Chronic kidney disease, stage III (moderate) (4) Tremor (5) Hyperammonemia (6) Coronary artery disease (7) Hypertension (8) Diabetes mellitus (9) GERD (gastroesophageal reflux disease) Symptom Scale: (1) Pain 0-10 Scale: Unable to quantify Comment: Generalized pain, abdominal pain at times. History of peripheral neuropathy. . (2) Physical deconditioning 0-10 Scale: Unable to quantify Comment: Progressive/worsening . Pertinent Non-Medical Issues Psychosocial:Patient was born in [place] and he moved to [place] when he was very young. Patient was twice, once and his second is . 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 Patient his 2 adult daughters and 1 son. Patient lived alone in an apartment prior to this hospitalization. Spiritual: Patient is [employer] Legal: Completed healthcare surrogate form Ethical issues impacting care: None identified at this time . Important Contacts DaughterOlga Cutler [phone] Daughter-Carolina Salas [phone] . Prognosis Mr. 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 Patient presented to the ED on 11/01/17 with complaints of tremors and jerking movements and lower abdominal back pain that have been happening to him for approximately a month. Patient is status post Treanda chemotherapy 6 cycles for non-Hodgkin lymphoma and he completed treatment in March 2017. Restaging PET scan in May 2017 was normal. Given ongoing comorbidities patient remains at risk for further complications, deterioration and decline . Code Status: Full Code Plan PLAN: Legal decision maker: Patient is able to participate in medical decision making. In the event that he is incapacitated, patient has designated his daughter Olga Salas as his healthcare surrogate and daughter Carolina Salas as his alternate healthcare surrogate and if the aforementioned are not able to serve his third choice is his sister Samantha Younger. Goals: Remain aggressive CODE STATUS: Full Code SYMPTOMS: * Pain: History of peripheral neuropathy. Came in complaining of generalized pain, he has jerking/abnormal movement. Patient also complaining of abdominal pain.Gabapentin placed on hold, morphine sulfate decreased to 15 mg every 8 hours. Patient was started on Tramadol 50mg q 8 hrs prn. No signs of pain noted. * Physical deconditioning: Patient ambulates at home with a walker and is now requiring SNF. Per family, patient is being progressively declining and requiring assistance with most of his ADLs. Physical therapy consulted, recommended PT at rehab. 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 Occupational therapy following. Palliative care will continue to follow the patient during hospital course as condition evolves, to assist patient/decision-maker with understanding of their medical conditions, weighing benefits/burdens of treatment options, for clarification of goals of treatment. Additionally will assist with any symptoms of palliative concern Attestation To help prompt me to consider important information that might be impacting today's encounter and assessment, information from prior notes written by myself or my colleagues may have been "brought forward" into today's note. My signature on this note, however, is an attestation that I personally performed the exam, history, and/or decision-making noted today, and, unless otherwise indicated, the interactions with patient, family, and staff as well as the review of records all occurred today. I also attest that the listed assessment and stated plan reflect my best clinical judgment today based on the combination of historical information, prior notes, and today's exam/ interactions. When time spent is documented, it refers only to time spent today by the signer, or if indicated, combined time spent today by collaborating physician/nurse practitioner. Speedy Arthur Nov 16, 2017 17:15
[2017-11-16 17:32] LABS: INTERNATIONAL NORMALIZED RATIO 2.3 RATIO; PROTHROMBIN TIME - PATIENT 22.9 SEC (9.8-11.6)
[2017-11-16] MEDS: LACTULOSE SYRUP 20 GM/30 ML CUP PO SCH (21:00)
[2017-11-16 22:21] LABS: INTERNATIONAL NORMALIZED RATIO 2.3 RATIO; PROTHROMBIN TIME - PATIENT 23.5 SEC (9.8-11.6)
[2017-11-17] VITALS (24 sets, daily range): BP systolic 96–118; BP diastolic 46–76; PULSE 68–86; RESP 16–20; TEMP 97.4–98; O2SAT 98–100
[2017-11-17] MEDS: cefTRIAXone INJ 1,000 MG in SODIUM CHLORIDE 0.9% INJ 100 ML IV SCH ×2 (03:47→20:03)
[2017-11-17] MEDS: SODIUM BICARBONATE 8.4% INJ 100 MEQ in SODIUM CHLOR 0.45% 1000 ML INJ 1,000 ML IV SCH (04:05)
[2017-11-17] MEDS: metroNIDAZOLE 500 MG INJ 100 ML IV SCH ×4 (04:32→23:02)
[2017-11-17] MEDS: MORPHINE SULFATE 15 MG CONTROLLED RELEASE TAB PO SCH ×3 (04:32→23:01)
[2017-11-17] MEDS: ISOSORBIDE MONONITRATE 60 MG CR TAB (IMDUR) PO SCH (05:25)
[2017-11-17 06:58] LABS: AUTOMATED NEUTROPHIL # 3.6 TH/MM3 (1.8-7.7); BASOPHIL % 0.2 % (0.0-2.0); EOSINOPHIL % 0.8 % (0.0-4.0); HEMATOCRIT 32.6 % (39.0-51.0); HEMOGLOBIN 10.5 GM/DL (13.0-17.0); LYMPH % 28.7 % (9.0-44.0); LYMPHOCYTE # 1.8 TH/MM3 (1.0-4.8); MEAN CELL VOLUME 91.4 FL (80.0-100.0); MEAN CORPUSCULAR HEMOGLOBIN 29.4 PG (27.0-34.0); MEAN CORPUSCULAR HGB CONC 32.2 % (32.0-36.0); MEAN PLATELET VOLUME 8.1 FL (7.0-11.0); MONO % 11.6 % (0.0-8.0); MONOCYTE # 0.7 TH/MM3 (0-0.9); NEUT % 58.7 % (16.0-70.0); PLATELET COUNT 67 TH/MM3 (150-450); RED BLOOD COUNT 3.57 MIL/MM3 (4.50-5.90); RED CELL DISTRIBUTION WIDTH 18.2 % (11.6-17.2); WHITE BLOOD COUNT 6.1 TH/MM3 (4.0-11.0)
[2017-11-17 07:25] LABS: AST (GOT) 53 U/L (15-37); BICARBONATE 14.6 MEQ/L (21.0-32.0); BLOOD UREA NITROGEN 74 MG/DL (7-18); CALCIUM 8.2 MG/DL (8.5-10.1); CHLORIDE 111 MEQ/L (98-107); CREATININE 4.23 MG/DL (0.60-1.30); GLOMERULAR FILTRATION RATE 17 ML/MIN (>89); GLUCOSE,RANDOM 89 MG/DL (74-106); MAGNESIUM 2.5 MG/DL (1.5-2.5); SODIUM (NA) 138 MEQ/L (136-145)
[2017-11-17 07:26] LABS: ALT (GPT) 18 U/L (12-78); PHOSPHORUS 5.7 MG/DL (2.5-4.9)
[2017-11-17 07:28] LABS: ALKALINE PHOSPHATASE 59 U/L (45-117); TOTAL BILIRUBIN ADULT 1.2 MG/DL (0.2-1.0); TOTAL PROTEIN 5.7 GM/DL (6.4-8.2)
[2017-11-17 07:54] LABS: KERATOCYTES OCC (NORMAL); OVALOCYTES 1+ (NORMAL)
[2017-11-17] MEDS: INSULIN ASPART SUPPLEMENTAL SCALE SQ SCH ×4 (08:00→20:36)
[2017-11-17] MEDS: SODIUM CHLORIDE 0.9% FLUSH 10 ML FLUSH IV FLUSH SCH ×2 (09:00→20:34)
--- NOTE | 2017-11-17 09:34 | HHI.NPPN ---
Subjective Renal Failure: Chronic History of Present Illness Patient is a 72-year-old male with a past medical history significant for non- Hodgkin's lymphoma, hepatitis C, anemia, COPD, CAD, insulin-dependent diabetes mellitus, chronic kidney disease, hypertension and hyperlipidemia. Presented emergency department for the evaluation of jerking movements. Nephrology is consulted for rising creatinine. On admission creatinine was 2.54 and has now increased to 3.52, potassium 4, and CO2 level at 15.5 today. Patient denies any shortness of breath. No edema. present. Per records has past medical history of chronic kidney disease stage 3 most likely related to diabetes vs HTN vs renovascular disease. Has a brother who is on hemodialysis. Additional Remarks Resting in bed. Falling asleep during visit. Edema has increased with blisters present on lower extremity. (Paula Baum) Review of Systems Respiratory Respiratory Remarks denies any SOB (Paula Baum) Cardiovascular Cardiac Remarks Denies CP (Paula Baum) Objective Data Data Vital Signs Date Time Temp Pulse Resp B/P (MAP) Pulse Ox O2 Delivery O2 Flow Rate FiO2 11/17/17 07:36 97.6 73 20 96/76 (83) 100 11/17/17 06:00 77 11/17/17 05:00 72 11/17/17 04:00 76 11/17/17 03:00 97.5 72 16 110/51 (70) 99 11/17/17 03:00 76 11/17/17 02:00 73 16 110/54 (72) 98 11/17/17 01:00 70 11/17/17 01:00 71 16 107/54 (71) 98 11/17/17 00:00 71 16 96/46 (63) 99 11/17/17 00:00 71 11/16/17 23:00 72 11/16/17 23:00 97.8 70 16 120/55 (76) 98 11/16/17 22:00 72 11/16/17 22:00 72 16 100/49 (66) 98 11/16/17 21:00 72 11/16/17 21:00 72 16 129/57 (81) 98 11/16/17 20:00 71 16 111/49 (69) 99 4/26/18 20:00 71 11/16/17 19:00 97.7 71 16 86/51 (63) 97 11/16/17 19:00 70 11/16/17 18:01 70 11/16/17 17:00 70 11/16/17 16:00 72 11/16/17 15:45 98.0 71 18 108/60 (76) 96 11/16/17 15:00 72 11/16/17 14:00 70 11/16/17 13:00 70 11/16/17 12:01 98.1 71 18 95/57 (70) 95 11/16/17 12:00 70 11/16/17 11:00 73 11/16/17 10:00 72 (Paula Baum) -: 11/17/17 0642 11/17/17 0642 Imaging Last Impressions Renal Ultrasound 11/14/17 0000 Signed Impressions: Service Date/Time: Tuesday, November 14, 2017 22:30 - CONCLUSION: 1. Nonobstructing right renal calculus. Left renal cyst. Distal pancreatic cyst. Christophe Hernández MD Chest X-Ray 11/09/17 0000 Signed Impressions: Service Date/Time: October 05:02 - CONCLUSION: Mild left base atelectasis. Nghia Sneed MD Abdomen/Pelvis CT 11/01/17 2258 Signed Impressions: Service Date/Time: Wednesday, November 01, 2017 23:11 - CONCLUSION: 1. Cirrhosis with portal hypertension and splenomegaly. 2. Nonspecific low density along the pancreatic tail measures 3.9 cm. 3. Moderate abdominal ascites. 4. Nonobstructing right renal calculus. Josiah Anderson MD Head CT 11/01/17 0000 Signed Impressions: Service Date/Time: Wednesday, November 01, 2017 23:07 - CONCLUSION: No acute intracranial disease. Josiah Andreson MD Tubes & Lines: Barraza (Paula Baum) Physical Exam General Appearance: Malnourished (Paula Baum) Eyes Eye Exam: Pupils Equal (Paula Baum) Throat Throat Exam: Oral Mucosa Iota & Moist (Paula Baum) Pulmonary Resp Exam: No Distress, Decreased Bases (Paula Baum) Cardiology CV Exam: Regular (Paula Baum) Gastrointestinal/Abdomen GI Exam: Non-Tender, Bowel Sounds Present, Distended (Paula Baum) Genitourinary Exam: Flank Non-Tender (Paula Baum) Integumentary Skin Exam: Clear, Warm Skin Remarks Blisters present on lower extremity (Paula Baum) Extremeties Extremities Exam: Moderate Edema, Pitting Edema, Dependent Edema (Paula Baum) Neurologic Neuro Exam: Alert, Stuporous Neuro Remarks speech delayed (Paula Baum) Assessment/Plan Problem List: (1) ARF (acute renal failure) ICD Codes: N17.9 - Acute kidney failure, unspecified Status: Acute Plan: Acute kidney injury on admission creatinine was 2.54 initially thought possible prerenal but the continue increase in creatinine more likely ATN from hypotension vs vasculitis from hepatitis C Hepatornal syndrome is also a possibility. Chronic kidney disease stage 3 most likely related to diabetes vs HTN vs renovascular disease. Renal US with nonobstructing right renal calculus. Left renal cyst. Distal pancreatic cyst. Plan Continue IVF 1/2 NS with bicarbonate Monitor BMP and UOP Continue calcium replacement Creatinine continues to increase at 4.23 from 4.06 today Continue lasix gtt urinary output has improved Follow the urine out put and BMP. Patient appears uremic will start hemodialysis Will order FFP and vas cath Dialysis for today. (2) Hypertension ICD Codes: I10 - Essential (primary) hypertension Plan: On metoprolol and isosorbide (3) Diabetes mellitus ICD Codes: E11.9 - Type 2 diabetes mellitus without complications (Paula Baum) Problem List: (1) ARF (acute renal failure) ICD Codes: N17.9 - Acute kidney failure, unspecified Status: Acute Plan: Acute kidney injury on admission creatinine was 2.54 initially thought possible prerenal but the continue increase in creatinine more likely ATN from hypotension vs vasculitis from hepatitis C Hepatornal syndrome is also a possibility. Chronic kidney disease stage 3 most likely related to diabetes vs HTN vs renovascular disease. Renal US with nonobstructing right renal calculus. Left renal cyst. Distal pancreatic cyst. Plan Continue IVF 1/2 NS with bicarbonate Monitor BMP and UOP Continue calcium replacement Creatinine continues to increase at 4.23 from 4.06 today Continue lasix gtt urinary output has improved Follow the urine out put and BMP. Patient appears uremic will start hemodialysis Will order FFP and vas cath Dialysis for today. Patient seen and examined, agree with above. To start HD. (2) Hypertension ICD Codes: I10 - Essential (primary) hypertension Plan: On metoprolol and isosorbide (3) Diabetes mellitus ICD Codes: E11.9 - Type 2 diabetes mellitus without complications (Barrie Oconnor MD) Paula Baum Nov 17, 2017 09:34 Barrie Oconnor MD Nov 19, 2017 11:42
[2017-11-17] MEDS ORDERED: PHYTONADIONE 5 MG TAB PO ONE (10:15)
[2017-11-17] MEDS ORDERED: PHYTONADIONE 5 MG/SWFI 5 ML ORAL SYR PO ONE (10:30)
[2017-11-17] MEDS: CALCIUM CARBONATE 1.25 GM (CA 500 MG) TAB PO SCH (10:40)
[2017-11-17] MEDS: METOPROLOL SUCCINATE 50 MG EXTENDED RELEASE TAB PO SCH ×2 (10:40→20:34)
[2017-11-17] MEDS: MODAFINIL 200 MG TAB PO SCH (10:41)
[2017-11-17] MEDS: guaiFENesin E.R. 600 MG TAB PO SCH ×2 (10:41→20:34)
[2017-11-17] MEDS: PANTOPRAZOLE SOD 40 MG DELAYED RELEASE TAB PO SCH (10:41)
[2017-11-17] MEDS: ALBUTEROL SULFATE 2 MG TAB PO SCH ×3 (10:41→18:00)
[2017-11-17] MEDS: RIFAXIMIN 550 MG TAB PO SCH ×2 (10:41→20:34)
[2017-11-17] MEDS: LACTULOSE SYRUP 20 GM/30 ML CUP PO SCH (10:42)
--- NOTE | 2017-11-17 11:42 | HHI.HCPN ---
Reason for visit a. To assist with evaluation and management of symptoms including: Pain, physical deconditioning b. To assist medical decision maker(s) with: better understanding of current medical conditions; weighing benefits/burdens of medical treatment options; making medical treatment decisions. Subjective/Interval History Follow up medically necessary for symptom management and further clarification of goals of care. Patient examined in the room in the presence of his bedside RN. Patient sleeping, easily arousable though falling asleep during visit. Patient is able to follow simple commands. Patient complaining of generalized pain. Patient is on morphine sulfate 15 mg every 8 hours, 3 doses have been held due to lethargy. Advised bedside RN to monitor patient for withdrawal symptoms. Patient also his tramadol 50 mg every 8 hours PRN for pain. Gabapentin currently on hold. Attempted to update patient on his current medical status, unsure if patient is comprehending and whether he has insight into his medical condition. Ascites worsening, ultrasound guided abdominal paracentesis ordered yesterday, was unable to be done due to elevated INR- 11/16/17 PT 23.5, INR 2.3. Vitamin K 5 mg administered today.Patient is currently on furosemide infusion at 5 mg/hr. laboratory workup today revealing WBC 6.1, hemoglobin 10.5, hematocrit 32.6, platelet count 67, potassium 4.0, BUN/creatinine 74/4.23 increasing, estimated GFR 17, calcium 8.2, phosphorus 5.7, magnesium 2.5, total bilirubin 1.2, AST 53 , ALT 18, ammonia 55 increasing, total protein 5.7, albumin 2.0. No recent imaging. Readdressed code status with patient and he wants to remain a full code. Discussed whether patient is amenable to having hemodialysis in the event that his kidney function continues to deteriorate given his current medical condition. Patient agreeable to hemodialysis even though his daughter had mentioned that patient had told his brother (who is also on hemodialysis) 2 days ago that he would never want to be on hemodialysis. Telephone conversation with patient`s daughter Olga Salas who is patient`s healthcare surrogate. Updated her on patient`s current medical condition and treatment that has been and is being rendered. Patient`s daughter had concerns that were voiced by patient to her that he is being given too many medications that are sedating him. Explained to patient`s daughter, that most of the medications like Morphine Sulfate were medications patient took prior to hospitalization and have actually been titrated to lower doses due to renal failure. Patient`s daughter appreciative of update and is hoping to arrive today to assist her father with medical decision making. Case discussed with bedside RN. , Family/friend interactions Telephone conversation with Olga patient's daughter who is also HCS . Advance Directives Health Care Surrogate: Copy in medical record Advance Directive Specifics Date completed: 11/06/2017 . Health Care Surrogate(s): Healthcare surrogate -daughter- JosueOlga [phone] Alternate healthcare surrogate -Daughter-JosueCarolina [phone] Third choice (Alternate HCS)-Carisa Ayala-[phone] . Objective Vital Signs Date Time Temp Pulse Resp B/P (MAP) Pulse Ox O2 Delivery O2 Flow Rate FiO2 11/17/17 07:36 97.6 73 20 96/76 (83) 100 11/17/17 06:00 77 11/17/17 05:00 72 11/17/17 04:00 76 11/17/17 03:00 97.5 72 16 110/51 (70) 99 11/17/17 03:00 76 11/17/17 02:00 73 16 110/54 (72) 98 11/17/17 01:00 70 11/17/17 01:00 71 16 107/54 (71) 98 11/17/17 00:00 71 16 96/46 (63) 99 11/17/17 00:00 71 11/16/17 23:00 72 11/16/17 23:00 97.8 70 16 120/55 (76) 98 11/16/17 22:00 72 11/16/17 22:00 72 16 100/49 (66) 98 11/16/17 21:00 72 11/16/17 21:00 72 16 129/57 (81) 98 11/16/17 20:00 71 16 111/49 (69) 99 11/16/17 20:00 71 11/16/17 19:00 97.7 71 16 86/51 (63) 97 11/16/17 19:00 70 11/16/17 18:01 70 11/16/17 17:00 70 11/16/17 16:00 72 4/26/18 15:45 98.0 71 18 108/60 (76) 96 11/16/17 15:00 72 11/16/17 14:00 70 11/16/17 13:00 70 11/16/17 12:01 98.1 71 18 95/57 (70) 95 11/16/17 12:00 70 11/16/17 11:00 73 Intake & Output 11/17/17 11/17/17 07:00 19:00 Intake Total 290 ml Output Total 100 ml Balance 190 ml Intake Oral 50 ml IV Total 240 ml Output Urine Total 100 ml # Bowel Movements 3 Physical Exam CONSTITUTIONAL/GENERAL: This is a chronically ill-appearing patient, sleeping and arousable, falling asleep during visit. SKIN: Generalized edema to all 4 extremities, patient now has blisters to his lower extremities, discoloration to bilateral lower extremities CARDIOVASCULAR: S1, S2 normal, no gallops, or rubs. No JVD. Peripheral pulses symmetric. Generalized edema to all 4 extremities RESPIRATORY/CHEST: Symmetric, unlabored respirations. Diminished in the bases GASTROINTESTINAL: Abdomen soft, non-tender, distended, no guarding. Bowel sounds active MUSCULOSKELETAL: Extremities without clubbing, cyanosis. No calf tenderness. No mottling or clubbing. NEUROLOGICAL: Patient is sleeping. motor and sensory within normal limits.Moves all extremities. PSYCHIATRIC: No obvious anxiety/depression. no apparent hallucinations or other psychotic thought process. . Diagnostic Tests Laboratory Laboratory Tests Test 11/15/17 06:30 11/16/17 06:07 11/16/17 16:12 11/16/17 21:51 Blood Urea Nitrogen 67 MG/DL (7-18) 68 MG/DL (7-18) Creatinine 3.85 MG/DL (0.60-1.30) 4.06 MG/DL (0.60-1.30) Random Glucose 121 MG/DL (74-106) 106 MG/DL (74-106) Calcium Level 8.2 MG/DL (8.5-10.1) 8.1 MG/DL (8.5-10.1) Phosphorus Level 4.8 MG/DL (2.5-4.9) 4.9 MG/DL (2.5-4.9) Sodium Level 139 MEQ/L (136-145) 139 MEQ/L (136-145) Potassium Level 3.9 MEQ/L (3.5-5.1) 4.1 MEQ/L (3.5-5.1) Chloride Level 113 MEQ/L (98-107) 111 MEQ/L (98-107) Carbon Dioxide Level 14.1 MEQ/L (21.0-32.0) 14.9 MEQ/L (21.0-32.0) Anion Gap 12 MEQ/L (5-15) 13 MEQ/L (5-15) Estimat Glomerular Filtration Rate 19 ML/MIN (>89) 18 ML/MIN (>89) Ammonia 50 MCMOL/L (11-32) White Blood Count 5.7 TH/MM3 (4.0-11.0) Red Blood Count 3.60 MIL/MM3 (4.50-5.90) Hemoglobin 10.6 GM/DL (13.0-17.0) Hematocrit 33.0 % (39.0-51.0) Mean Corpuscular Volume 91.5 FL (80.0-100.0) Mean Corpuscular Hemoglobin 29.3 PG (27.0-34.0) Mean Corpuscular Hemoglobin Concent 32.0 % (32.0-36.0) Red Cell Distribution Width 18.0 % (11.6-17.2) Platelet Count 67 TH/MM3 (150-450) Mean Platelet Volume 8.8 FL (7.0-11.0) Neutrophils (%) (Auto) 54.3 % (16.0-70.0) Lymphocytes (%) (Auto) 31.8 % (9.0-44.0) Monocytes (%) (Auto) 12.1 % (0.0-8.0) Eosinophils (%) (Auto) 1.4 % (0.0-4.0) Basophils (%) (Auto) 0.4 % (0.0-2.0) Neutrophils # (Auto) 3.1 TH/MM3 (1.8-7.7) Lymphocytes # (Auto) 1.8 TH/MM3 (1.0-4.8) Monocytes # (Auto) 0.7 TH/MM3 (0-0.9) Eosinophils # (Auto) 0.1 TH/MM3 (0-0.4) Basophils # (Auto) 0.0 TH/MM3 (0-0.2) CBC Comment AUTO DIFF Differential Comment AUTO DIFF CONFIRMED Platelet Estimate LOW (NORMAL) Platelet Morphology Comment NORMAL (NORMAL) Ovalocytes 1+ (NORMAL) Total Protein 6.0 GM/DL (6.4-8.2) Albumin 1.9 GM/DL (3.4-5.0) Magnesium Level 2.7 MG/DL (1.5-2.5) Alkaline Phosphatase 63 U/L (45-117) Aspartate Amino Transf (AST/SGOT) 37 U/L (15-37) Alanine Aminotransferase (ALT/SGPT) 19 U/L (12-78) Total Bilirubin 1.0 MG/DL (0.2-1.0) Prothrombin Time 22.9 SEC (9.8-11.6) 23.5 SEC (9.8-11.6) Prothromb Time International Ratio 2.3 RATIO 2.3 RATIO Activated Partial Thromboplast Time 44.2 SEC (24.3-30.1) Lactate Dehydrogenase 358 U/L (87-241) Test 11/17/17 06:42 White Blood Count 6.1 TH/MM3 (4.0-11.0) Red Blood Count 3.57 MIL/MM3 (4.50-5.90) Hemoglobin 10.5 GM/DL (13.0-17.0) Hematocrit 32.6 % (39.0-51.0) Mean Corpuscular Volume 91.4 FL (80.0-100.0) Mean Corpuscular Hemoglobin 29.4 PG (27.0-34.0) Mean Corpuscular Hemoglobin Concent 32.2 % (32.0-36.0) Red Cell Distribution Width 18.2 % (11.6-17.2) Platelet Count 67 TH/MM3 (150-450) Mean Platelet Volume 8.1 FL (7.0-11.0) Neutrophils (%) (Auto) 58.7 % (16.0-70.0) Lymphocytes (%) (Auto) 28.7 % (9.0-44.0) Monocytes (%) (Auto) 11.6 % (0.0-8.0) Eosinophils (%) (Auto) 0.8 % (0.0-4.0) Basophils (%) (Auto) 0.2 % (0.0-2.0) Neutrophils # (Auto) 3.6 TH/MM3 (1.8-7.7) Lymphocytes # (Auto) 1.8 TH/MM3 (1.0-4.8) Monocytes # (Auto) 0.7 TH/MM3 (0-0.9) Eosinophils # (Auto) 0.0 TH/MM3 (0-0.4) Basophils # (Auto) 0.0 TH/MM3 (0-0.2) CBC Comment AUTO DIFF Differential Comment AUTO DIFF CONFIRMED Platelet Estimate LOW (NORMAL) Platelet Morphology Comment NORMAL (NORMAL) Ovalocytes 1+ (NORMAL) Keratocytes OCC (NORMAL) Blood Urea Nitrogen 74 MG/DL (7-18) Creatinine 4.23 MG/DL (0.60-1.30) Random Glucose 89 MG/DL (74-106) Total Protein 5.7 GM/DL (6.4-8.2) Albumin 2.0 GM/DL (3.4-5.0) Calcium Level 8.2 MG/DL (8.5-10.1) Phosphorus Level 5.7 MG/DL (2.5-4.9) Magnesium Level 2.5 MG/DL (1.5-2.5) Alkaline Phosphatase 59 U/L (45-117) Aspartate Amino Transf (AST/SGOT) 53 U/L (15-37) Alanine Aminotransferase (ALT/SGPT) 18 U/L (12-78) Total Bilirubin 1.2 MG/DL (0.2-1.0) Sodium Level 138 MEQ/L (136-145) Potassium Level 4.0 MEQ/L (3.5-5.1) Chloride Level 111 MEQ/L (98-107) Carbon Dioxide Level 14.6 MEQ/L (21.0-32.0) Anion Gap 12 MEQ/L (5-15) Estimat Glomerular Filtration Rate 17 ML/MIN (>89) Ammonia 55 MCMOL/L (11-32) Result Diagram: 11/17/1742 11/17/1742 Assessment and Plan Disease Oriented Problem List: (1) Cirrhosis with portal hypertension (2) Non-Hodgkin lymphoma in remission (3) Chronic kidney disease, stage III (moderate) (4) Tremor (5) Hyperammonemia (6) Coronary artery disease (7) Hypertension (8) Diabetes mellitus (9) GERD (gastroesophageal reflux disease) Symptom Scale: (1) Pain 0-10 Scale: Unable to quantify Comment: Generalized pain, abdominal pain at times. History of peripheral neuropathy. . (2) Physical deconditioning 0-10 Scale: Unable to quantify Comment: Progressive/worsening . Pertinent Non-Medical Issues Psychosocial:Patient was born in [place] and he moved to [place] when he was very young. Patient was twice, once and his second is . 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 Patient his 2 adult daughters and 1 son. Patient lived alone in an apartment prior to this hospitalization. Spiritual: Patient is [employer] Legal: Completed healthcare surrogate form Ethical issues impacting care: None identified at this time . Important Contacts Daughter-Olga Hurtado [phone] Daughter-Carolina Salas [phone] . Prognosis Mr. 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 Patient presented to the ED on 11/01/17 with complaints of tremors and jerking movements and lower abdominal back pain that have been happening to him for approximately a month. Patient is status post Treanda chemotherapy 6 cycles for non-Hodgkin lymphoma and he completed treatment in March 2017. Restaging PET scan in May 2017 was normal. Given ongoing comorbidities patient remains at risk for further complications, deterioration and decline . Code Status: Full Code Plan PLAN: Legal decision maker: Patient is able to participate in medical decision making, to to intermittent periods of lethargy and hyperammonemia, recommending joint decision making with his daughter Olga Salas who is his healthcare surrogate and/or daughter Carolina Salas who his alternate healthcare surrogate. If the aforementioned are not able to serve his third choice HCS is his sister Samantha Younger. Goals: Remain aggressive CODE STATUS: Full Code Readdressed code status with patient and he wants to remain a full code. Discussed whether patient is amenable to having hemodialysis in the event that his kidney function continues to deteriorate given his current medical condition. Patient agreeable to hemodialysis even though his daughter had mentioned that patient had told his brother (who is also on hemodialysis) 2 days ago that he would never want to be on hemodialysis. Telephone conversation with patient`s daughter Olga Salas who is patient`s healthcare surrogate. Updated her on patient`s current medical condition and treatment that has been and is being rendered. Patient`s daughter had concerns that were voiced by patient to her that he is being given too many medications that are sedating him. Explained to patient`s daughter, that most of the medications like Morphine Sulfate were medications patient took prior to hospitalization and have actually been titrated to lower doses due to renal failure. Patient`s daughter appreciative of update and is hoping to arrive today to assist her father with medical decision making. SYMPTOMS: * Pain: History of peripheral neuropathy. Came in complaining of generalized pain, he has jerking/abnormal movement. Patient complaining of generalized pain. Patient is on morphine sulfate 15 mg every 8 hours, 3 doses have been held due to lethargy. Advised bedside RN to monitor patient for withdrawal symptoms and to medicate patient for pain. Patient also his tramadol 50 mg every 8 hours PRN for pain. Gabapentin currently on hold. * Physical deconditioning: Patient ambulates at home with a walker and is now requiring SNF. Per family, patient is being progressively declining and requiring assistance with most of his ADLs. Physical therapy consulted, recommended PT at rehab. 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 Occupational therapy following, recommended OT at Rehab. Palliative care will continue to follow the patient during hospital course as condition evolves, to assist patient/decision-maker with understanding of their medical conditions, weighing benefits/burdens of treatment options, for clarification of goals of treatment. Additionally will assist with any symptoms of palliative concern Attestation To help prompt me to consider important information that might be impacting today's encounter and assessment, information from prior notes written by myself or my colleagues may have been "brought forward" into today's note. My signature on this note, however, is an attestation that I personally performed the exam, history, and/or decision-making noted today, and, unless otherwise indicated, the interactions with patient, family, and staff as well as the review of records all occurred today. I also attest that the listed assessment and stated plan reflect my best clinical judgment today based on the combination of historical information, prior notes, and today's exam/ interactions. When time spent is documented, it refers only to time spent today by the signer, or if indicated, combined time spent today by collaborating physician/nurse practitioner. Speedy Arthur Nov 17, 2017 11:42
[2017-11-17] MEDS: FUROSEMIDE INJ 100 MG in SODIUM CHLORIDE 0.9% INJ 90 ML IV SCH (11:52)
[2017-11-17] MEDS ORDERED: PHYTONADIONE 10 MG/ML VIAL SQ ONE (12:00)
--- NOTE | 2017-11-17 12:25 | HHI.PR ---
Subjective Remarks She is somewhat lethargic today. Attempted to drink water at first unable to but then able to drink a few sips. When asked if he has any chest pain or shortness of breath he denies it. Per RN, concerns of decreased p.o. intake. Objective Vitals Vital Signs Date Time Temp Pulse Resp B/P (MAP) Pulse Ox O2 Delivery O2 Flow Rate FiO2 11/17/17 11:00 98 Nasal Cannula 2.00 11/17/17 11:00 97.4 72 18 113/63 (80) 100 11/17/17 07:36 97.6 73 20 96/76 (83) 100 11/17/17 07:25 100 Nasal Cannula 3.00 11/17/17 06:00 77 11/17/17 05:00 72 11/17/17 04:00 76 11/17/17 03:00 97.5 72 16 110/51 (70) 99 11/17/17 03:00 76 11/17/17 02:00 73 16 110/54 (72) 98 11/17/17 01:00 70 11/17/17 01:00 71 16 107/54 (71) 98 11/17/17 00:00 71 16 96/46 (63) 99 11/17/17 00:00 71 11/16/17 23:00 72 11/16/17 23:00 97.8 70 16 120/55 (76) 98 11/16/17 22:00 72 11/16/17 22:00 72 16 100/49 (66) 98 11/16/17 21:00 72 11/16/17 21:00 72 16 129/57 (81) 98 11/16/17 20:00 71 16 111/49 (69) 99 11/16/17 20:00 71 11/16/17 19:00 97.7 71 16 86/51 (63) 97 11/16/17 19:00 70 11/16/17 18:01 70 11/16/17 17:00 70 11/16/17 16:00 72 11/16/17 15:45 98.0 71 18 108/60 (76) 96 11/16/17 15:00 72 11/16/17 14:00 70 11/16/17 13:00 70 I/O 4/26/18 4/26/18 11/16/17 11/17/17 11/17/17 11/17/17 06:59 14:59 22:59 06:59 14:59 22:59 Intake Total 100 ml 819 ml 290 ml Output Total 400 ml 100 ml Balance 100 ml 419 ml 190 ml Intake Oral 720 ml 50 ml IV Total 100 ml 99 ml 240 ml Output Urine Total 400 ml 100 ml Bladder Scan Volume Amount 743 ml 743 ml # Bowel Movements 1 3 Result Diagram: 11/17/17 0642 11/17/17 0642 Imaging Last Impressions Renal Ultrasound 11/14/17 0000 Signed Impressions: Service Date/Time: Tuesday, November 14, 2017 22:30 - CONCLUSION: 1. Nonobstructing right renal calculus. Left renal cyst. Distal pancreatic cyst. Christophe Hernández MD Chest X-Ray 11/09/17 0000 Signed Impressions: Service Date/Time: October 05:02 - CONCLUSION: Mild left base atelectasis. Nghia Sneed MD Abdomen/Pelvis CT 11/01/17 2258 Signed Impressions: Service Date/Time: Wednesday, November 01, 2017 23:11 - CONCLUSION: 1. Cirrhosis with portal hypertension and splenomegaly. 2. Nonspecific low density along the pancreatic tail measures 3.9 cm. 3. Moderate abdominal ascites. 4. Nonobstructing right renal calculus. Josiah Anderson MD Head CT 11/01/17 0000 Signed Impressions: Service Date/Time: Wednesday, November 01, 2017 23:07 - CONCLUSION: No acute intracranial disease. Josiah Anderson MD Objective Remarks GENERAL: Thin, lethargic, confused CARDIOVASCULAR: Regular rate and rhythm, 2/6 BREE RESPIRATORY: Breath sounds equal bilaterally. No accessory muscle use. GASTROINTESTINAL: Abdomen soft, non-tender, nondistended. EXTREMITIES: Edematous NEUROLOGICAL: lethargic, but does wake up at times. Procedures None A/P Problem List: (1) Hepatic encephalopathy ICD Code: K72.90 - Hepatic failure, unspecified without coma (2) Hyperammonemia ICD Code: E72.20 - Disorder of urea cycle metabolism, unspecified (3) Thrombocytopenia ICD Code: D69.6 - Thrombocytopenia, unspecified Status: Chronic (4) Liver cirrhosis ICD Code: K74.60 - Unspecified cirrhosis of liver (5) DM type 2 (diabetes mellitus, type 2) ICD Code: E11.9 - Type 2 diabetes mellitus without complications (6) LATOSHA (acute kidney injury) ICD Code: N17.9 - Acute kidney failure, unspecified Status: Acute (7) CKD stage 3 secondary to diabetes ICD Code: E11.22 - Type 2 diabetes mellitus with diabetic chronic kidney disease; N18.3 - Chronic kidney disease, stage 3 (moderate) Status: Chronic (8) Non-Hodgkin lymphoma in remission ICD Code: C85.90 - Non-Hodgkin lymphoma, unspecified, unspecified site (9) Diabetic neuropathy ICD Code: E11.40 - Type 2 diabetes mellitus with diabetic neuropathy, unspecified (10) Ascites ICD Code: R18.8 - Other ascites Assessment and Plan (1) Hepatic encephalopathy Hyperammonemia in the setting of liver cirrhosis and hepatitis C. EEG negative for seizures. nown hepatitis C- treatment naive- genotype 1 b - Quant over [address] abdomen and pelvis W/O IV contrast (11/01) --> Cirrhosis with portal hypertension and splenomegaly. Nonspecific low density along the pancreatic tail measures 3.9 cm. Moderate abdominal ascites. Ammonia was highest on 11/09 at 255- per notes pt was obtunded and not taking medication at that time, now down to 55 on Lactulose and Xifaxan. will hold lactulose for now as 4 BMs have been recorded Patient also on rocephin and IV Flagyl Patient having loose stools retaining on O's so dose was reduced. Ammonia trending down. GI consulted. Signed off. Palliative care following (2) Hyperammonemia As above. Hold lactulose given diarrhea and increasing creatinine. We will monitor ammonia levels. hold lactulose and monitor ammonia levels (3) Thrombocytopenia Chronic. Likely secondary to with cirrhosis with portal hypertension and hypersplenism. Continue to monitor platelets. Oncology consulted. Appreciate recommendations. There is no evidence of bleeding. (4) Liver cirrhosis Management as above. Continue rifaximin, modafinil. (5) DM type 2 (diabetes mellitus, type 2) Blood sugar stable. Continue SSI with insulin NovoLog. (6) LATOSHA (acute kidney injury) Upon review of records the patient has a baseline creatinine at around 1.2-1.4. Creatinine continues to trend up. Creatinine went up Cr 4.23 Renal us showed a Nonobstructing right renal calculus. Left renal cyst. Distal pancreatic cyst. Continue IV fluids, fu labs ordered by nephrology. on Lasix drip as per nephrology. appreciate recs from nephrology. Consider switching to a bumex gtt instead? (7) CKD stage 3 secondary to diabetes As above. (8) Non-Hodgkin lymphoma in remission Hematology/oncology consulted. Appreciate recommendations. Patient with non-Hodgkin's lymphoma in remission. (9) Diabetic neuropathy Hold gabapenting given worsening encephalopathy. (10) Ascites US guided paracentesis ordered. INR elevated to 2.3 today, give 1 time dose of vit k now and repeat lab around 2pm for possible paracentesis. Discharge Planning palliative care following. Daughter coming in from [place] today. Appreciate assistance Paracentesis today. on a lasix gtt. nephrology following Problem Qualifiers (1) Liver cirrhosis: Qualified Codes: K74.60 - Unspecified cirrhosis of liver (2) DM type 2 (diabetes mellitus, type 2): Qualified Codes: E11.65 - Type 2 diabetes mellitus with hyperglycemia; Z79.4 - residential (current) use of insulin (3) Diabetic neuropathy: Qualified Codes: E11.42 - Type 2 diabetes mellitus with diabetic polyneuropathy (4) Ascites: Qualified Codes: R18.8 - Other ascites Sarah Gonzales MD Nov 17, 2017 12:25
--- NOTE | 2017-11-17 12:39 | PD.WCN.NOT ---
Wound Consult Description: Teaching and education completed with JACK Chen and patient daughter after learning that [employer] was called @ 0300 this morning for a "specialty air mattress". Patient is currently on a [place]to alternating air mattress with pump. Communicated with: JACK Chen Patient daughter at bedside Recommendation: PLEASE DO NOT USE COTTON UNDERPADS UNDERNEATH PATIENT FOR MOISTURE RELATED WOUNDS PLEASE DO USE Calazime skin protectant to open partial thickness skinloss areas in gluteal cleft, bilateral buttocks BID and PRN with each cleansing. Continue to assist/encourage the patient to reposition LEFT to RIGHT Q2H to relieve pressure. Limit time spent on back for therapies only. PLEASE USE DISPOSABLE ULTRASORB UNDERPAD for incontinence/moisture with Loreto alternating air mattress currently in place Additional Information: JACK Chen states when patient was assessed this morning that a foam dressing had been placed over the wound in gluteal cleft and patient was noted on a cotton pad that was removed. It was explained that the patient has moisture related wounds and is on the appropriate surface, however cotton underpads prevent the mattress from functioning properly. Foam dressings only hold in moisture and are contraindicated for moisture related wounds. Please continue to follow Dr orders from Wound Care Team recommendations and continue to reposition patient from left to right. Patient wounds were not visualized today by information writer. It was explained to the patient daughter that the cotton pads that are being found underneath the patient only hold in moisture. Disposable underpads are strongly recommended for moisture with wicking capabilities. Loreto mattress with alternating pump that patient is already resting on, works in conjunction with the ultrasorbs to allow air to pass through and keep patient dry. Maribeth Gonsalez [facility] Nov 17, 2017 12:39
[2017-11-17] MEDS: ONDANSETRON HCL 4 MG/2 ML VIAL IVP PRN (13:02)
[2017-11-17] MEDS ORDERED: SODIUM CHLOR 0.9% 1000 ML INJ 1,000 ML OTHER PRN ×2 (13:04)
[2017-11-17] MEDS ORDERED: SODIUM CHLOR 0.9% 1000 ML INJ 1,000 ML IV PRN (13:04)
[2017-11-17] MEDS ORDERED: NITROGLYCERIN 0.4 MG SL 25 TABS/BTL SL PRN (13:15)
[2017-11-17] MEDS ORDERED: diphenhydrAMINE HCL 25 MG CAP PO PRN (13:15)
[2017-11-17] MEDS ORDERED: ONDANSETRON HCL 4 MG/2 ML VIAL IV PUSH PRN (13:15)
[2017-11-17] MEDS ORDERED: GELATIN 12 MM/7 MM FOAM TOP PRN (13:15)
[2017-11-17] MEDS ORDERED: SODIUM CHLORIDE 0.9% FLUSH 10 ML FLUSH IV FLUSH PRN ×2 (13:15→15:30)
[2017-11-17] MEDS ORDERED: EPOETIN ALFA 10,000 UNITS/ML VIAL IV PUSH PRN (13:15)
[2017-11-17] MEDS ORDERED: ACETAMINOPHEN 325 MG TAB PO PRN (13:15)
[2017-11-17] MEDS ORDERED: HEPARIN SODIUM - IV 10,000 UNITS/10 ML VIAL PRN (13:15)
[2017-11-17] MEDS ORDERED: cloNIDine HCL 0.1 MG TAB PO PRN (13:15)
[2017-11-17] MEDS ORDERED: MANNITOL 12.5 GM/50 ML VIAL IV PRN (13:15)
[2017-11-17] MEDS ORDERED: HEPARIN SODIUM - IV 10,000 UNITS/10 ML VIAL IV FLUSH PRN (13:15)
[2017-11-17] MEDS ORDERED: GENTAMICIN SULFATE 20 MG/2 ML VIAL OTHER PRN (13:15)
[2017-11-17 15:17] LABS: INTERNATIONAL NORMALIZED RATIO 2.4 RATIO; PROTHROMBIN TIME - PATIENT 24.4 SEC (9.8-11.6)
--- NOTE | 2017-11-17 15:23 | PD.RAD ---
Post Procedure Progress Note Pre Procedure Diagnosis: (1) Chronic kidney disease, stage III (moderate) (2) LATOSHA (acute kidney injury) Post Procedure Diagnosis: (1) Acute kidney injury (2) Chronic kidney disease, stage III (moderate) Procedure Date: Nov 17, 2017 Supervising Radiologist: Quoc Nicholson Proceduralist/Assist: Kelly De La Cruz RT(R), RT [place](R) Anesthesia: Local Plan of Activity Patient to Unit: Nursing Unit Patient Condition: Good See PACS Report for procedural detail/treatment Central Venous Access Device Procedure 1 Right Internal Jugular Hemodialysis Catheter Non-Tunneled Placement dual lumen [place]: 14 PICC Line Length (cm): 20 Quoc Nicholson MD Nov 17, 2017 15:23
[2017-11-17] MEDS ORDERED: HEPARIN SODIUM - IV 2,000 UNITS/2 ML VIAL IV FLUSH PRN (15:30)
[2017-11-17] MEDS: ALBUMIN 25% INJ 100 ML IV PRN (16:41)
--- NOTE | 2017-11-17 18:26 | RADRPT ---
EXAM DATE/TIME: 11/17/2017 15:11 [place] COMPARISON: No previous studies available for comparison. INDICATIONS : Patient with acute renal failure in need of non tunnelled dialysis catheter. MEDICAL HISTORY : Anemia, COPD, Asthma, Cirrhosis, Hepatitis C, CAD, Diabetes, Gout, HLD, HTN, CKD, Non-hodgkins lympho ma SURGICAL HISTORY : CABG ENCOUNTER: Initial ACUITY: 2 weeks PAIN SCORE: 0/10 FLUORO TIME: 0.8 minutes IMAGE SERIES: 1 ACCESS: Left internal jugular vein DEVICE(S): 1.) 14 [place] dual lumen 20 cm Schon catheter PROCEDURE : 1. Ultrasound guided venipuncture. 2. Fluoroscopic guidance. 3. Central line placement. The risks, benefits and alternatives to the procedure were explained and verbal and written consent w as obtained. The site was prepped in sterile fashion. Full sterile technique was used, including ca p, mask, sterile gloves and gown and a large sterile sheet. Hand hygiene and 2% chlorhexidine prep w as utilized per protocol for cutaneous antisepsis with appropriate dry time for site. Sterile gel an d sterile probe cover were utilized for ultrasound guidance. Initially, the right neck and chest were evaluated sonographically. The right internal jugular appear s to be occluded. Right subclavian is widely patent but does not vary in diameter with respiration an d is probably centrally occluded The skin and subcutaneous tissues were infiltrated with local anesthetic solution. A suitable site a jose the vein was selected with ultrasound and fluoroscopic guidance. A small incision was made. Th e vein was accessed under direct ultrasound visualization using the micropuncture technique. The leslie ropuncture set was exchanged for a 0.035 wire. The tract was dilated. The catheter was advanced int o position under direct fluoroscopic visualization. The catheter was fixed in place with suture and a sterile dressing was applied. The patient tolerated the procedure well and there were no complications. CONCLUSION: 1. 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 2. Uncomplicated placement of a left IJ, non-tunneled dialysis catheter. Quoc Nicholson MD on November 17, 2017 at 17:15 Board Certified Radiologist. This report was verified electronically.
[2017-11-18] VITALS (27 sets, daily range): BP systolic 109–127; BP diastolic 54–63; PULSE 72–83; RESP 18; TEMP 98–98.4; O2SAT 97–99
[2017-11-18] MEDS: cefTRIAXone INJ 1,000 MG in SODIUM CHLORIDE 0.9% INJ 100 ML IV SCH (03:04)
[2017-11-18] MEDS: metroNIDAZOLE 500 MG INJ 100 ML IV SCH ×2 (04:50→11:00)
[2017-11-18] MEDS: ISOSORBIDE MONONITRATE 60 MG CR TAB (IMDUR) PO SCH (06:16)
[2017-11-18] MEDS: MORPHINE SULFATE 15 MG CONTROLLED RELEASE TAB PO SCH ×3 (06:16→22:19)
[2017-11-18] MEDS: INSULIN ASPART SUPPLEMENTAL SCALE SQ SCH ×4 (08:00→20:15)
--- NOTE | 2017-11-18 08:07 | HHI.PR ---
Subjective Remarks Patient seen and examined this morning. His vitals are stable he is afebrile. Just came from dialysis, tolerated it without issues. Per nurse he has been more alert, was telling him to stop bothering him. Drank his ensure but did not eat the food. Plan for him to have his paracentesis today. Objective Vital Signs Date Time Temp Pulse Resp B/P (MAP) Pulse Ox O2 Delivery O2 Flow Rate FiO2 11/18/17 07:01 75 11/18/17 06:00 79 11/18/17 05:00 73 11/18/17 04:00 Room Air 11/18/17 04:00 75 11/18/17 04:00 98.2 75 18 127/62 (83) 97 11/18/17 03:00 77 11/18/17 02:00 76 11/18/17 01:00 79 11/18/17 00:00 77 11/18/17 00:00 Nasal Cannula 2.00 11/18/17 00:00 98.4 77 18 112/56 (74) 98 11/17/17 23:00 79 11/17/17 22:00 81 11/17/17 21:00 80 11/17/17 20:00 Nasal Cannula 2.00 11/17/17 20:00 81 11/17/17 20:00 98.0 81 20 118/62 (80) 99 11/17/17 18:17 99 21 11/17/17 18:00 86 11/17/17 17:00 74 11/17/17 16:00 76 11/17/17 14:00 72 11/17/17 13:00 72 11/17/17 12:00 70 11/17/17 11:00 98 Nasal Cannula 2.00 11/17/17 11:00 97.4 72 18 113/63 (80) 100 11/17/17 11:00 68 11/17/17 10:00 68 11/17/17 09:00 76 11/17/17 08:00 70 I/O 11/17/17 11/17/17 11/17/17 11/18/17 11/18/17 11/18/17 07:00 15:00 23:00 07:00 15:00 23:00 Intake Total 290 ml 694 ml 820 ml Output Total 100 ml 3000 ml 400 ml Balance 190 ml -2306 ml 420 ml Intake Oral 50 ml 50 ml IV Total 240 ml 770 ml FFP 347 ml Blood Product IV Normal Saline Flush 347 ml Output Urine Total 100 ml 400 ml Hemodialysis 3000 ml # Bowel Movements 3 0 Result Diagram: 11/17/17 0642 11/17/17 0642 Imaging Last Impressions Catheter Placement X-Ray 11/17/17 0000 Signed Impressions: Service Date/Time: Friday, November 17, 2017 15:11 - CONCLUSION: 1. 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 2. Uncomplicated placement of a left IJ, non-tunneled dialysis catheter. Quoc Nicholson MD Renal Ultrasound 11/14/17 0000 Signed Impressions: Service Date/Time: Tuesday, November 14, 2017 22:30 - CONCLUSION: 1. Nonobstructing right renal calculus. Left renal cyst. Distal pancreatic cyst. Christophe Hernández MD Chest X-Ray 11/09/17 0000 Signed Impressions: Service Date/Time: October 05:02 - CONCLUSION: Mild left base atelectasis. Nghia Sneed MD Abdomen/Pelvis CT 11/01/17 2258 Signed Impressions: Service Date/Time: Wednesday, November 01, 2017 23:11 - CONCLUSION: 1. Cirrhosis with portal hypertension and splenomegaly. 2. Nonspecific low density along the pancreatic tail measures 3.9 cm. 3. Moderate abdominal ascites. 4. Nonobstructing right renal calculus. Josiah Anderson MD Head CT 11/01/17 0000 Signed Impressions: Service Date/Time: Wednesday, November 01, 2017 23:07 - CONCLUSION: No acute intracranial disease. Josiah Anderson MD Objective Remarks GENERAL: tired appearing, no acute distress, easily arrousable. SKIN: Warm and dry. HEAD: Normocephalic. EYES: No scleral icterus. No injection or drainage. NECK: Supple, trachea midline. No JVD or lymphadenopathy. CARDIOVASCULAR: RRR, BREE RESPIRATORY: Breath sounds equal bilaterally. No accessory muscle use. GASTROINTESTINAL: Abdomen soft, non-tender, nondistended. MUSCULOSKELETAL: No cyanosis, or edema. A/P Problem List: (1) Generalized weakness ICD Code: R53.1 - Weakness Status: Acute (2) Non-Hodgkin lymphoma in remission ICD Code: C85.90 - Non-Hodgkin lymphoma, unspecified, unspecified site (3) Coronary artery disease ICD Code: I25.10 - Atherosclerotic heart disease of [place] coronary artery without angina pectoris (4) Diabetes mellitus ICD Code: E11.9 - Type 2 diabetes mellitus without complications (5) Hypertension ICD Code: I10 - Essential (primary) hypertension (6) Liver cirrhosis ICD Code: K74.60 - Unspecified cirrhosis of liver (7) CKD stage 3 secondary to diabetes ICD Code: E11.22 - Type 2 diabetes mellitus with diabetic chronic kidney disease; N18.3 - Chronic kidney disease, stage 3 (moderate) Status: Chronic Assessment and Plan Mr. 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 Patient presented to the ED on 11/01/17 with complaints of tremors and jerking movements and lower abdominal back pain that have been happening to him for approximately a month. Patient is status post Treanda chemotherapy 6 cycles for non-Hodgkin lymphoma and he completed treatment in March 2017 Hepatic encephalopathy See imaging above, CT abdomen and pelvis shows cirrhosis with portal hypertension and splenomegaly Hyper ammonium in the setting of liver cirrhosis and hepatitis C EEG negative for seizures Currently on Xifaxan, lactulose is on hold due to multiple loose bowel movements. Continue to monitor ammonia levels closely and resume as needed GI was consulted and now have signed off Patient was supposed to receive an ultrasound-guided abdominal paracentesis but was unable to be done because of an elevated INR. He received vitamin K. Currently 2.4, may have paracentesis today Currently on rocephin & flagyl--patient has been on these since the it is unclear to me per review of the EMR why the patient is on antibiotics. Looks like they were started by GI, but GI since signed off. We will DC these antibiotics and continue to follow patient clinically. Thrombocytopenia This appears to be chronic. Likely due to liver disease Oncology consulted: Liver cirrhosis Continue rifaximin and modanifil DM2 Continue sliding-scale LATOSHA, chronic kidney disease stage III Baseline creatinine between 1.2-1.4. Renal ultrasound showed a nonobstructing right renal calculus and left renal cyst. Creatinine peaked at 4.23. Currently being followed by nephrology: Continue IV fluids one half-normal saline with bicarb, continue Lasix drip patient appears uremic will start hemodialysis, FFP and Vas-Cath, dialysis HD today, scheduled again for MONDAY Non-Hodgkin's lymphoma Currently in remission Oncology was consulted Sacral wounds Followed by wound care Patient seen and evaluated by palliative care. Continues to want to be full code. The patient is agreeable to hemodialysis if kidneys to need to deteriorate. Watch patient closely for any lethargy, pain medications on hold Discharge Planning D/C to [facility] when cleared by nephro plan for HD monday Problem Qualifiers (1) Liver cirrhosis: Qualified Codes: K74.60 - Unspecified cirrhosis of liver Jess Leyva MD Nov 18, 2017 08:07
[2017-11-18] MEDS: SODIUM CHLORIDE 0.9% FLUSH 10 ML FLUSH IV FLUSH SCH ×2 (09:00→20:08)
--- NOTE | 2017-11-18 10:40 | HHI.NPPN ---
Subjective Renal Failure: Chronic History of Present Illness Patient is a 72-year-old male with a past medical history significant for non- Hodgkin's lymphoma, hepatitis C, anemia, COPD, CAD, insulin-dependent diabetes mellitus, chronic kidney disease, hypertension and hyperlipidemia. Presented emergency department for the evaluation of jerking movements. Nephrology is consulted for rising creatinine. On admission creatinine was 2.54 and has now increased to 3.52, potassium 4, and CO2 level at 15.5 today. Patient denies any shortness of breath. No edema. present. Per records has past medical history of chronic kidney disease stage 3 most likely related to diabetes vs HTN vs renovascular disease. Has a brother who is on hemodialysis. Additional Remarks Resting in bed, seen on dialysis. No acute complaints Review of Systems Respiratory Respiratory Remarks denies any SOB Cardiovascular Cardiac Remarks Denies CP Objective Data Data Vital Signs Date Time Temp Pulse Resp B/P (MAP) Pulse Ox O2 Delivery O2 Flow Rate FiO2 11/18/17 08:15 98 Room Air 11/18/17 08:15 98.2 75 18 118/63 (81) 98 11/18/17 07:01 75 11/18/17 06:00 79 11/18/17 05:00 73 11/18/17 04:00 Room Air 11/18/17 04:00 75 11/18/17 04:00 98.2 75 18 127/62 (83) 97 11/18/17 03:00 77 11/18/17 02:00 76 11/18/17 01:00 79 11/18/17 00:00 77 11/18/17 00:00 Nasal Cannula 2.00 11/18/17 00:00 98.4 77 18 112/56 (74) 98 11/17/17 23:00 79 11/17/17 22:00 81 11/17/17 21:00 80 11/17/17 20:00 Nasal Cannula 2.00 11/17/17 20:00 81 11/17/17 20:00 98.0 81 20 118/62 (80) 99 11/17/17 18:17 99 21 11/17/17 18:00 86 11/17/17 17:00 74 11/17/17 16:00 76 11/17/17 14:00 72 11/17/17 13:00 72 4/27/18 12:00 70 11/17/17 11:00 98 Nasal Cannula 2.00 11/17/17 11:00 97.4 72 18 113/63 (80) 100 11/17/17 11:00 68 -: 11/17/17 0642 11/17/17 0642 Tubes & Lines: Barra[place] Physical Exam General Appearance: No Acute Distress, Malnourished Eyes Eye Exam: Pupils Equal Throat Throat Exam: Oral Mucosa [place] & Moist Pulmonary Resp Exam: No Distress, Decreased Bases Cardiology CV Exam: Regular Gastrointestinal/Abdomen GI Exam: Non-Tender, Bowel Sounds Present, Distended Genitourinary Exam: Flank Non-Tender Integumentary Skin Exam: Clear, Warm Extremeties Extremities Exam: Moderate Edema, Pitting Edema, Dependent Edema Neurologic Neuro Exam: Alert, Stuporous Assessment/Plan Problem List: (1) ARF (acute renal failure) ICD Codes: N17.9 - Acute kidney failure, unspecified Status: Acute Plan: Acute kidney injury on admission creatinine was 2.54 initially thought possible prerenal but the continue increase in creatinine more likely ATN from hypotension vs vasculitis from hepatitis C Hepatorenal syndrome is also a possibility. Chronic kidney disease stage 3 most likely related to diabetes vs HTN vs renovascular disease. Renal US with nonobstructing right renal calculus. Left renal cyst. Distal pancreatic cyst. HD initiated 11/17, seen on HD today. Plan HD today - should improve acidosis. Plan for next HD Monday. Will hold IVFs, continues on albumin and lasix for now - monitor UOP for now. Continue calcium replacement (2) Hypertension ICD Codes: I10 - Essential (primary) hypertension Plan: On metoprolol and isosorbide (3) Diabetes mellitus ICD Codes: E11.9 - Type 2 diabetes mellitus without complications Caleb Jacques MD Nov 18, 2017 10:40
[2017-11-18] MEDS: MODAFINIL 200 MG TAB PO SCH (11:46)
[2017-11-18] MEDS: PANTOPRAZOLE SOD 40 MG DELAYED RELEASE TAB PO SCH (11:46)
[2017-11-18] MEDS: CALCIUM CARBONATE 1.25 GM (CA 500 MG) TAB PO SCH (11:46)
[2017-11-18] MEDS: RIFAXIMIN 550 MG TAB PO SCH ×2 (11:46→20:08)
[2017-11-18] MEDS: METOPROLOL SUCCINATE 50 MG EXTENDED RELEASE TAB PO SCH ×2 (11:46→20:08)
[2017-11-18] MEDS: guaiFENesin E.R. 600 MG TAB PO SCH ×2 (11:46→20:08)
[2017-11-18] MEDS: ALBUTEROL SULFATE 2 MG TAB PO SCH ×3 (11:46→18:31)
[2017-11-18] MEDS: FUROSEMIDE INJ 100 MG in SODIUM CHLORIDE 0.9% INJ 90 ML IV SCH (16:34)
[2017-11-19] VITALS (28 sets, daily range): BP systolic 112–127; BP diastolic 56–65; PULSE 73–87; RESP 16–18; TEMP 98–98.4; O2SAT 97–100
[2017-11-19] MEDS: MORPHINE SULFATE 15 MG CONTROLLED RELEASE TAB PO SCH ×3 (05:23→22:11)
[2017-11-19] MEDS: ISOSORBIDE MONONITRATE 60 MG CR TAB (IMDUR) PO SCH (06:16)
[2017-11-19 07:05] LABS: AUTOMATED NEUTROPHIL # 2.5 TH/MM3 (1.8-7.7); BASOPHIL % 0.4 % (0.0-2.0); EOSINOPHIL % 0.6 % (0.0-4.0); HEMATOCRIT 27.4 % (39.0-51.0); LYMPH % 35.2 % (9.0-44.0); LYMPHOCYTE # 1.7 TH/MM3 (1.0-4.8); MEAN CELL VOLUME 89.8 FL (80.0-100.0); MEAN CORPUSCULAR HEMOGLOBIN 29.6 PG (27.0-34.0); MEAN PLATELET VOLUME 7.8 FL (7.0-11.0); MONOCYTE # 0.5 TH/MM3 (0-0.9); NEUT % 52.8 % (16.0-70.0); PLATELET COUNT 37 TH/MM3 (150-450); RED BLOOD COUNT 3.05 MIL/MM3 (4.50-5.90); RED CELL DISTRIBUTION WIDTH 18.2 % (11.6-17.2); WHITE BLOOD COUNT 4.7 TH/MM3 (4.0-11.0)
--- NOTE | 2017-11-19 07:16 | HHI.PR ---
Subjective Remarks Patient seen and examined this morning. His vitals are stable he is afebrile. Patient is a lot more awake this morning. He asked me to change the channel to a [employer] channel on the television. He appears comfortable. Responds to questions appropriately. Objective Vital Signs Date Time Temp Pulse Resp B/P (MAP) Pulse Ox O2 Delivery O2 Flow Rate FiO2 11/19/17 07:01 73 11/19/17 06:00 82 11/19/17 05:00 77 11/19/17 04:00 98.4 83 16 119/56 (77) 97 11/19/17 04:00 87 11/19/17 03:00 79 11/19/17 02:00 82 11/19/17 01:00 80 11/19/17 00:00 79 11/19/17 00:00 98.1 79 18 127/65 (85) 97 11/18/17 23:00 72 11/18/17 22:00 77 11/18/17 21:00 76 11/18/17 20:00 Room Air 11/18/17 20:00 98.1 79 18 109/63 (78) 98 11/18/17 20:00 79 11/18/17 18:01 76 11/18/17 17:33 99 21 11/18/17 17:00 80 11/18/17 16:01 82 11/18/17 15:01 80 11/18/17 15:01 99 Room Air 11/18/17 15:01 98.3 83 18 111/54 (73) 99 11/18/17 14:00 80 11/18/17 13:00 82 11/18/17 12:01 80 11/18/17 11:45 99 Room Air 11/18/17 11:45 98.0 77 18 123/63 (83) 99 11/18/17 11:39 98 11/18/17 11:00 80 11/18/17 10:00 78 11/18/17 09:00 78 11/18/17 08:15 98 Room Air 11/18/17 08:15 98.2 75 18 118/63 (81) 98 11/18/17 08:00 76 I/O 4/28/18 4/28/18 4/28/18 4/29/18 4/29/18 4/29/18 07:00 15:00 23:00 07:00 15:00 23:00 Intake Total 820 ml 448 ml 451 ml 100 ml Output Total 400 ml 1500 ml 550 ml 350 ml Balance 420 ml -1052 ml -99 ml -250 ml Intake Oral 50 ml 240 ml 50 ml IV Total 770 ml 98 ml 211 ml 50 ml FFP 350 ml Output Urine Total 400 ml 550 ml 350 ml Hemodialysis 1500 ml # Bowel Movements 0 2 0 Result Diagram: 11/17/17 0642 11/17/17 0642 Imaging Last Impressions Catheter Placement X-Ray 11/17/17 0000 Signed Impressions: Service Date/Time: Friday, November 17, 2017 15:11 - CONCLUSION: 1. 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 2. Uncomplicated placement of a left IJ, non-tunneled dialysis catheter. Quoc Nicholson MD Renal Ultrasound 11/14/17 0000 Signed Impressions: Service Date/Time: Tuesday, November 14, 2017 22:30 - CONCLUSION: 1. Nonobstructing right renal calculus. Left renal cyst. Distal pancreatic cyst. Christophe Hernández MD Chest X-Ray 11/09/17 0000 Signed Impressions: Service Date/Time: October 05:02 - CONCLUSION: Mild left base atelectasis. Nghia Sneed MD Abdomen/Pelvis CT 11/01/17 2258 Signed Impressions: Service Date/Time: Wednesday, November 01, 2017 23:11 - CONCLUSION: 1. Cirrhosis with portal hypertension and splenomegaly. 2. Nonspecific low density along the pancreatic tail measures 3.9 cm. 3. Moderate abdominal ascites. 4. Nonobstructing right renal calculus. Josiah Anderson MD Head CT 11/01/17 0000 Signed Impressions: Service Date/Time: Wednesday, November 01, 2017 23:07 - CONCLUSION: No acute intracranial disease. Josiah Anderson MD Objective Remarks GENERAL: Awake and alert, no acute distres. SKIN: Warm and dry. HEAD: Normocephalic. EYES: No scleral icterus. No injection or drainage. NECK: Supple, trachea midline. No JVD or lymphadenopathy. Port left chest. CARDIOVASCULAR: RRR, BREE RESPIRATORY: Breath sounds equal bilaterally. No accessory muscle use. GASTROINTESTINAL: Abdomen soft, non-tender, +distended. MUSCULOSKELETAL: No cyanosis, or edema. Unable to lift legs against gravity. Able to wiggle toes. Moves upper extremities spontaneously. A/P Problem List: (1) Generalized weakness ICD Code: R53.1 - Weakness Status: Acute (2) Non-Hodgkin lymphoma in remission ICD Code: C85.90 - Non-Hodgkin lymphoma, unspecified, unspecified site (3) Coronary artery disease ICD Code: I25.10 - Atherosclerotic heart disease of [place] coronary artery without angina pectoris (4) Diabetes mellitus ICD Code: E11.9 - Type 2 diabetes mellitus without complications (5) Hypertension ICD Code: I10 - Essential (primary) hypertension (6) Liver cirrhosis ICD Code: K74.60 - Unspecified cirrhosis of liver (7) CKD stage 3 secondary to diabetes ICD Code: E11.22 - Type 2 diabetes mellitus with diabetic chronic kidney disease; N18.3 - Chronic kidney disease, stage 3 (moderate) Status: Chronic Assessment and Plan Mr. 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 Patient presented to the ED on 11/01/17 with complaints of tremors and jerking movements and lower abdominal back pain that have been happening to him for approximately a month. Patient is status post Treanda chemotherapy 6 cycles for non-Hodgkin lymphoma and he completed treatment in March 2017 Hepatic encephalopathy See imaging above, CT abdomen and pelvis shows cirrhosis with portal hypertension and splenomegaly Hyper ammonium in the setting of liver cirrhosis and hepatitis C EEG negative for seizures Currently on Xifaxan, lactulose is on hold due to multiple loose bowel movements. Continue to monitor ammonia levels closely and resume lasctulose as indicated Patient was supposed to receive an ultrasound-guided abdominal paracentesis but was unable to be done because of an elevated INR. He received vitamin K. Last INR 2.4, repeat pending Currently on rocephin & flagyl--patient has been on these since the it is unclear to me per review of the EMR why the patient is on antibiotics. Looks like they were started by GI, but GI since signed off. I DC these antibiotics on 11/18 and continue to follow patient clinically. Thrombocytopenia This appears to be chronic. Likely due to liver disease Oncology following Liver cirrhosis Continue rifaximin and modanifil DM2 Continue sliding-scale LATOSHA, chronic kidney disease stage III--> hepatorenal syndrome is a possibility Baseline creatinine between 1.2-1.4. Renal ultrasound showed a nonobstructing right renal calculus and left renal cyst. Creatinine peaked at 4.23. Currently being followed by nephrology: Continue IV fluids one half-normal saline with bicarb, continue Lasix drip patient appears uremic will start hemodialysis, FFP and Vas-Cath, dialysis HD today, scheduled again for MONDAY Non-Hodgkin's lymphoma Currently in remission Oncology was consulted Sacral wounds Followed by wound care Patient seen and evaluated by palliative care. Continues to want to be full code. The patient is agreeable to hemodialysis if kidneys to need to deteriorate. Watch patient closely for any lethargy, pain medications on hold Discharge Planning D/C to [facility] when cleared by nephro plan for HD monday Problem Qualifiers (1) Liver cirrhosis: Qualified Codes: K74.60 - Unspecified cirrhosis of liver Jess Leyva MD Nov 19, 2017 07:16
[2017-11-19 07:33] LABS: BICARBONATE 24.2 MEQ/L (21.0-32.0); CALCIUM 8.1 MG/DL (8.5-10.1); CREATININE 2.99 MG/DL (0.60-1.30)
[2017-11-19] MEDS: INSULIN ASPART SUPPLEMENTAL SCALE SQ SCH ×4 (08:00→20:30)
[2017-11-19] MEDS: RIFAXIMIN 550 MG TAB PO SCH ×2 (08:09→20:27)
[2017-11-19] MEDS: ALBUTEROL SULFATE 2 MG TAB PO SCH ×3 (08:09→18:30)
[2017-11-19] MEDS: METOPROLOL SUCCINATE 50 MG EXTENDED RELEASE TAB PO SCH ×2 (08:09→20:27)
[2017-11-19] MEDS: guaiFENesin E.R. 600 MG TAB PO SCH ×2 (08:09→20:27)
[2017-11-19] MEDS: MODAFINIL 200 MG TAB PO SCH (08:10)
[2017-11-19] MEDS: PANTOPRAZOLE SOD 40 MG DELAYED RELEASE TAB PO SCH (08:10)
[2017-11-19] MEDS: CALCIUM CARBONATE 1.25 GM (CA 500 MG) TAB PO SCH (08:10)
[2017-11-19] MEDS: SODIUM CHLORIDE 0.9% FLUSH 10 ML FLUSH IV FLUSH SCH ×2 (08:18→20:27)
[2017-11-19 08:24] LABS: STOMATOCYTES 2+ (NORMAL)
--- NOTE | 2017-11-19 09:09 | HHI.NPPN ---
Subjective Renal Failure: Chronic History of Present Illness Patient is a 72-year-old male with a past medical history significant for non- Hodgkin's lymphoma, hepatitis C, anemia, COPD, CAD, insulin-dependent diabetes mellitus, chronic kidney disease, hypertension and hyperlipidemia. Presented emergency department for the evaluation of jerking movements. Nephrology is consulted for rising creatinine. On admission creatinine was 2.54 and has now increased to 3.52, potassium 4, and CO2 level at 15.5 today. Patient denies any shortness of breath. No edema. present. Per records has past medical history of chronic kidney disease stage 3 most likely related to diabetes vs HTN vs renovascular disease. Has a brother who is on hemodialysis. Additional Remarks Resting in bed, tolerated HD yesterday. No acute complaints Review of Systems Respiratory Respiratory Remarks denies any SOB Cardiovascular Cardiac Remarks Denies CP Objective Data Data Vital Signs Date Time Temp Pulse Resp B/P (MAP) Pulse Ox O2 Delivery O2 Flow Rate FiO2 11/19/17 07:01 73 11/19/17 06:00 82 11/19/17 05:00 77 11/19/17 04:00 98.4 83 16 119/56 (77) 97 11/19/17 04:00 87 11/19/17 03:00 79 11/19/17 02:00 82 11/19/17 01:00 80 11/19/17 00:00 79 11/19/17 00:00 98.1 79 18 127/65 (85) 97 11/18/17 23:00 72 11/18/17 22:00 77 11/18/17 21:00 76 11/18/17 20:00 Room Air 11/18/17 20:00 98.1 79 18 109/63 (78) 98 11/18/17 20:00 79 11/18/17 18:01 76 11/18/17 17:33 99 21 11/18/17 17:00 80 11/18/17 16:01 82 11/18/17 15:01 80 11/18/17 15:01 99 Room Air 11/18/17 15:01 98.3 83 18 111/54 (73) 99 11/18/17 14:00 80 11/18/17 13:00 82 11/18/17 12:01 80 11/18/17 11:45 99 Room Air 11/18/17 11:45 98.0 77 18 123/63 (83) 99 11/18/17 11:39 98 11/18/17 11:00 80 11/18/17 10:00 78 -: 11/19/17 0600 11/19/17 0600 Tubes & Lines: Barraza Physical Exam General Appearance: No Acute Distress, Malnourished Eyes Eye Exam: Pupils Equal Throat Throat Exam: Oral Mucosa [place] & Moist Pulmonary Resp Exam: No Distress, Decreased Bases Cardiology CV Exam: Regular Gastrointestinal/Abdomen GI Exam: Non-Tender, Bowel Sounds Present, Distended Genitourinary Exam: Flank Non-Tender Integumentary Skin Exam: Clear, Warm Extremeties Extremities Exam: Moderate Edema, Pitting Edema, Dependent Edema Neurologic Neuro Exam: Alert, Stuporous Assessment/Plan Problem List: (1) ARF (acute renal failure) ICD Codes: N17.9 - Acute kidney failure, unspecified Status: Acute Plan: Acute kidney injury on admission creatinine was 2.54 initially thought possible prerenal but the continue increase in creatinine more likely ATN from hypotension vs vasculitis from hepatitis C Hepatorenal syndrome is also a possibility. Chronic kidney disease stage 3 most likely related to diabetes vs HTN vs renovascular disease. Renal US with nonobstructing right renal calculus. Left renal cyst. Distal pancreatic cyst. HD initiated 11/17 with 3L UF, HD yesterday with 1.5L UF. Plan Acidosis improved. Hypokalemia this morning - will replace with PO 40meq KCL On PO calcium carobonate Making some urine: 900cc UOP/24 hours. IVFs held. Continues on albumin and lasix for now. Plan for HD tomorrow - continue to monitor UOP and labs for renal recovery. (2) Hypertension ICD Codes: I10 - Essential (primary) hypertension Plan: On metoprolol and isosorbide (3) Diabetes mellitus ICD Codes: E11.9 - Type 2 diabetes mellitus without complications Caleb Jacques MD Nov 19, 2017 09:09
[2017-11-19] MEDS ORDERED: POTASSIUM CHLORIDE 25 MEQ EFFERVESCENT TAB PO ONE (09:15)
[2017-11-19 09:39] LABS: INTERNATIONAL NORMALIZED RATIO 2.2 RATIO; PROTHROMBIN TIME - PATIENT 22.3 SEC (9.8-11.6)
[2017-11-19] MEDS: FUROSEMIDE INJ 100 MG in SODIUM CHLORIDE 0.9% INJ 90 ML IV SCH (15:12)
[2017-11-20] VITALS (25 sets, daily range): BP systolic 86–118; BP diastolic 46–62; PULSE 77–97; RESP 16–20; TEMP 98.1–99.5; O2SAT 97–100
[2017-11-20] MEDS: MORPHINE SULFATE 15 MG CONTROLLED RELEASE TAB PO SCH ×3 (05:05→21:24)
[2017-11-20] MEDS: ISOSORBIDE MONONITRATE 60 MG CR TAB (IMDUR) PO SCH (06:00)
[2017-11-20 06:45] LABS: AUTOMATED NEUTROPHIL # 3.1 TH/MM3 (1.8-7.7); BASOPHIL % 0.4 % (0.0-2.0); EOSINOPHIL % 0.6 % (0.0-4.0); HEMOGLOBIN 9.3 GM/DL (13.0-17.0); LYMPH % 29.2 % (9.0-44.0); LYMPHOCYTE # 1.5 TH/MM3 (1.0-4.8); MEAN CELL VOLUME 89.8 FL (80.0-100.0); MEAN CORPUSCULAR HEMOGLOBIN 29.9 PG (27.0-34.0); MEAN CORPUSCULAR HGB CONC 33.3 % (32.0-36.0); MEAN PLATELET VOLUME 8.3 FL (7.0-11.0); MONO % 10.2 % (0.0-8.0); MONOCYTE # 0.5 TH/MM3 (0-0.9); NEUT % 59.6 % (16.0-70.0); PLATELET COUNT 39 TH/MM3 (150-450); RED BLOOD COUNT 3.12 MIL/MM3 (4.50-5.90); RED CELL DISTRIBUTION WIDTH 18.6 % (11.6-17.2); WHITE BLOOD COUNT 5.1 TH/MM3 (4.0-11.0)
[2017-11-20 07:22] LABS: ALBUMIN 2.5 GM/DL (3.4-5.0); ALKALINE PHOSPHATASE 65 U/L (45-117); ALT (GPT) 19 U/L (12-78); AST (GOT) 50 U/L (15-37); BICARBONATE 25.4 MEQ/L (21.0-32.0); BLOOD UREA NITROGEN 43 MG/DL (7-18); CALCIUM 8.1 MG/DL (8.5-10.1); CHLORIDE 106 MEQ/L (98-107); GLOMERULAR FILTRATION RATE 25 ML/MIN (>89); GLUCOSE,RANDOM 111 MG/DL (74-106); SODIUM (NA) 141 MEQ/L (136-145); TOTAL PROTEIN 5.5 GM/DL (6.4-8.2)
[2017-11-20] MEDS ORDERED: POTASSIUM CHLORIDE 25 MEQ EFFERVESCENT TAB PO ONE (08:00)
[2017-11-20] MEDS: INSULIN ASPART SUPPLEMENTAL SCALE SQ SCH ×4 (08:00→21:25)
[2017-11-20 08:21] LABS: CORRECTED NUCLEATED RBC 3 /100 WBC (0-0); LYMPHOCYTES 12 % (9-44); MONOCYTES 9 % (0-8); NUCLEATED RED BLOOD CELL 3 (0-0); POLYS (SEG NEUTROPHILS) 78 % (16-70)
[2017-11-20 08:22] LABS: KERATOCYTES OCC (NORMAL); OVALOCYTES 1+ (NORMAL); TEARDROP RBCS 1+ (NORMAL)
[2017-11-20] MEDS: RIFAXIMIN 550 MG TAB PO SCH ×2 (08:28→21:23)
[2017-11-20] MEDS: POTASSIUM CHLOR 20 MEQ PREMIX 100 ML IV SCH ×2 (08:28→14:03)
[2017-11-20] MEDS: ALBUTEROL SULFATE 2 MG TAB PO SCH ×3 (08:29→17:58)
[2017-11-20] MEDS: guaiFENesin E.R. 600 MG TAB PO SCH ×2 (08:29→21:23)
[2017-11-20] MEDS: MODAFINIL 200 MG TAB PO SCH (08:29)
[2017-11-20] MEDS: METOPROLOL SUCCINATE 50 MG EXTENDED RELEASE TAB PO SCH ×2 (08:30→21:23)
[2017-11-20] MEDS: CALCIUM CARBONATE 1.25 GM (CA 500 MG) TAB PO SCH (08:30)
[2017-11-20] MEDS: SODIUM CHLORIDE 0.9% FLUSH 10 ML FLUSH IV FLUSH SCH ×2 (08:30→21:00)
[2017-11-20] MEDS: PANTOPRAZOLE SOD 40 MG DELAYED RELEASE TAB PO SCH (08:30)
--- NOTE | 2017-11-20 08:47 | HHI.NPPN ---
Subjective Renal Failure: Chronic History of Present Illness Patient is a 72-year-old male with a past medical history significant for non- Hodgkin's lymphoma, hepatitis C, anemia, COPD, CAD, insulin-dependent diabetes mellitus, chronic kidney disease, hypertension and hyperlipidemia. Presented emergency department for the evaluation of jerking movements. Nephrology is consulted for rising creatinine. On admission creatinine was 2.54 and has now increased to 3.52, potassium 4, and CO2 level at 15.5 today. Patient denies any shortness of breath. No edema. present. Per records has past medical history of chronic kidney disease stage 3 most likely related to diabetes vs HTN vs renovascular disease. Has a brother who is on hemodialysis. Additional Remarks Resting in bed, more alert today. Reports mild shortness of breath. Edema is improved. (Paula Baum) Review of Systems Respiratory Respiratory Remarks denies any SOB (Paula Baum) Cardiovascular Cardiac Remarks Denies CP (Paula Baum) Objective Data Data Vital Signs Date Time Temp Pulse Resp B/P (MAP) Pulse Ox O2 Delivery O2 Flow Rate FiO2 11/20/17 07:53 99 Nasal Cannula 2.00 11/20/17 07:44 98.1 90 18 111/56 (74) 99 11/20/17 07:44 85 11/20/17 06:00 83 11/20/17 05:00 85 11/20/17 04:00 86 11/20/17 04:00 98.1 86 16 118/62 (80) 99 11/20/17 03:00 84 11/20/17 02:00 80 11/20/17 01:00 77 11/20/17 00:00 98.3 84 20 110/55 (73) 98 11/20/17 00:00 84 11/19/17 23:00 80 11/19/17 22:00 82 11/19/17 21:00 79 11/19/17 20:00 83 11/19/17 20:00 Nasal Cannula 2.00 11/19/17 20:00 98.0 83 18 119/63 (81) 98 11/19/17 18:00 82 11/19/17 17:17 99 21 11/19/17 17:00 82 11/19/17 16:01 84 11/19/17 15:01 100 Nasal Cannula 2.00 11/19/17 15:01 98.2 87 18 122/63 (82) 99 11/19/17 15:00 85 11/19/17 14:01 84 11/19/17 13:00 82 11/19/17 12:00 80 11/19/17 11:01 100 Nasal Cannula 2.00 11/19/17 11:01 98.1 80 18 112/57 (75) 100 11/19/17 11:00 79 11/19/17 10:00 80 11/19/17 09:51 99 21 11/19/17 09:00 82 (Paula Baum) -: 11/20/17 0622 11/20/17 0622 Tubes & Lines: Barraza (Paula Baum) Physical Exam General Appearance: No Acute Distress, Malnourished (Paula Baum) Eyes Eye Exam: Pupils Equal (Paula Baum) Throat Throat Exam: Oral Mucosa [place] & Moist (Paula Baum) Pulmonary Resp Exam: No Distress, Decreased Bases (Paula Baum) Cardiology CV Exam: Regular (Paula Baum) Gastrointestinal/Abdomen GI Exam: Non-Tender, Bowel Sounds Present, Distended (Paula Baum) Genitourinary Exam: Flank Non-Tender (Paula Baum) Integumentary Skin Exam: Clear, Warm Skin Remarks Blisters present on lower extremity (Paula Baum) Extremeties Extremities Exam: Moderate Edema, Pitting Edema, Dependent Edema (Paula Baum) Neurologic Neuro Exam: Alert, Stuporous Neuro Remarks speech delayed (Paula Baum) Assessment/Plan Problem List: (1) ARF (acute renal failure) ICD Codes: N17.9 - Acute kidney failure, unspecified Status: Acute Plan: Acute kidney injury on admission creatinine was 2.54 initially thought possible prerenal but the continue increase in creatinine more likely ATN from hypotension vs vasculitis from hepatitis C Hepatornal syndrome is also a possibility. Chronic kidney disease stage 3 most likely related to diabetes vs HTN vs renovascular disease. Renal US with nonobstructing right renal calculus. Left renal cyst. Distal pancreatic cyst. Plan Continue epogen with dialysis Hypokalemia this morning - IV replacement being given Continue calcium carbonate Continue on albumin and lasix Creatinine at 3.0 with 1100 UOP/24 hours HD today - continue to monitor UOP and labs for renal recovery. (2) Hypertension ICD Codes: I10 - Essential (primary) hypertension Plan: On metoprolol and isosorbide (3) Diabetes mellitus ICD Codes: E11.9 - Type 2 diabetes mellitus without complications Plan: Maintain blood sugars at 140 mg/dl to 180 mg/dl (Paula Baum) Problem List: (1) ARF (acute renal failure) ICD Codes: N17.9 - Acute kidney failure, unspecified Status: Acute Plan: Acute kidney injury on admission creatinine was 2.54 initially thought possible prerenal but the continue increase in creatinine more likely ATN from hypotension vs vasculitis from hepatitis C Hepatornal syndrome is also a possibility. Chronic kidney disease stage 3 most likely related to diabetes vs HTN vs renovascular disease. Renal US with nonobstructing right renal calculus. Left renal cyst. Distal pancreatic cyst. Plan Continue epogen with dialysis Hypokalemia this morning - IV replacement being given Continue calcium carbonate Continue on albumin and lasix Creatinine at 3.0 with 1100 UOP/24 hours HD today - continue to monitor UOP and labs for renal recovery. Patient seen and examined, agree with above. Continue diuretics, follow the BMP. (2) Hypertension ICD Codes: I10 - Essential (primary) hypertension Plan: On metoprolol and isosorbide (3) Diabetes mellitus ICD Codes: E11.9 - Type 2 diabetes mellitus without complications Plan: Maintain blood sugars at 140 mg/dl to 180 mg/dl (Barrie Oconnor MD) Paula Baum Nov 20, 2017 08:47 Barrie Oconnor MD November 21, 2017 16:23
[2017-11-20] MEDS: ALBUMIN 25% INJ 100 ML IV PRN ×2 (10:15→10:42)
[2017-11-20 13:55] LABS: INTERNATIONAL NORMALIZED RATIO 2.1 RATIO; PROTHROMBIN TIME - PATIENT 21.6 SEC (9.8-11.6)
--- NOTE | 2017-11-20 14:55 | HHI.PR ---
Subjective Remarks Patient not very talkative. Denies pain. Keeps his eyes closed but does open them upon command. Denies feeling cold Objective Vitals Vital Signs Date Time Temp Pulse Resp B/P (MAP) Pulse Ox O2 Delivery O2 Flow Rate FiO2 11/20/17 14:13 77 11/20/17 14:13 Nasal Cannula 2.00 11/20/17 09:36 87 11/20/17 08:14 78 11/20/17 07:53 99 Nasal Cannula 2.00 11/20/17 07:44 98.1 90 18 111/56 (74) 99 11/20/17 07:44 85 11/20/17 06:00 83 11/20/17 05:00 85 11/20/17 04:00 86 11/20/17 04:00 98.1 86 16 118/62 (80) 99 11/20/17 03:00 84 11/20/17 02:00 80 11/20/17 01:00 77 11/20/17 00:00 98.3 84 20 110/55 (73) 98 11/20/17 00:00 84 11/19/17 23:00 80 11/19/17 22:00 82 11/19/17 21:00 79 11/19/17 20:00 83 11/19/17 20:00 Nasal Cannula 2.00 11/19/17 20:00 98.0 83 18 119/63 (81) 98 11/19/17 18:00 82 11/19/17 17:17 99 21 11/19/17 17:00 82 11/19/17 16:01 84 11/19/17 15:01 100 Nasal Cannula 2.00 11/19/17 15:01 98.2 87 18 122/63 (82) 99 11/19/17 15:00 85 I/O 11/19/17 11/19/17 11/19/17 11/20/17 11/20/17 11/20/17 07:00 15:00 23:00 07:00 15:00 23:00 Intake Total 100 ml 573 ml 50 ml Output Total 350 ml 600 ml 500 ml Balance -250 ml -27 ml -450 ml Intake Oral 50 ml 460 ml 50 ml IV Total 50 ml 113 ml Output Urine Total 350 ml 600 ml 500 ml # Bowel Movements 0 2 1 Result Diagram: 11/20/17 0622 11/20/17 0622 Imaging Last Impressions Catheter Placement X-Ray 11/17/17 0000 Signed Impressions: Service Date/Time: Friday, November 17, 2017 15:11 - CONCLUSION: 1. 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 2. Uncomplicated placement of a left IJ, non-tunneled dialysis catheter. Quoc Nicholson MD Renal Ultrasound 11/14/17 0000 Signed Impressions: Service Date/Time: Tuesday, November 14, 2017 22:30 - CONCLUSION: 1. Nonobstructing right renal calculus. Left renal cyst. Distal pancreatic cyst. Christophe Hernández MD Chest X-Ray 11/09/17 0000 Signed Impressions: Service Date/Time: October 05:02 - CONCLUSION: Mild left base atelectasis. Nghia Sneed MD Abdomen/Pelvis CT 11/01/17 2258 Signed Impressions: Service Date/Time: Wednesday, November 01, 2017 23:11 - CONCLUSION: 1. Cirrhosis with portal hypertension and splenomegaly. 2. Nonspecific low density along the pancreatic tail measures 3.9 cm. 3. Moderate abdominal ascites. 4. Nonobstructing right renal calculus. Josiah Anderson MD Head CT 11/01/17 0000 Signed Impressions: Service Date/Time: Wednesday, November 01, 2017 23:07 - CONCLUSION: No acute intracranial disease. Josiah Anderson MD Objective Remarks GENERAL: Thin, lethargic, confused CARDIOVASCULAR: Regular rate and rhythm, 2/6 BREE RESPIRATORY: Breath sounds equal bilaterally. No accessory muscle use. GASTROINTESTINAL: Abdomen soft, non-tender, nondistended. EXTREMITIES: Edematous NEUROLOGICAL: lethargic, but does wake up at times. Procedures None A/P Problem List: (1) Hepatic encephalopathy ICD Code: K72.90 - Hepatic failure, unspecified without coma (2) Hyperammonemia ICD Code: E72.20 - Disorder of urea cycle metabolism, unspecified (3) Thrombocytopenia ICD Code: D69.6 - Thrombocytopenia, unspecified Status: Chronic (4) Liver cirrhosis ICD Code: K74.60 - Unspecified cirrhosis of liver (5) DM type 2 (diabetes mellitus, type 2) ICD Code: E11.9 - Type 2 diabetes mellitus without complications (6) LATOSHA (acute kidney injury) ICD Code: N17.9 - Acute kidney failure, unspecified Status: Acute (7) CKD stage 3 secondary to diabetes ICD Code: E11.22 - Type 2 diabetes mellitus with diabetic chronic kidney disease; N18.3 - Chronic kidney disease, stage 3 (moderate) Status: Chronic (8) Non-Hodgkin lymphoma in remission ICD Code: C85.90 - Non-Hodgkin lymphoma, unspecified, unspecified site (9) Diabetic neuropathy ICD Code: E11.40 - Type 2 diabetes mellitus with diabetic neuropathy, unspecified (10) Ascites ICD Code: R18.8 - Other ascites Assessment and Plan Mr. 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 Patient presented to the ED on 11/01/17 with complaints of tremors and jerking movements and lower abdominal back pain that have been happening to him for approximately a month. Patient is status post Treanda chemotherapy 6 cycles for non-Hodgkin lymphoma and he completed treatment in March 2017 Hepatic encephalopathy See imaging above, CT abdomen and pelvis shows cirrhosis with portal hypertension and splenomegaly Hyper ammonium in the setting of liver cirrhosis and hepatitis C EEG negative for seizures Currently on Xifaxan, lactulose is on hold due to multiple loose bowel movements. Continue to monitor ammonia levels closely and resume lasctulose as indicated Patient was supposed to receive an ultrasound-guided abdominal paracentesis but was unable to be done because of an elevated INR. He received vitamin K. Last INR 2.1 rocephin & flagyl-DC on 11/18 and continue to follow patient clinically. Thrombocytopenia This appears to be chronic. Likely due to liver disease Oncology following Liver cirrhosis Continue rifaximin and modanifil DM2 Continue sliding-scale LATOSHA, chronic kidney disease stage III--> hepatorenal syndrome is a possibility Baseline creatinine between 1.2-1.4. Renal ultrasound showed a nonobstructing right renal calculus and left renal cyst. Creatinine peaked at 4.23. Currently being followed by nephrology: Continue IV fluids one half-normal saline with bicarb, continue Lasix drip patient appears uremic, FFP and Vas-Cath , HD today Non-Hodgkin's lymphoma Currently in remission Oncology was consulted Sacral wounds Followed by wound care Patient seen and evaluated by palliative care. Continues to want to be full code. The patient is agreeable to hemodialysis if kidneys to need to deteriorate. Watch patient closely for any lethargy, pain medications on hold Discharge Planning D/C to [facility] when cleared by nephro Continue HD per nephro recs Problem Qualifiers (1) Liver cirrhosis: Qualified Codes: K74.60 - Unspecified cirrhosis of liver (2) DM type 2 (diabetes mellitus, type 2): Qualified Codes: E11.65 - Type 2 diabetes mellitus with hyperglycemia; Z79.4 - [employer] customer [employer] (current) use of insulin (3) Diabetic neuropathy: Qualified Codes: E11.42 - Type 2 diabetes mellitus with diabetic polyneuropathy (4) Ascites: Qualified Codes: R18.8 - Other ascites Sarah Gonzales MD Nov 20, 2017 14:55
[2017-11-20] MEDS ORDERED: LIDOCAINE HCL 1% 20 ML VIAL ONE (16:00)
--- NOTE | 2017-11-20 16:25 | PD.RAD ---
Post US Procedure Prog Note Pre Procedure Diagnosis: (1) Ascites Post Procedure Diagnosis: (1) Ascites Procedure Date: Nov 20, 2017 Supervising Radiologist: Nghia Lira Proceduralist/Assist: Colleen Hinds RDMS Estimated blood loss: none Anesthesia: Local Plan of Activity Patient to Unit: Other Patient Condition: Good See PACS Report for procedural detail/treatment Drainage Procedure Procedure 1 Imaging Guidance: Ultrasound Side: Right Procedure Type: Paracentesis Drainage: Suction Fluid Removal (CCs): 4500 Fluid Description: Clear, Yellow Plan return to floor. Nghia Lira MD Nov 20, 2017 16:25
[2017-11-20 17:10] LABS: TOTAL PROTEIN,PERITONEAL FLUID 0.9 GM/DL
--- NOTE | 2017-11-20 17:14 | RADRPT ---
EXAM DATE/TIME: 11/20/2017 15:11 [place] COMPARISON: No previous studies available for comparison. EXTERNAL COMPARISON: [facility], PET/CT TUMOR, Jun 02 2017, September 27, 2016, US ABDOMEN LIVER, January 10, 2017. INDICATIONS : Ascites. MEDICAL HISTORY : Myocardial infarction. Congestive heart failure. Hypercholesterolemia. Tremors. Coronary artery disea se. Hypertension. Asthma. Sleep apnea.Gastroesophageal reflux. Renal failure stage 3. Diabetes. Cirrh osis. Hepatitis C. Lymphoma. SURGICAL HISTORY : CABG ENCOUNTER: Initial ACUITY: 1 week PAIN SCORE: 8/10 LOCATION: Right lower quadrant FLUID: Total volume of 4,500 cc of clear, yellow fluid was removed. Fluid was sent to lab for ordered studies. Post procedure scanning reveals no hematoma or other complication. TECHNIQUE: 1. Ultrasound guidance for abdominal paracentesis. 2. Paracentesis. The risks, benefits, and alternatives to ultrasound guided paracentesis were explained to the patient in detail including the risk of bleeding and infection. Written and verbal informed consent was obt ained. With the patient on the ultrasound table, ultrasound imaging was used to select the most appropriate approach for paracentesis. Overlying skin was prepped and draped in the usual sterile fashion and wi th a local anesthetic, a dermatotomy was made with an 11 blade scalpel. A 6 German Fij-U-thnsyxex ca theter was introduced into the peritoneal cavity and fluid was collected. The patient tolerated the procedure well and left the ultrasound suite in stable condition. CONCLUSION: Uncomplicated ultrasound guided paracentesis. Nghia Lira MD on November 20, 2017 at 16:17 Board Certified Radiologist. This report was verified electronically.
--- NOTE | 2017-11-20 18:38 | HHI.HCPN ---
Reason for visit a. To assist with evaluation and management of symptoms including: Pain, physical deconditioning b. To assist medical decision maker(s) with: better understanding of current medical conditions; weighing benefits/burdens of medical treatment options; making medical treatment decisions. Subjective/Interval History Follow up medically necessary for symptom management and further clarification of goals of care. Patient seen and examined in his room in the presence of his daughter Olga Salas who is his healthcare surrogate. Patient is sleeping, arousable, lethargic, oriented to self, place and situation. Patient endorsing generalized pain all over. Patient refusing to eat his dinner, report from bedside RN that patient vomited earlier on prior to going for hemodialysis and paracentesis. Patient was started on hemodialysis on 11/18/2017. Laboratory workup today revealing WBC 5.1, hemoglobin 9.3, hematocrit 28.0, platelet count 39, sodium 141, potassium 2.8, BUN/creatinine 43/3.00, calcium 8.1, magnesium 1.9, total bilirubin 4.0, AST 5 0, ALT 1 9, alkaline phosphatase 65, total protein 5.5, albumin 2.5, PT 21.6, INR 2.1. Patient received a total of 2 units FFP, 1 on and 1 on 11/18. Patient underwent ultrasound guided paracentesis today and 4 500ml of clear yellow fluid was removed. During visit patient said, "let me go, I want to ". Patient's daughter verbalized that patient has been saying he wants to for the past couple of days. Readdressed code status with patient and his daughter who is his healthcare surrogate. Patient elected DNR and repeated that he just wants to , he cannot take the pain any more. Patient appears to have insight regarding his medical condition. Patient continues to say that, "it feels like they are squeezing me tight where i was today. I can`t take it anymore ". Patient unable to explain his discomfort any further or tell whether he experienced that discomfort during hemodialysis or CT guided paracentesis. Patient's daughter asked patient if he wanted to stop hemodialysis and patient said "yes". Explained to patient that if he discontinues hemodialysis he will most likely . Patient verbalized understanding and said, " yes i know, but i can`t take it anymore". Reintroduced hospice philosophy and benefits. Patient's daughter would like to speak to other family members and continue to speak to her father regarding what he wants, either continue with aggressive treatment or transition to comfort care. Patient's daughter Olga Salas agreeable with changing patient's code status to DNR. She would not want her father to be resuscitated and suffer given his current medical condition. Case discussed with bedside RN. , Family/friend interactions Bedside discussion with patient's daughter Olga Salas . Advance Directives Health Care Surrogate: Copy in medical record Advance Directive Specifics Date completed: 11/06/2017 . Health Care Surrogate(s): Healthcare surrogate -daughter- Olga Salas [phone] Alternate healthcare surrogate -DaughterCarolina Arambula [phone] Third choice (Alternate HCS)-Carisa Ayala-[phone] . Significant change in goals: Patient made himself a DNR today and the presence of his daughter. Goals remain aggressive with this time. . Objective Vital Signs Date Time Temp Pulse Resp B/P (MAP) Pulse Ox O2 Delivery O2 Flow Rate FiO2 11/20/17 17:00 83 11/20/17 16:07 98.7 97 16 93/56 (68) 97 11/20/17 15:51 94 16 86/48 (61) 99 11/20/17 15:07 99.0 92 16 103/60 (74) 100 11/20/17 14:13 77 11/20/17 14:13 Nasal Cannula 2.00 11/20/17 09:36 87 11/20/17 08:14 78 11/20/17 07:53 99 Nasal Cannula 2.00 11/20/17 07:44 98.1 90 18 111/56 (74) 99 11/20/17 07:44 85 11/20/17 06:00 83 11/20/17 05:00 85 11/20/17 04:00 86 11/20/17 04:00 98.1 86 16 118/62 (80) 99 11/20/17 03:00 84 11/20/17 02:00 80 11/20/17 01:00 77 11/20/17 00:00 98.3 84 20 110/55 (73) 98 11/20/17 00:00 84 11/19/17 23:00 80 11/19/17 22:00 82 11/19/17 21:00 79 11/19/17 20:00 83 11/19/17 20:00 Nasal Cannula 2.00 11/19/17 20:00 98.0 83 18 119/63 (81) 98 Intake & Output 11/20/17 11/20/17 07:00 19:00 Intake Total 510 ml 680 ml Output Total 1100 ml 400 ml Balance -590 ml 280 ml Intake Oral 510 ml 480 ml IV Total 200 ml Output Urine Total 1100 ml 400 ml # Bowel Movements 3 3 Physical Exam CONSTITUTIONAL/GENERAL: This is a chronically ill-appearing patient, sleeping and arousable, endorsing generalized pain SKIN: patient has blisters to his lower extremities-edema improved, discoloration to bilateral lower extremities CARDIOVASCULAR: S1, S2 normal, no gallops, or rubs. No JVD. Peripheral pulses symmetric. Generalized edema to all 4 extremities RESPIRATORY/CHEST: Symmetric, unlabored respirations. Diminished in the bases GASTROINTESTINAL: Abdomen soft, non-tender, nondistended ,no guarding. Bowel sounds active MUSCULOSKELETAL: Extremities without clubbing, cyanosis. No calf tenderness. No mottling or clubbing. NEUROLOGICAL: Patient is sleeping. Arousable, alert, oriented to self, place and situation. Motor and sensory within normal limits.Moves all extremities. PSYCHIATRIC: No obvious anxiety/depression. no apparent hallucinations or other psychotic thought process. . Diagnostic Tests Laboratory Laboratory Tests Test 11/19/17 06:00 11/19/17 09:00 11/20/17 06:22 11/20/17 12:30 White Blood Count 4.7 TH/MM3 (4.0-11.0) 5.1 TH/MM3 (4.0-11.0) Red Blood Count 3.05 MIL/MM3 (4.50-5.90) 3.12 MIL/MM3 (4.50-5.90) Hemoglobin 9.0 GM/DL (13.0-17.0) 9.3 GM/DL (13.0-17.0) Hematocrit 27.4 % (39.0-51.0) 28.0 % (39.0-51.0) Mean Corpuscular Volume 89.8 FL (80.0-100.0) 89.8 FL (80.0-100.0) Mean Corpuscular Hemoglobin 29.6 PG (27.0-34.0) 29.9 PG (27.0-34.0) Mean Corpuscular Hemoglobin Concent 33.0 % (32.0-36.0) 33.3 % (32.0-36.0) Red Cell Distribution Width 18.2 % (11.6-17.2) 18.6 % (11.6-17.2) Platelet Count 37 TH/MM3 (150-450) 39 TH/MM3 (150-450) Mean Platelet Volume 7.8 FL (7.0-11.0) 8.3 FL (7.0-11.0) Neutrophils (%) (Auto) 52.8 % (16.0-70.0) 59.6 % (16.0-70.0) Lymphocytes (%) (Auto) 35.2 % (9.0-44.0) 29.2 % (9.0-44.0) Monocytes (%) (Auto) 11.0 % (0.0-8.0) 10.2 % (0.0-8.0) Eosinophils (%) (Auto) 0.6 % (0.0-4.0) 0.6 % (0.0-4.0) Basophils (%) (Auto) 0.4 % (0.0-2.0) 0.4 % (0.0-2.0) Neutrophils # (Auto) 2.5 TH/MM3 (1.8-7.7) 3.1 TH/MM3 (1.8-7.7) Lymphocytes # (Auto) 1.7 TH/MM3 (1.0-4.8) 1.5 TH/MM3 (1.0-4.8) Monocytes # (Auto) 0.5 TH/MM3 (0-0.9) 0.5 TH/MM3 (0-0.9) Eosinophils # (Auto) 0.0 TH/MM3 (0-0.4) 0.0 TH/MM3 (0-0.4) Basophils # (Auto) 0.0 TH/MM3 (0-0.2) 0.0 TH/MM3 (0-0.2) CBC Comment AUTO DIFF AUTO DIFF Differential Comment AUTO DIFF CONFIRMED FINAL DIFF MANUAL Stomatocytes 2+ (NORMAL) Blood Urea Nitrogen 42 MG/DL (7-18) 43 MG/DL (7-18) Creatinine 2.99 MG/DL (0.60-1.30) 3.00 MG/DL (0.60-1.30) Random Glucose 103 MG/DL (74-106) 111 MG/DL (74-106) Calcium Level 8.1 MG/DL (8.5-10.1) 8.1 MG/DL (8.5-10.1) Sodium Level 141 MEQ/L (136-145) 141 MEQ/L (136-145) Potassium Level 2.8 MEQ/L (3.5-5.1) 2.8 MEQ/L (3.5-5.1) Chloride Level 106 MEQ/L (98-107) 106 MEQ/L (98-107) Carbon Dioxide Level 24.2 MEQ/L (21.0-32.0) 25.4 MEQ/L (21.0-32.0) Anion Gap 11 MEQ/L (5-15) 10 MEQ/L (5-15) Estimat Glomerular Filtration Rate 25 ML/MIN (>89) 25 ML/MIN (>89) Prothrombin Time 22.3 SEC (9.8-11.6) 21.6 SEC (9.8-11.6) Prothromb Time International Ratio 2.2 RATIO 2.1 RATIO Differential Total Cells Counted 100 Neutrophils % (Manual) 78 % (16-70) Lymphocytes % 12 % (9-44) Monocytes % 9 % (0-8) Eosinophils % 1 % (0-4) Neutrophils # (Manual) 4.0 TH/MM3 (1.8-7.7) Nucleated Red Blood Cells 3 /100 WBC (0-0) Platelet Estimate LOW (NORMAL) Platelet Morphology Comment NORMAL (NORMAL) Tear Drop Cells 1+ (NORMAL) Ovalocytes 1+ (NORMAL) Keratocytes OCC (NORMAL) Red Cell Morphology Comment (NORMAL) Total Protein 5.5 GM/DL (6.4-8.2) Albumin 2.5 GM/DL (3.4-5.0) Alkaline Phosphatase 65 U/L (45-117) Aspartate Amino Transf (AST/SGOT) 50 U/L (15-37) Alanine Aminotransferase (ALT/SGPT) 19 U/L (12-78) Total Bilirubin 4.0 MG/DL (0.2-1.0) Magnesium Level 1.9 MG/DL (1.5-2.5) Test 11/20/17 15:30 Peritoneal Fluid Total Protein 0.9 GM/DL Peritoneal Fluid Albumin 0.4 G/DL Peritoneal Fluid LDH 69 U/L Peritoneal Fluid Glucose 122 MG/DL Result Diagram: 11/20/17 0622 11/20/17 0622 Microbiology Microbiology Date/Time Source Procedure Growth Status 11/20/17 15:30 Fluid Ascites Fluid Gram Stain Pending Received 11/20/17 15:30 Fluid Ascites Fluid Body Fluid Culture Pending Received Imaging Last 72 hours Impressions Cyst Biopsy Asp-Paracentesis US 11/20/17 0000 Signed Impressions: Service Date/Time: Monday, November 20, 2017 15:11 - CONCLUSION: Uncomplicated ultrasound guided paracentesis. Nghia Lira MD Procedures 11/17/2017-placement of right IJ hemodialysis catheter 11/20/[id number] paracentesis . Assessment and Plan Disease Oriented Problem List: (1) Cirrhosis with portal hypertension (2) Non-Hodgkin lymphoma in remission (3) Chronic kidney disease, stage III (moderate) (4) Tremor (5) Hyperammonemia (6) Coronary artery disease (7) Hypertension (8) Diabetes mellitus (9) GERD (gastroesophageal reflux disease) Symptom Scale: (1) Pain 0-10 Scale: Unable to quantify Comment: Generalized pain, abdominal pain at times. History of peripheral neuropathy. . (2) Physical deconditioning 0-10 Scale: Unable to quantify Comment: Progressive/worsening . Pertinent Non-Medical Issues Psychosocial:Patient was born in [place] and he moved to [place] when he was very young. Patient was twice, once and his second is . 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 Patient his 2 adult daughters and 1 son. Patient lived alone in an apartment prior to this hospitalization. Spiritual: Patient is [employer] Legal: Completed healthcare surrogate form Ethical issues impacting care: None identified at this time . Important Contacts Daughter-Olga Hurtado [phone] DaughterCarolina Arambula [phone] . Prognosis Mr. 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 Patient presented to the ED on 11/01/17 with complaints of tremors and jerking movements and lower abdominal back pain that have been happening to him for approximately a month. Patient is status post Treanda chemotherapy 6 cycles for non-Hodgkin lymphoma and he completed treatment in March 2017. Restaging PET scan in May 2017 was normal. Given ongoing comorbidities patient remains at risk for further complications, deterioration and decline . Code Status: No Code Plan PLAN: Legal decision maker: Patient is able to participate in medical decision making, to to intermittent periods of lethargy and hyperammonemia, recommending joint decision making with his daughter Olga Salas who is his healthcare surrogate and/or daughter Carolina Salas who his alternate healthcare surrogate. If the aforementioned are not able to serve his third choice HCS is his sister Samantha Younger. Goals: Remain aggressive CODE STATUS: No code DNR/DNI During visit patient said, "let me go, I want to ". Patient's daughter verbalized that patient has been saying he wants to for the past couple of days. Readdressed code status with patient and his daughter who is his healthcare surrogate. Patient elected DNR and repeated that he just wants to , he cannot take the pain any more. Patient appears to have insight regarding his medical condition. Patient continues to say that, "it feel like they are squeezing me tight where i was today. I can`t take it anymore ". Patient unable to explain his discomfort any further or tell whether he experienced that discomfort during hemodialysis or CT guided paracentesis. Patient's daughter asked patient if he wanted to stop hemodialysis and patient said "yes". Explained to patient that if he discontinues hemodialysis he will . Patient verbalized understanding and said, " yes i know, but i can`t take it anymore". Reintroduced hospice philosophy and benefits. Patient's daughter would like to speak to other family members and continue to speak to her father regarding with the he wants to continue with aggressive treatment or transition to comfort care. Patient's daughter Olga Navarretes agreeable with changing patient's code status to DNR. She would not want her father to be resuscitated and suffer given his current medical condition. SYMPTOMS: * Pain: History of peripheral neuropathy. Came in complaining of generalized pain, he has jerking/abnormal movement. Patient complaining of generalized pain. Patient is on morphine sulfate 15 mg every 8 hours, 3 doses have been held due to lethargy. Advised bedside RN to monitor patient for withdrawal symptoms and to medicate patient for pain. Patient also has tramadol 50 mg every 8 hours PRN for pain. Gabapentin currently on hold. No further recommendation * Physical deconditioning: Patient ambulates at home with a walker and is now requiring SNF. Per family, patient is being progressively declining and requiring assistance with most of his ADLs. Physical therapy consulted, recommended PT at rehab. 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 Occupational therapy following, recommended OT at Rehab. Palliative care will continue to follow the patient during hospital course as condition evolves, to assist patient/decision-maker with understanding of their medical conditions, weighing benefits/burdens of treatment options, for clarification of goals of treatment. Additionally will assist with any symptoms of palliative concern Attestation To help prompt me to consider important information that might be impacting today's encounter and assessment, information from prior notes written by myself or my colleagues may have been "brought forward" into today's note. My signature on this note, however, is an attestation that I personally performed the exam, history, and/or decision-making noted today, and, unless otherwise indicated, the interactions with patient, family, and staff as well as the review of records all occurred today. I also attest that the listed assessment and stated plan reflect my best clinical judgment today based on the combination of historical information, prior notes, and today's exam/ interactions. When time spent is documented, it refers only to time spent today by the signer, or if indicated, combined time spent today by collaborating physician/nurse practitioner. Speedy Arthur Nov 20, 2017 18:38
[2017-11-20 18:52] LABS: PERITONEAL LYMPHS 17 %; PERITONEAL MESOTHELIAL 3 %; PERITONEAL MONOS 11 %; PERITONEAL POLYS(SEGS) 69 %
[2017-11-20 18:53] LABS: PERITONEAL RBC 842 /MM3 (0-0)
[2017-11-21] VITALS (28 sets, daily range): BP systolic 101–123; BP diastolic 52–72; PULSE 71–96; RESP 17–18; TEMP 97.5–98.3; O2SAT 97–99
[2017-11-21] MEDS: ISOSORBIDE MONONITRATE 60 MG CR TAB (IMDUR) PO SCH (06:17)
[2017-11-21] MEDS: MORPHINE SULFATE 15 MG CONTROLLED RELEASE TAB PO SCH ×3 (06:17→21:02)
[2017-11-21 06:55] LABS: BICARBONATE 27.2 MEQ/L (21.0-32.0); CALCIUM 8.2 MG/DL (8.5-10.1); CREATININE 2.38 MG/DL (0.60-1.30); MAGNESIUM 1.8 MG/DL (1.5-2.5); PHOSPHORUS 1.6 MG/DL (2.5-4.9)
[2017-11-21] MEDS: INSULIN ASPART SUPPLEMENTAL SCALE SQ SCH ×4 (08:00→21:00)
[2017-11-21] MEDS: CALCIUM CARBONATE 1.25 GM (CA 500 MG) TAB PO SCH (08:15)
[2017-11-21] MEDS: guaiFENesin E.R. 600 MG TAB PO SCH ×2 (08:16→21:01)
[2017-11-21] MEDS: PANTOPRAZOLE SOD 40 MG DELAYED RELEASE TAB PO SCH (08:16)
[2017-11-21] MEDS: RIFAXIMIN 550 MG TAB PO SCH ×2 (08:16→21:01)
[2017-11-21] MEDS: MODAFINIL 200 MG TAB PO SCH (08:16)
[2017-11-21] MEDS: METOPROLOL SUCCINATE 50 MG EXTENDED RELEASE TAB PO SCH ×2 (08:16→21:01)
[2017-11-21] MEDS: ALBUTEROL SULFATE 2 MG TAB PO SCH ×3 (08:17→17:28)
[2017-11-21] MEDS: SODIUM CHLORIDE 0.9% FLUSH 10 ML FLUSH IV FLUSH SCH ×2 (08:19→21:00)
--- NOTE | 2017-11-21 13:12 | HHI.HCPN ---
Reason for visit a. To assist with evaluation and management of symptoms including: Pain, physical deconditioning b. To assist medical decision maker(s) with: better understanding of current medical conditions; weighing benefits/burdens of medical treatment options; making medical treatment decisions. Subjective/Interval History Follow up medically necessary for symptom management and further clarification of goals of care. Patient seen in his room in the presence of his daughter Aidee Salas. Patient is lethargic,sleeping, arousable, oriented to self, place and situation. Patient speaking softly with his eyes closed. Patient denying pain at this time. Patient`s daughter reporting that patient vomited today and has been refusing to eat his meals. Ondansetron 4mg q 6 hrs prn available, last dose administered 11/17/17. Patient is still on Morphine Sulfate 15mg q 8 hrs for pain. Patient also has Tramadol 50mg q 8 hrs prn. Last dose administered on . No doses have been held. Patient currently denying pain. Patient is on Furosemide infusion at 5mg/hr. Laboratory workup today revealing sodium 142, potassium 3.1, BUN/creatinine 29/ 2.38, random glucose 154, calcium 8.2, phosphorus 1.6, magnesium 1.8. Vital signs stable. Patient`s daughter reported that patient continued to talk about the discussion we had yesterday at his bedside regarding code status and his wish to stop aggressive treatment and transition to comfort care. Patient`s daughter states that patient has not changed his mind regarding code status though his sister and brother do not agree with his decision. Patient`s daughter Aidee mentioned that patient asked her to promise that she will honor his wishes. Readdressed code status with patient and patient insisted that he wants to be a DNR/DNI. Discussed State of [place] DNR and patient requested that his daughter Aidee Salas signs it for him since he feels very weak. Patients` daughter would want to continue discussing with family regarding stopping hemodialysis and transitioning to hospice. In the meantime, she wants goals to remain aggressive short of no code. Case discussed with bedside RN. . Family/friend interactions Patient`s daughter Aidee Salas at bedside. . Advance Directives Health Care Surrogate: Copy in medical record Advance Directive Specifics Date completed: 11/06/2017 . Health Care Surrogate(s): Healthcare surrogate -daughter- JosueOlga [phone] Alternate healthcare surrogate -Daughter-JosueCarolina [phone] Third choice (Alternate HCS)-SisterCarisa Rosen-[phone] . Objective Vital Signs Date Time Temp Pulse Resp B/P (MAP) Pulse Ox O2 Delivery O2 Flow Rate FiO2 11/21/17 12:09 81 11/21/17 11:41 98 Room Air 11/21/17 11:41 86 11/21/17 11:41 97.6 86 18 109/59 (76) 98 11/21/17 10:11 88 11/21/17 09:39 85 11/21/17 08:17 74 11/21/17 08:09 16 11/21/17 07:24 97.5 91 18 123/72 (89) 98 11/21/17 07:24 98 Nasal Cannula 1.00 11/21/17 07:24 88 11/21/17 06:31 71 11/21/17 05:28 89 11/21/17 04:00 84 11/21/17 03:14 98 Nasal Cannula 1.00 11/21/17 03:14 98.0 93 17 104/52 (69) 98 11/21/17 03:00 91 11/21/17 02:39 88 11/21/17 01:37 86 11/21/17 00:00 88 11/20/17 23:15 98.9 90 18 109/52 (71) 100 11/20/17 23:15 Nasal Cannula 2.00 11/20/17 23:00 80 11/20/17 22:06 81 11/20/17 21:00 84 11/20/17 20:00 92 11/20/17 19:27 99.5 93 18 92/46 (61) 100 11/20/17 19:27 100 Nasal Cannula 2.00 11/20/17 19:00 93 11/20/17 18:29 87 18 105/52 (69) 98 11/20/17 18:28 87 11/20/17 17:00 83 11/20/17 16:28 77 18 102/52 (69) 98 11/20/17 16:07 98.7 97 16 93/56 (68) 97 11/20/17 15:51 94 16 86/48 (61) 99 11/20/17 15:07 99.0 92 16 103/60 (74) 100 11/20/17 14:13 77 11/20/17 14:13 Nasal Cannula 2.00 Intake & Output 11/21/17 11/21/17 07:00 19:00 Intake Total 300 ml Output Total 300 ml Balance 0 ml Intake Oral 300 ml Output Urine Total 300 ml Physical Exam CONSTITUTIONAL/GENERAL: This is a chronically ill-appearing patient, sleeping and arousable, endorsing nausea SKIN: patient has blisters to his lower extremities-edema improved, discoloration to bilateral lower extremities CARDIOVASCULAR: S1, S2 normal, no gallops, or rubs. No JVD. Peripheral pulses symmetric. Generalized edema to all 4 extremities RESPIRATORY/CHEST: Symmetric, unlabored respirations. Diminished in the bases GASTROINTESTINAL: Abdomen soft, non-tender, distended ,no guarding. Bowel sounds active MUSCULOSKELETAL: Extremities without clubbing, cyanosis. No calf tenderness. No mottling or clubbing. NEUROLOGICAL: Patient is sleeping. Arousable, alert, oriented to self, place and situation. Motor and sensory within normal limits.Moves all extremities. PSYCHIATRIC: No obvious anxiety/depression. no apparent hallucinations or other psychotic thought process. . Diagnostic Tests Laboratory Laboratory Tests Test 11/19/17 06:00 11/19/17 09:00 11/20/17 06:22 11/20/17 12:30 White Blood Count 4.7 TH/MM3 (4.0-11.0) 5.1 TH/MM3 (4.0-11.0) Red Blood Count 3.05 MIL/MM3 (4.50-5.90) 3.12 MIL/MM3 (4.50-5.90) Hemoglobin 9.0 GM/DL (13.0-17.0) 9.3 GM/DL (13.0-17.0) Hematocrit 27.4 % (39.0-51.0) 28.0 % (39.0-51.0) Mean Corpuscular Volume 89.8 FL (80.0-100.0) 89.8 FL (80.0-100.0) Mean Corpuscular Hemoglobin 29.6 PG (27.0-34.0) 29.9 PG (27.0-34.0) Mean Corpuscular Hemoglobin Concent 33.0 % (32.0-36.0) 33.3 % (32.0-36.0) Red Cell Distribution Width 18.2 % (11.6-17.2) 18.6 % (11.6-17.2) Platelet Count 37 TH/MM3 (150-450) 39 TH/MM3 (150-450) Mean Platelet Volume 7.8 FL (7.0-11.0) 8.3 FL (7.0-11.0) Neutrophils (%) (Auto) 52.8 % (16.0-70.0) 59.6 % (16.0-70.0) Lymphocytes (%) (Auto) 35.2 % (9.0-44.0) 29.2 % (9.0-44.0) Monocytes (%) (Auto) 11.0 % (0.0-8.0) 10.2 % (0.0-8.0) Eosinophils (%) (Auto) 0.6 % (0.0-4.0) 0.6 % (0.0-4.0) Basophils (%) (Auto) 0.4 % (0.0-2.0) 0.4 % (0.0-2.0) Neutrophils # (Auto) 2.5 TH/MM3 (1.8-7.7) 3.1 TH/MM3 (1.8-7.7) Lymphocytes # (Auto) 1.7 TH/MM3 (1.0-4.8) 1.5 TH/MM3 (1.0-4.8) Monocytes # (Auto) 0.5 TH/MM3 (0-0.9) 0.5 TH/MM3 (0-0.9) Eosinophils # (Auto) 0.0 TH/MM3 (0-0.4) 0.0 TH/MM3 (0-0.4) Basophils # (Auto) 0.0 TH/MM3 (0-0.2) 0.0 TH/MM3 (0-0.2) CBC Comment AUTO DIFF AUTO DIFF Differential Comment AUTO DIFF CONFIRMED FINAL DIFF MANUAL Stomatocytes 2+ (NORMAL) Blood Urea Nitrogen 42 MG/DL (7-18) 43 MG/DL (7-18) Creatinine 2.99 MG/DL (0.60-1.30) 3.00 MG/DL (0.60-1.30) Random Glucose 103 MG/DL (74-106) 111 MG/DL (74-106) Calcium Level 8.1 MG/DL (8.5-10.1) 8.1 MG/DL (8.5-10.1) Sodium Level 141 MEQ/L (136-145) 141 MEQ/L (136-145) Potassium Level 2.8 MEQ/L (3.5-5.1) 2.8 MEQ/L (3.5-5.1) Chloride Level 106 MEQ/L (98-107) 106 MEQ/L (98-107) Carbon Dioxide Level 24.2 MEQ/L (21.0-32.0) 25.4 MEQ/L (21.0-32.0) Anion Gap 11 MEQ/L (5-15) 10 MEQ/L (5-15) Estimat Glomerular Filtration Rate 25 ML/MIN (>89) 25 ML/MIN (>89) Prothrombin Time 22.3 SEC (9.8-11.6) 21.6 SEC (9.8-11.6) Prothromb Time International Ratio 2.2 RATIO 2.1 RATIO Differential Total Cells Counted 100 Neutrophils % (Manual) 78 % (16-70) Lymphocytes % 12 % (9-44) Monocytes % 9 % (0-8) Eosinophils % 1 % (0-4) Neutrophils # (Manual) 4.0 TH/MM3 (1.8-7.7) Nucleated Red Blood Cells 3 /100 WBC (0-0) Platelet Estimate LOW (NORMAL) Platelet Morphology Comment NORMAL (NORMAL) Tear Drop Cells 1+ (NORMAL) Ovalocytes 1+ (NORMAL) Keratocytes OCC (NORMAL) Red Cell Morphology Comment (NORMAL) Total Protein 5.5 GM/DL (6.4-8.2) Albumin 2.5 GM/DL (3.4-5.0) Alkaline Phosphatase 65 U/L (45-117) Aspartate Amino Transf (AST/SGOT) 50 U/L (15-37) Alanine Aminotransferase (ALT/SGPT) 19 U/L (12-78) Total Bilirubin 4.0 MG/DL (0.2-1.0) Magnesium Level 1.9 MG/DL (1.5-2.5) Test 11/20/17 15:30 11/21/17 04:42 Peritoneal Fluid WBC 216 /MM3 (0-10) Peritoneal Fluid RBC 842 /MM3 (0-0) Peritoneal Fluid Neutrophils 69 % Peritoneal Fluid Lymphocytes 17 % Peritoneal Fluid Monocytes 11 % Peritoneal Fluid Mesothelial Cells 3 % Peritoneal Fluid Total Protein 0.9 GM/DL Peritoneal Fluid Albumin 0.4 G/DL Peritoneal Fluid LDH 69 U/L Peritoneal Fluid Glucose 122 MG/DL Blood Urea Nitrogen 29 MG/DL (7-18) Creatinine 2.38 MG/DL (0.60-1.30) Random Glucose 154 MG/DL (74-106) Calcium Level 8.2 MG/DL (8.5-10.1) Phosphorus Level 1.6 MG/DL (2.5-4.9) Magnesium Level 1.8 MG/DL (1.5-2.5) Sodium Level 142 MEQ/L (136-145) Potassium Level 3.1 MEQ/L (3.5-5.1) Chloride Level 105 MEQ/L (98-107) Carbon Dioxide Level 27.2 MEQ/L (21.0-32.0) Anion Gap 10 MEQ/L (5-15) Estimat Glomerular Filtration Rate 33 ML/MIN (>89) Result Diagram: 11/20/17 0622 11/21/17 0442 Microbiology Microbiology Date/Time Source Procedure Growth Status 11/20/17 15:30 Fluid Ascites Fluid Gram Stain - Final Resulted 11/20/17 15:30 Fluid Ascites Fluid Body Fluid Culture Pending Resulted Procedures 11/17/2017-placement of right IJ hemodialysis catheter 11/20/[id number] paracentesis . Assessment and Plan Disease Oriented Problem List: (1) Cirrhosis with portal hypertension (2) Non-Hodgkin lymphoma in remission (3) Chronic kidney disease, stage III (moderate) (4) Tremor (5) Hyperammonemia (6) Coronary artery disease (7) Hypertension (8) Diabetes mellitus (9) GERD (gastroesophageal reflux disease) Symptom Scale: (1) Pain 0-10 Scale: Unable to quantify Comment: Generalized pain, abdominal pain at times. History of peripheral neuropathy. . (2) Physical deconditioning 0-10 Scale: Unable to quantify Comment: Progressive/worsening . Pertinent Non-Medical Issues Psychosocial:Patient was born in [place] and he moved to [place] when he was very young. Patient was twice, once and his second is . 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 Patient his 2 adult daughters and 1 son. Patient lived alone in an apartment prior to this hospitalization. Spiritual: Patient is Religious Legal: Completed healthcare surrogate form Ethical issues impacting care: None identified at this time . Important Contacts Olga [place] [phone] Daughter-Carolina Salas [phone] . Prognosis Mr. 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 Patient presented to the ED on 11/01/17 with complaints of tremors and jerking movements and lower abdominal back pain that have been happening to him for approximately a month. Patient is status post Treanda chemotherapy 6 cycles for non-Hodgkin lymphoma and he completed treatment in March 2017. Restaging PET scan in May 2017 was normal. Given ongoing comorbidities patient remains at risk for further complications, deterioration and decline . Code Status: No Code Plan PLAN: Legal decision maker: Patient is able to participate in medical decision making, to to intermittent periods of lethargy and hyperammonemia, recommending joint decision making with his daughter Olga Salas who is his healthcare surrogate and/or daughter Carolina Salas who his alternate healthcare surrogate. If the aforementioned are not able to serve his third choice HCS is his sister Samantha Younger. Goals: Remain aggressive CODE STATUS: No code DNR/DNI- [place] DNR signed and placed on patient`s chart. Patient`s daughter reported that patient continued to talk about the discussion we had yesterday at his bedside regarding code status and his wish to stop aggressive treatment and transition to comfort care. Patient`s daughter states that patient has not changed his mind regarding code status though his sister and brother do not agree with his decision. Patient`s daughter Aidee mentioned that patient asked her to promise that she will honor his wishes. Readdressed code status with patient and patient insisted that he wants to be a DNR/DNI. Discussed State of [place] DNR and patient requested that his daughter Aidee Salas signs it for him since he feels very weak. Patients` daughter would want to continue discussing with family regarding stopping hemodialysis and transitioning to hospice. In the meantime, she wants goals to remain aggressive short of no code. SYMPTOMS: * Pain: History of peripheral neuropathy. Came in complaining of generalized pain, he has jerking/abnormal movement. Patient complaining of generalized pain. Patient is on morphine sulfate 15 mg every 8 hours, 3 doses have been held due to lethargy. Advised bedside RN to monitor patient for withdrawal symptoms and to medicate patient for pain. Patient also has tramadol 50 mg every 8 hours PRN for pain. Gabapentin currently on hold. No further recommendations. * Nausea/Vomiting: Patient has been reported to be vomiting for the past 2 days and also c/o of nausea. Patient has been receiving his scheduled Morphine Sulfate. N/V can be one of the symptoms associated with withdrawal. Avoid holding scheduled morphine dose unless ordered to do so. Patient has Ondansetron 4mg q 6 hrs prn available, last dose administered 11/17/17. * Physical deconditioning: Patient ambulates at home with a walker and is now requiring SNF. Per family, patient is being progressively declining and requiring assistance with most of his ADLs. Physical therapy consulted, recommended PT at rehab. 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 Occupational therapy following, recommended OT at Rehab. Palliative care will continue to follow the patient during hospital course as condition evolves, to assist patient/decision-maker with understanding of their medical conditions, weighing benefits/burdens of treatment options, for clarification of goals of treatment. Additionally will assist with any symptoms of palliative concern Attestation To help prompt me to consider important information that might be impacting today's encounter and assessment, information from prior notes written by myself or my colleagues may have been "brought forward" into today's note. My signature on this note, however, is an attestation that I personally performed the exam, history, and/or decision-making noted today, and, unless otherwise indicated, the interactions with patient, family, and staff as well as the review of records all occurred today. I also attest that the listed assessment and stated plan reflect my best clinical judgment today based on the combination of historical information, prior notes, and today's exam/ interactions. When time spent is documented, it refers only to time spent today by the signer, or if indicated, combined time spent today by collaborating physician/nurse practitioner. Speedy Arthur November 21, 2017 13:12
--- NOTE | 2017-11-21 14:51 | HHI.NPPN ---
Subjective Renal Failure: Chronic History of Present Illness Patient is a 72-year-old male with a past medical history significant for non- Hodgkin's lymphoma, hepatitis C, anemia, COPD, CAD, insulin-dependent diabetes mellitus, chronic kidney disease, hypertension and hyperlipidemia. Presented emergency department for the evaluation of jerking movements. Nephrology is consulted for rising creatinine. On admission creatinine was 2.54 and has now increased to 3.52, potassium 4, and CO2 level at 15.5 today. Patient denies any shortness of breath. No edema. present. Per records has past medical history of chronic kidney disease stage 3 most likely related to diabetes vs HTN vs renovascular disease. Has a brother who is on hemodialysis. Additional Remarks Resting in bed, more alert today. Patient is now a DNR. Paracentesis yesterday. (Paula Baum) Review of Systems Respiratory Respiratory Remarks denies any SOB (Paula Baum) Cardiovascular Cardiac Remarks Denies CP (Paula Baum) Objective Data Data Vital Signs Date Time Temp Pulse Resp B/P (MAP) Pulse Ox O2 Delivery O2 Flow Rate FiO2 11/21/17 13:04 93 11/21/17 12:09 81 11/21/17 11:41 98 Room Air 11/21/17 11:41 86 11/21/17 11:41 97.6 86 18 109/59 (76) 98 11/21/17 10:11 88 11/21/17 09:39 85 11/21/17 08:17 74 11/21/17 08:09 16 11/21/17 07:24 97.5 91 18 123/72 (89) 98 11/21/17 07:24 98 Nasal Cannula 1.00 11/21/17 07:24 88 11/21/17 06:31 71 11/21/17 05:28 89 11/21/17 04:00 84 11/21/17 03:14 98 Nasal Cannula 1.00 11/21/17 03:14 98.0 93 17 104/52 (69) 98 11/21/17 03:00 91 11/21/17 02:39 88 11/21/17 01:37 86 11/21/17 00:00 88 11/20/17 23:15 98.9 90 18 109/52 (71) 100 11/20/17 23:15 Nasal Cannula 2.00 11/20/17 23:00 80 11/20/17 22:06 81 11/20/17 21:00 84 11/20/17 20:00 92 11/20/17 19:27 99.5 93 18 92/46 (61) 100 11/20/17 19:27 100 Nasal Cannula 2.00 11/20/17 19:00 93 11/20/17 18:29 87 18 105/52 (69) 98 11/20/17 18:28 87 11/20/17 17:00 83 11/20/17 16:28 77 18 102/52 (69) 98 11/20/17 16:07 98.7 97 16 93/56 (68) 97 11/20/17 15:51 94 16 86/48 (61) 99 11/20/17 15:07 99.0 92 16 103/60 (74) 100 (Paula Baum) -: 11/20/17 0622 11/21/17 0442 Microbiology 11/20/17 Gram Stain - Final, Resulted 11/20/17 Body Fluid Culture - Preliminary, Resulted NO GROWTH IN 24 HOURS. Imaging Last Impressions Cyst Biopsy Asp-Paracentesis US 11/20/17 0000 Signed Impressions: Service Date/Time: Monday, November 20, 2017 15:11 - CONCLUSION: Uncomplicated ultrasound guided paracentesis. Nghia Lira MD Catheter Placement X-Ray 11/17/17 0000 Signed Impressions: Service Date/Time: Friday, November 17, 2017 15:11 - CONCLUSION: 1. 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 2. Uncomplicated placement of a left IJ, non-tunneled dialysis catheter. Quoc Nicholson MD Renal Ultrasound 11/14/17 0000 Signed Impressions: Service Date/Time: Tuesday, November 14, 2017 22:30 - CONCLUSION: 1. Nonobstructing right renal calculus. Left renal cyst. Distal pancreatic cyst. Christophe Hernández MD Chest X-Ray 11/09/17 0000 Signed Impressions: Service Date/Time: October 05:02 - CONCLUSION: Mild left base atelectasis. Nghia Sneed MD Abdomen/Pelvis CT 11/01/17 2258 Signed Impressions: Service Date/Time: Wednesday, November 01, 2017 23:11 - CONCLUSION: 1. Cirrhosis with portal hypertension and splenomegaly. 2. Nonspecific low density along the pancreatic tail measures 3.9 cm. 3. Moderate abdominal ascites. 4. Nonobstructing right renal calculus. Josiah Anderson MD Head CT 11/01/17 0000 Signed Impressions: Service Date/Time: Wednesday, November 01, 2017 23:07 - CONCLUSION: No acute intracranial disease. Josiah Anderson MD Tubes & Lines: Barraza (Paula Baum [employer] IN[employer] CLERK) Physical Exam General Appearance: No Acute Distress, Malnourished (Rama Baumne M. [employer] INFORMATION CLERK) Eyes Eye Exam: Pupils Equal (MalachilerRama cunninghamne M. [employer] INFORMATION CLERK) Throat Throat Exam: Oral Mucosa [place] & Moist (MalachilermannPaula M. [employer] INFORMATION CLERK) Pulmonary Resp Exam: No Distress, Decreased Bases (GellermannRamaPaula M. [employer] INFORMATION CLERK) Cardiology CV Exam: Regular (GellermannRamaPaula M. [employer] INFORMATION CLERK) Gastrointestinal/Abdomen GI Exam: Non-Tender, Bowel Sounds Present, Distended (GellermannPaula M. [employer] INFORMATION CLERK) Genitourinary Exam: Flank Non-Tender (GellermannPaula M[employer] INFORMATION CLERK) Integumentary Skin Exam: Clear, Warm Skin Remarks Blisters present on lower extremity (GellermannRamaPaula M. [employer] INFORMATION CLERK) Extremeties Extremities Exam: Moderate Edema, Pitting Edema, Dependent Edema (MalachilermannPaula M. [employer]FORMATION CLERK) Neurologic Neuro Exam: Alert, Stuporous Neuro Remarks speech delayed (GelleroctavioPaula M. [employer] INFORMATION CLERK) Assessment/Plan Problem List: (1) ARF (acute renal failure) ICD Codes: N17.9 - Acute kidney failure, unspecified Status: Acute Plan: Acute kidney injury on admission creatinine was 2.54 initially thought possible prerenal but the continue increase in creatinine more likely ATN from hypotension vs vasculitis from hepatitis C Hepatornal syndrome is also a possibility. Chronic kidney disease stage 3 most likely related to diabetes vs HTN vs renovascular disease. Renal US with nonobstructing right renal calculus. Left renal cyst. Distal pancreatic cyst. Plan Continue epogen with dialysis Hypokalemia this morning - replacement given Continue calcium carbonate Continue on albumin and lasix. Lasix changed to PO Phosphorus low will order replacement. Hemodialysis yesterday UF of 2 liters Paracentesis yesterday for 4.5 liters Continue to monitor UOP and labs for renal recovery. (2) Hypertension ICD Codes: I10 - Essential (primary) hypertension Plan: On metoprolol and isosorbide (3) Diabetes mellitus ICD Codes: E11.9 - Type 2 diabetes mellitus without complications Plan: Maintain blood sugars at 140 mg/dl to 180 mg/dl (Paula Baum) Problem List: (1) ARF (acute renal failure) ICD Codes: N17.9 - Acute kidney failure, unspecified Status: Acute Plan: Acute kidney injury on admission creatinine was 2.54 initially thought possible prerenal but the continue increase in creatinine more likely ATN from hypotension vs vasculitis from hepatitis C Hepatornal syndrome is also a possibility. Chronic kidney disease stage 3 most likely related to diabetes vs HTN vs renovascular disease. Renal US with nonobstructing right renal calculus. Left renal cyst. Distal pancreatic cyst. Plan Continue epogen with dialysis Hypokalemia this morning - replacement given Continue calcium carbonate Continue on albumin and lasix. Lasix changed to PO Phosphorus low will order replacement. Hemodialysis yesterday UF of 2 liters Paracentesis yesterday for 4.5 liters Continue to monitor UOP and labs for renal recovery. Patient seen and examined, agree with above. D/W the sister, he is now NO CODE, also considering no HD. Will follow. (2) Hypertension ICD Codes: I10 - Essential (primary) hypertension Plan: On metoprolol and isosorbide (3) Diabetes mellitus ICD Codes: E11.9 - Type 2 diabetes mellitus without complications Plan: Maintain blood sugars at 140 mg/dl to 180 mg/dl (Barrie Oconnor MD) Paula Baum November 21, 2017 14:51 Barrie Oconnor MD November 21, 2017 16:50
[2017-11-21] MEDS: POTASSIUM CHLOR 20 MEQ PREMIX 100 ML IV SCH ×2 (15:00→17:22)
--- NOTE | 2017-11-21 15:34 | HHI.PR ---
Subjective Remarks Patient was somewhat more alert today. Family at bedside. Family states that patient has very poor p.o. intake. Patient complains of some pain but just got pain medication. While I was in the room he did fall asleep but is arousable. Objective Vitals Vital Signs Date Time Temp Pulse Resp B/P (MAP) Pulse Ox O2 Delivery O2 Flow Rate FiO2 11/21/17 15:28 18 11/21/17 13:04 93 11/21/17 12:09 81 11/21/17 11:41 98 Room Air 11/21/17 11:41 86 11/21/17 11:41 97.6 86 18 109/59 (76) 98 11/21/17 10:11 88 11/21/17 09:39 85 11/21/17 08:17 74 11/21/17 07:24 97.5 91 18 123/72 (89) 98 11/21/17 07:24 98 Nasal Cannula 1.00 11/21/17 07:24 88 11/21/17 06:31 71 11/21/17 05:28 89 11/21/17 04:00 84 11/21/17 03:14 98 Nasal Cannula 1.00 11/21/17 03:14 98.0 93 17 104/52 (69) 98 11/21/17 03:00 91 11/21/17 02:39 88 11/21/17 01:37 86 11/21/17 00:00 88 11/20/17 23:15 98.9 90 18 109/52 (71) 100 11/20/17 23:15 Nasal Cannula 2.00 11/20/17 23:00 80 11/20/17 22:06 81 11/20/17 21:00 84 11/20/17 20:00 92 11/20/17 19:27 99.5 93 18 92/46 (61) 100 11/20/17 19:27 100 Nasal Cannula 2.00 11/20/17 19:00 93 11/20/17 18:29 87 18 105/52 (69) 98 11/20/17 18:28 87 11/20/17 17:00 83 11/20/17 16:28 77 18 102/52 (69) 98 11/20/17 16:07 98.7 97 16 93/56 (68) 97 11/20/17 15:51 94 16 86/48 (61) 99 I/O 11/20/17 11/20/17 11/20/17 11/21/17 11/21/17 11/21/17 06:59 14:59 22:59 06:59 14:59 22:59 Intake Total 50 ml 100 ml 580 ml 300 ml Output Total 500 ml 400 ml 300 ml Balance -450 ml 100 ml 180 ml 0 ml Intake Oral 50 ml 480 ml 300 ml IV Total 100 ml 100 ml Output Urine Total 500 ml 400 ml 300 ml # Bowel Movements 1 3 Result Diagram: 11/20/17 0622 11/21/17 0442 Imaging Last Impressions Cyst Biopsy Asp-Paracentesis US 11/20/17 0000 Signed Impressions: Service Date/Time: Monday, November 20, 2017 15:11 - CONCLUSION: Uncomplicated ultrasound guided paracentesis. Nghia Lira MD Catheter Placement X-Ray 11/17/17 0000 Signed Impressions: Service Date/Time: Friday, November 17, 2017 15:11 - CONCLUSION: 1. 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 2. Uncomplicated placement of a left IJ, non-tunneled dialysis catheter. Quoc Nicholson MD Renal Ultrasound 11/14/17 0000 Signed Impressions: Service Date/Time: Tuesday, November 14, 2017 22:30 - CONCLUSION: 1. Nonobstructing right renal calculus. Left renal cyst. Distal pancreatic cyst. Christophe Hernández MD Chest X-Ray 11/09/17 0000 Signed Impressions: Service Date/Time: October 05:02 - CONCLUSION: Mild left base atelectasis. Nghia Sneed MD Abdomen/Pelvis CT 11/01/17 2258 Signed Impressions: Service Date/Time: Wednesday, November 01, 2017 23:11 - CONCLUSION: 1. Cirrhosis with portal hypertension and splenomegaly. 2. Nonspecific low density along the pancreatic tail measures 3.9 cm. 3. Moderate abdominal ascites. 4. Nonobstructing right renal calculus. Josiah Anderson MD Head CT 11/01/17 0000 Signed Impressions: Service Date/Time: Wednesday, November 01, 2017 23:07 - CONCLUSION: No acute intracranial disease. Josiah Anderson MD Objective Remarks GENERAL: Thin, lethargic, confused CARDIOVASCULAR: Regular rate and rhythm, 2/6 BREE RESPIRATORY: Breath sounds equal bilaterally. No accessory muscle use. EXTREMITIES: Edematous NEUROLOGICAL: lethargic, opens his eyes seem somewhat more alert today Procedures None A/P Problem List: (1) Hepatic encephalopathy ICD Code: K72.90 - Hepatic failure, unspecified without coma (2) Hyperammonemia ICD Code: E72.20 - Disorder of urea cycle metabolism, unspecified (3) Thrombocytopenia ICD Code: D69.6 - Thrombocytopenia, unspecified Status: Chronic (4) Liver cirrhosis ICD Code: K74.60 - Unspecified cirrhosis of liver (5) DM type 2 (diabetes mellitus, type 2) ICD Code: E11.9 - Type 2 diabetes mellitus without complications (6) LATOSHA (acute kidney injury) ICD Code: N17.9 - Acute kidney failure, unspecified Status: Acute (7) CKD stage 3 secondary to diabetes ICD Code: E11.22 - Type 2 diabetes mellitus with diabetic chronic kidney disease; N18.3 - Chronic kidney disease, stage 3 (moderate) Status: Chronic (8) Non-Hodgkin lymphoma in remission ICD Code: C85.90 - Non-Hodgkin lymphoma, unspecified, unspecified site (9) Diabetic neuropathy ICD Code: E11.40 - Type 2 diabetes mellitus with diabetic neuropathy, unspecified (10) Ascites ICD Code: R18.8 - Other ascites Assessment and Plan update in medical management 11/21/17: Nephrology evaluated the patient and stopped the Lasix drip. He is now on p.o. Lasix . Patient has poor appetite and family is concerned about p.o. intake. I think it is hook to start a calorie count and await recommendations from RD. Consult has been placed. Mr. 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 Patient presented to the ED on 11/01/17 with complaints of tremors and jerking movements and lower abdominal back pain that have been happening to him for approximately a month. Patient is status post Treanda chemotherapy 6 cycles for non-Hodgkin lymphoma and he completed treatment in March 2017 Hepatic encephalopathy See imaging above, CT abdomen and pelvis shows cirrhosis with portal hypertension and splenomegaly Hyper ammonium in the setting of liver cirrhosis and hepatitis C EEG negative for seizures Currently on Xifaxan, lactulose is on hold due to multiple loose bowel movements. Continue to monitor ammonia levels closely and resume lasctulose as indicated Patient was supposed to receive an ultrasound-guided abdominal paracentesis but was unable to be done because of an elevated INR. He received vitamin K. Last INR 2.1 rocephin & flagyl-DC on 11/18 and continue to follow patient clinically. Thrombocytopenia This appears to be chronic. Likely due to liver disease Oncology following Liver cirrhosis Continue rifaximin and modanifil DM2 Continue sliding-scale LATOSHA, chronic kidney disease stage III--> hepatorenal syndrome is a possibility Baseline creatinine between 1.2-1.4. Renal ultrasound showed a nonobstructing right renal calculus and left renal cyst. Creatinine peaked at 4.23. Currently being followed by nephrology: Continue IV fluids one half-normal saline with bicarb, continue Lasix drip patient appears uremic, FFP and Vas-Cath , HD today Non-Hodgkin's lymphoma Currently in remission Oncology was consulted Sacral wounds Followed by wound care Patient seen and evaluated by palliative care. Continues to want to be full code. The patient is agreeable to hemodialysis if kidneys to need to deteriorate. Watch patient closely for any lethargy, pain medications on hold Discharge Planning RD consulted for calorie count Continue HD per nephro recs Problem Qualifiers (1) Liver cirrhosis: Qualified Codes: K74.60 - Unspecified cirrhosis of liver (2) DM type 2 (diabetes mellitus, type 2): Qualified Codes: E11.65 - Type 2 diabetes mellitus with hyperglycemia; Z79.4 - vermin exterminator (current) use of insulin (3) Diabetic neuropathy: Qualified Codes: E11.42 - Type 2 diabetes mellitus with diabetic polyneuropathy (4) Ascites: Qualified Codes: R18.8 - Other ascites Sarah Gonzales MD November 21, 2017 15:34
[2017-11-21] MEDS ORDERED: POTASSIUM PHOSPHATE INJ 15 MMOL in SODIUM CHLORIDE 0.9% INJ 150 ML IV ONE (17:00)
[2017-11-21] MEDS: FUROSEMIDE 40 MG TAB PO SCH (17:28)
[2017-11-22] VITALS (20 sets, daily range): BP systolic 88–133; BP diastolic 42–63; PULSE 80–107; RESP 18–24; TEMP 99.1–102.4; O2SAT 94–97
[2017-11-22 05:15] LABS: BICARBONATE 27.6 MEQ/L (21.0-32.0); CALCIUM 8.2 MG/DL (8.5-10.1); CREATININE 2.7 MG/DL (0.60-1.30)
[2017-11-22 05:23] LABS: AUTOMATED NEUTROPHIL # 4.2 TH/MM3 (1.8-7.7); BASOPHIL % 0.5 % (0.0-2.0); EOSINOPHIL # 0.1 TH/MM3 (0-0.4); EOSINOPHIL % 0.9 % (0.0-4.0); HEMOGLOBIN 9.9 GM/DL (13.0-17.0); LYMPH % 24.7 % (9.0-44.0); LYMPHOCYTE # 1.5 TH/MM3 (1.0-4.8); MEAN CORPUSCULAR HEMOGLOBIN 30.1 PG (27.0-34.0); MEAN CORPUSCULAR HGB CONC 33.1 % (32.0-36.0); MEAN PLATELET VOLUME 9.1 FL (7.0-11.0); MONOCYTE # 0.4 TH/MM3 (0-0.9); NEUT % 67.9 % (16.0-70.0); PLATELET COUNT 47 TH/MM3 (150-450); RED CELL DISTRIBUTION WIDTH 19.3 % (11.6-17.2); WHITE BLOOD COUNT 6.3 TH/MM3 (4.0-11.0)
[2017-11-22] MEDS: ISOSORBIDE MONONITRATE 60 MG CR TAB (IMDUR) PO SCH (06:13)
[2017-11-22] MEDS: MORPHINE SULFATE 15 MG CONTROLLED RELEASE TAB PO SCH ×2 (06:14→13:23)
[2017-11-22 06:55] LABS: BANDS 3 % (0-6); CORRECTED NUCLEATED RBC 2 /100 WBC (0-0); LYMPHOCYTES 11 % (9-44); MONOCYTES 1 % (0-8); NEUTROPHIL # MANUAL DIFF 5.5 TH/MM3 (1.8-7.7); NUCLEATED RED BLOOD CELL 2 (0-0); POLYS (SEG NEUTROPHILS) 84 % (16-70)
[2017-11-22 06:56] LABS: TARGET CELLS 1+ (NORMAL)
[2017-11-22] MEDS: INSULIN ASPART SUPPLEMENTAL SCALE SQ SCH ×2 (08:55→11:59)
[2017-11-22] MEDS: guaiFENesin E.R. 600 MG TAB PO SCH (09:13)
[2017-11-22] MEDS: ALBUTEROL SULFATE 2 MG TAB PO SCH ×2 (09:13→13:23)
[2017-11-22] MEDS: METOPROLOL SUCCINATE 50 MG EXTENDED RELEASE TAB PO SCH (09:13)
[2017-11-22] MEDS: RIFAXIMIN 550 MG TAB PO SCH (09:13)
[2017-11-22] MEDS: PANTOPRAZOLE SOD 40 MG DELAYED RELEASE TAB PO SCH (09:13)
[2017-11-22] MEDS: FUROSEMIDE 40 MG TAB PO SCH ×2 (09:13→13:24)
[2017-11-22] MEDS: MODAFINIL 200 MG TAB PO SCH (09:14)
[2017-11-22] MEDS: SODIUM CHLORIDE 0.9% FLUSH 10 ML FLUSH IV FLUSH SCH (09:14)
[2017-11-22] MEDS: CALCIUM CARBONATE 1.25 GM (CA 500 MG) TAB PO SCH (09:30)
[2017-11-22] MEDS: traMADol HCL 50 MG TAB PO PRN (09:41)
--- NOTE | 2017-11-22 10:21 | HHI.NPPN ---
Subjective Renal Failure: Chronic History of Present Illness Patient is a 72-year-old male with a past medical history significant for non- Hodgkin's lymphoma, hepatitis C, anemia, COPD, CAD, insulin-dependent diabetes mellitus, chronic kidney disease, hypertension and hyperlipidemia. Presented emergency department for the evaluation of jerking movements. Nephrology is consulted for rising creatinine. On admission creatinine was 2.54 and has now increased to 3.52, potassium 4, and CO2 level at 15.5 today. Patient denies any shortness of breath. No edema. present. Per records has past medical history of chronic kidney disease stage 3 most likely related to diabetes vs HTN vs renovascular disease. Has a brother who is on hemodialysis. Additional Remarks Patient febrile this morning and chilling. Blood cultures ordered. (Paula Baum) Review of Systems General Constitutional: Fever, Chills, Fatigue (Paula Baum) Respiratory Respiratory Remarks denies any SOB (Paula Baum) Cardiovascular Cardiac Remarks Denies CP (Paula Baum) Objective Data Data Vital Signs Date Time Temp Pulse Resp B/P (MAP) Pulse Ox O2 Delivery O2 Flow Rate FiO2 11/22/17 09:36 102.4 11/22/17 07:43 99.5 107 24 133/63 (86) 97 11/22/17 07:43 97 Room Air 11/22/17 06:03 98 11/22/17 05:05 94 11/22/17 04:00 88 11/22/17 03:14 96 Room Air 11/22/17 03:14 99.1 91 18 105/58 (74) 96 11/22/17 03:00 90 11/22/17 02:46 93 11/22/17 01:05 86 11/22/17 00:06 80 11/21/17 23:01 97.9 96 18 116/65 (82) 97 11/21/17 23:01 Room Air 11/21/17 23:00 82 11/21/17 22:22 18 11/21/17 22:00 90 11/21/17 21:00 92 11/21/17 20:00 90 11/21/17 19:19 98.3 93 18 101/66 (78) 98 11/21/17 19:19 98 Room Air 11/21/17 19:00 88 11/21/17 18:35 74 11/21/17 17:45 99 21 11/21/17 17:42 78 11/21/17 16:06 79 11/21/17 15:39 87 11/21/17 15:35 97.6 89 18 109/66 (80) 99 11/21/17 15:35 99 Room Air 11/21/17 13:04 93 11/21/17 12:09 81 11/21/17 11:41 98 Room Air 11/21/17 11:41 86 11/21/17 11:41 97.6 86 18 109/59 (76) 98 (Paula Baum) -: 11/22/17 0438 11/22/17 0438 Imaging Last Impressions Cyst Biopsy Asp-Paracentesis US 11/20/17 0000 Signed Impressions: Service Date/Time: Monday, November 20, 2017 15:11 - CONCLUSION: Uncomplicated ultrasound guided paracentesis. Nghia Lira MD Catheter Placement X-Ray 11/17/17 0000 Signed Impressions: Service Date/Time: Friday, November 17, 2017 15:11 - CONCLUSION: 1. 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 2. Uncomplicated placement of a left IJ, non-tunneled dialysis catheter. Quoc Nicholson MD Renal Ultrasound 11/14/17 0000 Signed Impressions: Service Date/Time: Tuesday, November 14, 2017 22:30 - CONCLUSION: 1. Nonobstructing right renal calculus. Left renal cyst. Distal pancreatic cyst. Christophe Hernández MD Chest X-Ray 11/09/17 0000 Signed Impressions: Service Date/Time: October 05:02 - CONCLUSION: Mild left base atelectasis. Nghia Sneed MD Abdomen/Pelvis CT 11/01/17 7078 Signed Impressions: Service Date/Time: Wednesday, November 01, 2017 23:11 - CONCLUSION: 1. Cirrhosis with portal hypertension and splenomegaly. 2. Nonspecific low density along the pancreatic tail measures 3.9 cm. 3. Moderate abdominal ascites. 4. Nonobstructing right renal calculus. Josiah Anderson MD Head CT 11/01/17 0000 Signed Impressions: Service Date/Time: Wednesday, November 01, 2017 23:07 - CONCLUSION: No acute intracranial disease. Josiah Anderson MD Tubes & Lines: Vas-Cath, [place] Tubes & Lines Comment left chest wall (Paula Baum) Physical Exam General Appearance: No Acute Distress, Malnourished (Paula BaumP) Eyes Eye Exam: Pupils Equal (Paula Baum ACETYLENE CUTTER) Throat Throat Exam: Oral Mucosa [place] & Moist (Paula Baum ACETYLENE CUTTER) Pulmonary Resp Exam: No Distress, Decreased Bases (Paula Baum ACETYLENE CUTTER) Cardiology CV Exam: Regular (Paula Baum ACETYLENE CUTTER) Gastrointestinal/Abdomen GI Exam: Non-Tender, Bowel Sounds Present, Distended (Paula BaumP) Genitourinary Exam: Flank Non-Tender (Paula BaumP) Integumentary Skin Exam: Clear, Warm Skin Remarks Blisters present on lower extremity (Paula BaumP) Extremeties Extremities Exam: Moderate Edema, Pitting Edema, Dependent Edema (Paula BaumP) Neurologic Neuro Exam: Alert, Awake (Paula BaumP) Psychiatric Psych Exam: Appropriate Responses (Paula Baum) Assessment/Plan Problem List: (1) ARF (acute renal failure) ICD Codes: N17.9 - Acute kidney failure, unspecified Status: Acute Plan: Acute kidney injury on admission creatinine was 2.54 initially thought possible prerenal but the continue increase in creatinine more likely ATN from hypotension vs vasculitis from hepatitis C Hepatornal syndrome is also a possibility. Chronic kidney disease stage 3 most likely related to diabetes vs HTN vs renovascular disease. Renal US with nonobstructing right renal calculus. Left renal cyst. Distal pancreatic cyst. Paracentesis 11/21 for 4.5 liters Plan Continue epogen with dialysis Continue calcium carbonate Continue on albumin and lasix. Continue to monitor UOP and labs for renal recovery. Hemodialysis is scheduled for today unless patient and family decide not to proceed with dialysis (2) Hypertension ICD Codes: I10 - Essential (primary) hypertension Plan: On metoprolol and isosorbide (3) Diabetes mellitus ICD Codes: E11.9 - Type 2 diabetes mellitus without complications Plan: Maintain blood sugars at 140 mg/dl to 180 mg/dl (Paula Baum) Problem List: (1) ARF (acute renal failure) ICD Codes: N17.9 - Acute kidney failure, unspecified Status: Acute Plan: Acute kidney injury on admission creatinine was 2.54 initially thought possible prerenal but the continue increase in creatinine more likely ATN from hypotension vs vasculitis from hepatitis C Hepatornal syndrome is also a possibility. Chronic kidney disease stage 3 most likely related to diabetes vs HTN vs renovascular disease. Renal US with nonobstructing right renal calculus. Left renal cyst. Distal pancreatic cyst. Paracentesis 11/21 for 4.5 liters Plan Continue epogen with dialysis Continue calcium carbonate Continue on albumin and lasix. Continue to monitor UOP and labs for renal recovery. Hemodialysis is scheduled for today unless patient and family decide not to proceed with dialysis. Patient seen and examined, agree with above. Patient decided for no more Dialysis, Palliative care following, no urgent need for HD today. Will wait for further decision from family. (2) Hypertension ICD Codes: I10 - Essential (primary) hypertension Plan: On metoprolol and isosorbide (3) Diabetes mellitus ICD Codes: E11.9 - Type 2 diabetes mellitus without complications Plan: Maintain blood sugars at 140 mg/dl to 180 mg/dl (Barrie Oconnor MD) Paula Baum November 22, 2017 10:21 Barrie Oconnor MD November 22, 2017 18:25
--- NOTE | 2017-11-22 11:55 | HHI.PR ---
Subjective Remarks Patient evaluated with daughter SEAN at bedside. Patient refused dialysis today. Blood pressures are low per RN. Spoke with daughter and she wishes to speak with hospice. I did speak with patient and he would like to speak with hospice as well. He complains of pain in his buttock area. Did admit to some nausea. Objective Vitals Vital Signs Date Time Temp Pulse Resp B/P (MAP) Pulse Ox O2 Delivery O2 Flow Rate FiO2 11/22/17 11:05 94 Room Air 11/22/17 11:05 99.7 103 20 88/42 (57) 94 11/22/17 10:38 101.9 11/22/17 10:00 104 11/22/17 09:36 102.4 11/22/17 09:00 104 11/22/17 08:00 102 11/22/17 07:43 99.5 107 24 133/63 (86) 97 11/22/17 07:43 97 Room Air 11/22/17 07:00 105 11/22/17 06:03 98 11/22/17 05:05 94 11/22/17 04:00 88 11/22/17 03:14 96 Room Air 11/22/17 03:14 99.1 91 18 105/58 (74) 96 11/22/17 03:00 90 11/22/17 02:46 93 11/22/17 01:05 86 11/22/17 00:06 80 11/21/17 23:01 97.9 96 18 116/65 (82) 97 11/21/17 23:01 Room Air 11/21/17 23:00 82 11/21/17 22:22 18 11/21/17 22:00 90 11/21/17 21:00 92 11/21/17 20:00 90 11/21/17 19:19 98.3 93 18 101/66 (78) 98 11/21/17 19:19 98 Room Air 11/21/17 19:00 88 11/21/17 18:35 74 11/21/17 17:45 99 21 11/21/17 17:42 78 11/21/17 16:06 79 11/21/17 15:39 87 11/21/17 15:35 97.6 89 18 109/66 (80) 99 11/21/17 15:35 99 Room Air 11/21/17 13:04 93 11/21/17 12:09 81 I/O 11/21/17 11/21/17 11/21/17 11/22/17 11/22/17 11/22/17 07:00 15:00 23:00 07:00 15:00 23:00 Intake Total 300 ml 635 ml 240 ml Output Total 300 ml 250 ml 100 ml Balance 0 ml 385 ml 140 ml Intake Oral 300 ml 480 ml 240 ml IV Total 155 ml Output Urine Total 300 ml 250 ml 100 ml # Bowel Movements 0 0 Result Diagram: 11/22/17 0438 11/22/17 0438 Imaging Last Impressions Cyst Biopsy Asp-Paracentesis US 11/20/17 0000 Signed Impressions: Service Date/Time: Monday, November 20, 2017 15:11 - CONCLUSION: Uncomplicated ultrasound guided paracentesis. Nghia Lira MD Catheter Placement X-Ray 11/17/17 0000 Signed Impressions: Service Date/Time: Friday, November 17, 2017 15:11 - CONCLUSION: 1. 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 2. Uncomplicated placement of a left IJ, non-tunneled dialysis catheter. Quoc Nicholson MD Renal Ultrasound 11/14/17 0000 Signed Impressions: Service Date/Time: Tuesday, November 14, 2017 22:30 - CONCLUSION: 1. Nonobstructing right renal calculus. Left renal cyst. Distal pancreatic cyst. Christophe Hernández MD Chest X-Ray 11/09/17 0000 Signed Impressions: Service Date/Time: October 05:02 - CONCLUSION: Mild left base atelectasis. Nghia Sneed MD Abdomen/Pelvis CT 11/01/17 2258 Signed Impressions: Service Date/Time: Wednesday, November 01, 2017 23:11 - CONCLUSION: 1. Cirrhosis with portal hypertension and splenomegaly. 2. Nonspecific low density along the pancreatic tail measures 3.9 cm. 3. Moderate abdominal ascites. 4. Nonobstructing right renal calculus. Josiah Anderson MD Head CT 11/01/17 0000 Signed Impressions: Service Date/Time: Wednesday, November 01, 2017 23:07 - CONCLUSION: No acute intracranial disease. Josiah Anderson MD Objective Remarks GENERAL: Thin, lethargic, confused but was somewhat alert when i spoke w him CARDIOVASCULAR: Regular rate and rhythm, 2/6 BREE RESPIRATORY: Breath sounds equal bilaterally. No accessory muscle use. EXTREMITIES: Edematous NEUROLOGICAL: opens his eyes, did ask to speak w "someone" Procedures None A/P Problem List: (1) Hepatic encephalopathy ICD Code: K72.90 - Hepatic failure, unspecified without coma (2) Hyperammonemia ICD Code: E72.20 - Disorder of urea cycle metabolism, unspecified (3) Thrombocytopenia ICD Code: D69.6 - Thrombocytopenia, unspecified Status: Chronic (4) Liver cirrhosis ICD Code: K74.60 - Unspecified cirrhosis of liver (5) DM type 2 (diabetes mellitus, type 2) ICD Code: E11.9 - Type 2 diabetes mellitus without complications (6) LATOSHA (acute kidney injury) ICD Code: N17.9 - Acute kidney failure, unspecified Status: Acute (7) CKD stage 3 secondary to diabetes ICD Code: E11.22 - Type 2 diabetes mellitus with diabetic chronic kidney disease; N18.3 - Chronic kidney disease, stage 3 (moderate) Status: Chronic (8) Non-Hodgkin lymphoma in remission ICD Code: C85.90 - Non-Hodgkin lymphoma, unspecified, unspecified site (9) Diabetic neuropathy ICD Code: E11.40 - Type 2 diabetes mellitus with diabetic neuropathy, unspecified (10) Ascites ICD Code: R18.8 - Other ascites Assessment and Plan update in medical management 11/21/17: Nephrology evaluated the patient and stopped the Lasix drip. He is now on p.o. Lasix . Patient has poor appetite and family is concerned about p.o. intake. I think it is hook to start a calorie count and await recommendations from RD. Consult has been placed. Update and medical management 11/22/17: I was notified by RN the patient refused hemodialysis today. He is currently on p.o. Lasix. Calorie count in progress. Patient's daughter SEAN is at bedside and is requesting to speak with hospice. I did comfort with patient and he tells me "I want to speak with someone ". I spoke with case management and she called hospice and they will try to be there as soon as possible. Will await further recommendations from hospice. Patient's blood pressure very low. I requested that are and start fluids at 50 mL's per hour for a total of 250 mL's. Patient did spike a fever and blood cultures were ordered however since patient is requesting hospice, will hold off on drawing blood cultures and per POA pt told her "let me go", will respect pt wishes and await recs from hospice. Mr. 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 Patient presented to the ED on 11/01/17 with complaints of tremors and jerking movements and lower abdominal back pain that have been happening to him for approximately a month. Patient is status post Treanda chemotherapy 6 cycles for non-Hodgkin lymphoma and he completed treatment in March 2017 Hepatic encephalopathy See imaging above, CT abdomen and pelvis shows cirrhosis with portal hypertension and splenomegaly Hyper ammonium in the setting of liver cirrhosis and hepatitis C EEG negative for seizures Currently on Xifaxan, lactulose is on hold due to multiple loose bowel movements. Continue to monitor ammonia levels closely and resume lasctulose as indicated Patient was supposed to receive an ultrasound-guided abdominal paracentesis but was unable to be done because of an elevated INR. He received vitamin K. Last INR 2.1 rocephin & flagyl-DC on 11/18 and continue to follow patient clinically. Thrombocytopenia This appears to be chronic. Likely due to liver disease Oncology following Liver cirrhosis Continue rifaximin and modanifil DM2 Continue sliding-scale LATOSHA, chronic kidney disease stage III--> hepatorenal syndrome is a possibility Baseline creatinine between 1.2-1.4. Renal ultrasound showed a nonobstructing right renal calculus and left renal cyst. Creatinine peaked at 4.23. Currently being followed by nephrology: Continue IV fluids one half-normal saline with bicarb, continue Lasix drip patient appears uremic, FFP and Vas-Cath , HD today Non-Hodgkin's lymphoma Currently in remission Oncology was consulted Sacral wounds Followed by wound care Patient seen and evaluated by palliative care. Continues to want to be full code. The patient is agreeable to hemodialysis if kidneys to need to deteriorate. Watch patient closely for any lethargy, pain medications on hold Discharge Planning Hospice has been consulted. awaiting final recs Problem Qualifiers (1) Liver cirrhosis: Qualified Codes: K74.60 - Unspecified cirrhosis of liver (2) DM type 2 (diabetes mellitus, type 2): Qualified Codes: E11.65 - Type 2 diabetes mellitus with hyperglycemia; Z79.4 - retirement (current) use of insulin (3) Diabetic neuropathy: Qualified Codes: E11.42 - Type 2 diabetes mellitus with diabetic polyneuropathy (4) Ascites: Qualified Codes: R18.8 - Other ascites Sarah Gonzales MD November 22, 2017 11:55
[2017-11-22] MEDS ORDERED: SODIUM CHLOR 0.9% 1000 ML INJ 250 ML IV SCH (12:00)
[2017-11-22 13:09] LABS: AMYLASE BODY FLUID 12 U/L; AMYLASE BODY FLUID TYPE PERITONEAL
--- NOTE | 2017-11-22 13:14 | HHI.HCPN ---
Reason for visit a. To assist with evaluation and management of symptoms including: Pain, nausea and vomiting physical deconditioning b. To assist medical decision maker(s) with: better understanding of current medical conditions; weighing benefits/burdens of medical treatment options; making medical treatment decisions. Subjective/Interval History Follow up medically necessary for symptom management and further clarification of goals of care. Patient seen and examined in the presence of his daughter Olga Salas and another family member. Patient is in bed, awake, lethargic and showing signs of discomfort. Patient complaining of pain to the sacral area. Patient is on morphine sulfate 15 mg TID. Also has tramadol 50 mg every 8 hours PRN. patient refused to go for hemodialysis today, told his daughter that he does not want to do hemodialysis anymore. Patient has been febrile with a T-max of 102.4F, he has also been hypotensive with systolic blood pressure in the high 80s. Laboratory workup today revealing WBC 6.3, hemoglobin 9.9, hematocrit 30.0, platelet count 4 7, sodium 140, potassium 3.9, BUN/creatinine 34/2.70, estimated GFR 28, random glucose 125 , calcium 8.2. Discussion with patient's daughter Olga who is patient`s healthcare surrogate. Patient has decided to forego aggressive treatment and transition to comfort care only through hospice services. Patient and his daughter understands that by stopping hemodialysis patient will soon. Patient would like to be kept comfortable, with no pain until he dies. Case discussed with hospice entrance attendant Sheba. . Family/friend interactions Bedside conversation with patient's daughter Olga Salas is also his healthcare surrogate. . Advance Directives Health Care Surrogate: Copy in medical record Advance Directive Specifics Date completed: 11/06/2017 . Health Care Surrogate(s): Healthcare surrogate -Olga Silva [phone] Alternate healthcare surrogate -Carolina Hameed [phone] Third choice (Alternate HCS)-Carisa Ayala-[phone] . Objective Vital Signs Date Time Temp Pulse Resp B/P (MAP) Pulse Ox O2 Delivery O2 Flow Rate FiO2 11/22/17 12:00 102 11/22/17 11:05 94 Room Air 11/22/17 11:05 99.7 103 20 88/42 (57) 94 11/22/17 11:00 107 11/22/17 10:38 101.9 11/22/17 10:00 104 11/22/17 09:36 102.4 11/22/17 09:00 104 11/22/17 08:00 102 11/22/17 07:43 99.5 107 24 133/63 (86) 97 11/22/17 07:43 97 Room Air 11/22/17 07:00 105 11/22/17 06:03 98 11/22/17 05:05 94 11/22/17 04:00 88 11/22/17 03:14 96 Room Air 11/22/17 03:14 99.1 91 18 105/58 (74) 96 11/22/17 03:00 90 11/22/17 02:46 93 11/22/17 01:05 86 11/22/17 00:06 80 11/21/17 23:01 97.9 96 18 116/65 (82) 97 11/21/17 23:01 Room Air 11/21/17 23:00 82 11/21/17 22:22 18 11/21/17 22:00 90 11/21/17 21:00 92 11/21/17 20:00 90 11/21/17 19:19 98.3 93 18 101/66 (78) 98 11/21/17 19:19 98 Room Air 11/21/17 19:00 88 11/21/17 18:35 74 11/21/17 17:45 99 21 11/21/17 17:42 78 11/21/17 16:06 79 11/21/17 15:39 87 11/21/17 15:35 97.6 89 18 109/66 (80) 99 11/21/17 15:35 99 Room Air 11/21/17 13:04 93 Intake & Output 11/22/17 11/22/17 07:00 19:00 Intake Total 395 ml Output Total 100 ml Balance 295 ml Intake Oral 240 ml IV Total 155 ml Output Urine Total 100 ml # Bowel Movements 0 Physical Exam CONSTITUTIONAL/GENERAL: This is a chronically ill-appearing patient, awake, endorsing pain to his sacral area and all over SKIN: blisters bilateral lower extremities, discoloration to bilateral lower extremities CARDIOVASCULAR: S1, S2 normal, no gallops, or rubs. No JVD. Peripheral pulses symmetric. Generalized edema to bilateral lower extremities RESPIRATORY/CHEST: Symmetric, mildly labored respirations. Diminished lung sounds in the bases GASTROINTESTINAL: Abdomen soft, non-tender, distended ,no guarding. Hypoactive bowel sounds MUSCULOSKELETAL: Extremities without clubbing, cyanosis. No calf tenderness. No mottling or clubbing. NEUROLOGICAL: Awake, lethargic, oriented to self, place and situation.Moves all extremities with generalized weakness. Able to follow commands. PSYCHIATRIC: No obvious anxiety/depression. no apparent hallucinations or other psychotic thought process. . Diagnostic Tests Laboratory Laboratory Tests Test 11/20/17 06:22 11/20/17 12:30 11/20/17 15:30 11/21/17 04:42 White Blood Count 5.1 TH/MM3 (4.0-11.0) Red Blood Count 3.12 MIL/MM3 (4.50-5.90) Hemoglobin 9.3 GM/DL (13.0-17.0) Hematocrit 28.0 % (39.0-51.0) Mean Corpuscular Volume 89.8 FL (80.0-100.0) Mean Corpuscular Hemoglobin 29.9 PG (27.0-34.0) Mean Corpuscular Hemoglobin Concent 33.3 % (32.0-36.0) Red Cell Distribution Width 18.6 % (11.6-17.2) Platelet Count 39 TH/MM3 (150-450) Mean Platelet Volume 8.3 FL (7.0-11.0) Neutrophils (%) (Auto) 59.6 % (16.0-70.0) Lymphocytes (%) (Auto) 29.2 % (9.0-44.0) Monocytes (%) (Auto) 10.2 % (0.0-8.0) Eosinophils (%) (Auto) 0.6 % (0.0-4.0) Basophils (%) (Auto) 0.4 % (0.0-2.0) Neutrophils # (Auto) 3.1 TH/MM3 (1.8-7.7) Lymphocytes # (Auto) 1.5 TH/MM3 (1.0-4.8) Monocytes # (Auto) 0.5 TH/MM3 (0-0.9) Eosinophils # (Auto) 0.0 TH/MM3 (0-0.4) Basophils # (Auto) 0.0 TH/MM3 (0-0.2) CBC Comment AUTO DIFF Differential Total Cells Counted 100 Neutrophils % (Manual) 78 % (16-70) Lymphocytes % 12 % (9-44) Monocytes % 9 % (0-8) Eosinophils % 1 % (0-4) Neutrophils # (Manual) 4.0 TH/MM3 (1.8-7.7) Nucleated Red Blood Cells 3 /100 WBC (0-0) Differential Comment FINAL DIFF MANUAL Platelet Estimate LOW (NORMAL) Platelet Morphology Comment NORMAL (NORMAL) Tear Drop Cells 1+ (NORMAL) Ovalocytes 1+ (NORMAL) Keratocytes OCC (NORMAL) Red Cell Morphology Comment (NORMAL) Blood Urea Nitrogen 43 MG/DL (7-18) 29 MG/DL (7-18) Creatinine 3.00 MG/DL (0.60-1.30) 2.38 MG/DL (0.60-1.30) Random Glucose 111 MG/DL (74-106) 154 MG/DL (74-106) Total Protein 5.5 GM/DL (6.4-8.2) Albumin 2.5 GM/DL (3.4-5.0) Calcium Level 8.1 MG/DL (8.5-10.1) 8.2 MG/DL (8.5-10.1) Alkaline Phosphatase 65 U/L (45-117) Aspartate Amino Transf (AST/SGOT) 50 U/L (15-37) Alanine Aminotransferase (ALT/SGPT) 19 U/L (12-78) Total Bilirubin 4.0 MG/DL (0.2-1.0) Sodium Level 141 MEQ/L (136-145) 142 MEQ/L (136-145) Potassium Level 2.8 MEQ/L (3.5-5.1) 3.1 MEQ/L (3.5-5.1) Chloride Level 106 MEQ/L (98-107) 105 MEQ/L (98-107) Carbon Dioxide Level 25.4 MEQ/L (21.0-32.0) 27.2 MEQ/L (21.0-32.0) Anion Gap 10 MEQ/L (5-15) 10 MEQ/L (5-15) Estimat Glomerular Filtration Rate 25 ML/MIN (>89) 33 ML/MIN (>89) Magnesium Level 1.9 MG/DL (1.5-2.5) 1.8 MG/DL (1.5-2.5) Prothrombin Time 21.6 SEC (9.8-11.6) Prothromb Time International Ratio 2.1 RATIO Peritoneal Fluid WBC 216 /MM3 (0-10) Peritoneal Fluid RBC 842 /MM3 (0-0) Peritoneal Fluid Neutrophils 69 % Peritoneal Fluid Lymphocytes 17 % Peritoneal Fluid Monocytes 11 % Peritoneal Fluid Mesothelial Cells 3 % Peritoneal Fluid Total Protein 0.9 GM/DL Peritoneal Fluid Albumin 0.4 G/DL Peritoneal Fluid LDH 69 U/L Peritoneal Fluid Glucose 122 MG/DL Phosphorus Level 1.6 MG/DL (2.5-4.9) Test 11/22/17 04:38 White Blood Count 6.3 TH/MM3 (4.0-11.0) Red Blood Count 3.30 MIL/MM3 (4.50-5.90) Hemoglobin 9.9 GM/DL (13.0-17.0) Hematocrit 30.0 % (39.0-51.0) Mean Corpuscular Volume 91.0 FL (80.0-100.0) Mean Corpuscular Hemoglobin 30.1 PG (27.0-34.0) Mean Corpuscular Hemoglobin Concent 33.1 % (32.0-36.0) Red Cell Distribution Width 19.3 % (11.6-17.2) Platelet Count 47 TH/MM3 (150-450) Mean Platelet Volume 9.1 FL (7.0-11.0) Neutrophils (%) (Auto) 67.9 % (16.0-70.0) Lymphocytes (%) (Auto) 24.7 % (9.0-44.0) Monocytes (%) (Auto) 6.0 % (0.0-8.0) Eosinophils (%) (Auto) 0.9 % (0.0-4.0) Basophils (%) (Auto) 0.5 % (0.0-2.0) Neutrophils # (Auto) 4.2 TH/MM3 (1.8-7.7) Lymphocytes # (Auto) 1.5 TH/MM3 (1.0-4.8) Monocytes # (Auto) 0.4 TH/MM3 (0-0.9) Eosinophils # (Auto) 0.1 TH/MM3 (0-0.4) Basophils # (Auto) 0.0 TH/MM3 (0-0.2) CBC Comment AUTO DIFF Differential Total Cells Counted 100 Neutrophils % (Manual) 84 % (16-70) Band Neutrophils % 3 % (0-6) Lymphocytes % 11 % (9-44) Monocytes % 1 % (0-8) Eosinophils % 1 % (0-4) Neutrophils # (Manual) 5.5 TH/MM3 (1.8-7.7) Nucleated Red Blood Cells 2 /100 WBC (0-0) Differential Comment FINAL DIFF MANUAL Platelet Estimate LOW (NORMAL) Platelet Morphology Comment NORMAL (NORMAL) Target Cells 1+ (NORMAL) Blood Urea Nitrogen 34 MG/DL (7-18) Creatinine 2.70 MG/DL (0.60-1.30) Random Glucose 125 MG/DL (74-106) Calcium Level 8.2 MG/DL (8.5-10.1) Sodium Level 140 MEQ/L (136-145) Potassium Level 3.9 MEQ/L (3.5-5.1) Chloride Level 105 MEQ/L (98-107) Carbon Dioxide Level 27.6 MEQ/L (21.0-32.0) Anion Gap 7 MEQ/L (5-15) Estimat Glomerular Filtration Rate 28 ML/MIN (>89) Result Diagram: 11/22/178 11/22/17 0438 Microbiology Microbiology Date/Time Source Procedure Growth Status 11/20/17 15:30 Fluid Ascites Fluid Gram Stain - Final Resulted 11/20/17 15:30 Fluid Ascites Fluid Body Fluid Culture - Preliminary NO GROWTH IN 48 HOURS. Resulted Procedures 11/17/2017-placement of right IJ hemodialysis catheter 11/20/[id number] paracentesis . Assessment and Plan Disease Oriented Problem List: (1) Cirrhosis with portal hypertension (2) Non-Hodgkin lymphoma in remission (3) Chronic kidney disease, stage III (moderate) (4) Tremor (5) Hyperammonemia (6) Coronary artery disease (7) Hypertension (8) Diabetes mellitus (9) GERD (gastroesophageal reflux disease) Symptom Scale: (1) Pain 0-10 Scale: Unable to quantify Comment: Generalized pain, abdominal pain at times. History of peripheral neuropathy. . (2) Nausea and vomiting 0-10 Scale: Unable to quantify Comment: Patient complaining of nausea/vomiting. . (3) Physical deconditioning 0-10 Scale: Unable to quantify Comment: Progressive/worsening . Pertinent Non-Medical Issues Psychosocial:Patient was born in [place] and he moved to [place] when he was very young. Patient was twice, once and his second is . 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 Patient his 2 adult daughters and 1 son. Patient lived alone in an apartment prior to this hospitalization. Spiritual: Patient is Catholic Legal: Completed healthcare surrogate form Ethical issues impacting care: None identified at this time . Important Contacts Daughter-Olga Hurtado [phone] Daughter-Carolina Salas [phone] . Prognosis Mr. 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 Patient presented to the ED on 11/01/17 with complaints of tremors and jerking movements and lower abdominal back pain that have been happening to him for approximately a month. Patient is status post Treanda chemotherapy 6 cycles for non-Hodgkin lymphoma and he completed treatment in March 2017. Restaging PET scan in May 2017 was normal. Given ongoing comorbidities patient remains at risk for further complications, deterioration and decline . Code Status: No Code Plan PLAN: Legal decision maker: Patient is able to participate in medical decision making, due to intermittent periods of lethargy and hyperammonemia, recommending joint decision making with his daughter Olga Salas who is his healthcare surrogate and/or daughter Carolina Salas who is his alternate healthcare surrogate. If the aforementioned are not able to serve his third choice HCS is his sister Samantha Younger. Goals: Transitioning to comfort care only through hospice services. CODE STATUS: No code DNR/DNI- Community DNR signed and placed on patient`s chart. Discussion with patient's daughter Olga who is patient`s healthcare surrogate. Patient has decided to forego aggressive treatment and transition to comfort care only through hospice services. Patient and his daughter understands that by stopping hemodialysis patient will soon. Patient would like to be kept comfortable, with no pain until he dies. SYMPTOMS: * Pain: History of peripheral neuropathy. Came in complaining of generalized pain, he has jerking/abnormal movement. Patient complaining of generalized pain. Patient is on morphine sulfate 15 mg every 8 hours, 3 doses have been held due to lethargy. Advised bedside RN to monitor patient for withdrawal symptoms and to medicate patient for pain. Patient also has tramadol 50 mg every 8 hours PRN for pain. Gabapentin currently on hold. No further recommendations. * Nausea/Vomiting: Patient has been reported to be vomiting for the past 2 days and also c/o of nausea. Patient has been receiving his scheduled Morphine Sulfate. N/V can be one of the symptoms associated with withdrawal. Avoid holding scheduled morphine dose unless ordered to do so. Patient has Ondansetron 4mg q 6 hrs prn available, last dose administered 11/17/17. * Physical deconditioning: Patient ambulates at home with a walker and is now requiring SNF. Per family, patient is being progressively declining and requiring assistance with most of his ADLs. Physical therapy consulted, recommended PT at rehab. 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 Occupational therapy following, recommended OT at Rehab. Palliative care will continue to follow the patient during hospital course as condition evolves, to assist patient/decision-maker with understanding of their medical conditions, weighing benefits/burdens of treatment options, for clarification of goals of treatment. Additionally will assist with any symptoms of palliative concern Attestation To help prompt me to consider important information that might be impacting today's encounter and assessment, information from prior notes written by myself or my colleagues may have been "brought forward" into today's note. My signature on this note, however, is an attestation that I personally performed the exam, history, and/or decision-making noted today, and, unless otherwise indicated, the interactions with patient, family, and staff as well as the review of records all occurred today. I also attest that the listed assessment and stated plan reflect my best clinical judgment today based on the combination of historical information, prior notes, and today's exam/ interactions. When time spent is documented, it refers only to time spent today by the signer, or if indicated, combined time spent today by collaborating physician/nurse practitioner. Speedy Arthur November 22, 2017 13:14
--- NOTE | 2017-11-22 15:35 | HHI.DS ---
Discharge Summary Admission Date Nov 01, 2017 at 23:45 Discharge Date: November 22, 2017 Admitting Diagnosis LATOSHA, hyperkalemia, abnormal EKG, generalized weakness (1) Hepatic encephalopathy ICD Code: K72.90 - Hepatic failure, unspecified without coma (2) Hyperammonemia ICD Code: E72.20 - Disorder of urea cycle metabolism, unspecified (3) Thrombocytopenia ICD Code: D69.6 - Thrombocytopenia, unspecified Status: Chronic (4) Liver cirrhosis ICD Code: K74.60 - Unspecified cirrhosis of liver (5) DM type 2 (diabetes mellitus, type 2) ICD Code: E11.9 - Type 2 diabetes mellitus without complications (6) LATOSHA (acute kidney injury) ICD Code: N17.9 - Acute kidney failure, unspecified Status: Acute (7) CKD stage 3 secondary to diabetes ICD Code: E11.22 - Type 2 diabetes mellitus with diabetic chronic kidney disease; N18.3 - Chronic kidney disease, stage 3 (moderate) Status: Chronic (8) Non-Hodgkin lymphoma in remission ICD Code: C85.90 - Non-Hodgkin lymphoma, unspecified, unspecified site (9) Diabetic neuropathy ICD Code: E11.40 - Type 2 diabetes mellitus with diabetic neuropathy, unspecified (10) Ascites ICD Code: R18.8 - Other ascites Procedures left IJ, non-tunneled dialysis paracentesis Brief History - From Admission 72-year-old male with a past medical history significant for non-Hodgkin's lymphoma, hepatitis C, anemia, COPD, CAD, insulin-dependent diabetes mellitus, chronic kidney disease, hypertension and hyperlipidemia presents to the emergency department for the evaluation of jerking movements. This patient states that he has had these tremors and jerking movements for approximately one month. He endorses accompanying nausea and anorexia for the same amount of time. He states he has had unintentional weight loss which he believes is secondary to his chemotherapy. He also endorses intermittent chest pain for the past 3-4 weeks which she describes as a pressure that is substernal and nonradiating. He has associated shortness of breath. He denies any emesis or diarrhea. No lateralizing signs/symptoms. Positive fatigue/weakness. CBC/BMP: 11/22/17 0438 11/22/17 0438 Significant Findings Laboratory Tests Test 11/20/17 06:22 11/20/17 12:30 11/20/17 15:30 11/21/17 04:42 Red Blood Count 3.12 MIL/MM3 (4.50-5.90) Hemoglobin 9.3 GM/DL (13.0-17.0) Hematocrit 28.0 % (39.0-51.0) Red Cell Distribution Width 18.6 % (11.6-17.2) Platelet Count 39 TH/MM3 (150-450) Monocytes (%) (Auto) 10.2 % (0.0-8.0) Neutrophils % (Manual) 78 % (16-70) Monocytes % 9 % (0-8) Nucleated Red Blood Cells 3 /100 WBC (0-0) Platelet Estimate LOW (NORMAL) Tear Drop Cells 1+ (NORMAL) Ovalocytes 1+ (NORMAL) Blood Urea Nitrogen 43 MG/DL (7-18) 29 MG/DL (7-18) Creatinine 3.00 MG/DL (0.60-1.30) 2.38 MG/DL (0.60-1.30) Random Glucose 111 MG/DL (74-106) 154 MG/DL (74-106) Total Protein 5.5 GM/DL (6.4-8.2) Albumin 2.5 GM/DL (3.4-5.0) Calcium Level 8.1 MG/DL (8.5-10.1) 8.2 MG/DL (8.5-10.1) Aspartate Amino Transf (AST/SGOT) 50 U/L (15-37) Total Bilirubin 4.0 MG/DL (0.2-1.0) Potassium Level 2.8 MEQ/L (3.5-5.1) 3.1 MEQ/L (3.5-5.1) Estimat Glomerular Filtration Rate 25 ML/MIN (>89) 33 ML/MIN (>89) Prothrombin Time 21.6 SEC (9.8-11.6) Peritoneal Fluid WBC 216 /MM3 (0-10) Peritoneal Fluid RBC 842 /MM3 (0-0) Phosphorus Level 1.6 MG/DL (2.5-4.9) Test 11/22/17 04:38 Red Blood Count 3.30 MIL/MM3 (4.50-5.90) Hemoglobin 9.9 GM/DL (13.0-17.0) Hematocrit 30.0 % (39.0-51.0) Red Cell Distribution Width 19.3 % (11.6-17.2) Platelet Count 47 TH/MM3 (150-450) Neutrophils % (Manual) 84 % (16-70) Nucleated Red Blood Cells 2 /100 WBC (0-0) Platelet Estimate LOW (NORMAL) Target Cells 1+ (NORMAL) Blood Urea Nitrogen 34 MG/DL (7-18) Creatinine 2.70 MG/DL (0.60-1.30) Random Glucose 125 MG/DL (74-106) Calcium Level 8.2 MG/DL (8.5-10.1) Estimat Glomerular Filtration Rate 28 ML/MIN (>89) Imaging Last Impressions Cyst Biopsy Asp-Paracentesis US 11/20/17 0000 Signed Impressions: Service Date/Time: Monday, November 20, 2017 15:11 - CONCLUSION: Uncomplicated ultrasound guided paracentesis. Nghia Lira MD Catheter Placement X-Ray 11/17/17 0000 Signed Impressions: Service Date/Time: Friday, November 17, 2017 15:11 - CONCLUSION: 1. 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 2. Uncomplicated placement of a left IJ, non-tunneled dialysis catheter. Quoc Nicholson MD Renal Ultrasound 11/14/17 0000 Signed Impressions: Service Date/Time: Tuesday, November 14, 2017 22:30 - CONCLUSION: 1. Nonobstructing right renal calculus. Left renal cyst. Distal pancreatic cyst. Christophe Hernández MD Chest X-Ray 11/09/17 0000 Signed Impressions: Service Date/Time: October 05:02 - CONCLUSION: Mild left base atelectasis. Nghia Sneed MD Abdomen/Pelvis CT 11/01/17 8621 Signed Impressions: Service Date/Time: Wednesday, November 01, 2017 23:11 - CONCLUSION: 1. Cirrhosis with portal hypertension and splenomegaly. 2. Nonspecific low density along the pancreatic tail measures 3.9 cm. 3. Moderate abdominal ascites. 4. Nonobstructing right renal calculus. Josiah Anderson MD Head CT 11/01/17 0000 Signed Impressions: Service Date/Time: Wednesday, November 01, 2017 23:07 - CONCLUSION: No acute intracranial disease. Josiah Anderson MD PE at Discharge GENERAL: Thin, lethargic, confused but was somewhat alert when i spoke w him CARDIOVASCULAR: Regular rate and rhythm, 2/6 BREE RESPIRATORY: Breath sounds equal bilaterally. No accessory muscle use. EXTREMITIES: Edematous NEUROLOGICAL: opens his eyes, did ask to speak w "someone Hospital Course 72-year-old male with a history of advanced liver disease was admitted for confusion and failure to thrive. He was found to have elevated ammonia level which caused confusion during most of his stay here. He was being treated for hyperammonemia. Gastroenterology came by and offered initial treatment plans with recommendations for further workup as an outpatient. Pt improved and was at some point stable for discharge to [facility]. However discharge was held as pt developed worsening lethargy, confusion. Pt developed worsening hepatic encephalopathy and kidney failure. Pt required HD and lasix gtt. Palliative care followed throughout hospital course and at first family wanted aggressive treatment. However pt's condition worsened to the point pt himself requested hospice. Pt refused HD today and pt's daughter, SEAN, also agreed to speak w hospice. Hospice evaluated the patient and recommended d/c to the hospice care center. Pt Condition on Discharge: Deteriorating Discharge Disposition: Hospice/Med Facility Discharge Time: > 30 minutes Discharge Instructions DIET: Follow Instructions for: Diabetic Diet, Renal Failure Diet Activities you can perform: Regular-No Restrictions New Medications: Sodium Bicarbonate (Sodium Bicarbonate) 650 Mg Tab 650 MG PO BIDPC for acidosis, #60 TAB 0 Refills Gabapentin (Neurontin) 300 Mg Cap 300 MG PO BID for Pain Management, #60 CAP Isosorbide Mononitrate ER (Isosorbide Mononitrate ER) 60 Mg Tab 120 MG PO DAILY@0700 for Blood Pressure Management, #60 TAB Metoprolol Succinate ER 24 HR (Metoprolol Succinate ER 24 HR) 50 Mg Tab 100 MG PO BID for Blood Pressure Management, #120 TAB Oyster Shell (Oyster Calcium) 500 Mg Calcium (1250 Mg) Tab 500 MG PO DAILY for Electrolyte Replacement, #30 TAB Rifaximin (Xifaxan) 550 Mg Tab 550 MG PO BID for Ammonia management for 30 Days, #60 TAB Continued Medications: Albuterol (Albuterol) 4 Mg Tab 4 MG PO TID for Asthma Management, #90 TAB 0 Refills Albuterol 18 GM Inh (Ventolin Hfa 18 GM Inh) 90 Mcg/Act Aer 1 PUFF INH Q4H PRN for SHORTNESS OF BREATH, #1 INHALER 0 Refills Furosemide (Lasix) 40 Mg Tab 40 MG PO BID, #60 TAB 0 Refills Gabapentin (Gabapentin) 300 Mg Cap 300 MG PO TID, #90 CAP 0 Refills Insulin Lispro (Human) Inj (Humalog Inj) 1,000 Unit/10 Ml Vial 1-9 UNITS SQ ACHS for Blood Sugar Management, #1 VIAL 0 Refills Max dose at bedtime:( )units; sugars< 70,(0)units; sugars 150-199,(1)unit; sugars 200-249,(3)units; sugars 250-299,(5)units; sugars 300-349,(7)units; sugars more than 349,(9)units. Ipratropium Neb (Ipratropium Neb) 0.5 Mg/2.5 Ml Amp 0.5 MG NEB Q6HR NEB PRN for SHORTNESS OF BREATH, #120 NEBULE 0 Refills Isosorbide Mononitrate ER (Isosorbide Mononitrate ER) 30 Mg Bandar 30 MG PO DAILY for Prevent Chest Pain, #30 TAB 0 Refills Lactulose Liq (Lactulose Liq) 10 Gm/15 Ml Soln 45 ML PO Q6H for high ammonia, #3.5 LITER 0 Refills (This prescription has been renewed) may lower dose if having 3-4 soft stools daily Metoprolol Succinate ER 24 HR (Toprol XL) 50 Mg Tab 50 MG PO BID, #30 TAB 0 Refills Morphine ER (Morphine ER) 30 Mg Tab 30 MG PO Q8H for Pain Management, #9 TAB 0 Refills (This prescription has been renewed) Nitroglycerin SL (Nitroglycerin SL) 0.4 Mg Subl 0.4 MG SL DIRECTED PRN for CHEST PAIN, #100 TAB.SL 0 Refills ONE TABLET UNDER THE TONGUE NEEDED FOR CHEST PAIN, MAY REPEAT EVERY FIVE MINUTES FOR A TOTAL OF 3 DOSES OR CALL 911 IF NO RELIEF Pantoprazole (Protonix) 40 Mg Tab 40 MG PO DAILY for Reflux, #30 TAB 0 Refills Potassium Chloride ER (K-Tab) 20 Meq Tab 20 MEQ PO DAILY for Electrolyte Replacement, #30 TAB 0 Refills Trazodone (Trazodone) 50 Mg Tab 50 MG PO HS for Control Depression, #30 TAB 0 Refills Sarah Gonzales MD November 22, 2017 15:35
== END 2017-11-22 16:09 | disposition hospice, inpatient (51) | DRG 441 ==
LOC: NEPC 19:50 → NEDA 23:45 → NEDH 11-02 03:45 → HCIN 11-02 19:37 → HCIS 11-14 14:39
PROVIDERS: ADMIT Hospitalist; ATTEND Hospitalist
PROC: 30233N1 Transfusion of Nonautologous Red Blood Cells into Peripheral Vein, Percutaneous Approach (ICD-10-PCS; 2017-11-04)
PROC: 30233K1 Transfusion of Nonautologous Frozen Plasma into Peripheral Vein, Percutaneous Approach (ICD-10-PCS; principal; 2017-11-17)
PROC: 05HN33Z Insertion of Infusion Device into Left Internal Jugular Vein, Percutaneous Approach (ICD-10-PCS; 2017-11-17)
PROC: 5A1D70Z Performance of Urinary Filtration, Intermittent, Less than 6 Hours Per Day (ICD-10-PCS; 2017-11-17)
PROC: 0W9G3ZX Drainage of Peritoneal Cavity, Percutaneous Approach, Diagnostic (ICD-10-PCS; 2017-11-20)
DX: K72.90 Hepatic failure, unspecified without coma (principal); N17.0 Acute kidney failure with tubular necrosis; K76.7 Hepatorenal syndrome; G93.41 Metabolic encephalopathy; I47.2 Ventricular tachycardia; E87.2 Acidosis; E72.20 Disorder of urea cycle metabolism, unspecified; I13.0 Hypertensive heart and chronic kidney disease with heart failure and stage 1 through stage 4 chronic kidney disease, or unspecified chronic kidney disease; N18.3 Chronic kidney disease, stage 3 (moderate); D61.818 Other pancytopenia; K76.6 Portal hypertension; R18.8 Other ascites; K86.2 Cyst of pancreas; I50.9 Heart failure, unspecified; E11.22 Type 2 diabetes mellitus with diabetic chronic kidney disease; E87.5 Hyperkalemia; E11.42 Type 2 diabetes mellitus with diabetic polyneuropathy; E86.0 Dehydration; K74.69 Other cirrhosis of liver; J44.9 Chronic obstructive pulmonary disease, unspecified; I25.10 Atherosclerotic heart disease of native coronary artery without angina pectoris; E78.5 Hyperlipidemia, unspecified; D63.1 Anemia in chronic kidney disease; E11.65 Type 2 diabetes mellitus with hyperglycemia; B19.20 Unspecified viral hepatitis C without hepatic coma; F41.9 Anxiety disorder, unspecified; M10.9 Gout, unspecified; R27.8 Other lack of coordination; R62.7 Adult failure to thrive; K21.9 Gastro-esophageal reflux disease without esophagitis; D69.59 Other secondary thrombocytopenia; D73.1 Hypersplenism; N20.0 Calculus of kidney; G47.30 Sleep apnea, unspecified; E03.9 Hypothyroidism, unspecified; N28.1 Cyst of kidney, acquired; E78.00 Pure hypercholesterolemia, unspecified; E87.6 Hypokalemia; G25.3 Myoclonus; Z66 Do not resuscitate; F32.9 Major depressive disorder, single episode, unspecified; Z51.5 Encounter for palliative care; I95.9 Hypotension, unspecified; R19.7 Diarrhea, unspecified; F17.210 Nicotine dependence, cigarettes, uncomplicated; Z85.72 Personal history of non-Hodgkin lymphomas; Z79.4 Long term (current) use of insulin; Z92.21 Personal history of antineoplastic chemotherapy; Z95.1 Presence of aortocoronary bypass graft; Z84.1 Family history of disorders of kidney and ureter; Z91.15 Patient's noncompliance with renal dialysis; Z91.19 Patient's noncompliance with other medical treatment and regimen
CPT/HCPCS: 36430; 36556; 49083; 70450; 71045; 74176; 76775; 76937; 77001; 80048; 80053; 80074; 80076; 81001; 82042; 82103; 82105; 82140; 82150; 82390; 82550; 82607; 82668; 82728; 82746; 82945; 82948; 83036; 83520; 83540; 83550; 83605; 83615; 83690; 83735; 84100; 84155; 84157; 84165; 84443; 84484; 85007; 85025; 85027; 85610; 85730; 86038; 86255; 86301; 86850; 86900; 86901; 86920; 86927; 87040; 87070; 87205; 87522; 88112; 89051; 90935; 93005; 94640; 94664; 95819; 96374; 96375; C1729; C1752; J0696; J1580; J1642; J1644; J1815; J1940; J2270; J2405; J3430; J3480; J7030; J7050; J7644; P9016; P9017; P9047; Q4081